=== PATIENT | female | born 1945 | race Hispanic/Latino ===

== ENCOUNTER 2016-06-27 16:14 | Inpatient (IN) | payer MEDICARE ==
[2016-06-27 16:31] LABS: Basophils % (Auto) 0.7 % (0.0-1.8); Eosinophils % (Auto) 0.2 % (0.0-4.3); Hematocrit 45.3 % (30.3-42.9); Hemoglobin 15.1 gm/dl (10.1-14.3); Mean Corpuscular HGB Conc 33 % (30-34); Mean Corpuscular Hemoglobin 28 pg (28-32); Mean Corpuscular Volume 83 fl (79-97); Platelet Count 325 K/mm3 (140-440); Red Blood Count 5.47 M/mm3 (3.65-5.03); Red Cell Distribution Width 13.7 % (13.2-15.2); White Blood Count 13.3 K/mm3 (4.5-11.0)
--- NOTE | 2016-06-27 16:41 | Cat Scan Report ---
FINAL REPORT PROCEDURE: CT HEAD/BRAIN WO CON TECHNIQUE: Computerized tomography of the head was performed without contrast material. HISTORY: neuro deficits \T\lt; 6hrs or sx present upon awakening COMPARISON: 05/30/2015 FINDINGS: There are extensive involutional changes and chronic microvascular changes, with diffuse white matter low attenuation. There are stable bilateral chronic basal ganglia lacunar infarcts. There is no CT evidence of intracranial mass, hemorrhage, acute territorial infarction, or hydrocephalus. The intracranial arteries are symmetric in density. There is also focal stable encephalomalacia in the left cerebellar hemisphere. Calvarium is intact. The visualized paranasal sinuses and mastoids are aerated. IMPRESSION: Extensive involutional changes and chronic microvascular ischemic changes. No CT evidence of acute intracranial abnormality
[2016-06-27 16:42] LABS: INR 1.06 (0.87-1.13); Partial Thromboplastin Time 30.9 Sec. (24.2-36.6)
[2016-06-27 16:50] LABS: Anion Gap 21 mmol/L; BUN/Creatinine Ratio 16.66; Blood Urea Nitrogen 15 mg/dL (7-17); Calcium 9.7 mg/dL (8.4-10.2); Carbon Dioxide 26 mmol/L (22-30); Chloride 98.9 mmol/L (98-107); Glucose 172 mg/dL (65-100); Potassium 3.7 mmol/L (3.6-5.0); Sodium 142 mmol/L (137-145)
--- NOTE | 2016-06-27 17:46 | Emergency Department Report ---
HPI - General Chief Complaint: Neuro Symptoms/Deficit Time Seen by Provider: 06/27/16 16:37 - HPI HPI: Chief complaint: Possible stroke HPI: Patient is a 71-year-old female with a history of multiple CVAs in the past. The most recent was a year ago that affected her left side. Patient states that her left arm is always contracted up against her chest. Patient states that she can walk with a walker. Patient however is a very poor historian. Patient was seen at [facility] emergency Department last night and came home this morning. EMS did not get the exact time that she came home. That was the last time the roommate saw her until he heard her hollering for help 30 minutes before EMS brought her to the emergency department here. According to EMS, they spoke with the patient's son on the phone and he told them that her contracted arm was new. I however was unable to reach him with the phone number I had as it was the wrong number. Patient does not know where she is better than that it is a hospital. Patient lives by herself in a house with her roommate who was unable to give EMS very much information. It is uncertain what the patient's baseline neurologic exam EMS. She is known to be noncompliant with her medications. Mode of arrival: [EMS] Source: [Patient] [old chart] discharge paperwork from [facility] which indicates patient is on Coumadin. Began: See above Duration: See above Context: See above Quality: Diffuse pain everywhere Severity: Unable to assess Improved with: Nothing Worsened with: Nothing Associated signs and symptoms: Unable to assess ED Past Medical Hx - Past Medical History Hx Hypertension: Yes Hx CVA: Yes (3 strokes, left side weakness, doesn't use a cane or walker) Hx Heart Attack/AMI: Yes Hx Congestive Heart Failure: Yes Hx Diabetes: Yes Hx COPD: Yes - Surgical History Hx Cholecystectomy: Yes Additional Surgical History: tubal ligation, shoulder, knee replacement - Social History Smoking Status: Former Smoker Substance Use Type: None - Medications Home Medications: Home Medications Medication Instructions Recorded Confirmed Last Taken Type Metformin HCl [metFORMIN ER] 500 mg PO TID 01/13/13 05/30/15 05/23/14 History Hydrochlorothiazide [HCTZ] 12.5 mg PO QDAY #30 capsule 06/02/15 Unknown Rx Lisinopril [Zestril TAB] 40 mg PO QDAY #30 tablet 06/02/15 Unknown Rx Enoxaparin [Lovenox] 40 mg SUB-Q DAILY 06/27/16 06/27/16 Unknown History Insulin Detemir [Levemir VIAL] 10 units SUB-Q QHS 06/27/16 06/27/16 Unknown History Simvastatin [Zocor TAB] 40 mg PO QHS 06/27/16 06/27/16 Unknown History Warfarin [Coumadin] 5 mg PO DAILY 06/27/16 06/27/16 Unknown History glipiZIDE [glipiZIDE ER] 5 mg PO BID 06/27/16 06/27/16 Unknown History ED Review of Systems ROS: Stated complaint: POSS STROKE Other details as noted in HPI Comment: Unobtainable due to pts medical conditions (patient has dementia) Physical Exam - Physical Exam Vital Signs: Vital Signs 06/27/16 06/27/16 16:27 16:30 Temperature 99.3 F Pulse Rate 84 Respiratory 14 Rate Blood Pressure 182/96 Blood Pressure 163/89 [Right] O2 Sat by Pulse 97 97 Oximetry Physical Exam: GENERAL: The patient is well-developed well-nourished . HEENT: Normocephalic. Atraumatic. Patient has a right gaze preference and does not look over to the left. Patient has moist mucous membranes. NECK: Supple. No meningitic signs are noted. There is no adenopathy noted. CHEST/LUNGS: Clear to auscultation. There is no respiratory distress noted. HEART/CARDIOVASCULAR: Regular. There is no tachycardia. There is no gallop rub or murmur. ABDOMEN: Abdomen is soft, nontender. Patient has normal bowel sounds. There is no abdominal distention. SKIN: There is no rash. There is no edema. There is no diaphoresis. NEURO: The patient is awake, alert, and oriented name and situation. The patient is cooperative. Patient's left upper extremity is contracted against her chest. Patient has strength to her right upper extremity and right lower extremity. Patient is unable to lift her left leg off the bed but can withdraw to tactile stimulation. Left up going toe. MUSCULOSKELETAL: There is no tenderness. There is no evidence of acute injury. ED Course Vital Signs 06/27/16 06/27/16 16:27 16:30 Temperature 99.3 F Pulse Rate 84 Respiratory 14 Rate Blood Pressure 182/96 Blood Pressure 163/89 [Right] O2 Sat by Pulse 97 97 Oximetry - Reevaluation(s) Reevaluation #1: 06/27/16 Spoke with [facility] neurologist Dr. Holley and we agreed that the patient is not a candidate for TPA because of the uncertain time of onset as well as the uncertain is of its patient has new deficits. Therefore a CTA of the head and neck will be performed. 06/27/16 19:03 Discussed CTA with radiologist who states that the patient has right A3 distal occlusion and it is uncertain if it is old or new. Films were sent to [facility] neuro interventionalists and they felt that this was not a lesion amenable to intervention at this time. Patient will be admitted to the hospitalist for further testing to rule out new CVA. ED Medical Decision Making - Lab Data Result diagrams: 06/27/16 16:14 06/27/16 16:14 Critical care attestation.: If time is entered above; I have spent that time in minutes in the direct care of this critically ill patient, excluding procedure time. ED Disposition Clinical Impression: Left-sided sensory deficit present Disposition: OP ADMITTED IP TO THIS HOSP Is pt being admited?: Yes Does the pt Need Aspirin: Yes Condition: Fair Referrals: PRIMARY CARE, [Primary Care Provider] - 3-5 Days Time of Disposition: 19:08 (admit to the hospitalist ) - Assessment Assessment Interval: Baseline - Level of Consciousness 1a. Level of Consciousness: alert - LOC Questions 1b. LOC Questions: answers correctly - LOC Command 1c. LOC Commands: performs tasks correctly - Best Gaze 2. Best Gaze: forced deviation - Visual 3. Visual: complete hemianopia - Facial Palsy 4. Facial Palsy: minor paralysis - Motor Arm 5b. Motor Arm Right: no drift 5a. Motor Arm Left: no movement - Motor Leg 6a. Motor Leg Left: no gravity effort 6b. Motor Leg Right: no drift - Limb Ataxia 7. Limb Ataxia: absent - Sensory 8. Sensory: severe/total sensory loss - Best Language 9. Best Language: no aphasia - Dysarthria 10. Dysarthria: mild/moderate dysarthria - Extinction and Inattention 11. Extinction/Inattention: visual/tactile inattention - Scoring Total Score: 16 Stroke Severity: Moderate to Severe Stroke
--- NOTE | 2016-06-27 18:45 | Cat Scan Report ---
FINAL REPORT EXAM: CT ANGIO HEAD HISTORY: cva TECHNIQUE: Serial axial images through the head during intravenous administration of 100 milliliters Omni 350 contrast with coronal and sagittal reconstruction PRIORS: Noncontrast head CT 06/27/2016 FINDINGS: There is no midline shift. Lateral ventricles are stable in size and configuration. Basilar cisterns are patent. No abnormal enhancing lesions are identified. Sequelae from prior lacunar-type infarcts are again noted in the basal ganglia. Areas of relative hypodensity are seen in the white matter of the cerebral hemispheres. The vertebrobasilar system is patent. Posterior cerebral arteries are patent bilaterally. Stenotic foci are seen in the P1 segments, bilaterally. The distal internal carotid arteries and middle cerebral arteries are patent bilaterally. The left anterior cerebral artery is patent. There appears to be occlusion of the right A3 segment. This can be seen series 3, image [id number], for example. Paranasal sinuses and mastoid air cells are well aerated. No acute osseous abnormality is identified. IMPRESSION: 1. There appears to be occlusion of the distal right anterior cerebral artery is described above. There are currently no studies available for direct comparison. 2. Stenotic foci are seen in the posterior cerebral arteries, bilaterally. 3. Sequelae from prior infarcts are again noted. 4. Areas of relative hypodensity are seen in the white matter of the cerebral hemispheres. This is a nonspecific finding. It may be related to chronic ischemic change from small vessel disease. 5. Report called to Dr. Martinez at time of interpretation.
[2016-06-27 18:51] LABS: Bacteria,Urine 2+ /HPF (Negative); Bilirubin,Urine NEG (Negative); Blood,Urine SM (Negative); Ketones,Urine TR mg/dL (Negative); Leukocyte Esterase,Urine NEG (Negative); Mucus,Urine FEW /HPF; Nitrite,Urine NEG (Negative); Urobilinogen,Urine < 2.0 mg/dL (<2.0)
--- NOTE | 2016-06-27 18:51 | Cat Scan Report ---
FINAL REPORT EXAM: CT ANGIO NECK HISTORY: cva TECHNIQUE: Serial axial images through the neck during intravenous administration of 100 milliliters Omni 350 contrast with coronal and sagittal reconstruction PRIORS: CT angiogram head 06/27/2016 FINDINGS: Areas of relative hypodensity are seen in the white matter of the cerebral hemispheres. Sequelae from prior infarcts are again noted in the basal ganglia. Paranasal sinuses and mastoid air cells are well aerated. Degenerative changes are seen in the cervical spine. There atelectasis in the dependent portion of lungs. There is a 5 millimeter subpleural nodule in the lateral aspect of the right upper lobe. Thyroid gland, submandibular glands and parotid glands appear within normal limits. Atherosclerotic changes are seen in the common carotid artery bifurcations, bilaterally. Ulcerated plaque is seen in the proximal right internal carotid artery. There is stenosis in the proximal right internal carotid artery. Internal luminal diameter is approximately 1.5 millimeters compared to 3.8 millimeters distal to this. There is less than 50 percent stenosis in the proximal left internal carotid artery. Vertebral arteries are patent bilaterally. IMPRESSION: 1. Please refer to dictation from CT angiogram of the head regarding CTA head findings. 2. There is approximately 60 percent stenosis of the proximal right internal carotid artery with suggestion of plaque ulceration. 3. Less than 50 percent stenosis of the proximal left internal carotid artery. 4. 5 millimeter subpleural nodule in right upper lobe. Etiology is uncertain. This could represent sequelae from prior granulomatous process, but other neoplastic process is not excluded. There are currently no studies available for direct comparison. The patient can be further assessed with dedicated CT scan of the chest to evaluate for additional nodules. UNF
[2016-06-27 18:58] LABS: Protein,Urine >500 mg/dL (Negative)
[2016-06-27] MEDS ORDERED: ASPIRIN PO ONE (19:09)
--- NOTE | 2016-06-27 20:06 | History and Physical Report ---
History of Present Illness Date of examination: 06/27/16 Chief complaint: Patient was found lying on the floor History of present illness: Patient is a 71-year-old obese female with history of multiple CVAs in the past , history of type 2 diabetes on insulin, hypertension and hyperlipidemia ( The most recent was a year ago that affected her left side). Patient states that she can walk with a walker. Patient however is a very poor historian. She is oriented to her name and age. She does not know why she is here. Patient was seen at [facility] emergency Department last night and came home this morning. Her roommate apparently heard her bobby for help 30 minutes before EMS brought her to the emergency department here. According to EMS, they spoke with the patient's son on the phone and he told them that her contracted arm was new. I however was unable to reach him with the phone number I had as it was the wrong number. Patient lives by herself in a house with her roommate who was apparently unable to give EMS very much information. It is uncertain what the patient's baseline neurologic exam is. She is known to be noncompliant with her medications. Presently she is unable to move her left lower extremity and she appears to be chronically contracted in her left upper extremity. Neck is also stiff in all directions. Reviewing the medication list from [facility] ED, she is on warfarin and it's unclear if she takes it in the reason for it. However her INR level is grossly subtherapeutic. She has a Kemp catheter. Patient when asked if she has pain denies any pain. She denies any chest pain or shortness of breath or headaches. Denies any abdominal pain nausea or vomitings. History is limited and unreliable Past History Past Medical History: diabetes, hypertension, hyperlipidemia, stroke (history of multiple strokes) Past Surgical History: Other (unknown, she has a surgical scar on her left knee) Social history: no significant social history (unknown) Family history: other (unable to obtain) Medications and Allergies Allergies Allergy/AdvReac Type Severity Reaction Status Date / Time No Known Allergies Allergy Verified 09/26/14 15:05 Home Medications Medication Instructions Recorded Confirmed Last Taken Type Metformin HCl [metFORMIN ER] 500 mg PO DAILY 01/13/13 06/27/16 05/23/14 History Hydrochlorothiazide [HCTZ] 12.5 mg PO QDAY #30 capsule 06/02/15 06/27/16 Unknown Rx Lisinopril [Zestril TAB] 40 mg PO QDAY #30 tablet 06/02/15 06/27/16 Unknown Rx Enoxaparin [Lovenox] 40 mg SUB-Q DAILY 06/27/16 06/27/16 Unknown History Insulin Detemir [Levemir VIAL] 10 units SUB-Q QHS 06/27/16 06/27/16 Unknown History Simvastatin [Zocor TAB] 40 mg PO QHS 06/27/16 06/27/16 Unknown History Warfarin [Coumadin] 5 mg PO DAILY 06/27/16 06/27/16 Unknown History glipiZIDE [glipiZIDE ER] 5 mg PO BID 06/27/16 06/27/16 Unknown History Review of Systems All systems: negative (as stated above in the history of present illness otherwise unobtainable) Exam - Constitutional Vitals: Temp Pulse Resp BP Pulse Ox 99.3 F 94 H 24 184/86 98 06/27/16 16:30 06/27/16 19:00 06/27/16 19:00 06/27/16 19:00 06/27/16 19:00 General appearance: Present: no acute distress - EENT Eyes: Present: PERRL, EOM intact ENT: hearing intact, clear oral mucosa - Neck Neck: Present: rigidity (stiff in all directions) - Respiratory Respiratory effort: normal Respiratory: bilateral: CTA, diminished, negative: rhonchi, wheezing - Cardiovascular Rhythm: regular Heart Sounds: Present: S1 & S2 - Extremities Extremities: No edema - Abdominal General gastrointestinal: Present: soft, non-tender. Absent: hepatomegaly, splenomegaly - Rectal Rectal Exam: deferred - Integumentary Integumentary: Present: clear - Musculoskeletal Musculoskeletal: left sided weakness (left upper extremity appears chronically contracted and the motor power in left lower extremity is 1 over 5. She is able to move her right upper and lower extremities) Results - Labs CBC & Chem 7: 06/27/16 16:14 06/27/16 16:14 Labs: Abnormal lab results 06/27/16 06/27/16 06/27/16 Range/Units 16:14 16:14 16:18 WBC 13.3 H (4.5-11.0) K/mm3 RBC 5.47 H (3.65-5.03) M/mm3 Hgb 15.1 H (10.1-14.3) gm/dl Hct 45.3 H (30.3-42.9) % Seg Neutrophils % 73.8 H (40.0-70.0) % Seg Neutrophils # 9.8 H (1.8-7.7) K/mm3 Glucose 172 H (65-100) mg/dL POC Glucose 164 H (70-105) Assessment and Plan - Patient Problems (1) CVA (cerebral vascular accident) Current Visit: No Status: Acute Qualifiers: CVA mechanism: other Precerebral and cerebral artery: P Laterality of affected vessel: L Qualified Code(s): I63.8 - Other cerebral infarction Plan to address problem: I reviewed head CT CTA and neck CTA Head CT shows no acute lesions and chronic microvascular ischemic changes Head CTA shows occlusion of distal right anterior cerebral artery and old infarcts Neck CTA shows 60% stenosis in right internal carotid artery and less than 50% in the left internal carotid artery Dr. Li in the emergency department contacted the neurologist at [facility] and they recommended conservative treatment and ruled out TPA administration. We will request neurology consult and physical therapy evaluation It's unclear if patient is taking warfarin. 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
[2016-06-27] MEDS ORDERED: COUMADIN PO ONE (20:21)
[2016-06-27] MEDS ORDERED: ZOFRAN IV PRN (20:22)
[2016-06-27] MEDS ORDERED: DULCOLAX PR PRN (20:22)
[2016-06-27] MEDS ORDERED: MORPHINE IV PRN (20:22)
[2016-06-27] MEDS ORDERED: D50W (25GM) IV PRN (20:22)
[2016-06-27] MEDS ORDERED: TYLENOL PO PRN (20:22)
[2016-06-27] MEDS ORDERED: MILK OF MAGNESIA PO PRN (20:22)
[2016-06-27] MEDS ORDERED: ASPIRIN ONE (21:20)
[2016-06-27] MEDS: ZOCOR PO SCH (23:11)
[2016-06-27] MEDS: COUMADIN PO SCH (23:11)
[2016-06-27] MEDS: HEPARIN SUB-Q SCH (23:15)
[2016-06-28] MEDS: D5/0.45NS 1,000 ML IV SCH (00:17)
[2016-06-28] MEDS: APRESOLINE IV PRN ×2 (05:29→08:03)
[2016-06-28] MEDS: HEPARIN SUB-Q SCH ×3 (05:30→21:57)
[2016-06-28] MEDS: ZESTRIL PO SCH (09:25)
--- NOTE | 2016-06-28 10:50 | Consultation ---
History of Present Illness Consult date: 06/28/16 History of present illness: 71 year old female presenting with left-sided weakness. Denies any cardiac symptoms. Past History Past Medical History: diabetes, hypertension, hyperlipidemia, stroke (history of multiple strokes) Past Surgical History: Other (unknown, she has a surgical scar on her left knee) Social history: no significant social history (unknown) Family history: other (unable to obtain) Medications and Allergies Allergies Allergy/AdvReac Type Severity Reaction Status Date / Time No Known Allergies Allergy Verified 09/26/14 15:05 Home Medications Medication Instructions Recorded Confirmed Last Taken Type Metformin HCl [metFORMIN ER] 500 mg PO DAILY 01/13/13 06/27/16 05/23/14 History Hydrochlorothiazide [HCTZ] 12.5 mg PO QDAY #30 capsule 06/02/15 06/27/16 Unknown Rx Lisinopril [Zestril TAB] 40 mg PO QDAY #30 tablet 06/02/15 06/27/16 Unknown Rx Enoxaparin [Lovenox] 40 mg SUB-Q DAILY 06/27/16 06/27/16 Unknown History Insulin Detemir [Levemir VIAL] 10 units SUB-Q QHS 06/27/16 06/27/16 Unknown History Simvastatin [Zocor TAB] 40 mg PO QHS 06/27/16 06/27/16 Unknown History Warfarin [Coumadin] 5 mg PO DAILY 06/27/16 06/27/16 Unknown History glipiZIDE [glipiZIDE ER] 5 mg PO BID 06/27/16 06/27/16 Unknown History Active Meds: Active Medications Acetaminophen (Tylenol) 650 mg PO Q4H PRN PRN Reason: Pain MILD(1-3)/Fever >100.5/COVARRUBIAS Bisacodyl (Dulcolax) 10 mg IA QDAY PRN PRN Reason: Constipation unrelieved by MOM Dextrose (D50w (25gm)) 50 ml IV PRN PRN PRN Reason: Hypoglycemia Heparin Sodium (Porcine) (Heparin) 5,000 unit SUB-Q Q8HR DANIEL Last Admin: 06/28/16 05:30 Dose: 5,000 unit Hydralazine HCl (Apresoline) 5 mg IV Q6H PRN PRN Reason: HTN Last Admin: 06/28/16 08:03 Dose: 5 mg Dextrose/Sodium Chloride (D5/0.45ns) 1,000 mls @ 75 mls/hr IV DIRECT [facility] Last Admin: 06/28/16 00:17 Dose: 75 mls/hr Insulin Aspart (Novolog) 0 units SUB-Q Q6HR [facility] PRN Reason: Protocol Last Admin: 06/28/16 00:00 Dose: Not Given Lisinopril (Zestril) 40 mg PO QDAY [facility] Last Admin: 06/28/16 09:25 Dose: Not Given Magnesium Hydroxide (Milk Of Magnesia) 30 ml PO Q4H PRN PRN Reason: Constipation Morphine Sulfate (Morphine) 1 mg IV Q4H PRN PRN Reason: Pain, Moderate (4-6) Ondansetron HCl (Zofran) 4 mg IV Q8H PRN PRN Reason: N/V unrelieved by Reglan Simvastatin (Zocor) 40 mg PO QHS [facility] Last Admin: 06/27/16 23:11 Dose: Not Given Warfarin Sodium (Coumadin Pharmacy To Dose) 1 each PO PKCONSULT [facility] PRN Reason: Protocol Warfarin Sodium (Coumadin) 7.5 mg PO DAILY@1700 [facility] PRN Reason: Protocol Last Admin: 06/27/16 23:11 Dose: Not Given Physical Examination Vital Signs Pulse Ox 97 06/27/16 16:27 General appearance: no acute distress, well-nourished Neck: Positive: neck supple, trachea midline Cardiac: Positive: Reg Rate and Rhythm, S1/S2, PMI, Laterally Displaced Lungs: Positive: clear to auscultation Neuro: Positive: Sensory Function Intact, Other (left hemiparesis) Extremities: Absent: edema Results 06/27/16 16:14 06/27/16 16:14 EKG interpretations - Telemetry EKG Rhythm: Sinus Rhythm Assessment and Plan 1. Acute CVA rule out cardiac embolic source 2. History of multiple CVAs 3. Essential hypertension 4. Type 2 diabetes mellitus 5. Hyperlipidemia Plan. Cardiac-overton stable up to an Echocardiogram to assess for possible cardiac embolic source. YAMIL to be considered even transthoracic Echo is suboptimal.
[2016-06-28] MEDS: NOVOLOG SUB-Q SCH ×3 (14:09→18:13)
[2016-06-28] MEDS: COUMADIN PO SCH (17:03)
--- NOTE | 2016-06-28 20:42 | Consultation ---
History of Present Illness - Reason for Consult Consult date: 06/28/16 stroke - History of Present Illness spoke to Dr. Fried about patient's condition there is evidence of multiple old stroke and severe intracranial and intracranial vascular disease... current CTA showws total occlusion if the right anterior cerebral artery this is obviously medically treatable non surgical still want to go over carotid u/s with radiliology tyson, since there is ulcerated plaque Thanks I will follow Past History Past Medical History: diabetes, hypertension, hyperlipidemia, stroke (history of multiple strokes) Past Surgical History: Other (unknown, she has a surgical scar on her left knee) Social history: no significant social history (unknown) Family history: other (unable to obtain) Medications and Allergies Allergies Allergy/AdvReac Type Severity Reaction Status Date / Time No Known Allergies Allergy Verified 09/26/14 15:05 Home Medications Medication Instructions Recorded Confirmed Last Taken Type Metformin HCl [metFORMIN ER] 500 mg PO DAILY 01/13/13 06/27/16 05/23/14 History Hydrochlorothiazide [HCTZ] 12.5 mg PO QDAY #30 capsule 06/02/15 06/27/16 Unknown Rx Lisinopril [Zestril TAB] 40 mg PO QDAY #30 tablet 06/02/15 06/27/16 Unknown Rx Enoxaparin [Lovenox] 40 mg SUB-Q DAILY 06/27/16 06/27/16 Unknown History Insulin Detemir [Levemir VIAL] 10 units SUB-Q QHS 06/27/16 06/27/16 Unknown History Simvastatin [Zocor TAB] 40 mg PO QHS 06/27/16 06/27/16 Unknown History Warfarin [Coumadin] 5 mg PO DAILY 06/27/16 06/27/16 Unknown History glipiZIDE [glipiZIDE ER] 5 mg PO BID 06/27/16 06/27/16 Unknown History Active Meds: Active Medications Acetaminophen (Tylenol) 650 mg PO Q4H PRN PRN Reason: Pain MILD(1-3)/Fever >100.5/COVARRUBIAS Bisacodyl (Dulcolax) 10 mg [place] QDAY PRN PRN Reason: Constipation unrelieved by MOM Dextrose (D50w (25gm)) 50 ml IV PRN PRN PRN Reason: Hypoglycemia Heparin Sodium (Porcine) (Heparin) 5,000 unit SUB-Q Q8HR DANIEL Last Admin: 06/28/16 14:09 Dose: 5,000 unit Hydralazine HCl (Apresoline) 5 mg IV Q6H PRN PRN Reason: HTN Last Admin: 06/28/16 08:03 Dose: 5 mg Dextrose/Sodium Chloride (D5/0.45ns) 1,000 mls @ 75 mls/hr IV DIRECT [facility] Last Admin: 06/28/16 00:17 Dose: 75 mls/hr Insulin Aspart (Novolog) 0 units SUB-Q Q6HR [facility] PRN Reason: Protocol Last Admin: 06/28/16 18:13 Dose: 2 units Lisinopril (Zestril) 40 mg PO QDAY [facility] Last Admin: 06/28/16 09:25 Dose: Not Given Magnesium Hydroxide (Milk Of Magnesia) 30 ml PO Q4H PRN PRN Reason: Constipation Morphine Sulfate (Morphine) 1 mg IV Q4H PRN PRN Reason: Pain, Moderate (4-6) Ondansetron HCl (Zofran) 4 mg IV Q8H PRN PRN Reason: N/V unrelieved by Reglan Simvastatin (Zocor) 40 mg PO QHS [facility] Last Admin: 06/27/16 23:11 Dose: Not Given Warfarin Sodium (Coumadin Pharmacy To Dose) 1 each PO PKCONSULT [facility] PRN Reason: Protocol Warfarin Sodium (Coumadin) 7.5 mg PO DAILY@1700 [facility] PRN Reason: Protocol Last Admin: 06/28/16 17:03 Dose: Not Given Exam - Constitutional Vitals: Temp Pulse Resp BP Pulse Ox 99.1 F 88 18 182/104 95 06/28/16 17:00 06/28/16 18:00 06/28/16 17:00 06/28/16 17:00 06/28/16 17:00 Results - Labs CBC & Chem 7: 06/27/16 16:14 06/27/16 16:14 Labs: Abnormal lab results 06/28/16 06/28/16 06/28/16 Range/Units 01:20 11:48 16:58 POC Glucose 196 H 179 H 157 H (70-105)
[2016-06-28] MEDS: ZOCOR PO SCH (21:57)
[2016-06-29] MEDS: D5/0.45NS 1,000 ML IV SCH ×2 (03:00→22:23)
[2016-06-29] MEDS: APRESOLINE IV PRN ×3 (05:34→22:17)
[2016-06-29] MEDS: HEPARIN SUB-Q SCH ×3 (05:34→22:17)
[2016-06-29] MEDS: NOVOLOG SUB-Q SCH ×3 (06:44→18:35)
[2016-06-29] MEDS: ZESTRIL PO SCH (09:34)
--- NOTE | 2016-06-29 10:20 | Progress Note ---
Assessment and Plan Acute CVA History of multiple CVAs Essential hypertension Type 2 diabetes mellitus Echocardiogram done 05/2015 reports a normal LV systolic function, ejection fraction 55-60%. Will repeat echo for rule out cardio embolic source. Subjective Date of service: 06/29/16 Interval history: Patient denies chest pain and shortness of breath. Objective Vital Signs Temp Pulse Pulse Pulse Resp BP Pulse Ox 06/29/16 08:28 97.5 F L 92 H 18 172/77 89 06/29/16 05:57 89 18 178/84 94 06/29/16 00:13 99.2 F 94 H 18 188/99 93 06/28/16 21:00 94 06/28/16 20:46 98.5 F 102 H 18 203/99 93 06/28/16 18:00 88 06/28/16 17:00 99.1 F 105 H 18 182/104 95 - Physical Examination General: No Apparent Distress HEENT: Positive: PERRL Neck: Positive: trachea midline Cardiac: Positive: Reg Rate and Rhythm Lungs: Positive: Decreased Breath Sounds Neuro: Positive: Sensory Function Intact, Other (left hemiparesis) Extremities: Absent: edema
--- NOTE | 2016-06-29 12:06 | Admit Criteria Form ---
Admission Criteria Documentation: STROKE: ISCHEMIC Clinical Indications for Admission to Inpatient Care (Place 'X' for any and all applicable criteria): Admission is indicated for ANY ONE of the following(1)(2)(3)(4): [X ]I. Acute stroke Extended stay beyond goal length of stay may be needed for(1)(2) [ ]a) Major deficit or clinical deterioration [ ]b) Hospital-acquired infection (eg, urinary tract infection, pneumonia) [ ]c) Embolic cause of stroke [ ]d) Venous thromboembolism(9) [ ]e) Seizures [ ]f) Bleeding (eg, cerebral) [ ]g) Increased intracranial pressure [ ]h) Comorbidities [ ]i) Surgical intervention The original [employer] content created by [employer] has been revised. The portions of the content which have been revised are identified through the use of italic text or in bold, and [facility] has neither reviewed nor approved the modified material. All other unmodified content is copyright [facility]. Please see references footnoted in the original [facility] edition 2016 Admission Criteria Met: Yes
--- NOTE | 2016-06-29 13:35 | Progress Note ---
Assessment and Plan Assessment and plan: Acute CVA - Left-sided hemiparalysis with trice-neglect - Neurology consult appreciated - Patient is nothing by mouth - Speech and swallow evaluation. - Physical therapy evaluation - Permissive hypertension - We'll start aspirin, Plavix, and statin after swallow evaluation - Cardiology consult appreciated, will do echo to rule out cardioembolic source of CVA DM type II - On a sliding scale insulin Uncontrolled hypertension - On when necessary hydralazine - Permissive hypertension HLD DVT prophylaxis - Heparin Disposition - Continue inpatient care History Interval history: Patient was seen and evaluated this morning, she is confused, left-sided hemiparalysis, with left trice-neglect, slurred speech. Hospitalist Physical - Physical exam Narrative exam: Not in cardiopulmonary distress. Vital signs as documented. Head exam is unremarkable. No scleral icterus . Neck is without jugular venous distension, thyromegaly, or carotid bruits. Lungs are clear to auscultation. Cardiac exam reveals regular rate and Rhythm. First and second heart sounds normal. No murmurs, rubs or gallops. Abdominal exam reveals normal bowel sounds, no masses, no organomegaly and no aortic enlargement. Extremities are nonedematous and both femoral and pedal pulses are normal. 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 left sided hemiparesis, fascial palsy , slurred speech, left hemineglect. - Constitutional Vitals: Temp Pulse Resp BP Pulse Ox 97.7 F 109 H 18 205/88 93 06/29/16 12:06 06/29/16 12:06 06/29/16 12:06 06/29/16 12:06 06/29/16 12:06 General appearance: Present: no acute distress, well-nourished Results - Labs CBC & Chem 7: 06/27/16 16:14 06/27/16 16:14 Labs: Laboratory Last Values WBC 13.3 K/mm3 (4.5-11.0) H 06/27/16 16:14 RBC 5.47 M/mm3 (3.65-5.03) H 06/27/16 16:14 Hgb 15.1 gm/dl (10.1-14.3) H 06/27/16 16:14 Hct 45.3 % (30.3-42.9) H 06/27/16 16:14 MCV 83 fl (79-97) 06/27/16 16:14 MCH 28 pg (28-32) 06/27/16 16:14 MCHC 33 % (30-34) 06/27/16 16:14 RDW 13.7 % (13.2-15.2) 06/27/16 16:14 Plt Count 325 K/mm3 (140-440) 06/27/16 16:14 Lymph % (Auto) 20.7 % (13.4-35.0) 06/27/16 16:14 [place] % (Auto) 4.6 % (0.0-7.3) 06/27/16 16:14 Eos % (Auto) 0.2 % (0.0-4.3) 06/27/16 16:14 Baso % (Auto) 0.7 % (0.0-1.8) 06/27/16 16:14 Lymph # 2.8 K/mm3 (1.2-5.4) 06/27/16 16:14 [place] # 0.6 K/mm3 (0.0-0.8) 06/27/16 16:14 Eos # 0.0 K/mm3 (0.0-0.4) 06/27/16 16:14 Baso # 0.1 K/mm3 (0.0-0.1) 06/27/16 16:14 Seg Neutrophils % 73.8 % (40.0-70.0) H 06/27/16 16:14 Seg Neutrophils # 9.8 K/mm3 (1.8-7.7) H 06/27/16 16:14 PT 13.7 Sec. (12.2-14.9) 06/27/16 16:14 INR 1.06 (0.87-1.13) 06/27/16 16:14 APTT 30.9 Sec. (24.2-36.6) 06/27/16 16:14 Thrombin Time 17.6 Sec. (15.1-19.6) 06/27/16 16:14 Sodium 142 mmol/L (137-145) 06/27/16 16:14 Potassium 3.7 mmol/L (3.6-5.0) 06/27/16 16:14 Chloride 98.9 mmol/L (98-107) 06/27/16 16:14 Carbon Dioxide 26 mmol/L (22-30) 06/27/16 16:14 Anion Gap 21 mmol/L 06/27/16 16:14 BUN 15 mg/dL (7-17) 06/27/16 16:14 Creatinine 0.9 mg/dL (0.7-1.2) 06/27/16 16:14 Estimated GFR > 60 ml/min 06/27/16 16:14 BUN/Creatinine Ratio 16.66 % 06/27/16 16:14 Glucose 172 mg/dL (65-100) H 06/27/16 16:14 POC Glucose 197 (70-105) H 06/29/16 06:30 Calcium 9.7 mg/dL (8.4-10.2) 06/27/16 16:14 Troponin T < 0.010 ng/mL (0.00-0.029) 06/27/16 16:14 Urine Color Yellow (Yellow) 06/27/16 17:45 Urine Turbidity Slightly-cloudy (Clear) 06/27/16 17:45 Urine pH 6.0 (5.0-7.0) 06/27/16 17:45 Ur Specific [place] 1.013 (1.003-1.030) 06/27/16 17:45 Urine Protein >500 mg/dL (Negative) 06/27/16 17:45 Urine Glucose (UA) 150 mg/dL (Negative) 06/27/16 17:45 Urine Ketones Tr mg/dL (Negative) 06/27/16 17:45 Urine Blood Sm (Negative) 06/27/16 17:45 Urine Nitrite Neg (Negative) 06/27/16 17:45 Urine Bilirubin Neg (Negative) 06/27/16 17:45 Urine Urobilinogen < 2.0 mg/dL (<2.0) 06/27/16 17:45 Ur Leukocyte Esterase Neg (Negative) 06/27/16 17:45 Urine WBC (Auto) 3.0 /HPF (0.0-6.0) 06/27/16 17:45 Urine RBC (Auto) 3.0 /HPF (0.0-6.0) 06/27/16 17:45 U Epithel Cells (Auto) 2.0 /HPF (0-13.0) 06/27/16 17:45 Urine Bacteria (Auto) 2+ /HPF (Negative) 06/27/16 17:45 Urine Mucus Few /HPF 06/27/16 17:45
[2016-06-29] MEDS: COUMADIN PO SCH (17:49)
[2016-06-29] MEDS: ZOCOR PO SCH (22:18)
[2016-06-30] MEDS: NOVOLOG SUB-Q SCH ×5 (00:50→18:39)
[2016-06-30 06:20] LABS: Basophils % (Auto) 0.7 % (0.0-1.8); Eosinophils % (Auto) 0.1 % (0.0-4.3); Hematocrit 41.7 % (30.3-42.9); Mean Corpuscular HGB Conc 34 % (30-34); Mean Corpuscular Hemoglobin 28 pg (28-32); Mean Corpuscular Volume 83 fl (79-97); Platelet Count 292 K/mm3 (140-440); Red Cell Distribution Width 13.9 % (13.2-15.2); White Blood Count 16.1 K/mm3 (4.5-11.0)
[2016-06-30] MEDS: HEPARIN SUB-Q SCH ×3 (06:24→21:45)
[2016-06-30] MEDS: APRESOLINE IV PRN ×4 (06:27→21:44)
[2016-06-30 06:30] LABS: BUN/Creatinine Ratio 30.9; Calcium 9.3 mg/dL (8.4-10.2); Chloride 103.4 mmol/L (98-107); Potassium 3.2 mmol/L (3.6-5.0)
[2016-06-30] MEDS: ZESTRIL PO SCH (10:01)
--- NOTE | 2016-06-30 10:45 | Progress Note ---
Assessment and Plan Acute CVA Leukocytosis History of multiple CVAs Essential hypertension Type 2 diabetes mellitus Echocardiogram done 05/2015 reports a normal LV systolic function, ejection fraction 55-60%. Will repeat echo for rule out cardio embolic source. Subjective Date of service: 06/30/16 Interval history: Patient resting in bed comfortably. Objective Vital Signs Temp Pulse Pulse Pulse Resp BP BP 06/30/16 10:05 185/85 06/30/16 10:01 185/85 06/30/16 08:00 98.0 F 94 H 20 185/85 06/30/16 04:00 98.3 F 100 H 18 171/83 06/30/16 00:00 98.2 F 97 H 18 142/70 06/29/16 20:58 99 H 06/29/16 20:00 98.1 F 105 H 18 176/84 06/29/16 17:55 98.0 F 107 H 18 168/82 06/29/16 12:06 97.7 F 109 H 18 205/88 06/29/16 12:00 102 H 06/29/16 11:14 205/88 Pulse Ox 06/30/16 10:05 06/30/16 10:01 06/30/16 08:00 91 06/30/16 04:00 98 06/30/16 00:00 98 06/29/16 20:58 06/29/16 20:00 98 06/29/16 17:55 91 06/29/16 12:06 93 06/29/16 12:00 06/29/16 11:14 - Physical Examination General: No Apparent Distress Cardiac: Positive: Reg Rate and Rhythm Neuro: Positive: Other (left hemiparesis) - Labs and Meds CBC 06/30/16 Range/Units 05:11 WBC 16.1 H (4.5-11.0) K/mm3 RBC 5.00 (3.65-5.03) M/mm3 Hgb 14.0 (10.1-14.3) gm/dl Hct 41.7 (30.3-42.9) % Plt Count 292 (140-440) K/mm3 Lymph # 2.3 (1.2-5.4) K/mm3 [place] # 1.6 H (0.0-0.8) K/mm3 Eos # 0.0 (0.0-0.4) K/mm3 Baso # 0.1 (0.0-0.1) K/mm3 Comprehensive Metabolic Panel 06/30/16 Range/Units 05:11 Sodium 141 (137-145) mmol/L Potassium 3.2 L (3.6-5.0) mmol/L Chloride 103.4 (98-107) mmol/L Carbon Dioxide 21 L (22-30) mmol/L BUN 34 H (7-17) mg/dL Creatinine 1.1 (0.7-1.2) mg/dL Glucose 191 H (65-100) mg/dL Calcium 9.3 (8.4-10.2) mg/dL
--- NOTE | 2016-06-30 11:14 | Discharge Summary ---
Providers - Providers Date of Admission: 06/27/16 20:22 Attending physician: HEATHER CULP Primary care physician: NEHA FARRELL MD Hospitalization Condition: Fair Disposition: STILL A PATIENT Exam - Constitutional Vitals: Temp Pulse Resp BP Pulse Ox 98.0 F 94 H 20 185/85 91 06/30/16 08:00 06/30/16 08:00 06/30/16 08:00 06/30/16 10:05 06/30/16 08:00 Plan Follow up with: PRIMARY MD JAMI [Primary Care Provider] - 3-5 Days Forms: Warfarin Discharge Instruction Prescriptions: hydrALAZINE [Apresoline TAB] 25 mg PO Q8HR #90 tablet Simvastatin [Zocor TAB] 40 mg PO QHS #30 tablet
[2016-06-30] MEDS: APRESOLINE PO SCH ×3 (13:36→21:46)
[2016-06-30] MEDS: ZOCOR PO SCH ×2 (21:45→21:46)
--- NOTE | 2016-07-01 00:34 | Progress Note ---
Assessment and Plan - Patient Problems (1) CVA (cerebral vascular accident) Current Visit: No Status: Acute Qualifiers: CVA mechanism: other Precerebral and cerebral artery: P Laterality of affected vessel: L Qualified Code(s): I63.8 - Other cerebral infarction Plan to address problem: Stroke Protocol: antiplatelet therapy, PT/OT, Speeech therapy, supportive care. (2) Hyperlipidemia Current Visit: Yes Status: Acute Qualifiers: Hyperlipidemia type: H Plan to address problem: statin therapy, low cholesterol diet, (3) Type 2 diabetes mellitus Current Visit: Yes Status: Acute Qualifiers: Diabetes mellitus complication status: D Diabetes mellitus complication detail: D Diabetic retinopathy severity: D Proliferative retinopathy type: P Diabetes mellitus macular edema: D Diabetes mellitus prison insulin use : D Laterality: L Chronic kidney disease stage: C Plan to address problem: ADA diet, insulin, accu check (4) Left-sided sensory deficit present Current Visit: Yes Status: Chronic Plan to address problem: secondary to CVA: antiplatet therapy, PT/OT, (5) Accelerated hypertension Current Visit: No Status: Acute Plan to address problem: secondary to CVA, continue current care. , hydralazine PO scheduled, and prn. monitor bp q shift, (6) DVT prophylaxis Current Visit: Yes Status: Acute History Interval history: Pt lying in bed, No reported nursing events. D/C planning today. Discussed care plan with nursing staff and Case management Hospitalist Physical - Constitutional Vitals: Temp Pulse Resp BP Pulse Ox 98.1 F 87 18 202/97 92 06/30/16 20:26 06/30/16 20:26 06/30/16 20:26 06/30/16 20:26 06/30/16 20:26 General appearance: Present: no acute distress, well-nourished - EENT Eyes: Present: PERRL, EOM intact ENT: hearing intact - Neck Neck: Present: supple - Respiratory Respiratory effort: normal Respiratory: bilateral: CTA - Cardiovascular Rhythm: regular Heart Sounds: Present: S1 & S2 - Extremities Extremities: no ischemia Peripheral Pulses: within normal limits - Abdominal General gastrointestinal: soft, non-tender, non-distended - Integumentary Integumentary: Present: clear, dry - Psychiatric Psychiatric: cooperative - Neurologic Neurologic: no CNII-XII intact, focal deficits, no moves all extremities, no gait normal Results - Labs CBC & Chem 7: 06/30/16 05:11 06/30/16 05:11 Labs: Laboratory Last Values WBC 16.1 K/mm3 (4.5-11.0) H 06/30/16 05:11 RBC 5.00 M/mm3 (3.65-5.03) 06/30/16 05:11 Hgb 14.0 gm/dl (10.1-14.3) 06/30/16 05:11 Hct 41.7 % (30.3-42.9) 06/30/16 05:11 MCV 83 fl (79-97) 06/30/16 05:11 MCH 28 pg (28-32) 06/30/16 05:11 MCHC 34 % (30-34) 06/30/16 05:11 RDW 13.9 % (13.2-15.2) 06/30/16 05:11 Plt Count 292 K/mm3 (140-440) 06/30/16 05:11 Lymph % (Auto) 14.4 % (13.4-35.0) 06/30/16 05:11 [place] % (Auto) 10.1 % (0.0-7.3) H 06/30/16 05:11 Eos % (Auto) 0.1 % (0.0-4.3) 06/30/16 05:11 Baso % (Auto) 0.7 % (0.0-1.8) 06/30/16 05:11 Lymph # 2.3 K/mm3 (1.2-5.4) 06/30/16 05:11 [place] # 1.6 K/mm3 (0.0-0.8) H 06/30/16 05:11 Eos # 0.0 K/mm3 (0.0-0.4) 06/30/16 05:11 Baso # 0.1 K/mm3 (0.0-0.1) 06/30/16 05:11 Seg Neutrophils % 74.7 % (40.0-70.0) H 06/30/16 05:11 Seg Neutrophils # 12.0 K/mm3 (1.8-7.7) H 06/30/16 05:11 PT 13.7 Sec. (12.2-14.9) 03/11/17 16:14 INR 1.06 (0.87-1.13) 06/27/16 16:14 APTT 30.9 Sec. (24.2-36.6) 06/27/16 16:14 Thrombin Time 17.6 Sec. (15.1-19.6) 06/27/16 16:14 Sodium 141 mmol/L (137-145) 06/30/16 05:11 Potassium 3.2 mmol/L (3.6-5.0) L 06/30/16 05:11 Chloride 103.4 mmol/L (98-107) 06/30/16 05:11 Carbon Dioxide 21 mmol/L (22-30) L 06/30/16 05:11 Anion Gap 20 mmol/L 06/30/16 05:11 BUN 34 mg/dL (7-17) H 06/30/16 05:11 Creatinine 1.1 mg/dL (0.7-1.2) 06/30/16 05:11 Estimated GFR 49 ml/min 06/30/16 05:11 BUN/Creatinine Ratio 30.90 % 06/30/16 05:11 Glucose 191 mg/dL (65-100) H 06/30/16 05:11 POC Glucose 163 (70-105) H 06/30/16 17:53 Calcium 9.3 mg/dL (8.4-10.2) 06/30/16 05:11 Troponin T < 0.010 ng/mL (0.00-0.029) 06/27/16 16:14 Urine Color Yellow (Yellow) 06/27/16 17:45 Urine Turbidity Slightly-cloudy (Clear) 06/27/16 17:45 Urine pH 6.0 (5.0-7.0) 06/27/16 17:45 Ur Specific [place] 1.013 (1.003-1.030) 06/27/16 17:45 Urine Protein >500 mg/dL (Negative) 06/27/16 17:45 Urine Glucose (UA) 150 mg/dL (Negative) 06/27/16 17:45 Urine Ketones Tr mg/dL (Negative) 06/27/16 17:45 Urine Blood Sm (Negative) 06/27/16 17:45 Urine Nitrite Neg (Negative) 06/27/16 17:45 Urine Bilirubin Neg (Negative) 06/27/16 17:45 Urine Urobilinogen < 2.0 mg/dL (<2.0) 06/27/16 17:45 Ur Leukocyte Esterase Neg (Negative) 06/27/16 17:45 Urine WBC (Auto) 3.0 /HPF (0.0-6.0) 06/27/16 17:45 Urine RBC (Auto) 3.0 /HPF (0.0-6.0) 06/27/16 17:45 U Epithel Cells (Auto) 2.0 /HPF (0-13.0) 06/27/16 17:45 Urine Bacteria (Auto) 2+ /HPF (Negative) 06/27/16 17:45 Urine Mucus Few /HPF 06/27/16 17:45
[2016-07-01] MEDS: NOVOLOG SUB-Q SCH (01:18)
[2016-07-01] MEDS: APRESOLINE IV PRN ×2 (04:44→10:34)
[2016-07-01] MEDS: HEPARIN SUB-Q SCH ×2 (05:16→14:58)
[2016-07-01] MEDS: APRESOLINE PO SCH ×2 (05:16→14:57)
--- NOTE | 2016-07-01 10:27 | Progress Note ---
Assessment and Plan Assessment and plan: Acute CVA - Left-sided hemiparalysis with trice-neglect - Neurology consult appreciated - Patient is nothing by mouth - Speech and swallow evaluation. - Physical therapy evaluation - Permissive hypertension - We'll start aspirin, Plavix, and statin after swallow evaluation - Cardiology consult appreciated, will do echo to rule out cardioembolic source of CVA DM type II - On a sliding scale insulin Uncontrolled hypertension - On when necessary hydralazine - Permissive hypertension HLD DVT prophylaxis - Heparin Disposition - Continue inpatient care History Interval history: Patient was seen and evaluated this morning, she is confused, left-sided hemiparalysis, with left trice-neglect, slurred speech. Hospitalist Physical - Physical exam Narrative exam: Not in cardiopulmonary distress. Vital signs as documented. Head exam is unremarkable. No scleral icterus . Neck is without jugular venous distension, thyromegaly, or carotid bruits. Lungs are clear to auscultation. Cardiac exam reveals regular rate and Rhythm. First and second heart sounds normal. No murmurs, rubs or gallops. Abdominal exam reveals normal bowel sounds, no masses, no organomegaly and no aortic enlargement. Extremities are nonedematous and both femoral and pedal pulses are normal. 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 left sided hemiparesis, fascial palsy , slurred speech, left hemineglect. - Constitutional Vitals: Temp Pulse Resp BP Pulse Ox 98.5 F 92 H 20 204/88 91 07/01/16 08:10 07/01/16 08:10 07/01/16 08:10 07/01/16 08:10 07/01/16 08:10 General appearance: Present: no acute distress, well-nourished Results - Labs CBC & Chem 7: 06/30/16 05:11 06/30/16 05:11 Labs: Laboratory Last Values WBC 16.1 K/mm3 (4.5-11.0) H 06/30/16 05:11 RBC 5.00 M/mm3 (3.65-5.03) 06/30/16 05:11 Hgb 14.0 gm/dl (10.1-14.3) 06/30/16 05:11 Hct 41.7 % (30.3-42.9) 06/30/16 05:11 MCV 83 fl (79-97) 06/30/16 05:11 MCH 28 pg (28-32) 06/30/16 05:11 MCHC 34 % (30-34) 06/30/16 05:11 RDW 13.9 % (13.2-15.2) 06/30/16 05:11 Plt Count 292 K/mm3 (140-440) 06/30/16 05:11 Lymph % (Auto) 14.4 % (13.4-35.0) 06/30/16 05:11 [place] % (Auto) 10.1 % (0.0-7.3) H 06/30/16 05:11 Eos % (Auto) 0.1 % (0.0-4.3) 06/30/16 05:11 Baso % (Auto) 0.7 % (0.0-1.8) 06/30/16 05:11 Lymph # 2.3 K/mm3 (1.2-5.4) 06/30/16 05:11 [place] # 1.6 K/mm3 (0.0-0.8) H 06/30/16 05:11 Eos # 0.0 K/mm3 (0.0-0.4) 06/30/16 05:11 Baso # 0.1 K/mm3 (0.0-0.1) 06/30/16 05:11 Seg Neutrophils % 74.7 % (40.0-70.0) H 06/30/16 05:11 Seg Neutrophils # 12.0 K/mm3 (1.8-7.7) H 06/30/16 05:11 PT 13.7 Sec. (12.2-14.9) 06/27/16 16:14 INR 1.06 (0.87-1.13) 06/27/16 16:14 APTT 30.9 Sec. (24.2-36.6) 06/27/16 16:14 Thrombin Time 17.6 Sec. (15.1-19.6) 06/27/16 16:14 Sodium 141 mmol/L (137-145) 06/30/16 05:11 Potassium 3.2 mmol/L (3.6-5.0) L 06/30/16 05:11 Chloride 103.4 mmol/L (98-107) 06/30/16 05:11 Carbon Dioxide 21 mmol/L (22-30) L 06/30/16 05:11 Anion Gap 20 mmol/L 06/30/16 05:11 BUN 34 mg/dL (7-17) H 06/30/16 05:11 Creatinine 1.1 mg/dL (0.7-1.2) 06/30/16 05:11 Estimated GFR 49 ml/min 06/30/16 05:11 BUN/Creatinine Ratio 30.90 % 06/30/16 05:11 Glucose 191 mg/dL (65-100) H 06/30/16 05:11 POC Glucose 191 (70-105) H 07/01/16 06:51 Calcium 9.3 mg/dL (8.4-10.2) 06/30/16 05:11 Troponin T < 0.010 ng/mL (0.00-0.029) 06/27/16 16:14 Urine Color Yellow (Yellow) 06/27/16 17:45 Urine Turbidity Slightly-cloudy (Clear) 06/27/16 17:45 Urine pH 6.0 (5.0-7.0) 06/27/16 17:45 Ur Specific [place] 1.013 (1.003-1.030) 06/27/16 17:45 Urine Protein >500 mg/dL (Negative) 06/27/16 17:45 Urine Glucose (UA) 150 mg/dL (Negative) 06/27/16 17:45 Urine Ketones Tr mg/dL (Negative) 06/27/16 17:45 Urine Blood Sm (Negative) 06/27/16 17:45 Urine Nitrite Neg (Negative) 06/27/16 17:45 Urine Bilirubin Neg (Negative) 06/27/16 17:45 Urine Urobilinogen < 2.0 mg/dL (<2.0) 06/27/16 17:45 Ur Leukocyte Esterase Neg (Negative) 06/27/16 17:45 Urine WBC (Auto) 3.0 /HPF (0.0-6.0) 06/27/16 17:45 Urine RBC (Auto) 3.0 /HPF (0.0-6.0) 06/27/16 17:45 U Epithel Cells (Auto) 2.0 /HPF (0-13.0) 06/27/16 17:45 Urine Bacteria (Auto) 2+ /HPF (Negative) 06/27/16 17:45 Urine Mucus Few /HPF 06/27/16 17:45
[2016-07-01] MEDS: ZESTRIL PO SCH (10:35)
--- NOTE | 2016-07-01 11:14 | Progress Note ---
Assessment and Plan Acute thrombotic CVA Leukocytosis History of multiple CVAs Essential hypertension Type 2 diabetes mellitus Echocardiogram done this admission reports a normal LV systolic function, ejection fraction 55-60%. Recommendations: Antiplatelet therapy per neurology recommendations No further cardiac work-up is needed Subjective Date of service: 07/01/16 Principal diagnosis: Acute CVA Interval history: No interval changes cardiac overton Objective Vital Signs Temp Pulse Pulse Resp BP BP Pulse Ox 07/01/16 10:35 204/88 07/01/16 10:34 204/88 07/01/16 08:10 98.5 F 92 H 20 204/88 91 07/01/16 05:50 98.6 F 92 H 20 147/72 93 07/01/16 05:01 150/90 07/01/16 01:07 98.1 F 86 20 194/83 91 06/30/16 22:45 170/86 06/30/16 20:26 98.1 F 87 18 202/97 92 06/30/16 17:55 99.2 F 94 H 20 208/95 92 06/30/16 12:00 85 06/30/16 11:50 97.7 F 90 20 147/74 92 - Physical Examination General: No Apparent Distress HEENT: Positive: PERRL Neck: Positive: trachea midline Cardiac: Positive: Reg Rate and Rhythm Lungs: Positive: Decreased Breath Sounds Neuro: Positive: Other (left hemiparesis) Abdomen: Positive: Soft Extremities: Absent: edema
--- NOTE | 2016-07-01 15:21 | Discharge Summary ---
Providers - Providers Date of Admission: 06/27/16 20:22 Attending physician: HEATHER CULP Primary care physician: CUSTOMER SERVICES MANAGER Hospitalization Condition: Fair Hospital course: 71 YO Female admitted for CVA and Accelerated HTN, DM. Pt treated IAW stroke protocol. Cardiology and Neurology teams were consulted. Pt was outside the therapeutic window for TPA. Echo conducted but EF was found to be normal at 60% . Pt treated with anti platelet therapy and stroke protocol. Pt underwent CT Head and MRI which were indicative of stroke. Pt convalesced well during hospital course with mild improvement in symptoms. PT/OT and Speech therapy consulted. Pt medically optimized. Case management consulted for D/C planning. Pt seen and evaluated prior to discharge but no significant new physical exam findings since admission. Pt discharged to SNF under care of medical technologist blood bank. 35 minutes dedicated to patient discharge and education. 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 insulin 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 : D Laterality: L Chronic kidney disease stage: C (4) Left-sided sensory deficit present Status: Chronic (5) Accelerated hypertension Status: Acute (6) DVT prophylaxis Status: Acute Core Measure Documentation - Palliative Care Palliative Care/ Comfort Measures: Not Applicable - Core Measures Any of the following diagnoses?: stroke - Stroke Discharge Requirements Statin for LDL = or >70 mg/dl on DC: Yes Anticoag for atrial fib/atrial flutter: Not Applicable Antithrombotic for ischemic stroke: Yes Exam - Constitutional Vitals: Temp Pulse Resp BP Pulse Ox 98.5 F 90 20 204/88 91 07/01/16 08:10 07/01/16 14:00 07/01/16 08:10 07/01/16 10:35 07/01/16 08:10 General appearance: Present: no acute distress, well-nourished - EENT Eyes: Present: PERRL ENT: hearing intact, clear oral mucosa - Neck Neck: Present: supple, normal ROM - Respiratory Respiratory effort: normal Respiratory: bilateral: CTA - Cardiovascular Heart Sounds: Present: S1 & S2. Absent: rub, click - Extremities Extremities: pulses symmetrical, No edema Peripheral Pulses: within normal limits - Abdominal General gastrointestinal: Present: soft, non-tender, non-distended, normal bowel sounds Female genitourinary: Present: normal - Integumentary Integumentary: Present: clear, warm, dry - Musculoskeletal Musculoskeletal: generalized weakness - Psychiatric Psychiatric: appropriate mood/affect, intact judgment & insight - Neurologic Neurologic: no gait normal Plan Activity: advance as tolerated Follow up with: [facility] [Provider Group] - 7 Days PRIMARY CARE, [Primary Care Provider] - 3-5 Days Forms: Warfarin Discharge Instruction Prescriptions: Aspirin [Aspirin TAB] 325 mg PO QDAY #30 tablet Clopidogrel [Plavix] 75 mg PO QDAY #30 tablet hydrALAZINE [Apresoline TAB] 25 mg PO Q8HR #90 tablet Simvastatin [Zocor TAB] 40 mg PO QHS #30 tablet
[2016-07-01] MEDS ORDERED: FLUSH HEPARIN IV ONE (17:22)
[2016-07-01 18:56] VITALS: BP 169/7
== END 2016-07-01 18:57 | DRG 65 ==
LOC: ED 16:14 → 4A 20:22
PROVIDERS: ADMIT Internal Medicine Cardiovascular Disease; ATTEND Internal Medicine
DX: I63.8 Other cerebral infarction (principal); G81.94 Hemiplegia, unspecified affecting left nondominant side; I10 Essential (primary) hypertension; E78.5 Hyperlipidemia, unspecified; E11.8 Type 2 diabetes mellitus with unspecified complications; J44.9 Chronic obstructive pulmonary disease, unspecified; Z96.659 Presence of unspecified artificial knee joint; D72.829 Elevated white blood cell count, unspecified; Z98.51 Tubal ligation status; Z87.891 Personal history of nicotine dependence; Z79.4 Long term (current) use of insulin
CPT/HCPCS: 36415; 51702; 70450; 70496; 70498; 80048; 81001; 82962; 84484; 85025; 85610; 85670; 85730; 93306; J0360; J1642; J1644; J1815; J2270; J2405; Q9967

== ENCOUNTER 2016-07-24 18:40 | Inpatient (IN) | payer MEDICARE ==
[2016-07-24 21:19] LABS: Basophils % (Auto) 0.4 % (0.0-1.8); Hematocrit 28.7 % (30.3-42.9); Hemoglobin 9.5 gm/dl (10.1-14.3); Mean Corpuscular HGB Conc 33 % (30-34); Mean Corpuscular Hemoglobin 28 pg (28-32); Mean Corpuscular Volume 85 fl (79-97); Platelet Count 332 K/mm3 (140-440); Red Blood Count 3.35 M/mm3 (3.65-5.03); Red Cell Distribution Width 14.2 % (13.2-15.2)
[2016-07-24 21:32] LABS: Albumin 2.9 g/dL (3.9-5); Albumin/Globulin Ratio 0.8 %; BUN/Creatinine Ratio 33.33; Bilirubin,Total 0.4 mg/dL (0.1-1.2); Calcium 8.9 mg/dL (8.4-10.2); Chloride 98.7 mmol/L (98-107); Magnesium 2.2 mg/dL (1.7-2.3); Potassium 3.8 mmol/L (3.6-5.0); Total Protein 6.6 g/dL (6.3-8.2)
[2016-07-24] MEDS ORDERED: NACL 0.9% 1000 ML 1,000 ML IV ONE (22:55)
--- NOTE | 2016-07-24 22:59 | Cat Scan Report ---
FINAL REPORT PROCEDURE: CT HEAD/BRAIN WO CON TECHNIQUE: Computerized tomography of the head was performed without contrast material. HISTORY: ams COMPARISON: 05/30/2015 and 06/27/2016 FINDINGS: Skull and scalp: Normal. Paranasal sinuses: Trace fluid right mastoid. Ventricles and subarachnoid spaces: Normal. Cerebrum: No evidence of acute hemorrhage. There is an area of medium attenuation involving the left anterior medial left frontal lobe measuring 2.5 x 4.5 centimeters suggesting late subacute ischemic change in the left BERNADINE, anterior cerebral artery, axial 23. Hazy area of low to medium attenuation in the right centrum semiovale and deep white matter of the right temporal and parietal lobes appearing new and/or increased from prior study suspicious for early subacute ischemic change in the distribution of the right MCA axial 38 to 41. Areas of sulcal effacement and hazy boudreaux white margins such as image 39. Cerebellum and brainstem: No evidence of hemorrhage, acute infarction or mass. Vasculature: Intracranial atherosclerosis. No hyperdense MCA or BERNADINE is seen at this time. Comments: Moderate diffuse atrophy with moderate to severe low attenuated microischemic change. Encephalomalacia changes seen in the distribution of the right anterior cerebral artery BERNADINE distribution. Moderate to severe chronic microischemic change suspected in the centrum semiovale. Prominent lacunar infarcts in the basal ganglia thalami bilaterally predominately of low-attenuation indicating chronicity. There is a medium attenuated lacunar infarct right temporal insula measuring 5 x 3 millimeters appearing similar but somewhat more conspicuous than prior study. Given the degree of chronic change and parenchymal attenuation distortion underlying hyper acute or masked micro lacunar infarcts are not entirely excludable. Minimal parafalcine calcifications. Miniscule fat droplets anterior parafalcine regions and deep white matter right temporal lobe IMPRESSION: Findings suspicious for late subacute ischemia involving the left anterior medial frontal lobe in the distribution of the left anterior cerebral artery, BERNADINE Findings suspicious for early subacute ischemic change right temporal parietal brain in the distribution of the right middle cerebral artery, MCA No acute intracranial bleed. Extensive chronic ischemic change including large area of chronic encephalomalacia in the right BERNADINE Extensive chronic lacunar infarcts with scattered underlying superimposed hyperacute or inconspicuous lacunar infarcts not entirely excludable by CT scan. No hyperdense vessel sign seen Details above Suggest followup MRI and MRA to further corroborate.
--- NOTE | 2016-07-24 23:11 | Emergency Department Report ---
ED Altered Mental Status HPI - General Chief Complaint: Altered Mental Status Stated Complaint: AMS Time Seen by Provider: 07/24/16 20:16 Source: EMS Mode of arrival: Stretcher Limitations: Altered Mental Status - History of Present Illness Initial Comments: 71-year-old female with a past medical history of multiple strokes residual left -sided weakness, COPD, CHF, diabetes, CAD/[place], and hypertension presents to the hospital for altered mental status by nephew as per triage. Patient also comments with paperwork from [facility] with recent discharge on July 22. Patient is only oriented to self and is unable to provide any useful history of present illness with unknown baseline. Per recent discharge summary patient was evaluated for: 1. lower GI bleed due to rectal stercoral ulcer and status post EGD and colonoscopy. Findings include a gastritis and small hiatal hernia. Plan was to continue Protonix. They discontinued aspirin for recurrent bleed. Patient was noted to have continued episodes of bleeding throughout the afternoon and the plan was to continue to trend H&H at the group home. Hg on 07/22 was 9.5 2. acute CVA. Patient received neurology evaluation. MRI showed focal stenosis of the P1 and P2 segments bilateral. CTA neck shows 70% stenosis of the origin of the right ICA. 50% stenosis of the left ICA. Vascular surgery has been recommended to continue medical management with carotid endarterectomy as outpatient. 3. Hallucinations/combativeness: Psych was consultative for dressing medications are Risperdal. Patient also had a leukocytosis and after ID consult no antiemetics were recommended. - Related Data Home Medications Medication Instructions Recorded Confirmed Last Taken Metformin HCl [metFORMIN ER] 500 mg PO DAILY 01/13/13 07/24/16 05/23/14 Insulin Detemir [Levemir VIAL] 10 units SUB-Q QHS 06/27/16 07/24/16 Unknown Previous Rx's Medication Instructions Recorded Last Taken Type Hydrochlorothiazide [HCTZ] 12.5 mg PO QDAY #30 capsule 06/02/15 Unknown Rx Lisinopril [Zestril TAB] 40 mg PO QDAY #30 tablet 06/02/15 Unknown Rx Aspirin [Aspirin TAB] 325 mg PO QDAY #30 tablet 06/30/16 Unknown Rx Clopidogrel [Plavix] 75 mg PO QDAY #30 tablet 06/30/16 Unknown Rx Simvastatin [Zocor TAB] 40 mg PO QHS #30 tablet 06/30/16 Unknown Rx glipiZIDE [glipiZIDE ER] 5 mg PO BID #60 06/30/16 Unknown Rx hydrALAZINE [Apresoline TAB] 25 mg PO Q8HR #90 tablet 06/30/16 Unknown Rx Allergies Allergy/AdvReac Type Severity Reaction Status Date / Time No Known Allergies Allergy Verified 09/26/14 15:05 ED Review of Systems ROS: Stated complaint: AMS Other details as noted in HPI Comment: Unobtainable due to pts medical conditions (Limited due to patient's underlying mental status. However, no physical complaints reported) ED Past Medical Hx - Past Medical History Hx Hypertension: Yes Hx CVA: Yes (3 strokes, left side weakness, doesn't use a cane or walker) Hx Heart Attack/AMI: Yes Hx Congestive Heart Failure: Yes Hx Diabetes: Yes Hx Asthma: No Hx COPD: Yes Hx HIV: No - Surgical History Hx Cholecystectomy: Yes Additional Surgical History: tubal ligation, shoulder, knee replacement - Social History Smoking Status: Never Smoker Substance Use Type: None - Medications Home Medications: Home Medications Medication Instructions Recorded Confirmed Last Taken Type Metformin HCl [metFORMIN ER] 500 mg PO DAILY 01/13/13 07/24/16 05/23/14 History Hydrochlorothiazide [HCTZ] 12.5 mg PO QDAY #30 capsule 06/02/15 07/24/16 Unknown Rx Lisinopril [Zestril TAB] 40 mg PO QDAY #30 tablet 06/02/15 07/24/16 Unknown Rx Insulin Detemir [Levemir VIAL] 10 units SUB-Q QHS 06/27/16 07/24/16 Unknown History Aspirin [Aspirin TAB] 325 mg PO QDAY #30 tablet 06/30/16 07/24/16 Unknown Rx Clopidogrel [Plavix] 75 mg PO QDAY #30 tablet 06/30/16 07/24/16 Unknown Rx Simvastatin [Zocor TAB] 40 mg PO QHS #30 tablet 06/30/16 07/24/16 Unknown Rx glipiZIDE [glipiZIDE ER] 5 mg PO BID #60 06/30/16 07/24/16 Unknown Rx hydrALAZINE [Apresoline TAB] 25 mg PO Q8HR #90 tablet 06/30/16 07/24/16 Unknown Rx ED Physical Exam - General Limitations: Altered Mental Status - Other Other exam information: General: No limitations, patient is alert in no acute distress Head exam: Atraumatic, normocephalic Eyes exam: Normal appearance ENT: Moist mucous membrane, normal oropharynx Neck exam: Normal inspection, full range of motion, no meningismus nontender Respiratory exam: Clear to auscultation bilateral, no wheezes, rales, crackles Cardiovascular: Normal rate and rhythm, normal heart sounds Abdomen: Soft, nondistended, and nontender, with normal bowel sounds, no rebound, or guarding Extremity: Full range of motion normal inspection no deformity Back: Normal Inspection, full range of motion, no tenderness Neurologic: Alert, oriented to self, left-sided hemiparesis which is chronic, 5/ 5 right upper and lower extremity strength Psychiatric: normal affect, normal mood Skin: Warm, dry, intact ED Course Vital Signs 07/24/16 07/25/16 19:58 01:55 Temperature 98 F Pulse Rate 74 80 Respiratory 16 16 Rate Blood Pressure 151/72 Blood Pressure 175/68 [Left] O2 Sat by Pulse 96 Oximetry - Reevaluation(s) Reevaluation #1: 07/25/16 Pt remained stable, Abx will be initiated by admitting MD - Lab Data Result diagrams: 07/24/16 20:45 07/24/16 20:45 Lab Results 07/24/16 07/24/16 07/24/16 Range/Units 20:45 20:45 20:45 WBC 15.0 H (4.5-11.0) K/mm3 RBC 3.35 L (3.65-5.03) M/mm3 Hgb 9.5 L (10.1-14.3) gm/dl Hct 28.7 L (30.3-42.9) % MCV 85 (79-97) fl MCH 28 (28-32) pg MCHC 33 (30-34) % RDW 14.2 (13.2-15.2) % Plt Count 332 (140-440) K/mm3 Lymph % (Auto) 20.0 (13.4-35.0) % Tate % (Auto) 7.1 (0.0-7.3) % Eos % (Auto) 1.0 (0.0-4.3) % Baso % (Auto) 0.4 (0.0-1.8) % Lymph # 3.0 (1.2-5.4) K/mm3 Tate # 1.1 H (0.0-0.8) K/mm3 Eos # 0.2 (0.0-0.4) K/mm3 Baso # 0.1 (0.0-0.1) K/mm3 Seg Neutrophils % 71.5 H (40.0-70.0) % Seg Neutrophils # 10.7 H (1.8-7.7) K/mm3 Sodium 141 (137-145) mmol/L Potassium 3.8 (3.6-5.0) mmol/L Chloride 98.7 (98-107) mmol/L Carbon Dioxide 29 (22-30) mmol/L Anion Gap 17 mmol/L BUN 50 H (7-17) mg/dL Creatinine 1.5 H (0.7-1.2) mg/dL Estimated GFR 34 ml/min BUN/Creatinine Ratio 33.33 % Glucose 173 H (65-100) mg/dL Lactic Acid 1.3 (0.7-2.0) mmol/L Calcium 8.9 (8.4-10.2) mg/dL Magnesium 2.2 (1.7-2.3) mg/dL Total Bilirubin 0.4 (0.1-1.2) mg/dL AST 26 (5-40) units/L ALT 13 (7-56) units/L Alkaline Phosphatase 99 (35-129) units/L Total Protein 6.6 (6.3-8.2) g/dL Albumin 2.9 L (3.9-5) g/dL Albumin/Globulin Ratio 0.8 % TSH (0.270-4.200) mlU/mL Free T4 (0.76-1.46) ng/dL Urine Color (Yellow) Urine Turbidity (Clear) Urine pH (5.0-7.0) Ur Specific [place] (1.003-1.030) Urine Protein (Negative) mg/dL Urine Glucose (UA) (Negative) mg/dL Urine Ketones (Negative) mg/dL Urine Blood (Negative) Urine Nitrite (Negative) Urine Bilirubin (Negative) Urine Urobilinogen (<2.0) mg/dL Ur Leukocyte Esterase (Negative) Urine WBC (Auto) (0.0-6.0) /HPF Urine RBC (Auto) (0.0-6.0) /HPF U Epithel Cells (Auto) (0-13.0) /HPF Urine Bacteria (Auto) (Negative) /HPF Urine WBC Clumps /HPF Urine Mucus /HPF Salicylates (2.8-20.0) mg/dL Urine Opiates Screen Urine Methadone Screen Acetaminophen (10.0-30.0) ug/mL Ur Barbiturates Screen Ur Phencyclidine Scrn Ur Amphetamines Screen U Benzodiazepines Scrn Urine Cocaine Screen U Marijuana (THC) Screen Drugs of Abuse Note Plasma/Serum Alcohol (0-0.07) gm% 07/24/16 07/24/16 07/24/16 Range/Units 20:45 20:45 20:45 WBC (4.5-11.0) K/mm3 RBC (3.65-5.03) M/mm3 Hgb (10.1-14.3) gm/dl Hct (30.3-42.9) % MCV (79-97) fl MCH (28-32) pg MCHC (30-34) % RDW (13.2-15.2) % Plt Count (140-440) K/mm3 Lymph % (Auto) (13.4-35.0) % Tate % (Auto) (0.0-7.3) % Eos % (Auto) (0.0-4.3) % Baso % (Auto) (0.0-1.8) % Lymph # (1.2-5.4) K/mm3 Tate # (0.0-0.8) K/mm3 Eos # (0.0-0.4) K/mm3 Baso # (0.0-0.1) K/mm3 Seg Neutrophils % (40.0-70.0) % Seg Neutrophils # (1.8-7.7) K/mm3 Sodium (137-145) mmol/L Potassium (3.6-5.0) mmol/L Chloride (98-107) mmol/L Carbon Dioxide (22-30) mmol/L Anion Gap mmol/L BUN (7-17) mg/dL Creatinine (0.7-1.2) mg/dL Estimated GFR ml/min BUN/Creatinine Ratio % Glucose (65-100) mg/dL Lactic Acid (0.7-2.0) mmol/L Calcium (8.4-10.2) mg/dL Magnesium (1.7-2.3) mg/dL Total Bilirubin (0.1-1.2) mg/dL AST (5-40) units/L ALT (7-56) units/L Alkaline Phosphatase (35-129) units/L Total Protein (6.3-8.2) g/dL Albumin (3.9-5) g/dL Albumin/Globulin Ratio % TSH (0.270-4.200) mlU/mL Free T4 (0.76-1.46) ng/dL Urine Color (Yellow) Urine Turbidity (Clear) Urine pH (5.0-7.0) Ur Specific [place] (1.003-1.030) Urine Protein (Negative) mg/dL Urine Glucose (UA) (Negative) mg/dL Urine Ketones (Negative) mg/dL Urine Blood (Negative) Urine Nitrite (Negative) Urine Bilirubin (Negative) Urine Urobilinogen (<2.0) mg/dL Ur Leukocyte Esterase (Negative) Urine WBC (Auto) (0.0-6.0) /HPF Urine RBC (Auto) (0.0-6.0) /HPF U Epithel Cells (Auto) (0-13.0) /HPF Urine Bacteria (Auto) (Negative) /HPF Urine WBC Clumps /HPF Urine Mucus /HPF Salicylates < 0.3 L (2.8-20.0) mg/dL Urine Opiates Screen Urine Methadone Screen Acetaminophen < 15.0 (10.0-30.0) ug/mL Ur Barbiturates Screen Ur Phencyclidine Scrn Ur Amphetamines Screen U Benzodiazepines Scrn Urine Cocaine Screen U Marijuana (THC) Screen Drugs of Abuse Note Plasma/Serum Alcohol < 0.01 (0-0.07) gm% 07/24/16 07/24/16 07/24/16 Range/Units 20:45 23:17 Unknown WBC (4.5-11.0) K/mm3 RBC (3.65-5.03) M/mm3 Hgb (10.1-14.3) gm/dl Hct (30.3-42.9) % MCV (79-97) fl MCH (28-32) pg MCHC (30-34) % RDW (13.2-15.2) % Plt Count (140-440) K/mm3 Lymph % (Auto) (13.4-35.0) % Tate % (Auto) (0.0-7.3) % Eos % (Auto) (0.0-4.3) % Baso % (Auto) (0.0-1.8) % Lymph # (1.2-5.4) K/mm3 Tate # (0.0-0.8) K/mm3 Eos # (0.0-0.4) K/mm3 Baso # (0.0-0.1) K/mm3 Seg Neutrophils % (40.0-70.0) % Seg Neutrophils # (1.8-7.7) K/mm3 Sodium (137-145) mmol/L Potassium (3.6-5.0) mmol/L Chloride (98-107) mmol/L Carbon Dioxide (22-30) mmol/L Anion Gap mmol/L BUN (7-17) mg/dL Creatinine (0.7-1.2) mg/dL Estimated GFR ml/min BUN/Creatinine Ratio % Glucose (65-100) mg/dL Lactic Acid 1.2 (0.7-2.0) mmol/L Calcium (8.4-10.2) mg/dL Magnesium (1.7-2.3) mg/dL Total Bilirubin (0.1-1.2) mg/dL AST (5-40) units/L ALT (7-56) units/L Alkaline Phosphatase (35-129) units/L Total Protein (6.3-8.2) g/dL Albumin (3.9-5) g/dL Albumin/Globulin Ratio % TSH 3.240 (0.270-4.200) mlU/mL Free T4 1.23 (0.76-1.46) ng/dL Urine Color Vero (Yellow) Urine Turbidity Turbid (Clear) Urine pH 5.0 (5.0-7.0) Ur Specific [place] 1.018 (1.003-1.030) Urine Protein 100 mg/dl (Negative) mg/dL Urine Glucose (UA) Neg (Negative) mg/dL Urine Ketones Tr (Negative) mg/dL Urine Blood Mod (Negative) Urine Nitrite Pos (Negative) Urine Bilirubin Neg (Negative) Urine Urobilinogen < 2.0 (<2.0) mg/dL Ur Leukocyte Esterase Lg (Negative) Urine WBC (Auto) > 182.0 H (0.0-6.0) /HPF Urine RBC (Auto) 18.0 (0.0-6.0) /HPF U Epithel Cells (Auto) 3.0 (0-13.0) /HPF Urine Bacteria (Auto) 4+ (Negative) /HPF Urine WBC Clumps 3+ /HPF Urine Mucus 2+ /HPF Salicylates (2.8-20.0) mg/dL Urine Opiates Screen Urine Methadone Screen Acetaminophen (10.0-30.0) ug/mL Ur Barbiturates Screen Ur Phencyclidine Scrn Ur Amphetamines Screen U Benzodiazepines Scrn Urine Cocaine Screen U Marijuana (THC) Screen Drugs of Abuse Note Plasma/Serum Alcohol (0-0.07) gm% 07/24/16 Range/Units Unknown WBC (4.5-11.0) K/mm3 RBC (3.65-5.03) M/mm3 Hgb (10.1-14.3) gm/dl Hct (30.3-42.9) % MCV (79-97) fl MCH (28-32) pg MCHC (30-34) % RDW (13.2-15.2) % Plt Count (140-440) K/mm3 Lymph % (Auto) (13.4-35.0) % Tate % (Auto) (0.0-7.3) % Eos % (Auto) (0.0-4.3) % Baso % (Auto) (0.0-1.8) % Lymph # (1.2-5.4) K/mm3 Tate # (0.0-0.8) K/mm3 Eos # (0.0-0.4) K/mm3 Baso # (0.0-0.1) K/mm3 Seg Neutrophils % (40.0-70.0) % Seg Neutrophils # (1.8-7.7) K/mm3 Sodium (137-145) mmol/L Potassium (3.6-5.0) mmol/L Chloride (98-107) mmol/L Carbon Dioxide (22-30) mmol/L Anion Gap mmol/L BUN (7-17) mg/dL Creatinine (0.7-1.2) mg/dL Estimated GFR ml/min BUN/Creatinine Ratio % Glucose (65-100) mg/dL Lactic Acid (0.7-2.0) mmol/L Calcium (8.4-10.2) mg/dL Magnesium (1.7-2.3) mg/dL Total Bilirubin (0.1-1.2) mg/dL AST (5-40) units/L ALT (7-56) units/L Alkaline Phosphatase (35-129) units/L Total Protein (6.3-8.2) g/dL Albumin (3.9-5) g/dL Albumin/Globulin Ratio % TSH (0.270-4.200) mlU/mL Free T4 (0.76-1.46) ng/dL Urine Color (Yellow) Urine Turbidity (Clear) Urine pH (5.0-7.0) Ur Specific [place] (1.003-1.030) Urine Protein (Negative) mg/dL Urine Glucose (UA) (Negative) mg/dL Urine Ketones (Negative) mg/dL Urine Blood (Negative) Urine Nitrite (Negative) Urine Bilirubin (Negative) Urine Urobilinogen (<2.0) mg/dL Ur Leukocyte Esterase (Negative) Urine WBC (Auto) (0.0-6.0) /HPF Urine RBC (Auto) (0.0-6.0) /HPF U Epithel Cells (Auto) (0-13.0) /HPF Urine Bacteria (Auto) (Negative) /HPF Urine WBC Clumps /HPF Urine Mucus /HPF Salicylates (2.8-20.0) mg/dL Urine Opiates Screen Presumptive negative Urine Methadone Screen Presumptive negative Acetaminophen (10.0-30.0) ug/mL Ur Barbiturates Screen Presumptive negative Ur Phencyclidine Scrn Presumptive negative Ur Amphetamines Screen Presumptive negative U Benzodiazepines Scrn Presumptive negative Urine Cocaine Screen Presumptive negative U Marijuana (THC) Screen Presumptive negative Drugs of Abuse Note Disclamer Plasma/Serum Alcohol (0-0.07) gm% - Radiology Data Radiology results: report reviewed (ct head: see report for multiple subacute cva findings and chronic cva findings) - Medical Decision Making ED work up initiated without noting the patient had additional paperwork on the chart regarding her recent hospitalization and discharge. CT confirms subacute stroke findings which were recently worked up. In the ED here patient had a diaper full of bloody stool which apparently is ongoing problem based on recent hospitalization and workup. Patient is combative and not oriented 3. Baseline unknown the patient does have an acute UTI which could cause encephalopathy. H&H appears to be stable. Case has been discussed with GI physician Dr. Sanchez. Patient to be admitted here for further treatment and stabilization. - Differential Diagnosis cva, UTI, encephalopathy, dehydration, GI bleed Critical Care Time: No Critical care attestation.: If time is entered above; I have spent that time in minutes in the direct care of this critically ill patient, excluding procedure time. ED Disposition Clinical Impression: Altered mental status, Stroke, Hemiparesis affecting left side as late effect of cerebrovascular accident, Lower GI bleed, Renal insufficiency, UTI (urinary tract infection), Hypertension, Stercoral ulcer of rectum Diabetes Qualifiers: Diabetes mellitus type: type 2 Diabetes mellitus complication status: with circulatory complication Diabetes mellitus complication detail: with other circulatory complications Qualified Code(s): E11.59 - Type 2 diabetes mellitus with other circulatory complications Disposition: OP ADMITTED IP TO THIS HOSP Is pt being admited?: Yes Condition: Stable Time of Disposition: 23:11 (Dr Manzano/hosp)
[2016-07-24 23:53] LABS: Urine Drugs of Abuse Note Disclamer
[2016-07-25 00:27] LABS: Bacteria,Urine 4+ /HPF (Negative); Bilirubin,Urine NEG (Negative); Blood,Urine MOD (Negative); Ketones,Urine TR mg/dL (Negative); Leukocyte Esterase,Urine LG (Negative); Mucus,Urine 2+ /HPF; Nitrite,Urine POS (Negative); Urobilinogen,Urine < 2.0 mg/dL (<2.0)
[2016-07-25 00:38] LABS: WBC,Urine > 182.0 /HPF (0.0-6.0)
[2016-07-25] MEDS ORDERED: ATIVAN IV PRN (01:16)
[2016-07-25] MEDS ORDERED: TYLENOL PO PRN (01:19)
[2016-07-25] MEDS ORDERED: ZOFRAN IV PRN (01:19)
[2016-07-25] MEDS ORDERED: D50W (25GM) IV PRN (01:20)
--- NOTE | 2016-07-25 01:30 | History and Physical Report ---
History of Present Illness Date of examination: 07/24/16 Chief complaint: Confusion, history from chart no family present History of present illness: Patient is 71-year-old woman with history of type 2 diabetes mellitus and hypertension who was just discharge from [facility] 07/23/16 (d/c paperwork is present) for {LGIB bleed due to rectal stercoral ulcer status post EGD and colonoscopy. Gastritis and small hiatal hernia found. Aspirin stop due to recurrent bleed. Her last reported hemoglobin was 9.5 and he is not 0.5. Patient gives no history. She sleeping in a staff she is combative. Most likely reason no blood culture urine culture was dark and she is combative. She also had acute CVA per paperwork. She was evaluated by neurology. MRI showed focal stenosis and P1 and P2 segments bilaterally. 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 50% stenosis of the left ICA. Fascial surgery saw the patient and recommended carotid endarterectomy as outpatient. Anemia status post packed red blood cell. Hallucinations/combativeness site was consulted for adjusting medication was with all. Persistent leukocytosis ID evaluated patient indicated no antibiotics.}Dr. Blanca Hernandez at [facility] in [facility]. CT of the head showed subacute changes. Patient is being admitted to the hospital for abnormal CT. I with evaluated patient and witnessed the copius amounts of melena in the diaper and alerted ED physician who called GI. Past History Past Medical History: other (as hpi) Past Surgical History: Other (unknown) Social history: full code. denies: smoking Family history: no significant family history Medications and Allergies Allergies Allergy/AdvReac Type Severity Reaction Status Date / Time No Known Allergies Allergy Verified 09/26/14 15:05 Home Medications Medication Instructions Recorded Confirmed Last Taken Type Metformin HCl [metFORMIN ER] 500 mg PO DAILY 01/13/13 07/24/16 05/23/14 History Hydrochlorothiazide [HCTZ] 12.5 mg PO QDAY #30 capsule 06/02/15 07/24/16 Unknown Rx Lisinopril [Zestril TAB] 40 mg PO QDAY #30 tablet 06/02/15 07/24/16 Unknown Rx Insulin Detemir [Levemir VIAL] 10 units SUB-Q QHS 03/11/17 04/07/17 Unknown History Aspirin [Aspirin TAB] 325 mg PO QDAY #30 tablet 06/30/16 07/24/16 Unknown Rx Clopidogrel [Plavix] 75 mg PO QDAY #30 tablet 06/30/16 07/24/16 Unknown Rx Simvastatin [Zocor TAB] 40 mg PO QHS #30 tablet 06/30/16 07/24/16 Unknown Rx glipiZIDE [glipiZIDE ER] 5 mg PO BID #60 06/30/16 07/24/16 Unknown Rx hydrALAZINE [Apresoline TAB] 25 mg PO Q8HR #90 tablet 06/30/16 07/24/16 Unknown Rx Active Meds: Active Medications Acetaminophen (Tylenol) 650 mg PO Q6H PRN PRN Reason: Non Cardiac Pain or Temp>100.5 Dextrose (D50w (25gm)) 50 ml IV PRN PRN PRN Reason: Hypoglycemia Hydralazine HCl (Apresoline) 25 mg PO Q8HR DANIEL Hydralazine HCl (Apresoline) 10 mg IV Q4HR PRN PRN Reason: Blood Pressure Ceftriaxone Sodium (Rocephin/Ns 1 Gm/50 Ml) 1 gm in 50 mls @ 100 mls/hr IV Q24HR DANIEL PRN Reason: Protocol Insulin Aspart (Novolog) 0 units SUB-Q ACHS DANIEL PRN Reason: Protocol Lorazepam (Ativan) 1 mg IV Q4H PRN PRN Reason: Agitation Ondansetron HCl (Zofran) 4 mg IV Q4H PRN PRN Reason: Nausea And Vomiting Pantoprazole Sodium (Protonix) 40 mg IV BID DANIEL Simvastatin (Zocor) 40 mg PO QHS [facility] Review of Systems ROS unobtainable: due to mental status Exam - Physical Exam Narrative exam: GEN: Obese unkempt NAD, AWAKE, ALERT, ORIENTATED 0 HEENT: NCAT, PERRL, EOMI, OP CLEAR NECK: SUPPLE, NO THYROMEGALY, NO JVD, NO LAD CVS: RRR, NORMAL S1S2 LUNGS/CHEST: CTA B, NORMAL CHEST EXPANSION B, GOOD AIR ENTRY B ABD: SOFT NTND, GBS, NO REBOUND OR GUARDING, copious melena and diaper EXT/SKIN: PERITONEAL red RASH MSK: FROM X 4 EXTREMITIES NEURO: CN 2-12 GROSSLY INTACT, doesn't follow commands PSY: Combative, agitated - Constitutional Vitals: Temp Pulse Resp BP Pulse Ox 98 F 74 16 151/72 96 07/24/16 19:58 07/24/16 19:58 07/24/16 19:58 07/24/16 19:58 07/24/16 19:58 Results - Labs CBC & Chem 7: 07/24/16 20:45 07/24/16 20:45 Labs: Abnormal lab results 07/24/16 07/24/16 07/24/16 Range/Units 20:45 20:45 20:45 WBC 15.0 H (4.5-11.0) K/mm3 RBC 3.35 L (3.65-5.03) M/mm3 Hgb 9.5 L (10.1-14.3) gm/dl Hct 28.7 L (30.3-42.9) % Divide # 1.1 H (0.0-0.8) K/mm3 Seg Neutrophils % 71.5 H (40.0-70.0) % Seg Neutrophils # 10.7 H (1.8-7.7) K/mm3 BUN 50 H (7-17) mg/dL Creatinine 1.5 H (0.7-1.2) mg/dL Glucose 173 H (65-100) mg/dL Albumin 2.9 L (3.9-5) g/dL Urine WBC (Auto) (0.0-6.0) /HPF Salicylates < 0.3 L (2.8-20.0) mg/dL 07/24/16 Range/Units Unknown WBC (4.5-11.0) K/mm3 RBC (3.65-5.03) M/mm3 Hgb (10.1-14.3) gm/dl Hct (30.3-42.9) % Divide # (0.0-0.8) K/mm3 Seg Neutrophils % (40.0-70.0) % Seg Neutrophils # (1.8-7.7) K/mm3 BUN (7-17) mg/dL Creatinine (0.7-1.2) mg/dL Glucose (65-100) mg/dL Albumin (3.9-5) g/dL Urine WBC (Auto) > 182.0 H (0.0-6.0) /HPF Salicylates (2.8-20.0) mg/dL - Imaging and Cardiology CT Scan - head: report reviewed Assessment and Plan Patient is 71-year-old woman with history of type 2 diabetes mellitus and hypertension who was just discharge from [facility] 07/23/16 (d/c paperwork is present) for {LGIB bleed due to rectal stercoral ulcer status post EGD and colonoscopy. Gastritis and small hiatal hernia found. Aspirin stop due to recurrent bleed. Her last reported hemoglobin was 9.5 and he is not 0.5. Patient gives no history. She sleeping in a staff she is combative. Most likely reason no blood culture urine culture was dark and she is combative. She also had acute CVA per paperwork. She was evaluated by neurology. MRI showed focal stenosis and P1 and P2 segments bilaterally. 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 50% stenosis of the left ICA. Fascial surgery saw the patient and recommended carotid endarterectomy as outpatient. Anemia status post packed red blood cell. Hallucinations/combativeness site was consulted for adjusting medication was with all. Persistent leukocytosis ID evaluated patient indicated no antibiotics.}Dr. Blanca Hernandez at [facility] in [facility]. CT of the head showed subacute changes. Patient is being admitted to the hospital for abnormal CT. I with evaluated patient and witnessed the copius amounts of melena in the diaper and alerted ED physician who called GI. -Acute encephalopathy: iv ativan prn -Acute GIB hemorrhage: ppi iv bid and consulted GI -SubAcute on Chronic CVA: no neurologist this weekend, no aspirin or plavix due to gib, consider vascular consult -UTI: empiric treat with iv rocephin, difficult collecting cultures due to combativeness -DVT ppx: scd only due to gib
[2016-07-25] MEDS: APRESOLINE PO SCH ×3 (06:27→22:05)
[2016-07-25 07:24] LABS: Hematocrit 26.7 % (30.3-42.9); Hemoglobin 8.7 gm/dl (10.1-14.3)
[2016-07-25] MEDS: NOVOLOG SUB-Q SCH ×3 (08:00→17:40)
--- NOTE | 2016-07-25 09:19 | Gastroenterology Consultation ---
History of Present Illness - Reason for Consult Consult date: 07/25/16 Rectal bleeding Requesting physician: KIM OROZCO - History of Present Illness The patient is a 71 year old female admitted with LGI bleeding. She was recently hospitalized at [facility] last month and had work up for bleeding including EGD and colonoscopy. EGD revealed gastritis and colonoscopy revealed a stercoral ulcer in the distal rectum, felt to be the cause of the bleeding. She passed several bloody stools in the assisted and was admitted for observation. Patient has been on Plavix. The patient denies and abdominal pain or melena. Past History Past Medical History: diabetes, hypertension, other (CVA) Past Surgical History: Other (unknown) Social history: full code. denies: smoking Family history: no significant family history Medications and Allergies Allergies Allergy/AdvReac Type Severity Reaction Status Date / Time No Known Allergies Allergy Verified 09/26/14 15:05 Home Medications Medication Instructions Recorded Confirmed Last Taken Type Metformin HCl [metFORMIN ER] 500 mg PO DAILY 01/13/13 07/24/16 05/23/14 History Hydrochlorothiazide [HCTZ] 12.5 mg PO QDAY #30 capsule 06/02/15 07/24/16 Unknown Rx Lisinopril [Zestril TAB] 40 mg PO QDAY #30 tablet 06/02/15 07/24/16 Unknown Rx Insulin Detemir [Levemir VIAL] 10 units SUB-Q QHS 06/27/16 07/24/16 Unknown History Aspirin [Aspirin TAB] 325 mg PO QDAY #30 tablet 06/30/16 07/24/16 Unknown Rx Clopidogrel [Plavix] 75 mg PO QDAY #30 tablet 06/30/16 07/24/16 Unknown Rx Simvastatin [Zocor TAB] 40 mg PO QHS #30 tablet 06/30/16 07/24/16 Unknown Rx glipiZIDE [glipiZIDE ER] 5 mg PO BID #60 06/30/16 07/24/16 Unknown Rx hydrALAZINE [Apresoline TAB] 25 mg PO Q8HR #90 tablet 06/30/16 07/24/16 Unknown Rx Active Meds: Active Medications Acetaminophen (Tylenol) 650 mg PO Q6H PRN PRN Reason: Non Cardiac Pain or Temp>100.5 Dextrose (D50w (25gm)) 50 ml IV PRN PRN PRN Reason: Hypoglycemia Hydralazine HCl (Apresoline) 25 mg PO Q8HR [facility] Last Admin: 07/25/16 06:27 Dose: 25 mg Hydralazine HCl (Apresoline) 10 mg IV Q4H PRN PRN Reason: Blood Pressure Ceftriaxone Sodium (Rocephin/Ns 1 Gm/50 Ml) 1 gm in 50 mls @ 100 mls/hr IV Q24HR DANIEL PRN Reason: Protocol Insulin Aspart (Novolog) 0 units SUB-Q ACHS DANIEL PRN Reason: Protocol Lorazepam (Ativan) 1 mg IV Q4H PRN PRN Reason: Agitation Ondansetron HCl (Zofran) 4 mg IV Q4H PRN PRN Reason: Nausea And Vomiting Pantoprazole Sodium (Protonix) 40 mg IV BID [facility] Simvastatin (Zocor) 40 mg PO QHS [facility] Review of Systems - Review of Systems Constitutional: no weight loss, no weight gain, no fever, no chills Eyes: no change in vision Ears, Nose, Throat: no decreased hearing, no difficulty swallowing, no epistaxis , no painful swallowing Breasts: deferred Cardiovascular: no chest pain, no shortness of breath, no syncope Respiratory: no cough, no shortness of breath, no wheezing, no home oxygen Gastrointestinal: BRBPR, no abdominal pain, no nausea, no vomiting, no constipation, no change in bowel habits, no hematemesis, no coffee ground emesis , no melena Rectal: incontinence, no pain Female Genitourinary: deferred Musculoskeletal: gait dysfunction, joint pain Integumentary: no rash, no pruritis, no jaundice Neurological: paralysis, weakness, memory loss, no head injury Psychiatric: anxiety Endocrine: no cold intolerance, no heat intolerance Hematologic/Lymphatic: no easy bruising, no easy bleeding Allergic/Immunologic: no wheezing Exam - Constitutional Vital Signs: Temp Pulse Resp BP Pulse Ox 97.9 F 74 18 130/65 96 07/25/16 06:26 07/25/16 06:27 07/25/16 06:26 07/25/16 06:27 07/25/16 02:50 General appearance: no acute distress, well-nourished - EENT Eyes: PERRL ENT: hearing intact, clear oral mucosa, dentition normal - Neck Neck: supple, normal ROM, no masses or JVD - Respiratory Respiratory effort: normal Respiratory: bilateral: CTA - Breasts Breasts: deferred - Cardiovascular Rhythm: regular Extremities: pulses intact, No edema, normal color, Full ROM - Gastrointestinal General gastrointestinal: Present: soft, non-tender, non-distended, normal bowel sounds. Absent: hepatomegaly, splenomegaly Rectal Exam: deferred - Genitourinary Female Genitourinary: deferred - Integumentary Integumentary: Present: clear, warm, dry - Neurologic Neurological: alert and oriented x3 - Psychiatric Psychiatric: other (anxious) - Labs CBC & Chem 7: 07/25/16 06:41 07/24/16 20:45 Lab Results: Laboratory Results - last 24 hr 07/25/16 06:41 Hgb 8.7 L Hct 26.7 L Laboratory Results - last 24 hr 07/24/16 07/24/16 07/24/16 20:45 20:45 20:45 WBC 15.0 H RBC 3.35 L Hgb 9.5 L Hct 28.7 L MCV 85 MCH 28 MCHC 33 RDW 14.2 Plt Count 332 Lymph % (Auto) 20.0 [place] % (Auto) 7.1 Eos % (Auto) 1.0 Baso % (Auto) 0.4 Lymph # 3.0 [place] # 1.1 H Eos # 0.2 Baso # 0.1 Seg Neutrophils % 71.5 H Seg Neutrophils # 10.7 H Sodium 141 Potassium 3.8 Chloride 98.7 Carbon Dioxide 29 Anion Gap 17 BUN 50 H Creatinine 1.5 H Estimated GFR 34 BUN/Creatinine Ratio 33.33 Glucose 173 H Lactic Acid 1.3 Calcium 8.9 Magnesium 2.2 Total Bilirubin 0.4 AST 26 ALT 13 Alkaline Phosphatase 99 Total Protein 6.6 Albumin 2.9 L Albumin/Globulin Ratio 0.8 TSH Free T4 Urine Color Urine Turbidity Urine pH Ur Specific [place] Urine Protein Urine Glucose (UA) Urine Ketones Urine Blood Urine Nitrite Urine Bilirubin Urine Urobilinogen Ur Leukocyte Esterase Urine WBC (Auto) Urine RBC (Auto) U Epithel Cells (Auto) Urine Bacteria (Auto) Urine WBC Clumps Urine Mucus Salicylates Urine Opiates Screen Urine Methadone Screen Acetaminophen Ur Barbiturates Screen Ur Phencyclidine Scrn Ur Amphetamines Screen U Benzodiazepines Scrn Urine Cocaine Screen U Marijuana (THC) Screen Drugs of Abuse Note Plasma/Serum Alcohol 07/24/16 07/24/16 07/24/16 20:45 20:45 20:45 WBC RBC Hgb Hct MCV MCH MCHC RDW Plt Count Lymph % (Auto) [place] % (Auto) Eos % (Auto) Baso % (Auto) Lymph # [place] # Eos # Baso # Seg Neutrophils % Seg Neutrophils # Sodium Potassium Chloride Carbon Dioxide Anion Gap BUN Creatinine Estimated GFR BUN/Creatinine Ratio Glucose Lactic Acid Calcium Magnesium Total Bilirubin AST ALT Alkaline Phosphatase Total Protein Albumin Albumin/Globulin Ratio TSH Free T4 Urine Color Urine Turbidity Urine pH Ur Specific [place] Urine Protein Urine Glucose (UA) Urine Ketones Urine Blood Urine Nitrite Urine Bilirubin Urine Urobilinogen Ur Leukocyte Esterase Urine WBC (Auto) Urine RBC (Auto) U Epithel Cells (Auto) Urine Bacteria (Auto) Urine WBC Clumps Urine Mucus Salicylates < 0.3 L Urine Opiates Screen Urine Methadone Screen Acetaminophen < 15.0 Ur Barbiturates Screen Ur Phencyclidine Scrn Ur Amphetamines Screen U Benzodiazepines Scrn Urine Cocaine Screen U Marijuana (THC) Screen Drugs of Abuse Note Plasma/Serum Alcohol < 0.01 07/24/16 07/24/16 07/24/16 20:45 23:17 Unknown WBC RBC Hgb Hct MCV MCH MCHC RDW Plt Count Lymph % (Auto) [place] % (Auto) Eos % (Auto) Baso % (Auto) Lymph # [place] # Eos # Baso # Seg Neutrophils % Seg Neutrophils # Sodium Potassium Chloride Carbon Dioxide Anion Gap BUN Creatinine Estimated GFR BUN/Creatinine Ratio Glucose Lactic Acid 1.2 Calcium Magnesium Total Bilirubin AST ALT Alkaline Phosphatase Total Protein Albumin Albumin/Globulin Ratio TSH 3.240 Free T4 1.23 Urine Color Vero Urine Turbidity Turbid Urine pH 5.0 Ur Specific [place] 1.018 Urine Protein 100 mg/dl Urine Glucose (UA) Neg Urine Ketones Tr Urine Blood Mod Urine Nitrite Pos Urine Bilirubin Neg Urine Urobilinogen < 2.0 Ur Leukocyte Esterase Lg Urine WBC (Auto) > 182.0 H Urine RBC (Auto) 18.0 U Epithel Cells (Auto) 3.0 Urine Bacteria (Auto) 4+ Urine WBC Clumps 3+ Urine Mucus 2+ Salicylates Urine Opiates Screen Urine Methadone Screen Acetaminophen Ur Barbiturates Screen Ur Phencyclidine Scrn Ur Amphetamines Screen U Benzodiazepines Scrn Urine Cocaine Screen U Marijuana (THC) Screen Drugs of Abuse Note Plasma/Serum Alcohol 07/24/16 07/25/16 Unknown 06:41 WBC RBC Hgb 8.7 L Hct 26.7 L MCV MCH MCHC RDW Plt Count Lymph % (Auto) [place] % (Auto) Eos % (Auto) Baso % (Auto) Lymph # [place] # Eos # Baso # Seg Neutrophils % Seg Neutrophils # Sodium Potassium Chloride Carbon Dioxide Anion Gap BUN Creatinine Estimated GFR BUN/Creatinine Ratio Glucose Lactic Acid Calcium Magnesium Total Bilirubin AST ALT Alkaline Phosphatase Total Protein Albumin Albumin/Globulin Ratio TSH Free T4 Urine Color Urine Turbidity Urine pH Ur Specific [place] Urine Protein Urine Glucose (UA) Urine Ketones Urine Blood Urine Nitrite Urine Bilirubin Urine Urobilinogen Ur Leukocyte Esterase Urine WBC (Auto) Urine RBC (Auto) U Epithel Cells (Auto) Urine Bacteria (Auto) Urine WBC Clumps Urine Mucus Salicylates Urine Opiates Screen Presumptive negative Urine Methadone Screen Presumptive negative Acetaminophen Ur Barbiturates Screen Presumptive negative Ur Phencyclidine Scrn Presumptive negative Ur Amphetamines Screen Presumptive negative U Benzodiazepines Scrn Presumptive negative Urine Cocaine Screen Presumptive negative U Marijuana (THC) Screen Presumptive negative Drugs of Abuse Note Disclamer Plasma/Serum Alcohol Assessment and Plan - Patient Problems (1) Altered mental status Current Visit: Yes Status: Acute Qualifiers: Altered mental status type: A Coma depth: C Coma timing: C (2) Lower GI bleed Current Visit: Yes Status: Acute Plan to address problem: Recurrent bleeding is likely secondary to her stercoral ulcer in the rectum based on work up in the past few weeks. Patient has been on Plavix which will need to be held at least a few weeks. Will plan supportive care and not repeating her GI studies as long as bleeding subsides as anticipated. Will follow closely. OK to feed patient at this point. H&H will likely drift down given apparent dehydration. Thank you kindly for this consultation. (3) Renal insufficiency Current Visit: Yes Status: Acute (4) Stercoral ulcer of rectum Current Visit: Yes Status: Acute (5) CVA (cerebral vascular accident) Current Visit: No Status: Acute Qualifiers: CVA mechanism: other Precerebral and cerebral artery: P Laterality of affected vessel: L Qualified Code(s): I63.8 - Other cerebral infarction (6) Type 2 diabetes mellitus Current Visit: No Status: Acute Qualifiers: Diabetes mellitus complication status: D Diabetes mellitus complication detail: D Diabetic retinopathy severity: D Proliferative retinopathy type: P Diabetes mellitus macular edema: D 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
[2016-07-25] MEDS: ROCEPHIN/NS 1 GM/50 ML 1 GM/50 ML BAG IV SCH (12:46)
[2016-07-25] MEDS: PROTONIX IV SCH ×2 (12:47→22:05)
--- NOTE | 2016-07-25 13:08 | Progress Note ---
Assessment and Plan Assessment and plan: Metabolic encephalopathy Dementia Lower GI bleeding Anemia History of CVA Acute cystitis without hematuria - GI consulted and recommended no workup at this time, patient was recently worked up for lower GI bleeding at [facility] - Bleeding stopped - Anemia is not to the point of needing transfusion - Supportive care for encephalopathy - We will stop the Plavix - Patient is on Rocephin for UTI DVT prophylaxis - SCD because of GI bleed Disposition - Continue inpatient care - patient may need longterm placement History Interval history: Patient was seen and evaluated this morning, patient told me she has memory problems and doesn't remember what happened. Hospitalist Physical - Physical exam Narrative exam: Not in cardiopulmonary distress. The patient appeared well nourished and normally developed. Vital signs as documented. Head exam is unremarkable. Pale conjunctivae, anicteric sclera. Neck is without jugular venous distension, thyromegaly, or carotid bruits. Lungs are clear to auscultation. Cardiac exam reveals regular rate and Rhythm. First and second heart sounds normal. No murmurs, rubs or gallops. Abdominal exam reveals normal bowel sounds, no masses, no organomegaly and no aortic enlargement. Extremities are nonedematous and both femoral and pedal pulses are normal. BODY MAN: Alert and oriented 1. Generalized weakness more pronounced on the left side. - Constitutional Vitals: Temp Pulse Resp BP Pulse Ox 98.6 F 81 18 144/83 97 07/25/16 08:00 07/25/16 08:00 07/25/16 08:00 07/25/16 08:00 07/25/16 08:00 Results - Labs CBC & Chem 7: 07/25/16 06:41 07/24/16 20:45 Labs: Laboratory Last Values WBC 15.0 K/mm3 (4.5-11.0) H 07/24/16 20:45 RBC 3.35 M/mm3 (3.65-5.03) L 07/24/16 20:45 Hgb 8.7 gm/dl (10.1-14.3) L 07/25/16 06:41 Hct 26.7 % (30.3-42.9) L 07/25/16 06:41 MCV 85 fl (79-97) 07/24/16 20:45 MCH 28 pg (28-32) 07/24/16 20:45 MCHC 33 % (30-34) 07/24/16 20:45 RDW 14.2 % (13.2-15.2) 07/24/16 20:45 Plt Count 332 K/mm3 (140-440) 07/24/16 20:45 Lymph % (Auto) 20.0 % (13.4-35.0) 07/24/16 20:45 [place] % (Auto) 7.1 % (0.0-7.3) 07/24/16 20:45 Eos % (Auto) 1.0 % (0.0-4.3) 07/24/16 20:45 Baso % (Auto) 0.4 % (0.0-1.8) 07/24/16 20:45 Lymph # 3.0 K/mm3 (1.2-5.4) 07/24/16 20:45 [place] # 1.1 K/mm3 (0.0-0.8) H 07/24/16 20:45 Eos # 0.2 K/mm3 (0.0-0.4) 07/24/16 20:45 Baso # 0.1 K/mm3 (0.0-0.1) 07/24/16 20:45 Seg Neutrophils % 71.5 % (40.0-70.0) H 07/24/16 20:45 Seg Neutrophils # 10.7 K/mm3 (1.8-7.7) H 07/24/16 20:45 Sodium 141 mmol/L (137-145) 07/24/16 20:45 Potassium 3.8 mmol/L (3.6-5.0) 07/24/16 20:45 Chloride 98.7 mmol/L (98-107) 07/24/16 20:45 Carbon Dioxide 29 mmol/L (22-30) 07/24/16 20:45 Anion Gap 17 mmol/L 07/24/16 20:45 BUN 50 mg/dL (7-17) H 07/24/16 20:45 Creatinine 1.5 mg/dL (0.7-1.2) H 07/24/16 20:45 Estimated GFR 34 ml/min 07/24/16 20:45 BUN/Creatinine Ratio 33.33 % 07/24/16 20:45 Glucose 173 mg/dL (65-100) H 07/24/16 20:45 POC Glucose 175 (70-105) H 07/25/16 06:23 Lactic Acid 1.2 mmol/L (0.7-2.0) 07/24/16 23:17 Calcium 8.9 mg/dL (8.4-10.2) 07/24/16 20:45 Magnesium 2.2 mg/dL (1.7-2.3) 07/24/16 20:45 Total Bilirubin 0.4 mg/dL (0.1-1.2) 07/24/16 20:45 AST 26 units/L (5-40) 07/24/16 20:45 ALT 13 units/L (7-56) 07/24/16 20:45 Alkaline Phosphatase 99 units/L (35-129) 07/24/16 20:45 Total Protein 6.6 g/dL (6.3-8.2) 07/24/16 20:45 Albumin 2.9 g/dL (3.9-5) L 07/24/16 20:45 Albumin/Globulin Ratio 0.8 % 07/24/16 20:45 TSH 3.240 mlU/mL (0.270-4.200) 07/24/16 20:45 Free T4 1.23 ng/dL (0.76-1.46) 07/24/16 20:45 Urine Color Vero (Yellow) 07/24/16 Unknown Urine Turbidity Turbid (Clear) 07/24/16 Unknown Urine pH 5.0 (5.0-7.0) 07/24/16 Unknown Ur Specific [place] 1.018 (1.003-1.030) 07/24/16 Unknown Urine Protein 100 mg/dl mg/dL (Negative) 07/24/16 Unknown Urine Glucose (UA) Neg mg/dL (Negative) 07/24/16 Unknown Urine Ketones Tr mg/dL (Negative) 07/24/16 Unknown Urine Blood Mod (Negative) 07/24/16 Unknown Urine Nitrite Pos (Negative) 07/24/16 Unknown Urine Bilirubin Neg (Negative) 07/24/16 Unknown Urine Urobilinogen < 2.0 mg/dL (<2.0) 07/24/16 Unknown Ur Leukocyte Esterase Lg (Negative) 07/24/16 Unknown Urine WBC (Auto) > 182.0 /HPF (0.0-6.0) H 07/24/16 Unknown Urine RBC (Auto) 18.0 /HPF (0.0-6.0) 07/24/16 Unknown U Epithel Cells (Auto) 3.0 /HPF (0-13.0) 07/24/16 Unknown Urine Bacteria (Auto) 4+ /HPF (Negative) 07/24/16 Unknown Urine WBC Clumps 3+ /HPF 07/24/16 Unknown Urine Mucus 2+ /HPF 07/24/16 Unknown Salicylates < 0.3 mg/dL (2.8-20.0) L 07/24/16 20:45 Urine Opiates Screen Presumptive negative 07/24/16 Unknown Urine Methadone Screen Presumptive negative 07/24/16 Unknown Acetaminophen < 15.0 ug/mL (10.0-30.0) 07/24/16 20:45 Ur Barbiturates Screen Presumptive negative 07/24/16 Unknown Ur Phencyclidine Scrn Presumptive negative 07/24/16 Unknown Ur Amphetamines Screen Presumptive negative 07/24/16 Unknown U Benzodiazepines Scrn Presumptive negative 07/24/16 Unknown Urine Cocaine Screen Presumptive negative 07/24/16 Unknown U Marijuana (THC) Screen Presumptive negative 07/24/16 Unknown Drugs of Abuse Note Disclamer 07/24/16 Unknown Plasma/Serum Alcohol < 0.01 gm% (0-0.07) 07/24/16 20:45
[2016-07-25 13:19] LABS: Basophils % (Auto) 0.3 % (0.0-1.8); Eosinophils % (Auto) 0.9 % (0.0-4.3); Hematocrit 28.4 % (30.3-42.9); Hemoglobin 9.3 gm/dl (10.1-14.3); Mean Corpuscular HGB Conc 33 % (30-34); Mean Corpuscular Hemoglobin 28 pg (28-32); Mean Corpuscular Volume 85 fl (79-97); Platelet Count 304 K/mm3 (140-440); Red Blood Count 3.36 M/mm3 (3.65-5.03); Red Cell Distribution Width 14.2 % (13.2-15.2); White Blood Count 12.7 K/mm3 (4.5-11.0)
[2016-07-25 14:03] LABS: BUN/Creatinine Ratio 41.81; Calcium 8.7 mg/dL (8.4-10.2); Chloride 104.3 mmol/L (98-107); Potassium 3.8 mmol/L (3.6-5.0)
--- NOTE | 2016-07-25 15:34 | Magnetic Resonance Report ---
FINAL REPORT EXAM: MR BRAIN WO CON HISTORY: cva TECHNIQUE: Multi sequence, Multiplanar MR imaging is through the brain without gadolinium intravenous contrast. PRIORS: Head CT 07/24/2016 FINDINGS: Restricted diffusion extending throughout the distribution of the right anterior cerebral artery and to a lesser degree in the left frontal region of the left anterior cerebral artery. Associated confluent vasogenic edema. No intracranial hemorrhage. The ventricles and cisterns and sulci are proportionally enlarged consistent with parenchymal volume loss. No midline shift or herniation. Additional scattered subcortical and deep white matter T2/FLAIR hyperintense foci consistent with underlying microvascular angiopathy. Normal spherical shape of the globes. No significant abnormality involving the mastoid air cells or paranasal sinuses. Incidental note of a Tornwaldt cyst. IMPRESSION: Known ischemic infarct is seen throughout the distribution of the right anterior cerebral artery and within the left frontal region of the left anterior cerebral artery. There is associated edema without midline shift or herniation. CT follow-up is recommended. Notification documentation of known infarct has been initiated through [facility] manager client support.
--- NOTE | 2016-07-25 18:35 | Cat Scan Report ---
FINAL REPORT EXAM: CT HEAD/BRAIN WO CON HISTORY: ischemic stroke , brain edema, with out herniation TECHNIQUE: CT head without contrast PRIORS: Comparison is dated July 24, 2016 and June 27, 2016 correlation also made to MRI July 25, 2016 FINDINGS: Again identified is remote left cerebellar infarct unchanged from prior exams. Patchy hypodensities are present throughout the supratentorial white matter consistent with chronic small vessel ischemic changes. Hypodensity within the right parafalcine BERNADINE distribution is again noted unchanged from the most recent prior exam. Additionally noted is hypodensity within the left frontal BERNADINE distribution also unchanged from the most recent prior exam these are consistent with patient's known left and right BERNADINE distribution infarcts. No hemorrhagic components are observed. Bilateral basal ganglia remote lacunar infarcts are again noted unchanged IMPRESSION: . Left MRI BERNADINE acute to subacute distribution infarcts no change from prior study. No hemorrhagic components observed Extensive chronic small vessel white matter ischemic changes and remote lacunar basal ganglia infarcts
[2016-07-25] MEDS: ZOCOR PO SCH (22:05)
--- NOTE | 2016-07-25 23:47 | Admit Criteria Form ---
Admission Criteria Documentation: NEUROLOGY GRG Clinical Indications for Admission to Inpatient Care (Place ' X' for any and all applicable criteria): Hospital admission is needed for appropriate care of the patient because of 1 or more of the following: [ ]I. Encephalitis [ ]II. Severe DEBEADER infections indicated by 1 or more of the following(1)(2)(3) : [ ]a) Intracranial abscess [ ]b) Spinal abscess or myelitis [ ]c) Tuberculous or other nonbacterial, nonviral DEBEADER infection(8) [ ]III. Vasculitis and 1 or more of the following(14)(15): []a) Altered mental status that is severe or persistent or other acute neurologic change []b) Psychosis []c) Seizure [ ]IV. Status epilepticus or repetitive seizures not controlled with emergent treatment [A] (7)(8) [X ]V. Altered mental status that is severe or persistent [ ]. Transient alteration in consciousness with high-risk etiology; examples include (12)(13): [ ]a) Cardiovascular source [ ]b) Cataplexy [ ]VII. Cerebral aneurysm requiring ANY ONE of the following(14): [ ]a) IV antihypertensives or vasoactive agents [ ]b) Sedation and analgesia for suspected leak [ ]c) Need for external ventricular drainage and cerebral perfusion pressure monitoring [ ]d) Emergent evaluation to determine need for surgical clipping or endovascular coiling by interventional radiology. If surgery is required ( Also use Craniotomy, Supratentorial, for Surgery of Bleeding Intracranial Aneurysm (for bleeding aneurysm) or Craniotomy, Supratentorial (for nonbleeding aneurysm) as appropriate. [ X]VIII. New-onset severe neurologic symptom requiring inpatient care indicated by ANY ONE of the following: [ ]a) Aphasia(15) [ ]b) Weakness (grade 3 or less) [ ]c) Paralysis (eg, hemiplegia) [ ]d) Spasticity(16) [ ]e) Dystonia [ ]e) Ataxia(17) [ ]f) Amnesia(18) [ ]g) Involuntary movements(19) [ ]h) Vertigo [ ] Visual loss [ X]i) Other severe neurologic finding (eg, papilledema, mass effect on imaging, myoclonus not treatable at alternative level of care (eg, observation care) [ ]IX. Guillain-[place] syndrome(20) [ ]X. Myasthenia gravis crisis or inpatient monitoring need as indicated by 1 or more of the following(21): [ ]a) Intensive treatment (eg, course of plasmapheresis) with inadequate outpatient situation to monitor patients status [ ]b) Inadequate airway protection [ ]c) Respiratory insufficiency requiring intubation or inpatient. monitoring [ ]d) Progressive dysphagia with failure to thrive [ ]XI. Multiple sclerosis or other acute demyelinating disease requiring inpatient care as indicated by 1 or more of the following (22)(23): [ ]a) Acute severe deterioration requiring inpatient treatment (eg, IV steroids, plasmapheresis, close observation) [ ]b) Acute complication requiring inpatient care (eg, sepsis, severe decubitus, aspiration) [ ]XII.Parkinson disease requiring inpatient care (Also use Optimal Recovery Care Criteria or General Recovery Criteria as appropriate) indicated by 1 or more of the following(25): [ ]a) Infection (eg, aspiration pneumonia) not treatable at alternative level of care [ ]b Dehydration that is severe or persistent [ ]c) Life-threatening agitation or psychotic behavior not treatable on emergency, observation care, or alternative level (eg, residential) basis [ ]d) Severe medication withdrawal effects (eg, freezing, neuroleptic malignant syndrome) not responsive to emergency and observation care treatment ( as appropriate) [ ]e) Other severe manifestation not treatable at alternative level of care [ ]XII. Amyotrophic lateral sclerosis with inpatient care needs as indicated by ANY ONE of the following(26): [ ]a) Acute complications (eg, aspiration pneumonia, sepsis ) requiring inpatient care ( see other optimal Recovery Guideline as appropriate) [ ]b) Dehydration that is severe persistent AND artificial support desired [ ]c) Inadequate airway protection AND artificial support desired [ ]d) Severe ventilatory insufficiency AND artificial support desired [ ]XIII. Myasthenia gravis crisis or inpatient monitoring need as indicated by 1 or more of the following(21): [] a) Inadequate airway protection []b) Respiratory insufficiency requiring intubation or inpatient monitoring []c) Progressive dysphagia with failure to thrive []d) Intensive treatment (e.g., course of plasmapheresis) with inadequate outpatient situation to monitor patients status [ ]XIV. Multiple sclerosis or other acute demyelinating disease requiring inpatient care indicated by 1 or more of the following[C](36)(43)(44)(45)(46): []a) Acute severe deterioration requiring inpatient treatment (eg, IV steroids, plasmapheresis, close observation) []b) Acute complication requiring inpatient care (eg, sepsis, severe decubitus, aspiration) [ ]XV. Intracranial hypertension (e.g., pseudotumor cerebri) requiring inpatient care (e.g., acute visual loss, inadequate oral intake) (47)(48)(49) [ ]XVI. Parkinson disease requiring inpatient care (Also use Optimal Recovery Care Criteria or General Recovery Criteria as appropriate) indicated by 1 or more of the following(25): [] a) Infection (e.g., aspiration pneumonia) not treatable at alternative level of care []b) Volume depletion not responsive to emergency and observation care treatment (as appropriate) []c) Life-threatening agitation or psychotic behavior not treatable on emergency, observation care, or alternative level (e.g., residential) basis []d) Severe medication withdrawal effects (e.g., freezing, neuroleptic malignant syndrome) not responsive to emergency and observation care treatment (as appropriate) []e) Other severe manifestation not treatable at alternative level of care [ ]XVII. Amyotrophic lateral sclerosis with inpatient care needs as indicated by1 or more of the following(42): []a) Acute complications (eg, aspiration pneumonia, sepsis) requiring inpatient care (see other Optimal Recovery Guideline or General Recovery Guideline as appropriate) []b) Dehydration that is severe or persistent AND artificial support desired []c) Inadequate airway protection AND artificial support desired []d) Severe ventilatory insufficiency AND artificial support desired [ ]XVIII. Severe myopathy, neuropathy, or other neuromuscular disease indicated by 1 or more of the following(42)(52)(53)(54): []a ) New-onset severe diffuse weakness (eg, strength 3/5 or less) []b) Severe dysphagia []c) Dyspnea at rest or with minimal exertion (new) []d) Inadequate airway protection []e) Inadequate ventilation indicated by 1 or more of the following : i) Partial pressure of carbon dioxide greater than 44 mm Hg ( 5.9 kPa) (new) ii) Reduced peak expiratory flow rate (new) iii) Vital capacity less than 50% of predicted (less than 15 mL/kg) iv) Peak inspiratory force less negative than -30 cm H2O (- 2942 Srikanth) [ ]XVII.Complications of congenital or degenerative disease (eg, infection, seizures, dehydration, injury) not responsive to emergency and observation care treatment (as appropriate ) [C](16)(29)(30) [ ]XVIII.Suspected or confirmed nerve or muscle toxic injury, including ANY ONE of the following: [ ]a) Rhabdomyolysis(31) i) Acute renal failure ii) Dehydration that is severe or persistent iii) Altered mental status that is severe or persistent iv) Electrolyte abnormality that remains after emergency or observation level care ( as appropriate) [ ]b) Botulism(32) [ ]c) Other severe toxin-induced sign or symptom [ ]XIX. Neurologic trauma requiring inpatient treatment (medical) indicated by ANY ONE of the following(33)(34): [ ]a) Vital signs or neurologic signs more frequently than every 4 hours [ ]b) Hyperosmolar therapy [ ]c) Respiratory monitoring [ ]d) Intracranial pressure monitoring and treatment [ ]e) Stabilization and immobilization device placement (eg, braces, body jacket) [ ]f) Intubation & mechanical ventilation for airway protection or therapeutic hyperventilation [ ]g) Other treatment or monitoring needed that requires inpatient level of care [ ]XX.Complications of neurologic devices (eg, ventricular shunt, neurostimulator) requiring 1 or more of the following(35)(36): [ ]a) IV antibiotics with monitoring while awaiting culture results [ ]b) Monitoring for hydrocephalus [ ]XXI. Neurology condition symptom, or finding for which emergency and observation care have failed or are not considered appropriate. See General Criteria: Observation Care ISC, General Admission Criteria GRG, or Pediatric General Admission Criteria GRG guideline as appropriate. The original [facility] [employer] content created by [facility] [employer] has been revised. The portions of the content which have been revised are identified through the use of italic text or in bold, and [facility] has neither reviewed nor approved the modified material. All other unmodified content is copyright [facility] Please see references footnoted in the original [facility] edition [facility] Admission Criteria Met: Yes
[2016-07-26] MEDS: NOVOLOG SUB-Q SCH ×5 (00:14→22:50)
[2016-07-26 05:12] LABS: Hematocrit 26.9 % (30.3-42.9); Hemoglobin 8.9 gm/dl (10.1-14.3); Mean Corpuscular HGB Conc 33 % (30-34); Mean Corpuscular Hemoglobin 29 pg (28-32); Mean Corpuscular Volume 86 fl (79-97); Platelet Count 288 K/mm3 (140-440); Red Blood Count 3.12 M/mm3 (3.65-5.03); Red Cell Distribution Width 14.6 % (13.2-15.2); White Blood Count 9.9 K/mm3 (4.5-11.0)
[2016-07-26] MEDS: APRESOLINE PO SCH ×3 (05:28→21:07)
[2016-07-26 05:34] LABS: BUN/Creatinine Ratio 40.9; Calcium 8.8 mg/dL (8.4-10.2)
[2016-07-26 07:01] LABS: Chloride 106.2 mmol/L (98-107)
[2016-07-26] MEDS: ROCEPHIN/NS 1 GM/50 ML 1 GM/50 ML BAG IV SCH (10:30)
[2016-07-26] MEDS: PROTONIX PO SCH (11:03)
--- NOTE | 2016-07-26 11:40 | Progress Note ---
Assessment and Plan Assessment and plan: Metabolic encephalopathy Dementia Lower GI bleeding Anemia Acute CVA Acute cystitis without hematuria - GI consulted and recommended no workup at this time, patient was recently worked up for lower GI bleeding at [facility] - Bleeding stopped - Anemia is not to the point of needing transfusion - Acute CVA with surrounding edema but with out midline shift or herniation, repeat CT head was done to evaluate for edema and shoed no change. - Dr Weinberg (neurology) consulted - d/daniela plavix because of GI bleeding - Patient is on Rocephin for UTI DVT prophylaxis - SCD because of GI bleed Disposition - Continue inpatient care - patient need senior living placement History Interval history: Patient was seen and evaluated this morning, patient was sleepy likely from lorazepam. Hospitalist Physical - Physical exam Narrative exam: Not in cardiopulmonary distress. The patient appeared well nourished and normally developed. Vital signs as documented. Head exam is unremarkable. Pale conjunctivae, anicteric sclera. Neck is without jugular venous distension, thyromegaly, or carotid bruits. Lungs are clear to auscultation. Cardiac exam reveals regular rate and Rhythm. First and second heart sounds normal. No murmurs, rubs or gallops. Abdominal exam reveals normal bowel sounds, no masses, no organomegaly and no aortic enlargement. Extremities are nonedematous and both femoral and pedal pulses are normal. 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 Generalized weakness more pronounced on the left side. - Constitutional Vitals: Temp Pulse Resp BP Pulse Ox 98.6 F 90 18 178/90 93 07/26/16 07:30 07/26/16 07:30 07/26/16 07:30 07/26/16 07:30 07/26/16 07:30 Results - Labs CBC & Chem 7: 07/26/16 04:49 07/26/16 04:49 Labs: Laboratory Last Values WBC 9.9 K/mm3 (4.5-11.0) 07/26/16 04:49 RBC 3.12 M/mm3 (3.65-5.03) L 07/26/16 04:49 Hgb 8.9 gm/dl (10.1-14.3) L 07/26/16 04:49 Hct 26.9 % (30.3-42.9) L 07/26/16 04:49 MCV 86 fl (79-97) 07/26/16 04:49 MCH 29 pg (28-32) 07/26/16 04:49 MCHC 33 % (30-34) 07/26/16 04:49 RDW 14.6 % (13.2-15.2) 07/26/16 04:49 Plt Count 288 K/mm3 (140-440) 07/26/16 04:49 Lymph % (Auto) 20.9 % (13.4-35.0) 07/25/16 12:49 [place] % (Auto) 5.9 % (0.0-7.3) 07/25/16 12:49 Eos % (Auto) 0.9 % (0.0-4.3) 07/25/16 12:49 Baso % (Auto) 0.3 % (0.0-1.8) 07/25/16 12:49 Lymph # 2.7 K/mm3 (1.2-5.4) 07/25/16 12:49 [place] # 0.8 K/mm3 (0.0-0.8) 07/25/16 12:49 Eos # 0.1 K/mm3 (0.0-0.4) 07/25/16 12:49 Baso # 0.0 K/mm3 (0.0-0.1) 07/25/16 12:49 Seg Neutrophils % 72.0 % (40.0-70.0) H 07/25/16 12:49 Seg Neutrophils # 9.1 K/mm3 (1.8-7.7) H 07/25/16 12:49 Sodium 146 mmol/L (137-145) H 07/26/16 04:49 Potassium 4.0 mmol/L (3.6-5.0) 07/26/16 04:49 Chloride 106.2 mmol/L (98-107) 07/26/16 04:49 Carbon Dioxide 27 mmol/L (22-30) 07/26/16 04:49 Anion Gap 17 mmol/L 07/26/16 04:49 BUN 45 mg/dL (7-17) H 07/26/16 04:49 Creatinine 1.1 mg/dL (0.7-1.2) 07/26/16 04:49 Estimated GFR 49 ml/min 07/26/16 04:49 BUN/Creatinine Ratio 40.90 % 07/26/16 04:49 Glucose 129 mg/dL (65-100) H 07/26/16 04:49 POC Glucose 122 (70-105) H 07/25/16 21:15 Lactic Acid 1.2 mmol/L (0.7-2.0) 07/24/16 23:17 Calcium 8.8 mg/dL (8.4-10.2) 07/26/16 04:49 Magnesium 2.2 mg/dL (1.7-2.3) 07/24/16 20:45 Total Bilirubin 0.4 mg/dL (0.1-1.2) 07/24/16 20:45 AST 26 units/L (5-40) 07/24/16 20:45 ALT 13 units/L (7-56) 07/24/16 20:45 Alkaline Phosphatase 99 units/L (35-129) 07/24/16 20:45 Total Protein 6.6 g/dL (6.3-8.2) 07/24/16 20:45 Albumin 2.9 g/dL (3.9-5) L 07/24/16 20:45 Albumin/Globulin Ratio 0.8 % 07/24/16 20:45 TSH 3.240 mlU/mL (0.270-4.200) 07/24/16 20:45 Free T4 1.23 ng/dL (0.76-1.46) 07/24/16 20:45 Urine Color Vero (Yellow) 07/24/16 Unknown Urine Turbidity Turbid (Clear) 07/24/16 Unknown Urine pH 5.0 (5.0-7.0) 07/24/16 Unknown Ur Specific [place] 1.018 (1.003-1.030) 07/24/16 Unknown Urine Protein 100 mg/dl mg/dL (Negative) 07/24/16 Unknown Urine Glucose (UA) Neg mg/dL (Negative) 07/24/16 Unknown Urine Ketones Tr mg/dL (Negative) 07/24/16 Unknown Urine Blood Mod (Negative) 07/24/16 Unknown Urine Nitrite Pos (Negative) 07/24/16 Unknown Urine Bilirubin Neg (Negative) 07/24/16 Unknown Urine Urobilinogen < 2.0 mg/dL (<2.0) 07/24/16 Unknown Ur Leukocyte Esterase Lg (Negative) 07/24/16 Unknown Urine WBC (Auto) > 182.0 /HPF (0.0-6.0) H 07/24/16 Unknown Urine RBC (Auto) 18.0 /HPF (0.0-6.0) 07/24/16 Unknown U Epithel Cells (Auto) 3.0 /HPF (0-13.0) 07/24/16 Unknown Urine Bacteria (Auto) 4+ /HPF (Negative) 07/24/16 Unknown Urine WBC Clumps 3+ /HPF 07/24/16 Unknown Urine Mucus 2+ /HPF 07/24/16 Unknown Salicylates < 0.3 mg/dL (2.8-20.0) L 07/24/16 20:45 Urine Opiates Screen Presumptive negative 07/24/16 Unknown Urine Methadone Screen Presumptive negative 07/24/16 Unknown Acetaminophen < 15.0 ug/mL (10.0-30.0) 07/24/16 20:45 Ur Barbiturates Screen Presumptive negative 07/24/16 Unknown Ur Phencyclidine Scrn Presumptive negative 07/24/16 Unknown Ur Amphetamines Screen Presumptive negative 07/24/16 Unknown U Benzodiazepines Scrn Presumptive negative 07/24/16 Unknown Urine Cocaine Screen Presumptive negative 07/24/16 Unknown U Marijuana (THC) Screen Presumptive negative 07/24/16 Unknown Drugs of Abuse Note Disclamer 07/24/16 Unknown Plasma/Serum Alcohol < 0.01 gm% (0-0.07) 07/24/16 20:45 - Imaging and Cardiology CT Scan - head: report reviewed (repeat CT showed no change from the previous CT scan)
[2016-07-26] MEDS: NACL 0.9% 1000 ML 1,000 ML IV SCH (13:00)
--- NOTE | 2016-07-26 15:46 | Gastroenterology Progress Note ---
Assessment and Plan - Patient Problems (1) Altered mental status Current Visit: Yes Status: Acute Qualifiers: Altered mental status type: A Coma depth: C Coma timing: C (2) Lower GI bleed Current Visit: Yes Status: Acute Plan to address problem: No recurrence. Recent colonoscopy revealed a stercoral ulcer. Appears stabilizing GI stand point. No plans to repeat colonoscopy. May D/C at your discretion. (3) Renal insufficiency Current Visit: Yes Status: Acute (4) Stercoral ulcer of rectum Current Visit: Yes Status: Acute (5) CVA (cerebral vascular accident) Current Visit: No Status: Acute Qualifiers: CVA mechanism: other Precerebral and cerebral artery: P Laterality of affected vessel: L Qualified Code(s): I63.8 - Other cerebral infarction (6) Type 2 diabetes mellitus Current Visit: No Status: Acute Qualifiers: Diabetes mellitus complication status: D Diabetes mellitus complication detail: D Diabetic retinopathy severity: D Proliferative retinopathy type: P Diabetes mellitus macular edema: D Diabetes mellitus nursing home insulin use : D Laterality: L Chronic kidney disease stage: C Subjective Date of service: 07/26/16 Principal diagnosis: hematochezia Interval history: The patient denies and rectal bleeding. Objective - Constitutional Vitals: Temp Pulse Resp BP Pulse Ox 97.9 F 88 18 187/111 96 07/26/16 10:30 07/26/16 10:30 07/26/16 10:30 07/26/16 10:30 07/26/16 10:30 General appearance: no acute distress - EENT ENT: hearing intact, clear oral mucosa - Respiratory Respiratory effort: normal Respiratory: bilateral: CTA - Cardiovascular Rhythm: regular - Gastrointestinal General gastrointestinal: Present: soft, non-tender, non-distended, normal bowel sounds - Neurologic Neurological: alert and oriented x3 - Labs CBC & Chem 7: 07/26/16 04:49 07/26/16 04:49 Labs: Laboratory Results - last 24 hr 07/25/16 07/25/16 07/25/16 12:08 16:34 21:15 WBC RBC Hgb Hct MCV MCH MCHC RDW Plt Count Sodium Potassium Chloride Carbon Dioxide Anion Gap BUN Creatinine Estimated GFR BUN/Creatinine Ratio Glucose POC Glucose 161 H 117 H 122 H Calcium 07/26/16 07/26/16 04:49 04:49 WBC 9.9 RBC 3.12 L Hgb 8.9 L Hct 26.9 L MCV 86 MCH 29 MCHC 33 RDW 14.6 Plt Count 288 Sodium 146 H Potassium 4.0 Chloride 106.2 Carbon Dioxide 27 Anion Gap 17 BUN 45 H Creatinine 1.1 Estimated GFR 49 BUN/Creatinine Ratio 40.90 Glucose 129 H POC Glucose Calcium 8.8
--- NOTE | 2016-07-26 16:09 | Consultation ---
History of Present Illness - Reason for Consult Consult date: 07/26/16 stroke - History of Present Illness patient seen and assessed she has focal weakness and slurred speech/ can swallow well at this point I will go over imaging studies and make rec's spoke with GI Dr. Sanchez to coordinate care of the patient Thanks for consult Past History Past Medical History: diabetes, hypertension, other (CVA) Past Surgical History: Other (unknown) Social history: full code. denies: smoking Family history: no significant family history Medications and Allergies Allergies Allergy/AdvReac Type Severity Reaction Status Date / Time No Known Allergies Allergy Verified 09/26/14 15:05 Home Medications Medication Instructions Recorded Confirmed Last Taken Type Metformin HCl [metFORMIN ER] 500 mg PO DAILY 01/13/13 07/24/16 05/23/14 History Hydrochlorothiazide [HCTZ] 12.5 mg PO QDAY #30 capsule 06/02/15 07/24/16 Unknown Rx Lisinopril [Zestril TAB] 40 mg PO QDAY #30 tablet 06/02/15 07/24/16 Unknown Rx Insulin Detemir [Levemir VIAL] 10 units SUB-Q QHS 06/27/16 07/24/16 Unknown History Aspirin [Aspirin TAB] 325 mg PO QDAY #30 tablet 06/30/16 07/24/16 Unknown Rx Clopidogrel [Plavix] 75 mg PO QDAY #30 tablet 06/30/16 07/24/16 Unknown Rx Simvastatin [Zocor TAB] 40 mg PO QHS #30 tablet 06/30/16 07/24/16 Unknown Rx glipiZIDE [glipiZIDE ER] 5 mg PO BID #60 06/30/16 07/24/16 Unknown Rx hydrALAZINE [Apresoline TAB] 25 mg PO Q8HR #90 tablet 06/30/16 07/24/16 Unknown Rx Active Meds: Active Medications Acetaminophen (Tylenol) 650 mg PO Q6H PRN PRN Reason: Non Cardiac Pain or Temp>100.5 Dextrose (D50w (25gm)) 50 ml IV PRN PRN PRN Reason: Hypoglycemia Hydralazine HCl (Apresoline) 25 mg PO Q8HR DANIEL Last Admin: 07/26/16 05:28 Dose: 25 mg Hydralazine HCl (Apresoline) 10 mg IV Q4H PRN PRN Reason: Blood Pressure Ceftriaxone Sodium (Rocephin/Ns 1 Gm/50 Ml) 1 gm in 50 mls @ 100 mls/hr IV Q24HR DANIEL PRN Reason: Protocol Last Admin: 07/26/16 10:30 Dose: 100 mls/hr Sodium Chloride (Nacl 0.9% 1000 Ml) 1,000 mls @ 75 mls/hr IV DIRECT DANIEL Insulin Aspart (Novolog) 0 units SUB-Q ACHS DANIEL PRN Reason: Protocol Last Admin: 07/26/16 08:20 Dose: Not Given Ondansetron HCl (Zofran) 4 mg IV Q4H PRN PRN Reason: Nausea And Vomiting Pantoprazole Sodium (Protonix) 40 mg PO DAILY [facility] Last Admin: 07/26/16 11:03 Dose: 40 mg Simvastatin (Zocor) 40 mg PO QHS [facility] Last Admin: 07/25/16 22:05 Dose: 40 mg Exam - Constitutional Vitals: Temp Pulse Resp BP Pulse Ox 97.9 F 88 18 187/111 96 07/26/16 10:30 07/26/16 10:30 07/26/16 10:30 07/26/16 10:30 07/26/16 10:30 Results - Labs CBC & Chem 7: 07/26/16 04:49 07/26/16 04:49 Labs: Abnormal lab results 07/25/16 07/25/16 07/25/16 Range/Units 12:08 16:34 21:15 RBC (3.65-5.03) M/mm3 Hgb (10.1-14.3) gm/dl Hct (30.3-42.9) % Sodium (137-145) mmol/L BUN (7-17) mg/dL Glucose (65-100) mg/dL POC Glucose 161 H 117 H 122 H (70-105) 07/26/16 07/26/16 Range/Units 04:49 04:49 RBC 3.12 L (3.65-5.03) M/mm3 Hgb 8.9 L (10.1-14.3) gm/dl Hct 26.9 L (30.3-42.9) % Sodium 146 H (137-145) mmol/L BUN 45 H (7-17) mg/dL Glucose 129 H (65-100) mg/dL POC Glucose (70-105)
[2016-07-26] MEDS: PROTONIX IV SCH (16:54)
[2016-07-26] MEDS: ATIVAN IV PRN (20:57)
[2016-07-26] MEDS: ZOCOR PO SCH (21:05)
[2016-07-27] MEDS: APRESOLINE IV PRN ×2 (00:32→13:33)
[2016-07-27 05:41] LABS: Basophils % (Auto) 0.3 % (0.0-1.8); Eosinophils % (Auto) 1.2 % (0.0-4.3); Hematocrit 29.6 % (30.3-42.9); Hemoglobin 9.6 gm/dl (10.1-14.3); Mean Corpuscular HGB Conc 32 % (30-34); Mean Corpuscular Hemoglobin 28 pg (28-32); Mean Corpuscular Volume 85 fl (79-97); Platelet Count 322 K/mm3 (140-440); Red Blood Count 3.47 M/mm3 (3.65-5.03); Red Cell Distribution Width 14.3 % (13.2-15.2); White Blood Count 11.5 K/mm3 (4.5-11.0)
[2016-07-27] MEDS: APRESOLINE PO SCH ×3 (05:52→22:45)
[2016-07-27 06:14] LABS: Anion Gap 21 mmol/L; BUN/Creatinine Ratio 42.85; Blood Urea Nitrogen 30 mg/dL (7-17); Calcium 8.9 mg/dL (8.4-10.2); Carbon Dioxide 21 mmol/L (22-30); Chloride 105.9 mmol/L (98-107); Glucose 130 mg/dL (65-100); Potassium 3.3 mmol/L (3.6-5.0); Sodium 145 mmol/L (137-145)
[2016-07-27] MEDS: NOVOLOG SUB-Q SCH ×4 (07:24→22:45)
[2016-07-27] MEDS: PROTONIX PO SCH (09:16)
--- NOTE | 2016-07-27 10:44 | Progress Note ---
Assessment and Plan Assessment and plan: Encephalopathy Dementia Lower GI bleeding Anemia Acute CVA Acute cystitis without hematuria - GI consulted and recommended no workup at this time, patient was recently worked up for lower [facility] bleeding at [facility] - Bleeding stopped - Anemia is not to the point of needing transfusion - Acute CVA with surrounding edema but with out midline shift or herniation, repeat CT head was done to evaluate for edema and showed no change. - Dr Weinberg (neurology) consult appreciated - d/daniela plavix because of GI bleeding - Patient is on Rocephin for UTI DVT prophylaxis - SCD because of GI bleed Disposition - Continue inpatient care - patient need retirement placement - I have discussed with her son and wanted to be placed retirement. History Interval history: Patient was seen and evaluated this morning, patient is abusive. She cursed when i tried to talk to her. I have contacted her son Wayne Farooq @ and discussed the management plan and he wanted her to be placed at retirement. Hospitalist Physical - Physical exam Narrative exam: Not in cardiopulmonary distress. The patient appeared well nourished and normally developed. Vital signs as documented. Head exam is unremarkable. Pale conjunctivae, anicteric sclera. Neck is without jugular venous distension, thyromegaly, or carotid bruits. Lungs are clear to auscultation. Cardiac exam reveals regular rate and Rhythm. First and second heart sounds normal. No murmurs, rubs or gallops. Abdominal exam reveals normal bowel sounds, no masses, no organomegaly and no aortic enlargement. CHANGE ATTENDANT: patient is confused and abusive. Generalized weakness more pronounced on the left side. - Constitutional Vitals: Temp Pulse Resp BP Pulse Ox 98.3 F 96 H 18 163/82 98 07/27/16 08:20 07/27/16 08:20 07/27/16 08:20 07/27/16 08:20 07/27/16 08:20 Results - Labs CBC & Chem 7: 07/27/16 04:39 07/27/16 04:39 Labs: Laboratory Last Values WBC 11.5 K/mm3 (4.5-11.0) H 07/27/16 04:39 RBC 3.47 M/mm3 (3.65-5.03) L 07/27/16 04:39 Hgb 9.6 gm/dl (10.1-14.3) L 07/27/16 04:39 Hct 29.6 % (30.3-42.9) L 07/27/16 04:39 MCV 85 fl (79-97) 07/27/16 04:39 MCH 28 pg (28-32) 07/27/16 04:39 MCHC 32 % (30-34) 07/27/16 04:39 RDW 14.3 % (13.2-15.2) 07/27/16 04:39 Plt Count 322 K/mm3 (140-440) 07/27/16 04:39 Lymph % (Auto) 27.7 % (13.4-35.0) 07/27/16 04:39 [place] % (Auto) 6.8 % (0.0-7.3) 07/27/16 04:39 Eos % (Auto) 1.2 % (0.0-4.3) 07/27/16 04:39 Baso % (Auto) 0.3 % (0.0-1.8) 07/27/16 04:39 Lymph # 3.2 K/mm3 (1.2-5.4) 07/27/16 04:39 [place] # 0.8 K/mm3 (0.0-0.8) 07/27/16 04:39 Eos # 0.1 K/mm3 (0.0-0.4) 07/27/16 04:39 Baso # 0.0 K/mm3 (0.0-0.1) 07/27/16 04:39 Seg Neutrophils % 64.0 % (40.0-70.0) 07/27/16 04:39 Seg Neutrophils # 7.3 K/mm3 (1.8-7.7) 07/27/16 04:39 Sodium 145 mmol/L (137-145) 07/27/16 04:39 Potassium 3.3 mmol/L (3.6-5.0) L 07/27/16 04:39 Chloride 105.9 mmol/L (98-107) 07/27/16 04:39 Carbon Dioxide 21 mmol/L (22-30) L 07/27/16 04:39 Anion Gap 21 mmol/L 07/27/16 04:39 BUN 30 mg/dL (7-17) H 07/27/16 04:39 Creatinine 0.7 mg/dL (0.7-1.2) 07/27/16 04:39 Estimated GFR > 60 ml/min 07/27/16 04:39 BUN/Creatinine Ratio 42.85 % 07/27/16 04:39 Glucose 130 mg/dL (65-100) H 07/27/16 04:39 POC Glucose 128 (70-105) H 07/27/16 06:28 Lactic Acid 1.2 mmol/L (0.7-2.0) 07/24/16 23:17 Calcium 8.9 mg/dL (8.4-10.2) 07/27/16 04:39 Magnesium 2.2 mg/dL (1.7-2.3) 07/24/16 20:45 Total Bilirubin 0.4 mg/dL (0.1-1.2) 07/24/16 20:45 AST 26 units/L (5-40) 07/24/16 20:45 ALT 13 units/L (7-56) 07/24/16 20:45 Alkaline Phosphatase 99 units/L (35-129) 07/24/16 20:45 Total Protein 6.6 g/dL (6.3-8.2) 07/24/16 20:45 Albumin 2.9 g/dL (3.9-5) L 07/24/16 20:45 Albumin/Globulin Ratio 0.8 % 07/24/16 20:45 TSH 3.240 mlU/mL (0.270-4.200) 07/24/16 20:45 Free T4 1.23 ng/dL (0.76-1.46) 07/24/16 20:45 Urine Color Vero (Yellow) 07/24/16 Unknown Urine Turbidity Turbid (Clear) 07/24/16 Unknown Urine pH 5.0 (5.0-7.0) 07/24/16 Unknown Ur Specific [place] 1.018 (1.003-1.030) 07/24/16 Unknown Urine Protein 100 mg/dl mg/dL (Negative) 07/24/16 Unknown Urine Glucose (UA) Neg mg/dL (Negative) 07/24/16 Unknown Urine Ketones Tr mg/dL (Negative) 07/24/16 Unknown Urine Blood Mod (Negative) 07/24/16 Unknown Urine Nitrite Pos (Negative) 07/24/16 Unknown Urine Bilirubin Neg (Negative) 07/24/16 Unknown Urine Urobilinogen < 2.0 mg/dL (<2.0) 07/24/16 Unknown Ur Leukocyte Esterase Lg (Negative) 07/24/16 Unknown Urine WBC (Auto) > 182.0 /HPF (0.0-6.0) H 07/24/16 Unknown Urine RBC (Auto) 18.0 /HPF (0.0-6.0) 07/24/16 Unknown U Epithel Cells (Auto) 3.0 /HPF (0-13.0) 07/24/16 Unknown Urine Bacteria (Auto) 4+ /HPF (Negative) 07/24/16 Unknown Urine WBC Clumps 3+ /HPF 07/24/16 Unknown Urine Mucus 2+ /HPF 07/24/16 Unknown Salicylates < 0.3 mg/dL (2.8-20.0) L 07/24/16 20:45 Urine Opiates Screen Presumptive negative 07/24/16 Unknown Urine Methadone Screen Presumptive negative 07/24/16 Unknown Acetaminophen < 15.0 ug/mL (10.0-30.0) 07/24/16 20:45 Ur Barbiturates Screen Presumptive negative 07/24/16 Unknown Ur Phencyclidine Scrn Presumptive negative 07/24/16 Unknown Ur Amphetamines Screen Presumptive negative 07/24/16 Unknown U Benzodiazepines Scrn Presumptive negative 07/24/16 Unknown Urine Cocaine Screen Presumptive negative 07/24/16 Unknown U Marijuana (THC) Screen Presumptive negative 07/24/16 Unknown Drugs of Abuse Note Disclamer 07/24/16 Unknown Plasma/Serum Alcohol < 0.01 gm% (0-0.07) 07/24/16 20:45 - Imaging and Cardiology MRI - head: image reviewed (Stroke )
--- NOTE | 2016-07-27 10:48 | Gastroenterology Progress Note ---
Assessment and Plan - Patient Problems (1) Altered mental status Current Visit: Yes Status: Acute (2) Lower GI bleed Current Visit: Yes Status: Acute Plan to address problem: No bleeding observed. Recently worked up and found to have a stercoral ulcer in the rectum. I will s/o at this point and f/u at your request. Thank you for asking me to be involved in her care. (3) Renal insufficiency Current Visit: Yes Status: Acute (4) Stercoral ulcer of rectum Current Visit: Yes Status: Acute (5) CVA (cerebral vascular accident) Current Visit: No Status: Acute Qualifiers: Qualified Code(s): I63.8 - Other cerebral infarction (6) Type 2 diabetes mellitus Current Visit: No Status: Acute Subjective Date of service: 07/27/16 Principal diagnosis: hematochezia Interval history: No bleeding according to the nurse Objective - Constitutional Vitals: Temp Pulse Resp BP Pulse Ox 98.3 F 96 H 18 163/82 98 07/27/16 08:20 07/27/16 08:20 07/27/16 08:20 07/27/16 08:20 07/27/16 08:20 General appearance: no acute distress - EENT ENT: hearing intact, clear oral mucosa, dentition normal - Respiratory Respiratory effort: normal Respiratory: bilateral: CTA - Cardiovascular Rhythm: regular - Gastrointestinal General gastrointestinal: Present: soft, non-tender, non-distended, normal bowel sounds - Neurologic Neurological: other (alert, confused ( baseline)) - Labs CBC & Chem 7: 07/27/16 04:39 07/27/16 04:39 Labs: Laboratory Results - last 24 hr 07/26/16 07/26/16 07/27/16 15:49 21:24 04:39 WBC 11.5 H RBC 3.47 L Hgb 9.6 L Hct 29.6 L MCV 85 MCH 28 MCHC 32 RDW 14.3 Plt Count 322 Lymph % (Auto) 27.7 [place] % (Auto) 6.8 Eos % (Auto) 1.2 Baso % (Auto) 0.3 Lymph # 3.2 [place] # 0.8 Eos # 0.1 Baso # 0.0 Seg Neutrophils % 64.0 Seg Neutrophils # 7.3 Sodium Potassium Chloride Carbon Dioxide Anion Gap BUN Creatinine Estimated GFR BUN/Creatinine Ratio Glucose POC Glucose 124 H 125 H Calcium 07/27/16 07/27/16 04:39 06:28 WBC RBC Hgb Hct MCV MCH MCHC RDW Plt Count Lymph % (Auto) [place] % (Auto) Eos % (Auto) Baso % (Auto) Lymph # [place] # Eos # Baso # Seg Neutrophils % Seg Neutrophils # Sodium 145 Potassium 3.3 L Chloride 105.9 Carbon Dioxide 21 L Anion Gap 21 BUN 30 H Creatinine 0.7 Estimated GFR > 60 BUN/Creatinine Ratio 42.85 Glucose 130 H POC Glucose 128 H Calcium 8.9
[2016-07-27] MEDS: ROCEPHIN/NS 1 GM/50 ML 1 GM/50 ML BAG IV SCH (13:27)
[2016-07-27] MEDS: NACL 0.9% 1000 ML 1,000 ML IV SCH (18:17)
[2016-07-27] MEDS: ATIVAN IV PRN (22:44)
[2016-07-27] MEDS: ZOCOR PO SCH (22:45)
[2016-07-28 06:12] LABS: Hematocrit 25.8 % (30.3-42.9); Hemoglobin 8.5 gm/dl (10.1-14.3)
[2016-07-28 06:22] LABS: Anion Gap 14 mmol/L; BUN/Creatinine Ratio 37.14; Blood Urea Nitrogen 26 mg/dL (7-17); Calcium 8.3 mg/dL (8.4-10.2); Carbon Dioxide 26 mmol/L (22-30); Chloride 108.6 mmol/L (98-107); Glucose 125 mg/dL (65-100); Potassium 3.6 mmol/L (3.6-5.0); Sodium 145 mmol/L (137-145)
[2016-07-28 06:27] LABS: INR 1.11 (0.87-1.13)
[2016-07-28] MEDS: APRESOLINE PO SCH ×3 (06:42→22:48)
[2016-07-28] MEDS: NACL 0.9% 1000 ML 1,000 ML IV SCH ×2 (06:42→19:39)
[2016-07-28] MEDS: NOVOLOG SUB-Q SCH ×4 (08:10→22:39)
[2016-07-28] MEDS: ROCEPHIN/NS 1 GM/50 ML 1 GM/50 ML BAG IV SCH (09:38)
[2016-07-28] MEDS: PROTONIX PO SCH (09:40)
[2016-07-28] MEDS: ATIVAN IV PRN ×2 (12:07→19:52)
--- NOTE | 2016-07-28 18:31 | Progress Note ---
Assessment and Plan Assessment and plan: 71-year-old woman with a past medical history of multiple strokes, with chronic left-sided weakness. She had been recently seen at [facility] for a lower GI bleed but she was found to have stercoral rectal ulcer . She presents with confusion, combative behavior, and with bloody stools. In the ER she was found with a large amount of bloody stool in her diaper. 1. CVA On admission she had a CAT scan and MRI which showed subacute left-sided CVA. Medications are to be optimized; neurology input appreciated 2. GI bleed due to rectal ulcer had recent workup which revealed rectal ulcer, bleeding resolved without any specific intervention, GI input appreciated, no need for further invasive studies given resolution of symptoms and 3/7 endoscopies. 3. Dementia with disorganized behavior Patient is on Ativan as needed for agitation, will consider putting her on psychiatric medications and will consider psychiatric consult if her behavior does not improve 4. Acute blood loss anemia hg now stable, GI bleed has now resolved 5. Acute cystitis/Sepsis continue abx Dispo; to SNF . History Interval history: Of note she has been verbally abusive to staff, noted events overnight no fevers documented no other symptoms reported by the patient Hospitalist Physical - Physical exam Narrative exam: General: Patient appears well in no distress HEENT: MMM, EOMI cardiac: S1-S2 heard lungs: clear to auscultation, abdomen: soft, nontender, nondistended bowel sounds positive extremities: no edema clubbing or cyanosis Skin: no rash or lesion Neuro: Left-sided hemiparesis Psych: Disorganized behavior, demented, aggressive, yelling profanities at staff - Constitutional Vitals: Temp Pulse Resp BP Pulse Ox 98.4 F 83 18 195/87 98 07/28/16 16:00 07/28/16 16:00 07/28/16 16:00 07/28/16 16:00 07/28/16 16:00 Results - Labs CBC & Chem 7: 07/31/16 08:35 07/31/16 08:35 Labs: Laboratory Last Values WBC 11.5 K/mm3 (4.5-11.0) H 07/27/16 04:39 RBC 3.47 M/mm3 (3.65-5.03) L 07/27/16 04:39 Hgb 8.5 gm/dl (10.1-14.3) L 07/28/16 05:30 Hct 25.8 % (30.3-42.9) L 07/28/16 05:30 MCV 85 fl (79-97) 07/27/16 04:39 MCH 28 pg (28-32) 07/27/16 04:39 MCHC 32 % (30-34) 07/27/16 04:39 RDW 14.3 % (13.2-15.2) 07/27/16 04:39 Plt Count 322 K/mm3 (140-440) 07/27/16 04:39 Lymph % (Auto) 27.7 % (13.4-35.0) 07/27/16 04:39 [place] % (Auto) 6.8 % (0.0-7.3) 07/27/16 04:39 Eos % (Auto) 1.2 % (0.0-4.3) 07/27/16 04:39 Baso % (Auto) 0.3 % (0.0-1.8) 07/27/16 04:39 Lymph # 3.2 K/mm3 (1.2-5.4) 07/27/16 04:39 [place] # 0.8 K/mm3 (0.0-0.8) 07/27/16 04:39 Eos # 0.1 K/mm3 (0.0-0.4) 07/27/16 04:39 Baso # 0.0 K/mm3 (0.0-0.1) 07/27/16 04:39 Seg Neutrophils % 64.0 % (40.0-70.0) 07/27/16 04:39 Seg Neutrophils # 7.3 K/mm3 (1.8-7.7) 07/27/16 04:39 PT 14.2 Sec. (12.2-14.9) 07/28/16 05:30 INR 1.11 (0.87-1.13) 07/28/16 05:30 Sodium 145 mmol/L (137-145) 07/28/16 05:30 Potassium 3.6 mmol/L (3.6-5.0) 07/28/16 05:30 Chloride 108.6 mmol/L (98-107) H 07/28/16 05:30 Carbon Dioxide 26 mmol/L (22-30) 07/28/16 05:30 Anion Gap 14 mmol/L 07/28/16 05:30 BUN 26 mg/dL (7-17) H 07/28/16 05:30 Creatinine 0.7 mg/dL (0.7-1.2) 07/28/16 05:30 Estimated GFR > 60 ml/min 07/28/16 05:30 BUN/Creatinine Ratio 37.14 % 07/28/16 05:30 Glucose 125 mg/dL (65-100) H 07/28/16 05:30 POC Glucose 230 (70-105) H 07/27/16 21:40 Lactic Acid 1.2 mmol/L (0.7-2.0) 07/24/16 23:17 Calcium 8.3 mg/dL (8.4-10.2) L 07/28/16 05:30 Magnesium 2.2 mg/dL (1.7-2.3) 07/24/16 20:45 Total Bilirubin 0.4 mg/dL (0.1-1.2) 07/24/16 20:45 AST 26 units/L (5-40) 07/24/16 20:45 ALT 13 units/L (7-56) 07/24/16 20:45 Alkaline Phosphatase 99 units/L (35-129) 07/24/16 20:45 Total Protein 6.6 g/dL (6.3-8.2) 07/24/16 20:45 Albumin 2.9 g/dL (3.9-5) L 07/24/16 20:45 Albumin/Globulin Ratio 0.8 % 07/24/16 20:45 TSH 3.240 mlU/mL (0.270-4.200) 07/24/16 20:45 Free T4 1.23 ng/dL (0.76-1.46) 07/24/16 20:45 Urine Color Vero (Yellow) 07/24/16 Unknown Urine Turbidity Turbid (Clear) 07/24/16 Unknown Urine pH 5.0 (5.0-7.0) 07/24/16 Unknown Ur Specific [place] 1.018 (1.003-1.030) 07/24/16 Unknown Urine Protein 100 mg/dl mg/dL (Negative) 07/24/16 Unknown Urine Glucose (UA) Neg mg/dL (Negative) 07/24/16 Unknown Urine Ketones Tr mg/dL (Negative) 07/24/16 Unknown Urine Blood Mod (Negative) 07/24/16 Unknown Urine Nitrite Pos (Negative) 07/24/16 Unknown Urine Bilirubin Neg (Negative) 07/24/16 Unknown Urine Urobilinogen < 2.0 mg/dL (<2.0) 07/24/16 Unknown Ur Leukocyte Esterase Lg (Negative) 07/24/16 Unknown Urine WBC (Auto) > 182.0 /HPF (0.0-6.0) H 07/24/16 Unknown Urine RBC (Auto) 18.0 /HPF (0.0-6.0) 07/24/16 Unknown U Epithel Cells (Auto) 3.0 /HPF (0-13.0) 07/24/16 Unknown Urine Bacteria (Auto) 4+ /HPF (Negative) 07/24/16 Unknown Urine WBC Clumps 3+ /HPF 07/24/16 Unknown Urine Mucus 2+ /HPF 07/24/16 Unknown Salicylates < 0.3 mg/dL (2.8-20.0) L 07/24/16 20:45 Urine Opiates Screen Presumptive negative 07/24/16 Unknown Urine Methadone Screen Presumptive negative 07/24/16 Unknown Acetaminophen < 15.0 ug/mL (10.0-30.0) 07/24/16 20:45 Ur Barbiturates Screen Presumptive negative 07/24/16 Unknown Ur Phencyclidine Scrn Presumptive negative 07/24/16 Unknown Ur Amphetamines Screen Presumptive negative 07/24/16 Unknown U Benzodiazepines Scrn Presumptive negative 07/24/16 Unknown Urine Cocaine Screen Presumptive negative 07/24/16 Unknown U Marijuana (THC) Screen Presumptive negative 07/24/16 Unknown Drugs of Abuse Note Disclamer 07/24/16 Unknown Plasma/Serum Alcohol < 0.01 gm% (0-0.07) 07/24/16 20:45
[2016-07-28] MEDS: ZOCOR PO SCH (22:48)
[2016-07-28] MEDS: APRESOLINE IV PRN (23:03)
[2016-07-29] MEDS: APRESOLINE PO SCH ×3 (05:45→21:03)
--- NOTE | 2016-07-29 08:04 | Vascular Lab Report ---
CAROTID DUPLEX STUDY: RIGHT PSVEDV CCA PROX: 6613 CCA DIST: 5414 ICA PROX:87727 ICA MID:[id number] ICA DIST: 7220 ECA: 170 VERT: 38 11 LEFT PSVEDV CCA PROX: 8316 CCA DIST: 6516 ICA PROX: 6221 ICA MID: 9027 ICA DIST: 6517 ECA: 111 VERT: 41 14 REASON FOR EXAM: CVA. COMMENTS ON THE RIGHT: Doppler frequency analysis is consistent with 50 to 79 percent diameter reduction of the internal carotid artery. Mixed calcified plaque is noted in the carotid bulb extending into the internal carotid artery The common carotid artery is patent. The external carotid artery is patent. The vertebral artery has antegrade flow. COMMENTS ON THE LEFT: Doppler frequency analysis is consistent with 16 to 49 percent diameter reduction of the internal carotid artery. Minimal amount of plaque is seen. The common carotid artery is patent. The external carotid artery is patent. The vertebral artery has antegrade flow. IMPRESSION: 50 to 79 percent diameter reduction of the right internal carotid artery 16 to 49 percent diameter reduction of the left internal carotid artery. Clinical correlation is recommended. Followup study could be considered if clinically warranted with CTA or MRA
[2016-07-29] MEDS: ROCEPHIN/NS 1 GM/50 ML 1 GM/50 ML BAG IV SCH (09:16)
[2016-07-29] MEDS: NOVOLOG SUB-Q SCH ×4 (09:17→21:08)
[2016-07-29] MEDS: PROTONIX PO SCH (09:17)
--- NOTE | 2016-07-29 10:48 | Discharge Summary ---
Providers - Providers Date of Admission: 07/25/16 01:10 Attending physician: JUAN RODRIGUEZ MD 07/25/16 01:15 Consult to Physician [CONS] Routine Consulting Provider: FRANKIE GRANDA Reason For Exam: GIB Place consult to:: Juan Beavers MD..Dr. Granda Notified:: Answering Service Phone number called:: [phone] Was contact made?: Yes If yes, spoke with:: Dr. Granda Time called:: 00:40 Comment:: Dr. Gallagher (er dr) spoke to Dr. Granda 07/25/16 17:13 Consult to Physician [CONS] Routine Consulting Provider: JUAN SARMIENTO Reason For Exam: acute CVA, right carotid artery 50-79% stenosis Place consult to:: Vascular surgery/ dr. [place] Notified:: answering service Phone number called:: Was contact made?: Yes If yes, spoke with:: soto Time called:: 17:35 07/26/16 08:21 Consult to Physician [CONS] Routine Consulting Provider: ESTEFANY WESTFALL Reason For Exam: CVA Place consult to:: Neurology Notified:: DR. WESTFALL ANSWERING SERVICES Phone number called:: [phone] Was contact made?: Yes If yes, spoke with:: MERA Time called:: 08:40 Comment:: MIRIAN NOTIFIED 07/26/16 18:36 Speech Therapy Evaluation and Treat [CONS] Routine Reason For Exam: New dx of stroke. 07/27/16 09:22 Physical Therapy Evaluation and Treat [CONS] Routine Comment: Reason For Exam: CVA Primary care physician: SERVER SERVICE ASSISTANT Hospitalization Condition: Stable Hospital course: 71F admitted for UTI and GI bleed Rectal bleed had recent workup which revealed rectal ulcer, no active bleeding at this time, GI input appreciated, no further workup Encephalopathy Dementia Lower GI bleeding Anemia Acute CVA Acute cystitis without hematuria - GI consulted and recommended no workup at this time, patient was recently worked up for lower GI bleeding at another [facility] - Bleeding stopped - Anemia is not to the point of needing transfusion - Acute CVA with surrounding edema but with out midline shift or herniation, repeat CT head was done to evaluate for edema and showed no change. - Dr Weinberg (neurology) consult appreciated - d/daniela plavix because of GI bleeding - Patient is on Rocephin for UTI DVT prophylaxis - SCD because of GI bleed Disposition - Continue inpatient care - patient need group home placement - I have discussed with her son and wanted to be placed group home. Disposition: DC/TX SNF [facility] CERT Time spent for discharge: 35 minutes Core Measure Documentation - Palliative Care Palliative Care/ Comfort Measures: Not Applicable - Core Measures Any of the following diagnoses?: none Exam - Constitutional Vitals: Temp Pulse Resp BP Pulse Ox 98.2 F 92 H 20 195/91 100 07/28/16 23:00 07/29/16 05:45 07/29/16 01:20 07/29/16 05:45 07/29/16 01:20 General appearance: Present: no acute distress, well-nourished - EENT Eyes: Present: PERRL ENT: hearing intact, clear oral mucosa - Neck Neck: Present: supple, normal ROM - Respiratory Respiratory effort: normal Respiratory: bilateral: CTA - Cardiovascular Heart Sounds: Present: S1 & S2. Absent: rub, click - Extremities Extremities: pulses symmetrical, No edema Peripheral Pulses: within normal limits - Abdominal General gastrointestinal: Present: soft, non-tender, non-distended, normal bowel sounds Female genitourinary: Present: normal - Integumentary Integumentary: Present: clear, warm, dry - Musculoskeletal Musculoskeletal: gait normal, strength equal bilaterally - Psychiatric Psychiatric: appropriate mood/affect, intact judgment & insight - Neurologic Neurologic: CNII-XII intact, moves all extremities Plan Follow up with: PRIMARY CAREMD [Primary Care Provider] - 7 Days LEANNE GUERRERO MD [Staff Physician] - 7 Days Prescriptions: Aspirin EC [Aspirin Enteric Coated TAB] 81 mg PO QDAY #30 tablet.
[2016-07-29] MEDS: ATIVAN IV PRN ×2 (12:25→21:02)
[2016-07-29] MEDS ORDERED: ATIVAN PO PRN (12:48)
[2016-07-29] MEDS: APRESOLINE IV PRN (16:21)
[2016-07-29] MEDS: NACL 0.9% 1000 ML 1,000 ML IV SCH (17:35)
[2016-07-29] MEDS: ZOCOR PO SCH (21:03)
[2016-07-30] MEDS: ATIVAN IV PRN (03:01)
[2016-07-30] MEDS: APRESOLINE IV PRN (05:20)
[2016-07-30] MEDS: APRESOLINE PO SCH ×3 (06:04→22:40)
[2016-07-30] MEDS: NOVOLOG SUB-Q SCH ×4 (09:02→22:40)
[2016-07-30] MEDS: ROCEPHIN/NS 1 GM/50 ML 1 GM/50 ML BAG IV SCH (11:48)
[2016-07-30] MEDS: RisperDAL PO SCH ×2 (11:49→22:40)
[2016-07-30] MEDS: PROTONIX PO SCH (11:49)
[2016-07-30] MEDS: NACL 0.9% 1000 ML 1,000 ML IV SCH (11:49)
--- NOTE | 2016-07-30 17:14 | Vascular Lab Report ---
Left Lower Extremity Venous Duplex Study: Reason for Exam: Pain and swelling of the left lower extremity. Comments on the Right: A limited duplex study was done of the proximal veins of the right lower extremity. All veins visualized are freely compressible without evidence of internal echogenicity. Flow is spontaneous and phasic throughout. No evidence of acute or chronic thrombus is seen in any of the vessels visualized. Comments on the Left: Acute deep venous thrombosis noted in the popliteal, femoral, deep femoral, common femoral veins. Superficial thromboses noted in the proximal greater saphenous vein. The remaining veins visualized are freely compressible without evidence of internal echogenicity. Spontaneous and phasic flow is absent proximally. Impression: Acute deep and superficial venous thrombosis in the left lower extremity
--- NOTE | 2016-07-30 21:44 | Progress Note ---
Assessment and Plan Assessment and plan: 71-year-old woman with a past medical history of multiple strokes, with chronic left-sided weakness. She had been recently seen at [facility] for a lower GI bleed but she was found to have stercoral rectal ulcer after which she was taken off aspirin . She presents with confusion, combative behavior, and with bloody stools. In the ER she was found with a large amount of bloody stool in her diaper. 1. CVA On admission she had a CAT scan and MRI which showed subacute left-sided CVA. Medications have been optimized; neurology input appreciated 2. GI bleed due to rectal ulcer had recent workup which revealed rectal ulcer, bleeding resolved without any specific intervention, GI input appreciated, no need for further invasive studies given resolution of symptoms and 3/7 endoscopies. 3. Dementia with disorganized behavior Patient is on Ativan as needed for agitation, Psychiatry input appreciated, continue 4. Acute blood loss anemia hg now stable, GI bleed has now resolved 5. Acute cystitis/Sepsis continue abx 6. Acute left lower extremity DVT Patient has been started on anticoagulants Dispo; to SNF . History Interval history: Her nurse alerted me today that she has a swollen left lower extremity today, she continues to be verbally aggressive and physically aggressive Hospitalist Physical - Physical exam Narrative exam: General: Patient appears well in no distress HEENT: MMM, EOMI cardiac: S1-S2 heard lungs: clear to auscultation, abdomen: soft, nontender, nondistended bowel sounds positive extremities: Left lower extremity is swollen and tender Skin: no rash or lesion Neuro: Left-sided hemiparesis Psych: Disorganized behavior, demented, aggressive, yelling profanities at staff - Constitutional Vitals: Temp Pulse Resp BP Pulse Ox 98.6 F 115 H 18 126/58 96 07/30/16 20:45 07/30/16 20:45 07/30/16 20:45 07/30/16 20:45 07/30/16 20:45 General appearance: Present: no acute distress, well-nourished Results - Labs CBC & Chem 7: 07/31/16 08:35 07/31/16 08:35 Labs: Laboratory Last Values WBC 11.5 K/mm3 (4.5-11.0) H 07/27/16 04:39 RBC 3.47 M/mm3 (3.65-5.03) L 07/27/16 04:39 Hgb 8.5 gm/dl (10.1-14.3) L 07/28/16 05:30 Hct 25.8 % (30.3-42.9) L 07/28/16 05:30 MCV 85 fl (79-97) 07/27/16 04:39 MCH 28 pg (28-32) 07/27/16 04:39 MCHC 32 % (30-34) 07/27/16 04:39 RDW 14.3 % (13.2-15.2) 07/27/16 04:39 Plt Count 322 K/mm3 (140-440) 07/27/16 04:39 Lymph % (Auto) 27.7 % (13.4-35.0) 07/27/16 04:39 [place] % (Auto) 6.8 % (0.0-7.3) 07/27/16 04:39 Eos % (Auto) 1.2 % (0.0-4.3) 07/27/16 04:39 Baso % (Auto) 0.3 % (0.0-1.8) 07/27/16 04:39 Lymph # 3.2 K/mm3 (1.2-5.4) 07/27/16 04:39 [place] # 0.8 K/mm3 (0.0-0.8) 07/27/16 04:39 Eos # 0.1 K/mm3 (0.0-0.4) 07/27/16 04:39 Baso # 0.0 K/mm3 (0.0-0.1) 07/27/16 04:39 Seg Neutrophils % 64.0 % (40.0-70.0) 07/27/16 04:39 Seg Neutrophils # 7.3 K/mm3 (1.8-7.7) 07/27/16 04:39 PT 14.2 Sec. (12.2-14.9) 07/28/16 05:30 INR 1.11 (0.87-1.13) 07/28/16 05:30 Sodium 145 mmol/L (137-145) 07/28/16 05:30 Potassium 3.6 mmol/L (3.6-5.0) 07/28/16 05:30 Chloride 108.6 mmol/L (98-107) H 07/28/16 05:30 Carbon Dioxide 26 mmol/L (22-30) 07/28/16 05:30 Anion Gap 14 mmol/L 07/28/16 05:30 BUN 26 mg/dL (7-17) H 07/28/16 05:30 Creatinine 0.7 mg/dL (0.7-1.2) 07/28/16 05:30 Estimated GFR > 60 ml/min 07/28/16 05:30 BUN/Creatinine Ratio 37.14 % 07/28/16 05:30 Glucose 125 mg/dL (65-100) H 07/28/16 05:30 POC Glucose 202 (70-105) H 07/30/16 17:57 Lactic Acid 1.2 mmol/L (0.7-2.0) 07/24/16 23:17 Calcium 8.3 mg/dL (8.4-10.2) L 07/28/16 05:30 Magnesium 2.2 mg/dL (1.7-2.3) 07/24/16 20:45 Total Bilirubin 0.4 mg/dL (0.1-1.2) 07/24/16 20:45 AST 26 units/L (5-40) 07/24/16 20:45 ALT 13 units/L (7-56) 07/24/16 20:45 Alkaline Phosphatase 99 units/L (35-129) 07/24/16 20:45 Total Protein 6.6 g/dL (6.3-8.2) 07/24/16 20:45 Albumin 2.9 g/dL (3.9-5) L 07/24/16 20:45 Albumin/Globulin Ratio 0.8 % 07/24/16 20:45 TSH 3.240 mlU/mL (0.270-4.200) 07/24/16 20:45 Free T4 1.23 ng/dL (0.76-1.46) 07/24/16 20:45 Urine Color Vero (Yellow) 07/24/16 Unknown Urine Turbidity Turbid (Clear) 07/24/16 Unknown Urine pH 5.0 (5.0-7.0) 07/24/16 Unknown Ur Specific [place] 1.018 (1.003-1.030) 07/24/16 Unknown Urine Protein 100 mg/dl mg/dL (Negative) 07/24/16 Unknown Urine Glucose (UA) Neg mg/dL (Negative) 07/24/16 Unknown Urine Ketones Tr mg/dL (Negative) 07/24/16 Unknown Urine Blood Mod (Negative) 07/24/16 Unknown Urine Nitrite Pos (Negative) 07/24/16 Unknown Urine Bilirubin Neg (Negative) 07/24/16 Unknown Urine Urobilinogen < 2.0 mg/dL (<2.0) 07/24/16 Unknown Ur Leukocyte Esterase Lg (Negative) 07/24/16 Unknown Urine WBC (Auto) > 182.0 /HPF (0.0-6.0) H 07/24/16 Unknown Urine RBC (Auto) 18.0 /HPF (0.0-6.0) 07/24/16 Unknown U Epithel Cells (Auto) 3.0 /HPF (0-13.0) 07/24/16 Unknown Urine Bacteria (Auto) 4+ /HPF (Negative) 07/24/16 Unknown Urine WBC Clumps 3+ /HPF 07/24/16 Unknown Urine Mucus 2+ /HPF 07/24/16 Unknown Salicylates < 0.3 mg/dL (2.8-20.0) L 07/24/16 20:45 Urine Opiates Screen Presumptive negative 07/24/16 Unknown Urine Methadone Screen Presumptive negative 07/24/16 Unknown Acetaminophen < 15.0 ug/mL (10.0-30.0) 07/24/16 20:45 Ur Barbiturates Screen Presumptive negative 07/24/16 Unknown Ur Phencyclidine Scrn Presumptive negative 07/24/16 Unknown Ur Amphetamines Screen Presumptive negative 07/24/16 Unknown U Benzodiazepines Scrn Presumptive negative 07/24/16 Unknown Urine Cocaine Screen Presumptive negative 07/24/16 Unknown U Marijuana (THC) Screen Presumptive negative 07/24/16 Unknown Drugs of Abuse Note Disclamer 07/24/16 Unknown Plasma/Serum Alcohol < 0.01 gm% (0-0.07) 07/24/16 20:45 - Imaging and Cardiology Venous US: image reviewed ( extensive left lower extremity DVT)
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
[2016-07-30] MEDS: ELIQUIS PO SCH (22:40)
[2016-07-30] MEDS: ZOCOR PO SCH (22:40)
[2016-07-31] MEDS: NACL 0.9% 1000 ML 1,000 ML IV SCH (01:52)
[2016-07-31] MEDS: APRESOLINE PO SCH ×3 (05:56→21:34)
[2016-07-31 09:22] LABS: Hematocrit 28.5 % (30.3-42.9); Hemoglobin 9.1 gm/dl (10.1-14.3); Mean Corpuscular HGB Conc 32 % (30-34); Mean Corpuscular Hemoglobin 28 pg (28-32); Mean Corpuscular Volume 86 fl (79-97); Platelet Count 237 K/mm3 (140-440); Red Cell Distribution Width 15.7 % (13.2-15.2); White Blood Count 17.9 K/mm3 (4.5-11.0)
[2016-07-31 09:23] LABS: BUN/Creatinine Ratio 21.11; Blood Urea Nitrogen 19 mg/dL (7-17); Calcium 8.9 mg/dL (8.4-10.2); Carbon Dioxide 19 mmol/L (22-30); Chloride 112.8 mmol/L (98-107); Glucose 167 mg/dL (65-100); Potassium 3.9 mmol/L (3.6-5.0); Sodium 147 mmol/L (137-145)
[2016-07-31 09:29] LABS: Anion Gap 19 mmol/L
[2016-07-31] MEDS: NOVOLOG SUB-Q SCH ×3 (10:46→18:17)
[2016-07-31] MEDS: PROTONIX PO SCH (10:47)
[2016-07-31] MEDS: ELIQUIS PO SCH ×2 (10:47→21:35)
[2016-07-31] MEDS: RisperDAL PO SCH (10:47)
--- NOTE | 2016-07-31 15:42 | Progress Note ---
Assessment and Plan Assessment and plan: 71-year-old woman with a past medical history of multiple strokes, with chronic left-sided weakness. She had been recently seen at [facility] for a lower GI bleed but she was found to have stercoral rectal ulcer after which she was taken off aspirin . She presents with confusion, combative behavior, and with bloody stools. In the ER she was found with a large amount of bloody stool in her diaper. 1. CVA On admission she had a CAT scan and MRI which showed subacute left-sided CVA. Medications have been optimized; neurology input appreciated restart aspirin 2. GI bleed due to rectal ulcer had recent workup which revealed rectal ulcer, bleeding resolved without any specific intervention, GI input appreciated, no need for further invasive studies given resolution of symptoms and recent endoscopies. 3. Dementia with disorganized behavior Patient is on Ativan as needed for agitation, Psychiatry input appreciated, continue risperidone 4. Acute blood loss anemia hg now stable, GI bleed has now resolved 5. Acute cystitis/Sepsis Has completed a course of IV antibiotics 6. Acute left lower extremity DVT Patient has been started on anticoagulants Dispo; to SNF . History Interval history: He continues to be confused and verbally aggressive, she is less aggressive today however. She has not been physically aggressive or violent today. Hospitalist Physical - Physical exam Narrative exam: General: Patient appears well in no distress HEENT: MMM, EOMI cardiac: S1-S2 heard lungs: clear to auscultation, abdomen: soft, nontender, nondistended bowel sounds positive extremities: Left lower extremity is swollen and tender Skin: no rash or lesion Neuro: Left-sided hemiparesis Psych: Disorganized behavior, demented, aggressive, yelling profanities at staff - Constitutional Vitals: Temp Pulse Resp BP Pulse Ox 98.4 F 130 H 16 154/80 97 07/31/16 12:00 07/31/16 12:00 07/31/16 08:00 07/31/16 12:00 07/31/16 12:00 General appearance: Present: no acute distress, well-nourished Results - Labs CBC & Chem 7: 07/31/16 08:35 07/31/16 08:35 Labs: Laboratory Last Values WBC 17.9 K/mm3 (4.5-11.0) H 07/31/16 08:35 RBC 3.30 M/mm3 (3.65-5.03) L 07/31/16 08:35 Hgb 9.1 gm/dl (10.1-14.3) L 07/31/16 08:35 Hct 28.5 % (30.3-42.9) L 07/31/16 08:35 MCV 86 fl (79-97) 07/31/16 08:35 MCH 28 pg (28-32) 07/31/16 08:35 MCHC 32 % (30-34) 07/31/16 08:35 RDW 15.7 % (13.2-15.2) H 07/31/16 08:35 Plt Count 237 K/mm3 (140-440) 07/31/16 08:35 Lymph % (Auto) 27.7 % (13.4-35.0) 07/27/16 04:39 [place] % (Auto) 6.8 % (0.0-7.3) 07/27/16 04:39 Eos % (Auto) 1.2 % (0.0-4.3) 07/27/16 04:39 Baso % (Auto) 0.3 % (0.0-1.8) 07/27/16 04:39 Lymph # 3.2 K/mm3 (1.2-5.4) 07/27/16 04:39 [place] # 0.8 K/mm3 (0.0-0.8) 07/27/16 04:39 Eos # 0.1 K/mm3 (0.0-0.4) 07/27/16 04:39 Baso # 0.0 K/mm3 (0.0-0.1) 07/27/16 04:39 Seg Neutrophils % 64.0 % (40.0-70.0) 07/27/16 04:39 Seg Neutrophils # 7.3 K/mm3 (1.8-7.7) 07/27/16 04:39 PT 14.2 Sec. (12.2-14.9) 07/28/16 05:30 INR 1.11 (0.87-1.13) 07/28/16 05:30 Sodium 147 mmol/L (137-145) H 07/31/16 08:35 Potassium 3.9 mmol/L (3.6-5.0) 07/31/16 08:35 Chloride 112.8 mmol/L (98-107) H 07/31/16 08:35 Carbon Dioxide 19 mmol/L (22-30) L D 07/31/16 08:35 Anion Gap 19 mmol/L 07/31/16 08:35 BUN 19 mg/dL (7-17) H 07/31/16 08:35 Creatinine 0.9 mg/dL (0.7-1.2) 07/31/16 08:35 Estimated GFR > 60 ml/min 07/31/16 08:35 BUN/Creatinine Ratio 21.11 % 07/31/16 08:35 Glucose 167 mg/dL (65-100) H 07/31/16 08:35 POC Glucose 214 (70-105) H 07/31/16 12:04 Lactic Acid 1.2 mmol/L (0.7-2.0) 07/24/16 23:17 Calcium 8.9 mg/dL (8.4-10.2) 07/31/16 08:35 Magnesium 2.2 mg/dL (1.7-2.3) 07/24/16 20:45 Total Bilirubin 0.4 mg/dL (0.1-1.2) 07/24/16 20:45 AST 26 units/L (5-40) 07/24/16 20:45 ALT 13 units/L (7-56) 07/24/16 20:45 Alkaline Phosphatase 99 units/L (35-129) 07/24/16 20:45 Total Protein 6.6 g/dL (6.3-8.2) 07/24/16 20:45 Albumin 2.9 g/dL (3.9-5) L 07/24/16 20:45 Albumin/Globulin Ratio 0.8 % 07/24/16 20:45 TSH 3.240 mlU/mL (0.270-4.200) 07/24/16 20:45 Free T4 1.23 ng/dL (0.76-1.46) 07/24/16 20:45 Urine Color Vero (Yellow) 07/24/16 Unknown Urine Turbidity Turbid (Clear) 07/24/16 Unknown Urine pH 5.0 (5.0-7.0) 07/24/16 Unknown Ur Specific [place] 1.018 (1.003-1.030) 07/24/16 Unknown Urine Protein 100 mg/dl mg/dL (Negative) 07/24/16 Unknown Urine Glucose (UA) Neg mg/dL (Negative) 07/24/16 Unknown Urine Ketones Tr mg/dL (Negative) 07/24/16 Unknown Urine Blood Mod (Negative) 07/24/16 Unknown Urine Nitrite Pos (Negative) 07/24/16 Unknown Urine Bilirubin Neg (Negative) 07/24/16 Unknown Urine Urobilinogen < 2.0 mg/dL (<2.0) 07/24/16 Unknown Ur Leukocyte Esterase Lg (Negative) 07/24/16 Unknown Urine WBC (Auto) > 182.0 /HPF (0.0-6.0) H 07/24/16 Unknown Urine RBC (Auto) 18.0 /HPF (0.0-6.0) 07/24/16 Unknown U Epithel Cells (Auto) 3.0 /HPF (0-13.0) 07/24/16 Unknown Urine Bacteria (Auto) 4+ /HPF (Negative) 07/24/16 Unknown Urine WBC Clumps 3+ /HPF 07/24/16 Unknown Urine Mucus 2+ /HPF 07/24/16 Unknown Salicylates < 0.3 mg/dL (2.8-20.0) L 07/24/16 20:45 Urine Opiates Screen Presumptive negative 07/24/16 Unknown Urine Methadone Screen Presumptive negative 07/24/16 Unknown Acetaminophen < 15.0 ug/mL (10.0-30.0) 07/24/16 20:45 Ur Barbiturates Screen Presumptive negative 07/24/16 Unknown Ur Phencyclidine Scrn Presumptive negative 07/24/16 Unknown Ur Amphetamines Screen Presumptive negative 07/24/16 Unknown U Benzodiazepines Scrn Presumptive negative 07/24/16 Unknown Urine Cocaine Screen Presumptive negative 07/24/16 Unknown U Marijuana (THC) Screen Presumptive negative 07/24/16 Unknown Drugs of Abuse Note Disclamer 07/24/16 Unknown Plasma/Serum Alcohol < 0.01 gm% (0-0.07) 07/24/16 20:45
[2016-07-31] MEDS: D5W 1,000 ML IV SCH (15:43)
--- NOTE | 2016-07-31 16:32 | Consultation ---
History of Present Illness - Reason for Consult Consult date: 07/31/16 Reason for consult: psychiatric evaluation - Chief Complaint Chief complaint: "agitation" per staff - History of Present Psychiatric Illness Ms. Farooq is a 71-year-old white female admitted to medical facility for CVA , GI bleed and is being treated for sepsis, anemia, and DVT. She has also been diagnosed with dementia with behavioral disturbance. The plan is for her to go to a long term facility although there is concern about her medications for agitation. She is currently on Ativan, either by mouth or IV for agitation as well as risperidone 0.25 mg twice a day scheduled. Psychiatry of this consultation for medication management for dementia with behavioral disturbance as well as evaluation. Collateral from nursing staff was obtained. She has been agitated and yelling intermittently. Sleep is erratic. Medications and Allergies Allergies Allergy/AdvReac Type Severity Reaction Status Date / Time No Known Allergies Allergy Verified 09/26/14 15:05 Home Medications Medication Instructions Recorded Confirmed Last Taken Type Simvastatin [Zocor TAB] 40 mg PO QHS #30 tablet 06/30/16 07/24/16 Unknown Rx hydrALAZINE [Apresoline TAB] 25 mg PO Q8HR #90 tablet 06/30/16 07/24/16 Unknown Rx Aspirin EC [Aspirin Enteric Coated 81 mg PO QDAY #30 tablet. 07/29/16 Unknown Rx TAB] LORazepam [Ativan] 0.5 mg PO Q6H PRN #12 tablet 07/29/16 Unknown Rx Pantoprazole [Protonix TAB] 40 mg PO DAILY tablet 07/29/16 Unknown Rx Active Meds: Active Medications Acetaminophen (Tylenol) 650 mg PO Q6H PRN PRN Reason: Non Cardiac Pain or Temp>100.5 Apixaban (Eliquis) 10 mg PO Q12HR DANIEL PRN Reason: Protocol Last Admin: 07/31/16 10:47 Dose: 10 mg Aspirin (Baby Aspirin) 81 mg PO QDAY DANIEL Dextrose (D50w (25gm)) 50 ml IV PRN PRN PRN Reason: Hypoglycemia Haloperidol (Haldol) 2 mg PO Q12HR DANIEL Hydralazine HCl (Apresoline) 25 mg PO Q8HR DANIEL Last Admin: 07/31/16 15:43 Dose: 25 mg Hydralazine HCl (Apresoline) 10 mg IV Q4H PRN PRN Reason: Blood Pressure Last Admin: 07/30/16 05:20 Dose: 10 mg Dextrose (D5w) 1,000 mls @ 100 mls/hr IV DIRECT DANIEL Stop: 08/01/16 12:59 Last Admin: 07/31/16 15:43 Dose: 100 mls/hr Insulin Aspart (Novolog) 0 units SUB-Q ACHS DANIEL PRN Reason: Protocol Last Admin: 07/31/16 12:20 Dose: 2 units Ondansetron HCl (Zofran) 4 mg IV Q4H PRN PRN Reason: Nausea And Vomiting Pantoprazole Sodium (Protonix) 40 mg PO DAILY [facility] Last Admin: 07/31/16 10:47 Dose: 40 mg Simvastatin (Zocor) 40 mg PO QHS [facility] Last Admin: 07/30/16 22:40 Dose: 40 mg Past psychiatric history - Past Medical History Past Medical History: other (see HPI) Past Surgical History: Other (see hospitalist's note) - past Psychiatric treatment and history psychiatric treatment history: Previous diagnoses of dementia, Alzheimer's type, with behavioral disturbance Unable to obtain additional history as the patient was sedated at the time of exam - Social History Social history: other (unknown substance use) Mental Status Exam - Vital signs Last Vital Signs Temp 98.4 F 07/31/16 12:00 Pulse 130 H 07/31/16 12:00 Resp 16 07/31/16 08:00 BP 154/80 07/31/16 12:00 Pulse Ox 97 07/31/16 12:00 - Exam Narrative exam: Unable to obtain orientation, thought content, thought process, perceptual disturbances. It is noted that the patient is intermittently agitated when she is not medicated for it. Sleep is erratic. Motor activity: lethargic Level of consciousness: sedated Memory: Recent Impaired, Remote Impaired Interaction: other (did not respond to external stimuli) Results Result Diagrams: 07/31/16 08:35 07/31/16 08:35 Abnormal lab results 07/30/16 07/30/16 07/31/16 Range/Units 17:57 21:51 05:55 WBC (4.5-11.0) K/mm3 RBC (3.65-5.03) M/mm3 Hgb (10.1-14.3) gm/dl Hct (30.3-42.9) % RDW (13.2-15.2) % Sodium (137-145) mmol/L Chloride (98-107) mmol/L Carbon Dioxide (22-30) mmol/L BUN (7-17) mg/dL Glucose (65-100) mg/dL POC Glucose 202 H 160 H 156 H (70-105) 07/31/16 07/31/16 07/31/16 Range/Units 08:35 08:35 12:04 WBC 17.9 H (4.5-11.0) K/mm3 RBC 3.30 L (3.65-5.03) M/mm3 Hgb 9.1 L (10.1-14.3) gm/dl Hct 28.5 L (30.3-42.9) % RDW 15.7 H (13.2-15.2) % Sodium 147 H (137-145) mmol/L Chloride 112.8 H (98-107) mmol/L Carbon Dioxide 19 L D (22-30) mmol/L BUN 19 H (7-17) mg/dL Glucose 167 H (65-100) mg/dL POC Glucose 214 H (70-105) All other labs normal. Assessment and Plan Assessment and plan: Impression: This 71-year-old female has significant acute medical conditions as well as underlying dementia. Delirium with dementia is highly likely. Medications, such as Ativan, may be very sedating Plan: - Recommendation: Address agitation with Haldol 2 mg po every 12 hours scheduled. - Frequently reorient patient and involve her in their care (simple explanations of procedures, tests, medications). - Lights on and shades open during daytime hours. - Write date and goals of care in a visible place. - Try to avoid unnecessary interruptions to sleep during nighttime hours. - Obtain glasses, hearing aids from home if patient uses these at baseline. - Avoid medications that may exacerbate delirium (especially narcotics, benzodiazepines, barbiturates, ambien, lunesta, and medications with excessive anticholinergic properties) Ativan discontinued. Risperdal discontinued - Psychiatric problem (1) Dementia with behavioral disturbance Current Visit: Yes Status: Acute Qualifiers: Dementia type: D Alzheimer's disease onset: A
[2016-07-31] MEDS: ZOCOR PO SCH (21:35)
[2016-07-31] MEDS: HALDOL PO SCH (22:00)
[2016-08-01] MEDS: NOVOLOG SUB-Q SCH ×5 (00:54→23:50)
[2016-08-01] MEDS: APRESOLINE PO SCH ×3 (05:54→22:57)
[2016-08-01] MEDS: D5W 1,000 ML IV SCH (08:29)
[2016-08-01] MEDS: BABY ASPIRIN PO SCH (09:02)
[2016-08-01] MEDS: HALDOL PO SCH ×2 (09:02→22:56)
[2016-08-01] MEDS: ELIQUIS PO SCH ×2 (09:03→22:55)
[2016-08-01] MEDS: PROTONIX PO SCH (09:03)
--- NOTE | 2016-08-01 12:58 | Progress Note ---
Subjective - Reason for Consult Consult date: 08/01/16 Reason for consult: Psychiatry Follow-up - Chief Complaint Chief complaint: "Agitation" Ms. Farooq is a 71-year-old white female admitted to medical facility for CVA , GI bleed and is being treated for sepsis, anemia, and DVT. She has also been diagnosed with dementia with behavioral disturbance. Today patient was observed yelling while nursing students was repositioning her. I asked the patient her name, and she turned away. Per the director of midwifery/staff midwife, patient has been yelling and screaming intermittently. When she turned away from from I noticed that she was staring at the barth, possibly responding to internal stimuli. No gestures of SI /HI's and AVH's. Mental Status Exam - Vital signs Last Vital Signs Temp 97.6 F 08/01/16 08:36 Pulse 94 H 08/01/16 08:36 Resp 18 08/01/16 06:00 BP 118/57 08/01/16 08:36 Pulse Ox 98 07/31/16 16:30 - Exam Narrative exam: MSE: Appearance: uncooperative Behavior: poor eye contact Speech: incoherent but loud Mood: unable to assess Affect: flat Thought Process: unable to assess Thought Content: possible responding to stimuli Cognition: alert to name, MMSE would not participate Motor Activity: Lying in bed Insight: poor Judgment: poor Assessment and Plan Impression: This 71-year-old female has significant acute medical conditions as well as underlying dementia. Delirium with dementia is highly likely. No gestures of SI/HI's and AVH's. She has only gotten 1 dose of Haldol since yesterday. Recommendation/Plan: Continue Haldol 2 mg po every 12 hours scheduled. Frequently reorient patient and involve her in their care (simple explanations of procedures, tests, medications). Lights on and shades open during daytime hours. Write date and goals of care in a visible place. Try to avoid unnecessary interruptions to sleep during nighttime hours. Obtain glasses, hearing aids from home if patient uses these at baseline. Avoid medications that may exacerbate delirium (especially narcotics, benzodiazepines, barbiturates, ambien, lunesta, and medications with excessive anticholinergic properties).
--- NOTE | 2016-08-01 13:37 | Progress Note ---
Assessment and Plan Assessment and plan: 71-year-old woman with a past medical history of multiple strokes, with chronic left-sided weakness. She had been recently seen at [facility] for a lower GI bleed but she was found to have stercoral rectal ulcer after which she was taken off aspirin . She presents with confusion, combative behavior, and with bloody stools. In the ER she was found with a large amount of bloody stool in her diaper. 1. CVA On admission she had a CAT scan and MRI which showed subacute left-sided CVA. Medications have been optimized; neurology input appreciated restart aspirin 2. GI bleed due to rectal ulcer had recent workup which revealed rectal ulcer, bleeding resolved without any specific intervention, GI input appreciated, no need for further invasive studies given resolution of symptoms and recent endoscopies. 3. Dementia with disorganized behavior Patient is on Ativan as needed for agitation, Psychiatry input appreciated, was tried on ativan and risperidone and now switched to Haldol, continue haldol, frequent orientation and lack of interupption in sleep. 4. Acute blood loss anemia hg now stable, GI bleed has now resolved 5. Acute cystitis/Sepsis Has completed a course of IV antibiotics 6. Acute left lower extremity DVT Patient has been started on anticoagulants 7. Hypernatremia was given IVF- D5w Dispo; to SNF . History Interval history: He continues to be confused and verbally aggressive, she is less aggressive today however. She has not been physically aggressive or violent today. Hospitalist Physical - Physical exam Narrative exam: General: Patient appears well in no distress HEENT: MMM, EOMI cardiac: S1-S2 heard lungs: clear to auscultation, abdomen: soft, nontender, nondistended bowel sounds positive extremities: Left lower extremity is swollen and tender Skin: no rash or lesion Neuro: Left-sided hemiparesis Psych: r, demented, - Constitutional Vitals: Temp Pulse Resp BP Pulse Ox 97.5 F L 112 H 18 137/65 98 08/01/16 13:00 08/01/16 13:00 08/01/16 13:00 08/01/16 13:00 07/31/16 16:30 General appearance: Present: no acute distress, well-nourished Results - Labs CBC & Chem 7: 07/31/16 08:35 08/01/16 14:49 Labs: Laboratory Last Values WBC 17.9 K/mm3 (4.5-11.0) H 07/31/16 08:35 RBC 3.30 M/mm3 (3.65-5.03) L 07/31/16 08:35 Hgb 9.1 gm/dl (10.1-14.3) L 07/31/16 08:35 Hct 28.5 % (30.3-42.9) L 07/31/16 08:35 MCV 86 fl (79-97) 07/31/16 08:35 MCH 28 pg (28-32) 07/31/16 08:35 MCHC 32 % (30-34) 07/31/16 08:35 RDW 15.7 % (13.2-15.2) H 07/31/16 08:35 Plt Count 237 K/mm3 (140-440) 07/31/16 08:35 Lymph % (Auto) 27.7 % (13.4-35.0) 07/27/16 04:39 [place] % (Auto) 6.8 % (0.0-7.3) 07/27/16 04:39 Eos % (Auto) 1.2 % (0.0-4.3) 07/27/16 04:39 Baso % (Auto) 0.3 % (0.0-1.8) 07/27/16 04:39 Lymph # 3.2 K/mm3 (1.2-5.4) 07/27/16 04:39 [place] # 0.8 K/mm3 (0.0-0.8) 07/27/16 04:39 Eos # 0.1 K/mm3 (0.0-0.4) 07/27/16 04:39 Baso # 0.0 K/mm3 (0.0-0.1) 07/27/16 04:39 Seg Neutrophils % 64.0 % (40.0-70.0) 07/27/16 04:39 Seg Neutrophils # 7.3 K/mm3 (1.8-7.7) 07/27/16 04:39 PT 14.2 Sec. (12.2-14.9) 07/28/16 05:30 INR 1.11 (0.87-1.13) 07/28/16 05:30 Sodium 147 mmol/L (137-145) H 07/31/16 08:35 Potassium 3.9 mmol/L (3.6-5.0) 07/31/16 08:35 Chloride 112.8 mmol/L (98-107) H 07/31/16 08:35 Carbon Dioxide 19 mmol/L (22-30) L D 07/31/16 08:35 Anion Gap 19 mmol/L 07/31/16 08:35 BUN 19 mg/dL (7-17) H 07/31/16 08:35 Creatinine 0.9 mg/dL (0.7-1.2) 07/31/16 08:35 Estimated GFR > 60 ml/min 07/31/16 08:35 BUN/Creatinine Ratio 21.11 % 07/31/16 08:35 Glucose 167 mg/dL (65-100) H 07/31/16 08:35 POC Glucose 270 (70-105) H 08/01/16 12:33 Lactic Acid 1.2 mmol/L (0.7-2.0) 07/24/16 23:17 Calcium 8.9 mg/dL (8.4-10.2) 07/31/16 08:35 Magnesium 2.2 mg/dL (1.7-2.3) 07/24/16 20:45 Total Bilirubin 0.4 mg/dL (0.1-1.2) 07/24/16 20:45 AST 26 units/L (5-40) 07/24/16 20:45 ALT 13 units/L (7-56) 07/24/16 20:45 Alkaline Phosphatase 99 units/L (35-129) 07/24/16 20:45 Total Protein 6.6 g/dL (6.3-8.2) 07/24/16 20:45 Albumin 2.9 g/dL (3.9-5) L 07/24/16 20:45 Albumin/Globulin Ratio 0.8 % 07/24/16 20:45 TSH 3.240 mlU/mL (0.270-4.200) 07/24/16 20:45 Free T4 1.23 ng/dL (0.76-1.46) 07/24/16 20:45 Urine Color Vero (Yellow) 07/24/16 Unknown Urine Turbidity Turbid (Clear) 07/24/16 Unknown Urine pH 5.0 (5.0-7.0) 07/24/16 Unknown Ur Specific [place] 1.018 (1.003-1.030) 07/24/16 Unknown Urine Protein 100 mg/dl mg/dL (Negative) 07/24/16 Unknown Urine Glucose (UA) Neg mg/dL (Negative) 07/24/16 Unknown Urine Ketones Tr mg/dL (Negative) 07/24/16 Unknown Urine Blood Mod (Negative) 07/24/16 Unknown Urine Nitrite Pos (Negative) 07/24/16 Unknown Urine Bilirubin Neg (Negative) 07/24/16 Unknown Urine Urobilinogen < 2.0 mg/dL (<2.0) 07/24/16 Unknown Ur Leukocyte Esterase Lg (Negative) 07/24/16 Unknown Urine WBC (Auto) > 182.0 /HPF (0.0-6.0) H 07/24/16 Unknown Urine RBC (Auto) 18.0 /HPF (0.0-6.0) 07/24/16 Unknown U Epithel Cells (Auto) 3.0 /HPF (0-13.0) 07/24/16 Unknown Urine Bacteria (Auto) 4+ /HPF (Negative) 07/24/16 Unknown Urine WBC Clumps 3+ /HPF 07/24/16 Unknown Urine Mucus 2+ /HPF 07/24/16 Unknown Salicylates < 0.3 mg/dL (2.8-20.0) L 07/24/16 20:45 Urine Opiates Screen Presumptive negative 07/24/16 Unknown Urine Methadone Screen Presumptive negative 07/24/16 Unknown Acetaminophen < 15.0 ug/mL (10.0-30.0) 07/24/16 20:45 Ur Barbiturates Screen Presumptive negative 07/24/16 Unknown Ur Phencyclidine Scrn Presumptive negative 07/24/16 Unknown Ur Amphetamines Screen Presumptive negative 07/24/16 Unknown U Benzodiazepines Scrn Presumptive negative 07/24/16 Unknown Urine Cocaine Screen Presumptive negative 07/24/16 Unknown U Marijuana (THC) Screen Presumptive negative 07/24/16 Unknown Drugs of Abuse Note Disclamer 07/24/16 Unknown Plasma/Serum Alcohol < 0.01 gm% (0-0.07) 07/24/16 20:45
[2016-08-01 15:36] LABS: Anion Gap 18 mmol/L; BUN/Creatinine Ratio 28.75; Blood Urea Nitrogen 23 mg/dL (7-17); Calcium 8.3 mg/dL (8.4-10.2); Carbon Dioxide 17 mmol/L (22-30); Chloride 109.3 mmol/L (98-107); Glucose 167 mg/dL (65-100); Potassium 3.6 mmol/L (3.6-5.0); Sodium 141 mmol/L (137-145)
[2016-08-01] MEDS: ZOCOR PO SCH (22:55)
[2016-08-02] MEDS: APRESOLINE PO SCH ×3 (06:35→23:05)
[2016-08-02] MEDS: BABY ASPIRIN PO SCH (10:35)
[2016-08-02] MEDS: HALDOL PO SCH ×2 (10:35→23:05)
[2016-08-02] MEDS: ELIQUIS PO SCH ×2 (10:36→23:05)
[2016-08-02] MEDS: PROTONIX PO SCH (10:36)
[2016-08-02] MEDS: NOVOLOG SUB-Q SCH ×4 (10:42→23:10)
--- NOTE | 2016-08-02 15:04 | Progress Note ---
Subjective - Reason for Consult Consult date: 08/02/16 Reason for consult: psychiatric follow up - Chief Complaint Chief complaint: "Agitation" Ms. Farooq is a 71-year-old white female admitted to medical facility for CVA , GI bleed and is being treated for sepsis, anemia, and DVT. She has also been diagnosed with dementia with behavioral disturbance. Today patient was sitting up in bed and answered appropriately to her name. She could not say where she is or why. She reported that she had not had a bath in 5 days and requested one. Then she stated someone on the TV was interacting with her. No gestures of SI/HI's.She reported trouble sleeping. Mental Status Exam - Vital signs Last Vital Signs Temp 97.8 F 08/02/16 08:15 Pulse 80 08/02/16 14:42 Resp 24 08/02/16 08:15 BP 147/65 08/02/16 14:42 Pulse Ox 99 08/02/16 08:15 - Exam Orientation: person Affect: agitated Mood: congruent with affect Thought content: other (perseverative about getting a bath) Thought Process: Tangential Perceptions: other (appears to respond to internal stimuli) Speech: slow Concentration: unable to pay attention Motor activity: normal Level of consciousness: confused Memory: Recent Impaired, Remote Impaired Sleep Symptoms: Difficulty Falling Asleep Appetite: decreased Interaction: cooperative (attempts) Assessment and Plan Impression: This 71-year-old female has significant acute medical conditions as well as underlying dementia. Delirium with dementia is highly likely. No gestures of SI/HI's and AVH's. Recommendation/Plan: Continue Haldol 2 mg po every 12 hours scheduled. Remeron 15mg, half tab at bedtime added for sleep Frequently reorient patient and involve her in their care (simple explanations of procedures, tests, medications). Lights on and shades open during daytime hours. Write date and goals of care in a visible place. Try to avoid unnecessary interruptions to sleep during nighttime hours. Obtain glasses, hearing aids from home if patient uses these at baseline. Avoid medications that may exacerbate delirium (especially narcotics, benzodiazepines, barbiturates, ambien, lunesta, and medications with excessive anticholinergic properties). - Patient Problems (1) Dementia with behavioral disturbance Current Visit: Yes Status: Acute Qualifiers: Dementia type: D Alzheimer's disease onset: A
[2016-08-02] MEDS ORDERED: REMERON PO SCH (22:00)
[2016-08-02] MEDS: ZOCOR PO SCH (23:05)
[2016-08-03] MEDS: APRESOLINE PO SCH ×2 (05:25→13:49)
[2016-08-03] MEDS: NOVOLOG SUB-Q SCH ×2 (10:34→13:44)
[2016-08-03] MEDS: HALDOL PO SCH (10:35)
[2016-08-03] MEDS: ELIQUIS PO SCH ×2 (10:35→13:49)
[2016-08-03] MEDS: BABY ASPIRIN PO SCH ×2 (10:35→13:50)
[2016-08-03] MEDS: PROTONIX PO SCH ×2 (10:35→13:54)
--- NOTE | 2016-08-03 11:00 | Progress Note ---
Subjective - Reason for Consult Consult date: 08/03/16 Reason for consult: Psychiatry Follow-up - Chief Complaint Chief complaint: "Agitation" Ms. Farooq is a 71-year-old white female admitted to medical facility for CVA , GI bleed and is being treated for sepsis, anemia, and DVT. She has also been diagnosed with dementia with behavioral disturbance. Today patient was resting when I arrived to to her room. She would answer to her name. She was looking around the room when during our discussion, possible responding to stimuli. No gestures of SI/HI's or insomnia. Patient lethargic during assessment. Mental Status Exam - Vital signs Last Vital Signs Temp 98.4 F 08/02/16 16:26 Pulse 77 08/03/16 08:00 Resp 20 08/03/16 08:00 BP 158/78 08/03/16 08:00 Pulse Ox 98 08/02/16 16:26 - Exam Narrative exam: MSE: Appearance: uncooperative Behavior: poor eye contact Speech: loud Mood: unable to assess Affect: flat Thought Process: unable to assess Thought Content: possible responding to stimuli Cognition: alert to name, MMSE would not participate Motor Activity: Lying in bed Insight: impaired Judgment: impairedr Assessment and Plan Impression: This 71-year-old female has significant acute medical conditions as well as underlying dementia. Delirium with dementia is highly likely. No gestures of SI/HI's and AVH's. Recommendation/Plan: Continue Haldol 2 mg po every 12 hours scheduled. Will change Remeron to 15 mg PO for sleep. Patient lethargic during assessment. Frequently reorient patient and involve her in their care (simple explanations of procedures, tests, medications). Lights on and shades open during daytime hours. Write date and goals of care in a visible place. Try to avoid unnecessary interruptions to sleep during nighttime hours. Obtain glasses, hearing aids from home if patient uses these at baseline. Avoid medications that may exacerbate delirium (especially narcotics, benzodiazepines, barbiturates, ambien, lunesta, and medications with excessive anticholinergic properties).
--- NOTE | 2016-08-03 13:07 | Progress Note ---
Assessment and Plan Assessment and plan: 71-year-old woman with a past medical history of multiple strokes, with chronic left-sided weakness. She had been recently seen at [facility] for a lower GI bleed but she was found to have stercoral rectal ulcer after which she was taken off aspirin . She presents with confusion, combative behavior, and with bloody stools. In the ER she was found with a large amount of bloody stool in her diaper. 1. CVA On admission she had a CAT scan and MRI which showed subacute left-sided CVA. Medications have been optimized; neurology input appreciated restart aspirin 2. GI bleed due to rectal ulcer had recent workup which revealed rectal ulcer, bleeding resolved without any specific intervention, GI input appreciated, no need for further invasive studies given resolution of symptoms and recent endoscopies. 3. Dementia with disorganized behavior Patient is on Ativan as needed for agitation, Psychiatry input appreciated, was tried on ativan and risperidone and now switched to Haldol, continue haldol, added remeron at HS, frequent orientation and lack of interupption in sleep. 4. Acute blood loss anemia hg now stable, GI bleed has now resolved 5. Acute cystitis/Sepsis Has completed a course of IV antibiotics 6. Acute left lower extremity DVT Patient has been started on anticoagulants 7. Hypernatremia was given IVF- D5w Dispo; to SNF . History Interval history: He continues to be confused and verbally aggressive, she is less aggressive today however. She has not been physically aggressive or violent today. Hospitalist Physical - Physical exam Narrative exam: General: Patient appears well in no distress HEENT: MMM, EOMI cardiac: S1-S2 heard lungs: clear to auscultation, abdomen: soft, nontender, nondistended bowel sounds positive extremities: Left lower extremity is swollen and tender Skin: no rash or lesion Neuro: Left-sided hemiparesis Psych: r, demented, - Constitutional Vitals: Temp Pulse Resp BP Pulse Ox 98.4 F 77 20 158/78 98 08/02/16 16:26 08/03/16 08:00 08/03/16 08:00 08/03/16 08:00 08/02/16 16:26 General appearance: Present: no acute distress, well-nourished Results - Labs CBC & Chem 7: 07/31/16 08:35 08/01/16 14:49 Labs: Laboratory Last Values WBC 17.9 K/mm3 (4.5-11.0) H 07/31/16 08:35 RBC 3.30 M/mm3 (3.65-5.03) L 07/31/16 08:35 Hgb 9.1 gm/dl (10.1-14.3) L 07/31/16 08:35 Hct 28.5 % (30.3-42.9) L 07/31/16 08:35 MCV 86 fl (79-97) 07/31/16 08:35 MCH 28 pg (28-32) 07/31/16 08:35 MCHC 32 % (30-34) 07/31/16 08:35 RDW 15.7 % (13.2-15.2) H 07/31/16 08:35 Plt Count 237 K/mm3 (140-440) 07/31/16 08:35 Lymph % (Auto) 27.7 % (13.4-35.0) 07/27/16 04:39 [place] % (Auto) 6.8 % (0.0-7.3) 07/27/16 04:39 Eos % (Auto) 1.2 % (0.0-4.3) 07/27/16 04:39 Baso % (Auto) 0.3 % (0.0-1.8) 07/27/16 04:39 Lymph # 3.2 K/mm3 (1.2-5.4) 07/27/16 04:39 [place] # 0.8 K/mm3 (0.0-0.8) 07/27/16 04:39 Eos # 0.1 K/mm3 (0.0-0.4) 07/27/16 04:39 Baso # 0.0 K/mm3 (0.0-0.1) 07/27/16 04:39 Seg Neutrophils % 64.0 % (40.0-70.0) 07/27/16 04:39 Seg Neutrophils # 7.3 K/mm3 (1.8-7.7) 07/27/16 04:39 PT 14.2 Sec. (12.2-14.9) 07/28/16 05:30 INR 1.11 (0.87-1.13) 07/28/16 05:30 Sodium 141 mmol/L (137-145) 08/01/16 14:49 Potassium 3.6 mmol/L (3.6-5.0) 08/01/16 14:49 Chloride 109.3 mmol/L (98-107) H 08/01/16 14:49 Carbon Dioxide 17 mmol/L (22-30) L 08/01/16 14:49 Anion Gap 18 mmol/L 08/01/16 14:49 BUN 23 mg/dL (7-17) H 08/01/16 14:49 Creatinine 0.8 mg/dL (0.7-1.2) 08/01/16 14:49 Estimated GFR > 60 ml/min 08/01/16 14:49 BUN/Creatinine Ratio 28.75 % 08/01/16 14:49 Glucose 167 mg/dL (65-100) H 08/01/16 14:49 POC Glucose 117 (70-105) H 08/03/16 05:28 Lactic Acid 1.2 mmol/L (0.7-2.0) 07/24/16 23:17 Calcium 8.3 mg/dL (8.4-10.2) L 08/01/16 14:49 Magnesium 2.2 mg/dL (1.7-2.3) 07/24/16 20:45 Total Bilirubin 0.4 mg/dL (0.1-1.2) 07/24/16 20:45 AST 26 units/L (5-40) 07/24/16 20:45 ALT 13 units/L (7-56) 07/24/16 20:45 Alkaline Phosphatase 99 units/L (35-129) 07/24/16 20:45 Total Protein 6.6 g/dL (6.3-8.2) 07/24/16 20:45 Albumin 2.9 g/dL (3.9-5) L 07/24/16 20:45 Albumin/Globulin Ratio 0.8 % 07/24/16 20:45 TSH 3.240 mlU/mL (0.270-4.200) 07/24/16 20:45 Free T4 1.23 ng/dL (0.76-1.46) 07/24/16 20:45 Urine Color Vero (Yellow) 07/24/16 Unknown Urine Turbidity Turbid (Clear) 07/24/16 Unknown Urine pH 5.0 (5.0-7.0) 07/24/16 Unknown Ur Specific [place] 1.018 (1.003-1.030) 07/24/16 Unknown Urine Protein 100 mg/dl mg/dL (Negative) 07/24/16 Unknown Urine Glucose (UA) Neg mg/dL (Negative) 07/24/16 Unknown Urine Ketones Tr mg/dL (Negative) 07/24/16 Unknown Urine Blood Mod (Negative) 07/24/16 Unknown Urine Nitrite Pos (Negative) 07/24/16 Unknown Urine Bilirubin Neg (Negative) 07/24/16 Unknown Urine Urobilinogen < 2.0 mg/dL (<2.0) 07/24/16 Unknown Ur Leukocyte Esterase Lg (Negative) 07/24/16 Unknown Urine WBC (Auto) > 182.0 /HPF (0.0-6.0) H 07/24/16 Unknown Urine RBC (Auto) 18.0 /HPF (0.0-6.0) 07/24/16 Unknown U Epithel Cells (Auto) 3.0 /HPF (0-13.0) 07/24/16 Unknown Urine Bacteria (Auto) 4+ /HPF (Negative) 07/24/16 Unknown Urine WBC Clumps 3+ /HPF 07/24/16 Unknown Urine Mucus 2+ /HPF 07/24/16 Unknown Salicylates < 0.3 mg/dL (2.8-20.0) L 07/24/16 20:45 Urine Opiates Screen Presumptive negative 07/24/16 Unknown Urine Methadone Screen Presumptive negative 07/24/16 Unknown Acetaminophen < 15.0 ug/mL (10.0-30.0) 07/24/16 20:45 Ur Barbiturates Screen Presumptive negative 07/24/16 Unknown Ur Phencyclidine Scrn Presumptive negative 07/24/16 Unknown Ur Amphetamines Screen Presumptive negative 07/24/16 Unknown U Benzodiazepines Scrn Presumptive negative 07/24/16 Unknown Urine Cocaine Screen Presumptive negative 07/24/16 Unknown U Marijuana (THC) Screen Presumptive negative 07/24/16 Unknown Drugs of Abuse Note Disclamer 07/24/16 Unknown Plasma/Serum Alcohol < 0.01 gm% (0-0.07) 07/24/16 20:45
--- NOTE | 2016-08-03 13:14 | Discharge Summary ---
Providers - Providers Date of Admission: 07/25/16 01:10 Attending physician: JUAN RODRIGUEZ MD 07/25/16 01:15 Consult to Physician [CONS] Routine Consulting Provider: FRANKIE GRANDA Reason For Exam: GIB Place consult to:: Juan Beavers MD..Dr. Granda Notified:: Answering Service Phone number called:: [phone] Was contact made?: Yes If yes, spoke with:: Dr. Granda Time called:: 00:40 Comment:: Dr. Gallagher (er dr) spoke to Dr. Granda 07/25/16 17:13 Consult to Physician [CONS] Routine Consulting Provider: JUAN SARMIENTO Reason For Exam: acute CVA, right carotid artery 50-79% stenosis Place consult to:: Vascular surgery/ dr. [place] Notified:: answering service Phone number called:: Was contact made?: Yes If yes, spoke with:: soto Time called:: 17:35 07/26/16 08:21 Consult to Physician [CONS] Routine Consulting Provider: ESTEFANY WESTFALL Reason For Exam: CVA Place consult to:: Neurology Notified:: DR. WESTFALL ANSWERING SERVICES Phone number called:: [phone] Was contact made?: Yes If yes, spoke with:: MERA Time called:: 08:40 Comment:: MIRIAN NOTIFIED 07/26/16 18:36 Speech Therapy Evaluation and Treat [CONS] Routine Reason For Exam: New dx of stroke. 07/27/16 09:22 Physical Therapy Evaluation and Treat [CONS] Routine Comment: Reason For Exam: CVA 07/29/16 17:51 Consult to Wound/ET Nurse [CONS] Routine Reason For Exam: wound eval 07/30/16 16:21 psychiatry consult [Consult to Mental Health] [CONS] Routine Reason For Exam: agitation/dementia combative behavior Place consult to:: FLORES/ION Notified:: ION Phone number called:: [phone] Was contact made?: Yes If yes, spoke with:: ION Time called:: 16:40 Primary care physician: [employer] ENGINEER Hospitalization Condition: Stable Hospital course: 71-year-old woman with a past medical history of multiple strokes, with chronic left-sided weakness. She had been recently seen at [facility] for a lower GI bleed but she was found to have stercoral rectal ulcer after which she was taken off aspirin . She presents with confusion, combative behavior, and with bloody stools. In the ER she was found with a large amount of bloody stool in her diaper. 1. CVA On admission she had a CAT scan and MRI which showed subacute left-sided CVA. Medications have been optimized; neurology input appreciated; was started on anticoagulation restarted aspirin 2. GI bleed due to rectal ulcer had recent workup which revealed rectal ulcer, bleeding resolved without any specific intervention, GI input appreciated, no need for further invasive studies given resolution of symptoms and recent endoscopies. 3. Dementia with disorganized behavior She was seen by psychiatry and was put on appropriate behavioral meds 4. Acute blood loss anemia hg was stable, GI bleed resolved without any specific intervention 5. Acute cystitis/Sepsis Has completed a course of IV antibiotics 6. Acute left lower extremity DVT Patient has been started on anticoagulants 7. Hypernatremia was given IVF- D5w, now resolved Dispo; patient was planned for dc to SNF, but her son refused to sign the paperwork, therefore she was dc home to her son with services Disposition: DC/[place] HOME UNDER HOME HEALTH Time spent for discharge: 35 minutes Core Measure Documentation - Palliative Care Palliative Care/ Comfort Measures: Not Applicable - Core Measures Any of the following diagnoses?: stroke - Stroke Discharge Requirements Statin for LDL = or >70 mg/dl on DC: Yes Anticoag for atrial fib/atrial flutter: Not Applicable Antithrombotic for ischemic stroke: No Reason for no antithrombotic on DC: Not Indicated Exam - Physical Exam Narrative exam: General: Patient appears well in no distress HEENT: MMM, EOMI cardiac: S1-S2 heard lungs: clear to auscultation, abdomen: soft, nontender, nondistended bowel sounds positive extremities: Left lower extremity is swollen and tender Skin: no rash or lesion Neuro: Left-sided hemiparesis Psych: r, demented, - Constitutional Vitals: Temp Pulse Resp BP Pulse Ox 98.4 F 77 20 158/78 98 08/02/16 16:26 08/03/16 08:00 08/03/16 08:00 08/03/16 08:00 08/02/16 16:26 Plan Follow up with: NEHA FARRELL MD [Primary Care Provider] - 7 Days LEANNE GUERRERO MD [Staff Physician] - 7 Days Prescriptions: Mirtazapine [Remeron] 15 mg PO QHS #30 tablet Simvastatin [Zocor TAB] 40 mg PO QHS #30 tablet Apixaban [Eliquis] 0 tab PO BID #64 tablet Aspirin EC [Aspirin Enteric Coated TAB] 81 mg PO QDAY #30 tablet. Haloperidol [Haldol] 2 mg PO BID #60 tablet hydrALAZINE [Apresoline TAB] 25 mg PO Q8HR #90 tablet metFORMIN [Glucophage] 500 mg PO BID #60 tablet Pantoprazole [Protonix TAB] 40 mg PO DAILY #30 tablet
[2016-08-03 13:49] VITALS: BP 160/80
== END 2016-08-03 15:00 | disposition home health service (06) | DRG 871 ==
LOC: ED 18:40 → 3A 07-25 01:10
PROVIDERS: ADMIT Internal Medicine; ATTEND Internal Medicine
DX: A41.9 Sepsis, unspecified organism (principal); I63.8 Other cerebral infarction; K28.4 Chronic or unspecified gastrojejunal ulcer with hemorrhage; G93.40 Encephalopathy, unspecified; G93.41 Metabolic encephalopathy; N39.0 Urinary tract infection, site not specified; F03.91 Unspecified dementia, unspecified severity, with behavioral disturbance; I82.402 Acute embolism and thrombosis of unspecified deep veins of left lower extremity; E87.0 Hyperosmolality and hypernatremia; J44.9 Chronic obstructive pulmonary disease, unspecified; I50.9 Heart failure, unspecified; E11.9 Type 2 diabetes mellitus without complications; I25.10 Atherosclerotic heart disease of native coronary artery without angina pectoris; I11.0 Hypertensive heart disease with heart failure; K29.70 Gastritis, unspecified, without bleeding; K44.9 Diaphragmatic hernia without obstruction or gangrene; D64.9 Anemia, unspecified; Z86.73 Personal history of transient ischemic attack (TIA), and cerebral infarction without residual deficits; Z90.49 Acquired absence of other specified parts of digestive tract; Z98.51 Tubal ligation status
CPT/HCPCS: 36415; 70450; 70551; 80048; 80053; 80307; 80320; 81001; 82140; 82962; 83735; 84439; 84443; 85014; 85018; 85025; 85027; 85610; 87040; 93005; 93010; 93880; C9113; G0480; G8996-GN; G8997-GN; G8998-GN; J0360; J0696; J1815; J2060; J7030; J7070

== ENCOUNTER 2016-08-07 22:57 | Inpatient (IN) | payer MEDICARE ==
[2016-08-07] MEDS ORDERED: NACL 0.9% 1000 ML 1,000 ML IV ONE (23:28)
--- NOTE | 2016-08-07 23:28 | Emergency Department Report ---
- General Chief complaint: Weakness Stated complaint: AMS Time Seen by Provider: 08/07/16 23:17 Source: EMS Mode of arrival: Stretcher Limitations: Altered Mental Status, Physical Limitation - History of Present Illness Initial comments: Ava is a 71-year-old with a past medical history of multiple CVA, with chronic left-sided weakness, presenting to the ER for weakness he should have recently been seen at [facility], [place] for GI bleed, found to have a rectal ulcer and was taken off aspirin. She then presented here with confusion and combative behavior and further bloody stools and was admitted and discharged less than 1 week ago. Her last admission she had a CAT scan and MRI which showed a subacute left-sided CVA, medications were optimized and was started on anticoagulation. Patient was restarted on aspirin. Patient was also found to have an acute left lower extremity DVT and started on anticoagulants. Patient was supposed to be discharged home to the care home but due to paperwork issues she was discharged home with her son. He now presents due to lack of care from home care providers. Prescriptions charged home with: Mirtazapine 15 mg by mouth daily at bedtime, simvastatin 40 mg by mouth daily at bedtime, Eliquis by mouth twice a day, aspirin 81 mg daily, Haldol 2 mg by mouth twice a day, hydralazine 25 mg by mouth every 8 hours, metformin 500 mg by mouth twice a day, pantoprazole 40 mg by mouth daily MD Complaint: generalized weakness, lack of energy - Related Data Previous Rx's Medication Instructions Recorded Last Taken Type Apixaban [Eliquis] 0 tab PO BID #64 tablet 08/03/16 Unknown Rx Aspirin EC [Aspirin Enteric Coated 81 mg PO QDAY #30 tablet. 08/03/16 Unknown Rx TAB] Haloperidol [Haldol] 2 mg PO BID #60 tablet 08/03/16 Unknown Rx Mirtazapine [Remeron] 15 mg PO QHS #30 tablet 08/03/16 Unknown Rx Pantoprazole [Protonix TAB] 40 mg PO DAILY #30 tablet 08/03/16 Unknown Rx Simvastatin [Zocor TAB] 40 mg PO QHS #30 tablet 08/03/16 Unknown Rx hydrALAZINE [Apresoline TAB] 25 mg PO Q8HR #90 tablet 08/03/16 Unknown Rx metFORMIN [Glucophage] 500 mg PO BID #60 tablet 08/03/16 Unknown Rx Allergies Allergy/AdvReac Type Severity Reaction Status Date / Time No Known Allergies Allergy Verified 09/26/14 15:05 ED Review of Systems ROS: Stated complaint: AMS Other details as noted in HPI ED Past Medical Hx - Past Medical History Hx Hypertension: Yes Hx CVA: Yes (3 strokes, left side weakness, doesn't use a cane or walker) Hx Heart Attack/AMI: Yes Hx Congestive Heart Failure: Yes Hx Diabetes: Yes Hx Asthma: No Hx COPD: Yes Hx HIV: No - Surgical History Hx Cholecystectomy: Yes Additional Surgical History: tubal ligation, shoulder, knee replacement - Social History Smoking Status: Never Smoker - Medications Home Medications: Home Medications Medication Instructions Recorded Confirmed Last Taken Type Apixaban [Eliquis] 0 tab PO BID #64 tablet 08/03/16 Unknown Rx Aspirin EC [Aspirin Enteric Coated 81 mg PO QDAY #30 tablet. 08/03/16 Unknown Rx TAB] Haloperidol [Haldol] 2 mg PO BID #60 tablet 08/03/16 Unknown Rx Mirtazapine [Remeron] 15 mg PO QHS #30 tablet 08/03/16 Unknown Rx Pantoprazole [Protonix TAB] 40 mg PO DAILY #30 tablet 08/03/16 Unknown Rx Simvastatin [Zocor TAB] 40 mg PO QHS #30 tablet 08/03/16 Unknown Rx hydrALAZINE [Apresoline TAB] 25 mg PO Q8HR #90 tablet 08/03/16 Unknown Rx metFORMIN [Glucophage] 500 mg PO BID #60 tablet 08/03/16 Unknown Rx ED Physical Exam - General Limitations: Physical Limitation, Other (dementia) General appearance: alert, in no apparent distress, other (extremely disheveled , covered in urine and feces) - Head Head exam: Present: atraumatic, normocephalic - Eye Eye exam: Present: normal appearance - ENT ENT exam: Present: mucous membranes moist - Neck Neck exam: Present: normal inspection - Respiratory Respiratory exam: Present: normal lung sounds bilaterally. Absent: respiratory distress - Cardiovascular Cardiovascular Exam: Present: regular rate, normal rhythm. Absent: systolic murmur, diastolic murmur, rubs, gallop - GI/Abdominal GI/Abdominal exam: Present: soft, normal bowel sounds. Absent: distended, tenderness, guarding, rebound, rigid - Extremities Exam Extremities exam: Present: normal inspection - Back Exam Back exam: Present: normal inspection. Absent: tenderness - Neurological Exam Neurological exam: Present: alert, CN II-XII intact, abnormal gait, motor sensory deficit (left sided hemiparesis) - Psychiatric Psychiatric exam: Present: normal mood. Absent: agitated - Skin Skin exam: Present: warm, dry, intact. Absent: rash ED Course Vital Signs 08/07/16 08/07/16 08/07/16 23:35 23:41 23:52 Temperature 101.3 F H Pulse Rate 94 H 93 H 95 H Respiratory 14 12 20 Rate Blood Pressure 157/83 154/79 Blood Pressure [Left] O2 Sat by Pulse 98 99 Oximetry 08/08/16 08/08/16 08/08/16 01:04 01:16 02:10 Temperature 99.4 F Pulse Rate 87 71 75 Respiratory 16 16 Rate Blood Pressure 244/115 Blood Pressure 118/73 147/76 [Left] O2 Sat by Pulse 95 99 Oximetry ED Medical Decision Making - Lab Data Result diagrams: 08/07/16 23:48 08/07/16 23:48 - EKG Data -: EKG Interpreted by Me (23:43) EKG shows normal: sinus rhythm, axis (normal axis), intervals (Qtc:442ms), ST-T waves ((-)ST/T changes (-)STEMI) Rate: normal (93 bpm) Critical care attestation.: If time is entered above; I have spent that time in minutes in the direct care of this critically ill patient, excluding procedure time. ED Disposition Clinical Impression: Weakness Disposition: OP ADMITTED IP TO THIS HOSP Is pt being admited?: Yes Condition: Stable Referrals: PRIMARY CARE, [Referring] - 3-5 Days
[2016-08-08 00:25] LABS: Alanine Aminotransferase 17 units/L (7-56); Albumin 2.8 g/dL (3.9-5); Albumin/Globulin Ratio 0.8 %; Alkaline Phosphatase 80 units/L (35-129); BUN/Creatinine Ratio 33.75; Bilirubin,Total 0.4 mg/dL (0.1-1.2); Blood Urea Nitrogen 27 mg/dL (7-17); Calcium 8.8 mg/dL (8.4-10.2); Carbon Dioxide 22 mmol/L (22-30); Chloride 106.9 mmol/L (98-107); Glucose 138 mg/dL (65-100); Potassium 3.8 mmol/L (3.6-5.0); Sodium 146 mmol/L (137-145); Total Protein 6.5 g/dL (6.3-8.2)
[2016-08-08 00:28] LABS: Anion Gap 21 mmol/L
[2016-08-08 00:32] LABS: Basophils % (Auto) 0.4 % (0.0-1.8); Eosinophils % (Auto) 0.2 % (0.0-4.3); Hematocrit 29.5 % (30.3-42.9); Hemoglobin 9.4 gm/dl (10.1-14.3); Mean Corpuscular HGB Conc 32 % (30-34); Mean Corpuscular Hemoglobin 27 pg (28-32); Mean Corpuscular Volume 86 fl (79-97); Platelet Count 477 K/mm3 (140-440); Red Blood Count 3.45 M/mm3 (3.65-5.03); Red Cell Distribution Width 15.6 % (13.2-15.2)
[2016-08-08 00:43] LABS: INR 1.42 (0.87-1.13)
[2016-08-08 00:44] LABS: Partial Thromboplastin Time 37.3 Sec. (24.2-36.6)
[2016-08-08] MEDS ORDERED: NORMODYNE IV ONE ×2 (00:49→00:52)
[2016-08-08 01:04] LABS: Bilirubin,Urine NEG (Negative); Blood,Urine NEG (Negative); Ketones,Urine 20 mg/dL (Negative); Leukocyte Esterase,Urine TR (Negative); Mucus,Urine 1+ /HPF; Nitrite,Urine NEG (Negative); Urobilinogen,Urine < 2.0 mg/dL (<2.0)
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
[2016-08-08] MEDS ORDERED: MILK OF MAGNESIA PO PRN (03:47)
[2016-08-08] MEDS ORDERED: ZOFRAN IV PRN (03:47)
[2016-08-08] MEDS ORDERED: DULCOLAX PR PRN (03:47)
[2016-08-08] MEDS: APRESOLINE PO SCH ×3 (08:04→23:57)
--- NOTE | 2016-08-08 09:57 | XRay Report ---
Single view chest: Compared to 05/23/14. History: Shortness of breath. Findings: Normal cardiomediastinal silhouette. Trachea is midline. No consolidation, pneumothorax or pleural effusion. Impression: No acute cardiopulmonary findings.
[2016-08-08] MEDS ORDERED: GLUCOPHAGE PO SCH (10:00)
[2016-08-08] MEDS: HALFPRIN EC PO SCH (10:09)
[2016-08-08] MEDS: HALDOL PO SCH ×2 (10:09→23:57)
[2016-08-08] MEDS: ELIQUIS PO SCH ×2 (10:09→23:48)
--- NOTE | 2016-08-08 10:43 | Event Note ---
Date: 08/08/16 Patient presented with generalized weakness. She was seen and examined. Consult case management.
[2016-08-08 14:27] LABS: Anion Gap 16 mmol/L; BUN/Creatinine Ratio 41.42; Blood Urea Nitrogen 29 mg/dL (7-17); Calcium 8.6 mg/dL (8.4-10.2); Carbon Dioxide 23 mmol/L (22-30); Chloride 108.4 mmol/L (98-107); Glucose 192 mg/dL (65-100); Potassium 3.5 mmol/L (3.6-5.0); Sodium 144 mmol/L (137-145)
[2016-08-08] MEDS: ZOCOR PO SCH (23:48)
[2016-08-09] MEDS: NOVOLOG SUB-Q SCH ×5 (02:23→22:42)
[2016-08-09 04:23] LABS: Hematocrit 27.5 % (30.3-42.9); Hemoglobin 8.9 gm/dl (10.1-14.3); Mean Corpuscular HGB Conc 32 % (30-34); Mean Corpuscular Hemoglobin 27 pg (28-32); Mean Corpuscular Volume 85 fl (79-97); Platelet Count 397 K/mm3 (140-440); Red Blood Count 3.23 M/mm3 (3.65-5.03); Red Cell Distribution Width 15.8 % (13.2-15.2); White Blood Count 17.7 K/mm3 (4.5-11.0)
[2016-08-09 04:38] LABS: Anion Gap 16 mmol/L; BUN/Creatinine Ratio 35.55; Blood Urea Nitrogen 32 mg/dL (7-17); Calcium 8.7 mg/dL (8.4-10.2); Carbon Dioxide 25 mmol/L (22-30); Chloride 111.7 mmol/L (98-107); Glucose 156 mg/dL (65-100); Sodium 149 mmol/L (137-145)
[2016-08-09] MEDS: APRESOLINE PO SCH ×3 (05:54→21:15)
[2016-08-09] MEDS ORDERED: NACL 0.9% 1000 ML 1,000 ML IV SCH (06:00)
[2016-08-09] MEDS ORDERED: NOVOLOG SUB-Q SCH (07:30)
[2016-08-09] MEDS: HALDOL PO SCH ×2 (11:00→21:17)
[2016-08-09] MEDS: ELIQUIS PO SCH ×2 (11:00→21:17)
[2016-08-09] MEDS: HALFPRIN EC PO SCH (11:00)
[2016-08-09] MEDS: APRESOLINE IV PRN (11:00)
[2016-08-09] MEDS: D5W 1,000 ML IV SCH (11:01)
--- NOTE | 2016-08-09 12:28 | Progress Note ---
Assessment and Plan Assessment and plan: General weakness Dehydration. Started on iv fluids Fever. this is now resolved. UA normal, chest xray unremarkable. Will monitor. Hypertension. Diabetes mellitus type 2. Fingerstick qac and hs. failure to thrive. Patient apparently had feces on her body, as per ED notes. Case management consulted Full code status History Interval history: fever resolved, confused Hospitalist Physical - Physical exam Narrative exam: Gen: Not in acute distress, HEENT: Normocephalic, atraumatic Neck: supple, no JVD Lungs:Lungs clear to auscultation, bilaterally, no crackles or wheeze Heart S1-S2 regular, no murmurs rubs or gallop, Abdomen: soft, non tender, non distended, normal bowel sounds , Ext: No edema, clubbing or cyanosis. Neuro: Awake.alert,confused,residual left sided weakness - Constitutional Vitals: Temp Pulse Resp BP Pulse Ox 98.5 F 86 20 188/81 100 08/09/16 08:00 08/09/16 11:00 08/09/16 08:00 08/09/16 11:00 08/09/16 08:00 General appearance: Present: no acute distress Results - Labs CBC & Chem 7: 08/09/16 03:59 08/09/16 03:59 Labs: Laboratory Last Values WBC 17.7 K/mm3 (4.5-11.0) H 08/09/16 03:59 RBC 3.23 M/mm3 (3.65-5.03) L 08/09/16 03:59 Hgb 8.9 gm/dl (10.1-14.3) L 08/09/16 03:59 Hct 27.5 % (30.3-42.9) L 08/09/16 03:59 MCV 85 fl (79-97) 08/09/16 03:59 MCH 27 pg (28-32) L 08/09/16 03:59 MCHC 32 % (30-34) 08/09/16 03:59 RDW 15.8 % (13.2-15.2) H 08/09/16 03:59 Plt Count 397 K/mm3 (140-440) 08/09/16 03:59 Lymph % (Auto) 18.7 % (13.4-35.0) 08/07/16 23:48 [place] % (Auto) 9.7 % (0.0-7.3) H 08/07/16 23:48 Eos % (Auto) 0.2 % (0.0-4.3) 08/07/16 23:48 Baso % (Auto) 0.4 % (0.0-1.8) 08/07/16 23:48 Lymph # 3.0 K/mm3 (1.2-5.4) 08/07/16 23:48 [place] # 1.6 K/mm3 (0.0-0.8) H 08/07/16 23:48 Eos # 0.0 K/mm3 (0.0-0.4) 08/07/16 23:48 Baso # 0.1 K/mm3 (0.0-0.1) 08/07/16 23:48 Seg Neutrophils % 71.0 % (40.0-70.0) H 08/07/16 23:48 Seg Neutrophils # 11.4 K/mm3 (1.8-7.7) H 08/07/16 23:48 PT 17.3 Sec. (12.2-14.9) H 08/07/16 23:48 INR 1.42 (0.87-1.13) H 08/07/16 23:48 APTT 37.3 Sec. (24.2-36.6) H 08/07/16 23:48 Sodium 149 mmol/L (137-145) H 08/09/16 03:59 Potassium 4.0 mmol/L (3.6-5.0) 08/09/16 03:59 Chloride 111.7 mmol/L (98-107) H 08/09/16 03:59 Carbon Dioxide 25 mmol/L (22-30) 08/09/16 03:59 Anion Gap 16 mmol/L 08/09/16 03:59 BUN 32 mg/dL (7-17) H 08/09/16 03:59 Creatinine 0.9 mg/dL (0.7-1.2) 08/09/16 03:59 Estimated GFR > 60 ml/min 08/09/16 03:59 BUN/Creatinine Ratio 35.55 % 08/09/16 03:59 Glucose 156 mg/dL (65-100) H 08/09/16 03:59 POC Glucose 161 (70-105) H 08/09/16 11:25 Lactic Acid 1.3 mmol/L (0.7-2.0) 08/07/16 23:48 Calcium 8.7 mg/dL (8.4-10.2) 08/09/16 03:59 Total Bilirubin 0.4 mg/dL (0.1-1.2) 08/07/16 23:48 AST 40 units/L (5-40) 08/07/16 23:48 ALT 17 units/L (7-56) 08/07/16 23:48 Alkaline Phosphatase 80 units/L (35-129) 08/07/16 23:48 Troponin T 0.014 ng/mL (0.00-0.029) 08/07/16 23:48 Total Protein 6.5 g/dL (6.3-8.2) 08/07/16 23:48 Albumin 2.8 g/dL (3.9-5) L 08/07/16 23:48 Albumin/Globulin Ratio 0.8 % 08/07/16 23:48 Urine Color Yellow (Yellow) 08/07/16 23:46 Urine Turbidity Cloudy (Clear) 08/07/16 23:46 Urine pH 5.0 (5.0-7.0) 08/07/16 23:46 Ur Specific [place] 1.025 (1.003-1.030) 08/07/16 23:46 Urine Protein 30 mg/dl mg/dL (Negative) 08/07/16 23:46 Urine Glucose (UA) 50 mg/dL (Negative) 08/07/16 23:46 Urine Ketones 20 mg/dL (Negative) 08/07/16 23:46 Urine Blood Neg (Negative) 08/07/16 23:46 Urine Nitrite Neg (Negative) 08/07/16 23:46 Urine Bilirubin Neg (Negative) 08/07/16 23:46 Urine Urobilinogen < 2.0 mg/dL (<2.0) 08/07/16 23:46 Ur Leukocyte Esterase Tr (Negative) 08/07/16 23:46 Urine WBC (Auto) 4.0 /HPF (0.0-6.0) 08/07/16 23:46 Urine RBC (Auto) 4.0 /HPF (0.0-6.0) 08/07/16 23:46 U Epithel Cells (Auto) 31.0 /HPF (0-13.0) H 08/07/16 23:46 Amorphous Crystals 1+ 08/07/16 23:46 Hyaline Casts 4 /LPF 08/07/16 23:46 Urine Mucus 1+ /HPF 08/07/16 23:46
[2016-08-09] MEDS: ZOCOR PO SCH (21:15)
[2016-08-10] MEDS: D5W 1,000 ML IV SCH ×2 (00:24→13:05)
[2016-08-10] MEDS: APRESOLINE IV PRN (00:25)
[2016-08-10 05:56] LABS: Hematocrit 27.4 % (30.3-42.9); Hemoglobin 8.8 gm/dl (10.1-14.3); Mean Corpuscular HGB Conc 32 % (30-34); Mean Corpuscular Hemoglobin 27 pg (28-32); Mean Corpuscular Volume 84 fl (79-97); Platelet Count 408 K/mm3 (140-440); Red Blood Count 3.26 M/mm3 (3.65-5.03); Red Cell Distribution Width 15.3 % (13.2-15.2); White Blood Count 14.5 K/mm3 (4.5-11.0)
[2016-08-10 06:02] LABS: Anion Gap 17 mmol/L; Blood Urea Nitrogen 27 mg/dL (7-17); Calcium 8.3 mg/dL (8.4-10.2); Carbon Dioxide 23 mmol/L (22-30); Chloride 104.3 mmol/L (98-107); Glucose 162 mg/dL (65-100); Potassium 3.3 mmol/L (3.6-5.0); Sodium 141 mmol/L (137-145)
[2016-08-10] MEDS: APRESOLINE PO SCH ×3 (07:11→21:33)
[2016-08-10] MEDS: NOVOLOG SUB-Q SCH ×4 (09:23→21:46)
[2016-08-10] MEDS: HALDOL PO SCH ×2 (09:24→21:33)
[2016-08-10] MEDS: POTASSIUM CHLORIDE PO SCH ×2 (09:24→13:03)
[2016-08-10] MEDS: HALFPRIN EC PO SCH (09:24)
[2016-08-10] MEDS: ELIQUIS PO SCH ×2 (09:24→21:33)
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
--- NOTE | 2016-08-10 11:04 | Admit Criteria Form ---
Admission Criteria Documentation: DEHYDRATION Clinical Indications for Admission to Inpatient Care (Place 'X' for any and all applicable criteria): Admission is indicated for ANY ONE of the following (1)(2)(3)(4)(5): [X]I. Inpatient admission required rather than observation care (see Dehydration: Observation Care guideline as appropriate) because of ANY ONE of the following: [ ]a) Vomiting that is severe or persistent [ ]b) Severe electrolyte abnormalities requiring inpatient care [ ]c) Hemodynamic instability [ ]d) IV fluid to replace significant ongoing losses (greater than 3 L/m2 per day (10) (11) [ ]e) Parenteral nutrition regimen that must be implemented on inpatient basis [X]f) Other condition,treatment or monitoring requiring inpatient admission [ ]II. Serious cause for dehydration requiring acute hospitalization (eg, bowel obstruction, increased intracranial pressure, infectious cause) Extended stay beyond goal length of stay may be needed for(1)(3 )(4)(17): [ ]a) Chronic severe dehydration [ ]b) Persistent vital sign changes, severe electrolyte imbalance, or diagnosed cause of dehydration that requires continued hospitalization (eg, bowel obstruction, increased intracranial pressure) [ ]c) Older patients (65 years or older) [ ]d) Severe comorbid illness (eg, renal failure, heart failure, poorly controlled diabetes) The original [employer] content created by [employer] has been revised. The portions of the content which have been revised are identified through the use of italic text or in bold, and [email or web address] has neither reviewed nor approved the modified material. All other unmodified content is copyright [email or web address] [facility]. Please see references footnoted in the original [email or web address] [facility] edition 2016 Admission Criteria Met: Yes
--- NOTE | 2016-08-10 12:03 | Progress Note ---
Assessment and Plan Assessment and plan: General weakness due to dehydration, failure to thrive. Dehydration. Continue iv fluids. Hypernatremia. Started 5%Dextrose yesterday. Sodium 141 today Fever. this is now resolved. UA normal, chest xray unremarkable. Will monitor. Hypertension. BP uncontrolled. Add Norvassc 5mg po daily Diabetes mellitus type 2. Fingerstick qac and hs. Dementia. failure to thrive. Patient apparently had feces on her body, as per ED notes. Case management consulted. i discussed with dependency case manager. APS referral made. Full code status. History Interval history: fever resolved, still confused Hospitalist Physical - Physical exam Narrative exam: Gen: Not in acute distress, HEENT: Normocephalic, atraumatic Neck: supple, no JVD Lungs:Lungs clear to auscultation, bilaterally, no crackles or wheeze Heart S1-S2 regular, no murmurs rubs or gallop, Abdomen: soft, non tender, non distended, normal bowel sounds , Ext: No edema, clubbing or cyanosis. Neuro: Awake.alert,confused,residual left sided weakness - Constitutional Vitals: Temp Pulse Resp BP Pulse Ox 98.7 F 87 18 158/80 100 08/10/16 07:09 08/10/16 07:09 08/10/16 07:09 08/10/16 07:09 08/10/16 07:09 General appearance: Present: no acute distress Results - Labs CBC & Chem 7: 08/10/16 04:36 08/10/16 04:36 Labs: Laboratory Last Values WBC 14.5 K/mm3 (4.5-11.0) H 08/10/16 04:36 RBC 3.26 M/mm3 (3.65-5.03) L 08/10/16 04:36 Hgb 8.8 gm/dl (10.1-14.3) L 08/10/16 04:36 Hct 27.4 % (30.3-42.9) L 08/10/16 04:36 MCV 84 fl (79-97) 08/10/16 04:36 MCH 27 pg (28-32) L 08/10/16 04:36 MCHC 32 % (30-34) 08/10/16 04:36 RDW 15.3 % (13.2-15.2) H 08/10/16 04:36 Plt Count 408 K/mm3 (140-440) 08/10/16 04:36 Lymph % (Auto) 18.7 % (13.4-35.0) 08/07/16 23:48 [place] % (Auto) 9.7 % (0.0-7.3) H 08/07/16 23:48 Eos % (Auto) 0.2 % (0.0-4.3) 08/07/16 23:48 Baso % (Auto) 0.4 % (0.0-1.8) 08/07/16 23:48 Lymph # 3.0 K/mm3 (1.2-5.4) 08/07/16 23:48 [place] # 1.6 K/mm3 (0.0-0.8) H 08/07/16 23:48 Eos # 0.0 K/mm3 (0.0-0.4) 08/07/16 23:48 Baso # 0.1 K/mm3 (0.0-0.1) 08/07/16 23:48 Seg Neutrophils % 71.0 % (40.0-70.0) H 08/07/16 23:48 Seg Neutrophils # 11.4 K/mm3 (1.8-7.7) H 08/07/16 23:48 PT 17.3 Sec. (12.2-14.9) H 08/07/16 23:48 INR 1.42 (0.87-1.13) H 08/07/16 23:48 APTT 37.3 Sec. (24.2-36.6) H 08/07/16 23:48 Sodium 141 mmol/L (137-145) D 08/10/16 04:36 Potassium 3.3 mmol/L (3.6-5.0) L 08/10/16 04:36 Chloride 104.3 mmol/L (98-107) 08/10/16 04:36 Carbon Dioxide 23 mmol/L (22-30) 08/10/16 04:36 Anion Gap 17 mmol/L 08/10/16 04:36 BUN 27 mg/dL (7-17) H 08/10/16 04:36 Creatinine 0.6 mg/dL (0.7-1.2) L 08/10/16 04:36 Estimated GFR > 60 ml/min 04/24/17 04:36 BUN/Creatinine Ratio 45.00 % 08/10/16 04:36 Glucose 162 mg/dL (65-100) H 08/10/16 04:36 POC Glucose 184 (70-105) H 08/10/16 11:25 Lactic Acid 1.3 mmol/L (0.7-2.0) 08/07/16 23:48 Calcium 8.3 mg/dL (8.4-10.2) L 08/10/16 04:36 Total Bilirubin 0.4 mg/dL (0.1-1.2) 08/07/16 23:48 AST 40 units/L (5-40) 08/07/16 23:48 ALT 17 units/L (7-56) 08/07/16 23:48 Alkaline Phosphatase 80 units/L (35-129) 08/07/16 23:48 Troponin T 0.014 ng/mL (0.00-0.029) 08/07/16 23:48 Total Protein 6.5 g/dL (6.3-8.2) 08/07/16 23:48 Albumin 2.8 g/dL (3.9-5) L 08/07/16 23:48 Albumin/Globulin Ratio 0.8 % 08/07/16 23:48 Urine Color Yellow (Yellow) 08/07/16 23:46 Urine Turbidity Cloudy (Clear) 08/07/16 23:46 Urine pH 5.0 (5.0-7.0) 08/07/16 23:46 Ur Specific [place] 1.025 (1.003-1.030) 08/07/16 23:46 Urine Protein 30 mg/dl mg/dL (Negative) 08/07/16 23:46 Urine Glucose (UA) 50 mg/dL (Negative) 08/07/16 23:46 Urine Ketones 20 mg/dL (Negative) 08/07/16 23:46 Urine Blood Neg (Negative) 08/07/16 23:46 Urine Nitrite Neg (Negative) 08/07/16 23:46 Urine Bilirubin Neg (Negative) 08/07/16 23:46 Urine Urobilinogen < 2.0 mg/dL (<2.0) 08/07/16 23:46 Ur Leukocyte Esterase Tr (Negative) 08/07/16 23:46 Urine WBC (Auto) 4.0 /HPF (0.0-6.0) 08/07/16 23:46 Urine RBC (Auto) 4.0 /HPF (0.0-6.0) 08/07/16 23:46 U Epithel Cells (Auto) 31.0 /HPF (0-13.0) H 08/07/16 23:46 Amorphous Crystals 1+ 08/07/16 23:46 Hyaline Casts 4 /LPF 08/07/16 23:46 Urine Mucus 1+ /HPF 08/07/16 23:46
[2016-08-10] MEDS: NORVASC PO SCH (12:44)
[2016-08-10] MEDS: PROTONIX PO SCH (13:04)
[2016-08-10] MEDS: TYLENOL PO PRN (21:32)
[2016-08-10] MEDS: ZOCOR PO SCH (21:33)
[2016-08-10] MEDS: REMERON PO SCH (21:33)
[2016-08-11] MEDS: D5W 1,000 ML IV SCH (02:42)
[2016-08-11] MEDS: TYLENOL PO PRN (04:59)
[2016-08-11] MEDS: APRESOLINE PO SCH ×3 (04:59→23:02)
[2016-08-11 08:12] LABS: Anion Gap 18 mmol/L; Blood Urea Nitrogen 18 mg/dL (7-17); Calcium 8.4 mg/dL (8.4-10.2); Carbon Dioxide 21 mmol/L (22-30); Chloride 101.7 mmol/L (98-107); Glucose 167 mg/dL (65-100); Potassium 3.9 mmol/L (3.6-5.0); Sodium 137 mmol/L (137-145)
--- NOTE | 2016-08-11 08:53 | Progress Note ---
Assessment and Plan Assessment and plan: General weakness due to dehydration, failure to thrive, improving. Dehydration. Continue iv fluids. Hypernatremia. Now normal, 137 today. Discontinue 55Dextrose. Fever. this is now resolved. UA normal, chest x-ray unremarkable. Will monitor. Hypertension. BP improving. Diabetes mellitus type 2. Fingerstick qac and hs. Dementia. Failure to thrive. Patient apparently had feces on her body, as per ED notes. Case management consulted. I discussed with renal case manager. APS referral made. For placement. She is medically stable for discharge. Full code status. History Interval history: fever resolved, still confused Hospitalist Physical - Physical exam Narrative exam: Gen: Not in acute distress, HEENT: Normocephalic, atraumatic Neck: supple, no JVD Lungs:Lungs clear to auscultation, bilaterally, no crackles or wheeze Heart S1-S2 regular, no murmurs rubs or gallop, Abdomen: soft, non tender, non distended, normal bowel sounds , Ext: No edema, clubbing or cyanosis. Neuro: Awake.alert,confused, has dementia, residual left sided weakness - Constitutional Vitals: Temp Pulse Resp BP Pulse Ox 98.2 F 90 20 142/78 98 08/11/16 08:00 08/11/16 08:00 08/11/16 08:00 08/11/16 08:00 08/11/16 08:20 Results - Labs CBC & Chem 7: 08/10/16 04:36 08/11/16 06:22 Labs: Laboratory Last Values WBC 14.5 K/mm3 (4.5-11.0) H 08/10/16 04:36 RBC 3.26 M/mm3 (3.65-5.03) L 08/10/16 04:36 Hgb 8.8 gm/dl (10.1-14.3) L 08/10/16 04:36 Hct 27.4 % (30.3-42.9) L 08/10/16 04:36 MCV 84 fl (79-97) 08/10/16 04:36 MCH 27 pg (28-32) L 08/10/16 04:36 MCHC 32 % (30-34) 08/10/16 04:36 RDW 15.3 % (13.2-15.2) H 08/10/16 04:36 Plt Count 408 K/mm3 (140-440) 08/10/16 04:36 Lymph % (Auto) 18.7 % (13.4-35.0) 08/07/16 23:48 [place] % (Auto) 9.7 % (0.0-7.3) H 08/07/16 23:48 Eos % (Auto) 0.2 % (0.0-4.3) 08/07/16 23:48 Baso % (Auto) 0.4 % (0.0-1.8) 08/07/16 23:48 Lymph # 3.0 K/mm3 (1.2-5.4) 08/07/16 23:48 [place] # 1.6 K/mm3 (0.0-0.8) H 08/07/16 23:48 Eos # 0.0 K/mm3 (0.0-0.4) 08/07/16 23:48 Baso # 0.1 K/mm3 (0.0-0.1) 08/07/16 23:48 Seg Neutrophils % 71.0 % (40.0-70.0) H 08/07/16 23:48 Seg Neutrophils # 11.4 K/mm3 (1.8-7.7) H 08/07/16 23:48 PT 17.3 Sec. (12.2-14.9) H 08/07/16 23:48 INR 1.42 (0.87-1.13) H 08/07/16 23:48 APTT 37.3 Sec. (24.2-36.6) H 08/07/16 23:48 Sodium 137 mmol/L (137-145) 08/11/16 06:22 Potassium 3.9 mmol/L (3.6-5.0) 08/11/16 06:22 Chloride 101.7 mmol/L (98-107) 08/11/16 06:22 Carbon Dioxide 21 mmol/L (22-30) L 08/11/16 06:22 Anion Gap 18 mmol/L 08/11/16 06:22 BUN 18 mg/dL (7-17) H 08/11/16 06:22 Creatinine 0.5 mg/dL (0.7-1.2) L 08/11/16 06:22 Estimated GFR > 60 ml/min 08/11/16 06:22 BUN/Creatinine Ratio 36.00 % 08/11/16 06:22 Glucose 167 mg/dL (65-100) H 08/11/16 06:22 POC Glucose 178 (70-105) H 08/11/16 06:25 Lactic Acid 1.3 mmol/L (0.7-2.0) 08/07/16 23:48 Calcium 8.4 mg/dL (8.4-10.2) 08/11/16 06:22 Total Bilirubin 0.4 mg/dL (0.1-1.2) 08/07/16 23:48 AST 40 units/L (5-40) 08/07/16 23:48 ALT 17 units/L (7-56) 08/07/16 23:48 Alkaline Phosphatase 80 units/L (35-129) 08/07/16 23:48 Troponin T 0.014 ng/mL (0.00-0.029) 08/07/16 23:48 Total Protein 6.5 g/dL (6.3-8.2) 08/07/16 23:48 Albumin 2.8 g/dL (3.9-5) L 08/07/16 23:48 Albumin/Globulin Ratio 0.8 % 08/07/16 23:48 Urine Color Yellow (Yellow) 08/07/16 23:46 Urine Turbidity Cloudy (Clear) 08/07/16 23:46 Urine pH 5.0 (5.0-7.0) 08/07/16 23:46 Ur Specific [place] 1.025 (1.003-1.030) 08/07/16 23:46 Urine Protein 30 mg/dl mg/dL (Negative) 08/07/16 23:46 Urine Glucose (UA) 50 mg/dL (Negative) 08/07/16 23:46 Urine Ketones 20 mg/dL (Negative) 08/07/16 23:46 Urine Blood Neg (Negative) 08/07/16 23:46 Urine Nitrite Neg (Negative) 08/07/16 23:46 Urine Bilirubin Neg (Negative) 08/07/16 23:46 Urine Urobilinogen < 2.0 mg/dL (<2.0) 08/07/16 23:46 Ur Leukocyte Esterase Tr (Negative) 08/07/16 23:46 Urine WBC (Auto) 4.0 /HPF (0.0-6.0) 08/07/16 23:46 Urine RBC (Auto) 4.0 /HPF (0.0-6.0) 08/07/16 23:46 U Epithel Cells (Auto) 31.0 /HPF (0-13.0) H 08/07/16 23:46 Amorphous Crystals 1+ 08/07/16 23:46 Hyaline Casts 4 /LPF 08/07/16 23:46 Urine Mucus 1+ /HPF 08/07/16 23:46
[2016-08-11] MEDS: NOVOLOG SUB-Q SCH ×3 (09:39→18:38)
[2016-08-11] MEDS: PROTONIX PO SCH (10:33)
[2016-08-11] MEDS: HALFPRIN EC PO SCH (10:33)
[2016-08-11] MEDS: NORVASC PO SCH (10:34)
[2016-08-11] MEDS: ELIQUIS PO SCH ×2 (10:34→23:03)
[2016-08-11] MEDS: HALDOL PO SCH ×2 (10:34→23:03)
[2016-08-11] MEDS: REMERON PO SCH (23:02)
[2016-08-11] MEDS: ZOCOR PO SCH (23:02)
[2016-08-12] MEDS: NOVOLOG SUB-Q SCH ×4 (00:03→17:27)
[2016-08-12] MEDS: APRESOLINE PO SCH ×3 (07:47→21:26)
[2016-08-12] MEDS: PROTONIX PO SCH (09:47)
[2016-08-12] MEDS: HALDOL PO SCH ×2 (09:48→21:23)
[2016-08-12] MEDS: ELIQUIS PO SCH ×2 (09:48→21:23)
[2016-08-12] MEDS: HALFPRIN EC PO SCH (09:48)
[2016-08-12] MEDS: NORVASC PO SCH (09:48)
--- NOTE | 2016-08-12 10:25 | Progress Note ---
Assessment and Plan Assessment and plan: General weakness due to dehydration, failure to thrive, improving. Dehydration. Continue iv fluids. Hypernatremia. Now normal, 137 . Discontinued 5%Dextrose. Fever. this is now resolved. UA normal, chest x-ray unremarkable. Will monitor. Hypertension. BP improving. Diabetes mellitus type 2. Fingerstick qac and hs. Dementia. Failure to thrive. Patient apparently had feces on her body, as per ED notes. Case management consulted. I discussed with machine adjuster leader case trim. APS referral made. For placement. She is medically stable for discharge. Full code status. History Interval history: fever resolved, still confused Hospitalist Physical - Physical exam Narrative exam: Gen: Not in acute distress, HEENT: Normocephalic, atraumatic Neck: supple, no JVD Lungs:Lungs clear to auscultation, bilaterally, no crackles or wheeze Heart S1-S2 regular, no murmurs rubs or gallop, Abdomen: soft, non tender, non distended, normal bowel sounds , Ext: No edema, clubbing or cyanosis. Neuro: Awake.alert,confused, has dementia, residual left sided weakness - Constitutional Vitals: Temp Pulse Resp BP Pulse Ox 98 F 89 22 144/75 96 08/12/16 07:35 08/12/16 07:47 08/12/16 07:35 08/12/16 09:48 08/12/16 07:35 General appearance: Present: no acute distress Results - Labs CBC & Chem 7: 08/10/16 04:36 08/11/16 06:22 Labs: Laboratory Last Values WBC 14.5 K/mm3 (4.5-11.0) H 08/10/16 04:36 RBC 3.26 M/mm3 (3.65-5.03) L 08/10/16 04:36 Hgb 8.8 gm/dl (10.1-14.3) L 08/10/16 04:36 Hct 27.4 % (30.3-42.9) L 08/10/16 04:36 MCV 84 fl (79-97) 08/10/16 04:36 MCH 27 pg (28-32) L 08/10/16 04:36 MCHC 32 % (30-34) 08/10/16 04:36 RDW 15.3 % (13.2-15.2) H 08/10/16 04:36 Plt Count 408 K/mm3 (140-440) 08/10/16 04:36 Lymph % (Auto) 18.7 % (13.4-35.0) 08/07/16 23:48 [place] % (Auto) 9.7 % (0.0-7.3) H 08/07/16 23:48 Eos % (Auto) 0.2 % (0.0-4.3) 08/07/16 23:48 Baso % (Auto) 0.4 % (0.0-1.8) 08/07/16 23:48 Lymph # 3.0 K/mm3 (1.2-5.4) 08/07/16 23:48 [place] # 1.6 K/mm3 (0.0-0.8) H 08/07/16 23:48 Eos # 0.0 K/mm3 (0.0-0.4) 08/07/16 23:48 Baso # 0.1 K/mm3 (0.0-0.1) 08/07/16 23:48 Seg Neutrophils % 71.0 % (40.0-70.0) H 08/07/16 23:48 Seg Neutrophils # 11.4 K/mm3 (1.8-7.7) H 08/07/16 23:48 PT 17.3 Sec. (12.2-14.9) H 08/07/16 23:48 INR 1.42 (0.87-1.13) H 08/07/16 23:48 APTT 37.3 Sec. (24.2-36.6) H 08/07/16 23:48 Sodium 137 mmol/L (137-145) 08/11/16 06:22 Potassium 3.9 mmol/L (3.6-5.0) 08/11/16 06:22 Chloride 101.7 mmol/L (98-107) 08/11/16 06:22 Carbon Dioxide 21 mmol/L (22-30) L 08/11/16 06:22 Anion Gap 18 mmol/L 08/11/16 06:22 BUN 18 mg/dL (7-17) H 08/11/16 06:22 Creatinine 0.5 mg/dL (0.7-1.2) L 08/11/16 06:22 Estimated GFR > 60 ml/min 08/11/16 06:22 BUN/Creatinine Ratio 36.00 % 08/11/16 06:22 Glucose 167 mg/dL (65-100) H 08/11/16 06:22 POC Glucose 135 (70-105) H 08/12/16 06:24 Lactic Acid 1.3 mmol/L (0.7-2.0) 08/07/16 23:48 Calcium 8.4 mg/dL (8.4-10.2) 08/11/16 06:22 Total Bilirubin 0.4 mg/dL (0.1-1.2) 08/07/16 23:48 AST 40 units/L (5-40) 08/07/16 23:48 ALT 17 units/L (7-56) 08/07/16 23:48 Alkaline Phosphatase 80 units/L (35-129) 08/07/16 23:48 Troponin T 0.014 ng/mL (0.00-0.029) 08/07/16 23:48 Total Protein 6.5 g/dL (6.3-8.2) 08/07/16 23:48 Albumin 2.8 g/dL (3.9-5) L 08/07/16 23:48 Albumin/Globulin Ratio 0.8 % 08/07/16 23:48 Urine Color Yellow (Yellow) 08/07/16 23:46 Urine Turbidity Cloudy (Clear) 08/07/16 23:46 Urine pH 5.0 (5.0-7.0) 08/07/16 23:46 Ur Specific [place] 1.025 (1.003-1.030) 08/07/16 23:46 Urine Protein 30 mg/dl mg/dL (Negative) 08/07/16 23:46 Urine Glucose (UA) 50 mg/dL (Negative) 08/07/16 23:46 Urine Ketones 20 mg/dL (Negative) 08/07/16 23:46 Urine Blood Neg (Negative) 08/07/16 23:46 Urine Nitrite Neg (Negative) 08/07/16 23:46 Urine Bilirubin Neg (Negative) 08/07/16 23:46 Urine Urobilinogen < 2.0 mg/dL (<2.0) 08/07/16 23:46 Ur Leukocyte Esterase Tr (Negative) 08/07/16 23:46 Urine WBC (Auto) 4.0 /HPF (0.0-6.0) 08/07/16 23:46 Urine RBC (Auto) 4.0 /HPF (0.0-6.0) 08/07/16 23:46 U Epithel Cells (Auto) 31.0 /HPF (0-13.0) H 08/07/16 23:46 Amorphous Crystals 1+ 08/07/16 23:46 Hyaline Casts 4 /LPF 08/07/16 23:46 Urine Mucus 1+ /HPF 08/07/16 23:46
--- NOTE | 2016-08-12 10:48 | Discharge Summary ---
Providers - Providers Date of Admission: 08/08/16 02:14 Date of discharge: 08/12/16 Attending physician: ALEXANDRA TATE 08/08/16 03:46 Consult to Case Management [CONS] Routine Services Needed at Discharge: Other Notified:: erma (cm) Was contact made?: Yes Additional Physician Instructions: needs NH placement 08/09/16 05:23 Consult to Wound/ET Nurse [CONS] Routine Reason For Exam: wound eval 08/10/16 12:11 Physical Therapy Evaluation and Treat [CONS] Routine Comment: Reason For Exam: placement Primary care physician: VANIA RAMAN Hospitalization Condition: Good Disposition: DC/TX SNF W [facility] - Discharge Diagnoses (1) Dehydration Status: Acute (2) Weakness Status: Acute (3) History of stroke with residual deficit Status: Chronic (4) Hyperlipidemia Status: Chronic Qualifiers: Hyperlipidemia type: H (5) Hypertension Status: Chronic Qualifiers: Hypertension type: H (6) Type 2 diabetes mellitus Status: Chronic Qualifiers: Diabetes mellitus complication status: D Diabetes mellitus complication detail: D Diabetic retinopathy severity: D Proliferative retinopathy type: P Diabetes mellitus macular edema: D Diabetes mellitus long term care phlebotomist insulin use : D Laterality: L Chronic kidney disease stage: C Core Measure Documentation - Palliative Care Palliative Care/ Comfort Measures: Not Applicable Exam - Constitutional Vitals: Temp Pulse Resp BP Pulse Ox 98 F 89 22 144/75 96 08/12/16 07:35 08/12/16 07:47 08/12/16 07:35 08/12/16 09:48 08/12/16 07:35 Plan Activity: advance as tolerated Diet: low fat, low cholesterol, low salt, diabetic Additional Instructions: 1. Follow up with physician at residential facility in 3-5 days Follow up with: PRIMARY CAREMD [Referring] - 3-5 Days
[2016-08-12] MEDS: ZOCOR PO SCH (21:23)
[2016-08-12] MEDS: REMERON PO SCH (21:24)
[2016-08-13] MEDS: NOVOLOG SUB-Q SCH ×4 (00:21→18:25)
[2016-08-13] MEDS: APRESOLINE PO SCH ×2 (06:30→13:57)
--- NOTE | 2016-08-13 10:35 | Event Note ---
Date: 08/13/16 Patient seen and examined today. She is stable for d/c to SNF today.
[2016-08-13] MEDS: ELIQUIS PO SCH (11:46)
[2016-08-13] MEDS: HALFPRIN EC PO SCH (11:46)
[2016-08-13] MEDS: PROTONIX PO SCH (11:46)
[2016-08-13] MEDS: HALDOL PO SCH (11:47)
[2016-08-13 16:28] VITALS: BP 158/68
== END 2016-08-13 17:50 | DRG 640 ==
LOC: ED 22:57 → 3A 08-08 02:14
PROVIDERS: ADMIT Internal Medicine; ATTEND Internal Medicine
DX: E86.0 Dehydration (principal); G92 Toxic encephalopathy; E43 Unspecified severe protein-calorie malnutrition; F03.91 Unspecified dementia, unspecified severity, with behavioral disturbance; I69.354 Hemiplegia and hemiparesis following cerebral infarction affecting left non-dominant side; I11.0 Hypertensive heart disease with heart failure; I50.9 Heart failure, unspecified; E11.9 Type 2 diabetes mellitus without complications; J44.9 Chronic obstructive pulmonary disease, unspecified; E78.5 Hyperlipidemia, unspecified; R62.7 Adult failure to thrive; D72.828 Other elevated white blood cell count; E87.0 Hyperosmolality and hypernatremia; Z96.659 Presence of unspecified artificial knee joint; Z90.49 Acquired absence of other specified parts of digestive tract; Z98.51 Tubal ligation status; Z74.01 Bed confinement status; Z86.718 Personal history of other venous thrombosis and embolism; Z68.29 Body mass index [BMI] 29.0-29.9, adult
CPT/HCPCS: 36415; 71010; 80048; 80053; 81001; 82140; 82962; 84484; 85025; 85027; 85610; 85730; 93005; 93010; 94760; 96374; G8978-GP; G8979-GP; G8980-GP; J0360; J1815; J7030; J7070

== ENCOUNTER 2017-02-07 20:57 | Inpatient (IN) | payer MEDICARE ==
[2017-02-07] MEDS ORDERED: DOBUTREX DRIP 500MG/D5W 250ML 500 MG/250 ML BAG IV SCH (21:30)
[2017-02-07] MEDS ORDERED: DOBUTREX DRIP 500MG/D5W 250ML 500 MG/250 ML BAG IV ONE (21:34)
--- NOTE | 2017-02-07 21:59 | XRay Report ---
FINAL REPORT PROCEDURE: Chest. TECHNIQUE: Portable AP view. HISTORY: Short of breath. COMPARISON: No prior studies are available for comparison. FINDINGS: The heart size is normal. There is calcification in the thoracic aorta. There is some faint perihilar opacity in both lungs. This is more noticeable in the left lung. This could represent early interstitial pulmonary edema. Other inflammatory or infectious processes are also possible. Clinical correlation and follow-up imaging is suggested. There are no pleural effusions. The soft tissues are unremarkable. The regional skeleton appears intact. IMPRESSION: Faint perihilar lung opacity. Follow-up recommended.
[2017-02-08] MEDS ORDERED: LEVAQUIN 500MG/100ML 500 MG/100 ML BAG IV ONE (00:03)
[2017-02-08] MEDS ORDERED: NACL 0.9% 250ML 250 ML IV ONE (00:05)
[2017-02-08 00:17] LABS: Basophils % (Auto) 0.1 % (0.0-1.8); Eosinophils % (Auto) 0.2 % (0.0-4.3); Hematocrit 41.9 % (30.3-42.9); Hemoglobin 13.2 gm/dl (10.1-14.3); Mean Corpuscular HGB Conc 32 % (30-34); Mean Corpuscular Hemoglobin 27 pg (28-32); Mean Corpuscular Volume 85 fl (79-97); Red Cell Distribution Width 16.9 % (13.2-15.2); White Blood Count 16.1 K/mm3 (4.5-11.0)
[2017-02-08 00:20] LABS: Bacteria,Urine 4+ /HPF (Negative); Bilirubin,Urine NEG (Negative); Blood,Urine MOD (Negative); Ketones,Urine NEG (Negative); Leukocyte Esterase,Urine LG (Negative); Mucus,Urine FEW /HPF; Nitrite,Urine NEG (Negative); Urobilinogen,Urine < 2.0 mg/dL (<2.0)
[2017-02-08 00:22] LABS: WBC,Urine > 182.0 /HPF (0.0-6.0)
[2017-02-08 00:23] LABS: Platelet Count 228 K/mm3 (140-440)
[2017-02-08 00:33] LABS: Creatine Kinase MB 1.2 ng/mL (0.0-4.0)
[2017-02-08 00:34] LABS: Albumin 2.8 g/dL (3.9-5); Albumin/Globulin Ratio 0.7 %; Bilirubin,Total 0.4 mg/dL (0.1-1.2); Calcium 8.9 mg/dL (8.4-10.2); Chloride 106.6 mmol/L (98-107); Potassium 5.5 mmol/L (3.6-5.0); Total Protein 7.1 g/dL (6.3-8.2)
[2017-02-08 00:35] LABS: Partial Thromboplastin Time 168.3 Sec. (24.2-36.6)
--- NOTE | 2017-02-08 00:36 | Emergency Department Report ---
ED Shortness of Breath HPI - General Chief Complaint: Dyspnea/Respdistress Stated Complaint: TIFFANIE Time Seen by Provider: 02/07/17 21:11 Source: EMS, RN notes reviewed, old records reviewed Mode of arrival: Stretcher Limitations: Altered Mental Status, Physical Limitation - History of Present Illness Initial Comments: 71 yo female brought in by ems because of dyspnea. PT LIVES IN A [facility] AND IS NOT AMBULATORY. SHE IS ALTERED ON ARRIVAL AND LOOKS VERY SICK. SHE HAS A H/O DM II, HYPERLIPIDEMIA, AGITATION. SHE IS NOT ABLE TO ANSWER ANY QUESTIONS BECAUSE OF HER CONDITION. SHE HAS FOUL ODOR FROM [facility] EVIDENT ON JUST STANDING ABOVE HER MD Complaint: shortness of breath -: unknown Known History Of: diabetes - Related Data Previous Rx's Medication Instructions Recorded Last Taken Type Apixaban [Eliquis] 0 tab PO BID #64 tablet 08/03/16 Unknown Rx Aspirin EC [Aspirin Enteric Coated 81 mg PO QDAY #30 tablet. 08/03/16 Unknown Rx TAB] Haloperidol [Haldol] 2 mg PO BID #60 tablet 08/03/16 Unknown Rx Mirtazapine [Remeron] 15 mg PO QHS #30 tablet 08/03/16 Unknown Rx Pantoprazole [Protonix TAB] 40 mg PO DAILY #30 tablet 08/03/16 Unknown Rx Simvastatin [Zocor TAB] 40 mg PO QHS #30 tablet 08/03/16 Unknown Rx hydrALAZINE [Apresoline TAB] 25 mg PO Q8HR #90 tablet 08/03/16 Unknown Rx metFORMIN [Glucophage] 500 mg PO BID #60 tablet 08/03/16 Unknown Rx Allergies Allergy/AdvReac Type Severity Reaction Status Date / Time No Known Allergies Allergy Verified 09/26/14 15:05 ED Review of Systems ROS: Stated complaint: TIFFANIE Other details as noted in HPI ED Past Medical Hx - Past Medical History Previous Medical History?: Yes Hx Hypertension: Yes Hx CVA: Yes (3 strokes, left side weakness, doesn't use a cane or walker) Hx Heart Attack/AMI: Yes Hx Congestive Heart Failure: Yes Hx Diabetes: Yes Hx Asthma: No Hx COPD: Yes Hx HIV: No - Surgical History Past Surgical History?: Yes Hx Cholecystectomy: Yes Additional Surgical History: tubal ligation, shoulder, knee replacement - Social History Smoking Status: Unknown if ever smoked - Medications Home Medications: Home Medications Medication Instructions Recorded Confirmed Last Taken Type Apixaban [Eliquis] 0 tab PO BID #64 tablet 08/03/16 08/08/16 Unknown Rx Aspirin EC [Aspirin Enteric Coated 81 mg PO QDAY #30 tablet. 08/03/16 Unknown Rx TAB] Haloperidol [Haldol] 2 mg PO BID #60 tablet 08/03/16 08/08/16 Unknown Rx Mirtazapine [Remeron] 15 mg PO QHS #30 tablet 08/03/16 08/08/16 Unknown Rx Pantoprazole [Protonix TAB] 40 mg PO DAILY #30 tablet 08/03/16 08/08/16 Unknown Rx Simvastatin [Zocor TAB] 40 mg PO QHS #30 tablet 08/03/16 08/08/16 Unknown Rx hydrALAZINE [Apresoline TAB] 25 mg PO Q8HR #90 tablet 08/03/16 08/08/16 Unknown Rx metFORMIN [Glucophage] 500 mg PO BID #60 tablet 08/03/16 08/08/16 Unknown Rx ED Physical Exam - General Limitations: Altered Mental Status, Physical Limitation General appearance: lethargic, in distress - Head Head exam: Present: atraumatic, normocephalic, normal inspection - Eye Eye exam: Present: PERRL, other (LATERALIZING TO THE RIGHT). Absent: scleral icterus, conjunctival injection Pupils: Present: normal accommodation - ENT ENT exam: Present: mucous membranes dry - Neck Neck exam: Present: normal inspection, full ROM. Absent: tenderness - Respiratory Respiratory exam: Present: respiratory distress, rales (LEFT GREATER THAN THE RIGHT FROM MID LEFT LUNG TO THE BASE-SIGNIFICANT), accessory muscle use. Absent : chest wall tenderness - Cardiovascular Cardiovascular Exam: Present: tachycardia - GI/Abdominal GI/Abdominal exam: Present: soft. Absent: distended, tenderness, guarding, rebound - Rectal Rectal exam: Present: deferred - External exam: Present: other (ERYTHEMA, MALODOROUS) - Extremities Exam Extremities exam: Present: normal inspection, other (CUSHION TO PREVENT BED SORES) - Back Exam Back exam: Present: normal inspection - Neurological Exam Neurological exam: Present: altered - Skin Skin exam: Present: warm, dry, intact, normal color ED Course Vital Signs 02/07/17 02/07/17 02/07/17 21:03 21:04 21:06 Pulse Rate 114 H 112 H 116 H Respiratory 26 H 35 H 36 H Rate Blood Pressure O2 Sat by Pulse 94 96 Oximetry 02/07/17 02/07/17 02/07/17 21:08 21:10 21:12 Pulse Rate 116 H 113 H 112 H Respiratory 31 H 34 H 32 H Rate Blood Pressure O2 Sat by Pulse 95 94 Oximetry 02/07/17 02/07/17 02/07/17 21:14 21:16 21:18 Pulse Rate 110 H 113 H 113 H Respiratory 30 H 31 H 34 H Rate Blood Pressure O2 Sat by Pulse 96 96 96 Oximetry 02/07/17 02/07/17 02/07/17 21:20 21:22 21:24 Pulse Rate 112 H 110 H 109 H Respiratory 35 H 33 H 34 H Rate Blood Pressure O2 Sat by Pulse 96 96 96 Oximetry 02/07/17 02/07/17 02/07/17 21:26 21:28 22:18 Pulse Rate 108 H 106 H 124 H Respiratory 31 H 31 H 31 H Rate Blood Pressure 81/35 88/36 88/46 O2 Sat by Pulse 96 96 Oximetry 02/07/17 02/07/17 02/07/17 22:20 22:22 22:24 Pulse Rate 126 H 123 H 123 H Respiratory 29 H 22 24 Rate Blood Pressure 95/62 95/62 95/62 O2 Sat by Pulse Oximetry 02/07/17 02/07/17 02/07/17 22:26 22:28 22:30 Pulse Rate 121 H 121 H 120 H Respiratory 25 H 23 23 Rate Blood Pressure 95/62 95/62 78/35 O2 Sat by Pulse Oximetry 02/07/17 02/07/17 02/07/17 22:32 22:34 22:36 Pulse Rate 120 H 120 H 123 H Respiratory 23 22 22 Rate Blood Pressure 78/35 72/33 72/33 O2 Sat by Pulse Oximetry 02/07/17 02/07/17 02/07/17 22:38 22:40 22:42 Pulse Rate 127 H 129 H 129 H Respiratory 22 22 22 Rate Blood Pressure 72/33 70/34 70/34 O2 Sat by Pulse Oximetry 02/07/17 02/07/17 02/07/17 22:44 22:46 22:48 Pulse Rate 129 H 132 H 136 H Respiratory 22 24 22 Rate Blood Pressure 70/34 70/34 70/34 O2 Sat by Pulse Oximetry 02/07/17 02/07/17 02/07/17 22:50 22:52 22:54 Pulse Rate 137 H 137 H 137 H Respiratory 21 22 24 Rate Blood Pressure 84/39 84/39 84/39 O2 Sat by Pulse Oximetry 02/07/17 02/07/17 02/07/17 22:56 22:58 23:00 Pulse Rate 136 H 145 H 135 H Respiratory 24 24 25 H Rate Blood Pressure 84/39 84/39 75/32 O2 Sat by Pulse Oximetry 02/07/17 02/07/17 02/07/17 23:02 23:04 23:06 Pulse Rate 135 H 135 H 132 H Respiratory 24 22 24 Rate Blood Pressure 77/41 77/41 77/41 O2 Sat by Pulse Oximetry 02/07/17 02/07/17 02/07/17 23:08 23:10 23:12 Pulse Rate 135 H 135 H 133 H Respiratory 23 23 24 Rate Blood Pressure 77/41 70/37 70/37 O2 Sat by Pulse Oximetry 02/07/17 02/07/17 02/07/17 23:14 23:16 23:18 Pulse Rate 130 H 134 H 133 H Respiratory 23 22 22 Rate Blood Pressure 70/37 70/37 70/37 O2 Sat by Pulse Oximetry 02/07/17 02/07/17 02/07/17 23:20 23:22 23:24 Pulse Rate 135 H 131 H 132 H Respiratory 21 22 21 Rate Blood Pressure 73/35 73/35 73/35 O2 Sat by Pulse Oximetry 02/07/17 02/07/17 02/07/17 23:26 23:28 23:30 Pulse Rate 134 H 134 H 135 H Respiratory 22 23 22 Rate Blood Pressure 73/35 73/35 68/33 O2 Sat by Pulse Oximetry 02/07/17 02/07/17 02/07/17 23:32 23:34 23:36 Pulse Rate 133 H 135 H 134 H Respiratory 22 21 21 Rate Blood Pressure 68/33 68/33 68/33 O2 Sat by Pulse Oximetry 02/07/17 02/07/17 02/07/17 23:38 23:40 23:42 Pulse Rate 135 H 124 H 140 H Respiratory 26 H 25 H 24 Rate Blood Pressure 68/33 86/61 86/61 O2 Sat by Pulse Oximetry 02/07/17 02/07/17 02/07/17 23:44 23:46 23:48 Pulse Rate 134 H 136 H 124 H Respiratory 23 22 21 Rate Blood Pressure 86/61 86/61 86/61 O2 Sat by Pulse Oximetry 02/07/17 02/07/17 02/07/17 23:50 23:52 23:54 Pulse Rate 145 H 140 H 135 H Respiratory 21 21 24 Rate Blood Pressure 95/42 95/42 95/42 O2 Sat by Pulse Oximetry 02/07/17 02/07/17 02/08/17 23:56 23:58 00:00 Pulse Rate 130 H 136 H 135 H Respiratory 23 22 21 Rate Blood Pressure 95/42 95/42 99/46 O2 Sat by Pulse Oximetry 02/08/17 02/08/17 02/08/17 00:02 00:04 00:06 Pulse Rate 136 H 135 H 130 H Respiratory 22 22 21 Rate Blood Pressure 99/46 99/46 99/46 O2 Sat by Pulse Oximetry 02/08/17 02/08/17 02/08/17 00:08 00:10 00:12 Pulse Rate 134 H 126 H 130 H Respiratory 21 22 21 Rate Blood Pressure 99/46 88/43 88/43 O2 Sat by Pulse Oximetry 02/08/17 02/08/17 02/08/17 00:14 00:16 00:18 Pulse Rate 139 H 128 H 132 H Respiratory 20 20 20 Rate Blood Pressure 88/43 88/43 88/43 O2 Sat by Pulse Oximetry 02/08/17 02/08/17 02/08/17 00:20 00:22 00:24 Pulse Rate 134 H 132 H 135 H Respiratory 25 H 22 21 Rate Blood Pressure 103/52 103/52 103/52 O2 Sat by Pulse Oximetry 02/08/17 02/08/17 02/08/17 00:26 00:28 00:30 Pulse Rate 130 H 140 H 132 H Respiratory 20 20 21 Rate Blood Pressure 103/52 103/52 101/50 O2 Sat by Pulse Oximetry 02/08/17 02/08/17 02/08/17 00:32 00:34 00:36 Pulse Rate 136 H 135 H 139 H Respiratory 21 21 21 Rate Blood Pressure 101/50 101/50 101/50 O2 Sat by Pulse Oximetry - Reevaluation(s) Reevaluation #1: 10/23/17 02:17 SHE WAS OF BOBUTAMINE BECAUSE HER LUNG SXAM APPERAS TO BE ACUTE CHF AND SHE HAD DIASTOLIC OF 70.. DOBUTAMINE WAS TITRATED UP TO SYSTOLIC OF 100. WHEN WHITE COUNT AND CXR READING RETURNED , SHE WAS GIVEN LEVAQUIN, AND ROCEPHIN, HYDROCORTISONE. PT STARTED ON NEW SEPSIS PROTOCAL AND STEROIDS, VITAMIN C AND THIAMINE. SHE WAS ADMITTED UNDER SR HENNESSY , WHO SWITCH HER TO LEVOPHED - Central Line Placement Right Femoral Consent Obtained: emergent situation Time Out Performed: Yes Patient Placed on Monitor/Pulse Ox: Yes Prep: mask, gown, gloves Central Line Prep: Chlorhexidine scrub Local Anesthesia Used: Lidocaine 2% Ultrasound Used for Placement: Yes (attempted) Central Line Lumen Inserted: triple Bloods Obtained for Lab: Yes Central Line Position: good blood return, all ports aspirated, flus, sutured in place with nyl Dressing Applied: Tegaderm, sterile gauze/tape Patient Tolerated Procedure: well, no complications Complications: none, other (mild bleeding) ED Medical Decision Making - Lab Data Result diagrams: 02/07/17 23:40 02/07/17 23:40 - EKG Data -: EKG Interpreted by Me EKG shows normal: sinus rhythm, axis, QRS complexes (LVH, P WAVES SHOWS ATRIAL PREMATURE COMPLEX) Rate: tachycardia Critical care attestation.: If time is entered above; I have spent that time in minutes in the direct care of this critically ill patient, excluding procedure time. 120MIN ED Disposition Clinical Impression: Elevated troponin Renal failure Qualifiers: Renal failure chronicity: acute Acute renal failure type: unspecified Qualified Code(s): N17.9 - Acute kidney failure, unspecified Disposition: DC-09 OP ADMIT IP TO THIS HOSP Is pt being admited?: Yes Condition: Stable Referrals: PRIMARY CARE, [Primary Care Provider] - 3-5 Days
[2017-02-08] MEDS ORDERED: NACL 0.9% 500 ML 500 ML ONE (00:52)
[2017-02-08] MEDS ORDERED: ROCEPHIN/NS 1 GM/50 ML 1 GM/50 ML BAG IV ONE (01:30)
[2017-02-08] MEDS ORDERED: LEVOPHED DRIP 4 MG/NS 250 ML 4 MG/250 ML BAG IV ONE (01:45)
[2017-02-08] MEDS: LEVOPHED DRIP 4 MG/NS 250 ML 4 MG/250 ML BAG IV SCH ×2 (01:45→12:48)
[2017-02-08] MEDS ORDERED: LEVOPHED 8 MG in NACL 0.9% 250ML 242 ML IV SCH (02:00)
[2017-02-08] MEDS ORDERED: VITAMIN B-1 200 MG in NACL 0.9% 50 ML IV ONE (02:00)
[2017-02-08] MEDS: ASCORBIC ACID 1,500 MG in NACL 0.9% 50 ML IV SCH ×5 (02:21→21:56)
[2017-02-08] MEDS ORDERED: VANCOMYCIN VIAL 500 MG in NACL 0.9% 100 ML IV ONE (02:26)
[2017-02-08] MEDS ORDERED: KIONEX PR ONE (02:27)
[2017-02-08] MEDS ORDERED: ZOFRAN IV PRN (02:28)
[2017-02-08] MEDS ORDERED: TYLENOL PR PRN (02:28)
[2017-02-08] MEDS ORDERED: NACL 0.9% 500 ML 500 ML IV ONE (02:28)
[2017-02-08] MEDS ORDERED: TYLENOL PO PRN (02:28)
[2017-02-08 02:32] LABS: C-Reactive Protein 12.8 mg/dL (0.00-1.30)
[2017-02-08 02:50] LABS: ISTAT Base Excess -11; ISTAT HCO3 15.6; ISTAT PCO2 30.7 (35-45); ISTAT PH 7.313 (7.35-7.45); ISTAT PO2 301 (80-105); ISTAT SO2 100; ISTAT TCO2 16
[2017-02-08] MEDS ORDERED: VANCOMYCIN PHARMACY TO DOSE IV SCH (03:00)
[2017-02-08] MEDS: D5/0.45NS 1,000 ML IV SCH ×2 (03:06→16:24)
--- NOTE | 2017-02-08 03:24 | History and Physical Report ---
History of Present Illness Date of examination: 02/08/17 Date of admission: 02/08/17 02:28 History of present illness: 71-year-old woman with a history of hypertension, diabetes, hyperlipidemia, CVA , dementia, depression was [facility] the [facility] to [facility] room for evaluation and shortness of breath, the patient was in respiratory distress, started on BiPAP, she was in septic shock, started on dopamine, antibiotics. Old charts reviewed. 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 02/11/17 Unknown Rx TAB] Haloperidol [Haldol] 2 mg PO BID #60 tablet 02/11/17 Unknown Rx LORazepam [Ativan] 0.5 mg PO Q6H PRN #20 tablet 02/11/17 Unknown Rx Mirtazapine [Remeron] 15 mg PO QHS #30 tablet 02/11/17 Unknown Rx Multivit-Min/Iron Fum/Folic AC 1 each PO DAILY #30 tablet 02/11/17 Unknown Rx [Noclw-Ylwtoxp-Haspdzek Tablet] Pantoprazole [Protonix TAB] 40 mg PO DAILY #30 tablet 02/11/17 Unknown Rx Simvastatin [Zocor TAB] 40 mg PO QHS #30 tablet 02/11/17 Unknown Rx Active Meds: Active Medications Acetaminophen (Tylenol) 650 mg PO Q4H PRN PRN Reason: Pain MILD(1-3)/Fever >100.5/COVARRUBIAS Acetaminophen (Tylenol) 650 mg PA Q4H PRN PRN Reason: Pain MILD(1-3)/Fever >100.5/COVARRUBIAS Enoxaparin Sodium (Lovenox) 30 mg SUB-Q QDAY [facility] Ascorbic Acid 1,500 mg/ Sodium (Chloride) 53 mls @ 212 mls/hr IV Q6H [facility] Last Admin: 02/08/17 02:21 Dose: 212 mls/hr Norepinephrine 8 mg/ Sodium (Chloride) 250 mls @ 3.75 mls/hr IV TITR DANIEL; 2 MCG /MIN PRN Reason: Protocol Last Admin: 02/08/17 01:45 Dose: 2 mcg/min, 3.75 mls/hr Dextrose/Sodium Chloride (D5/0.45ns) 1,000 mls @ 75 mls/hr IV DIRECT DANIEL Last Admin: 02/08/17 03:06 Dose: 75 mls/hr Piperacillin Sod/Tazobactam Sod (Zosyn/Ns 2.25 Gm/50ml) 2.25 gm in 50 mls @ 100 mls/hr IV Q8HR DANIEL PRN Reason: Protocol Vancomycin HCl 1,500 mg/ (Sodium Chloride) 515 mls @ 333.333 mls/hr IV ONCE.ED ONE Stop: 02/08/17 05:02 Norepinephrine (Levophed Drip 4 Mg/Ns 250 Ml) 4 mg in 250 mls @ 7.5 mls/hr IV TITR DANIEL; 2 MCG/MIN PRN Reason: Protocol Ondansetron HCl (Zofran) 4 mg IV Q8H PRN PRN Reason: N/V unrelieved by Marialuisa Vancomycin HCl (Vancomycin Pharmacy To Dose) 1 each IV PKCONSULT DANIEL PRN Reason: Protocol Exam - Physical Exam Narrative exam: Gen. appearance: Patient lying in bed on BiPAP HEENT: Normocephalic/atraumatic, pupils equal round reactive to light, extra alkaline movement intact, no scleral icterus, no JVD or thyromegaly or nodule, neck is supple, mucous membrane dry, unable to examine oral cavity Heart: S1-S2, regular rate and rhythm Lungs: Clear to auscultation anteriorly bilateral breathing comfortable Abdomen: Positive bowel sounds, nontender, nondistended, no organomegaly Extremities: No edema, cyanosis, clubbing Neuro:: Difficult to assess Skin: No rash, nodules, warm dry - Constitutional Vitals: Temp Pulse Resp BP Pulse Ox 139 H 21 101/50 96 02/08/17 00:36 02/08/17 00:36 02/08/17 00:36 02/07/17 21:28 Results - Labs CBC & Chem 7: 02/11/17 04:52 02/11/17 04:52 Labs: Abnormal lab results 02/08/17 Range/Units 02:49 POC ABG pH 7.313 L (7.35-7.45) POC ABG pCO2 30.7 L (35-45) POC ABG pO2 301 H (80-105) - Imaging and Cardiology EKG: image reviewed Chest x-ray: image reviewed Assessment and Plan Assessment Septic shock Acute renal failure Pneumonia, UTI HYpernatremia Hyperkalemia Elevated cardiac enzymes Diabetes type 2 Hyperlipidemia Dementia History of CVA Depression Plan Admit to medicine Change dopamine to levophed, patient tachycardic Start IV fluids, IV Zosyn, vancomycin Follow cultures, check cardiac enzymes, consult critical care Consult renal, case discussed with Dr. Galeas Monitor kidney function, obtain ultrasound of the kidneys Monitor sodium, givekayexalate Check fingersticks and initiate insulin sliding scale Continue appropriate outpatient medications DVT prophylaxis
[2017-02-08] MEDS ORDERED: VANCOMYCIN 1,500 MG in NACL 0.9% 500 ML 500 ML IV ONE ×2 (03:30→04:00)
--- NOTE | 2017-02-08 05:04 | Cat Scan Report ---
FINAL REPORT EXAM: CT HEAD/BRAIN WO CON HISTORY: lateralizing, ams TECHNIQUE: CT imaging is acquired through the brain without contrast. Transaxial reformations are provided. PRIORS: 07/25/2016 CT and MRI FINDINGS: Large area of right hemispheric encephalomalacia involves distribution of the anterior cerebral artery. A smaller area of left frontal encephalomalacia is also present. Focal sequela of prior infarcts in the left cerebellum. These findings have evolved since 07/25/2016. Ventricles and CSF spaces are otherwise proportionately enlarged, consistent with parenchymal atrophy. Additional scattered deep and subcortical white matter hypodense foci are confluent in some areas and are compatible with microvascular angiopathy. No acute intracranial hemorrhage or mass effect. Calvarium and superficial scalp are intact. Partially visualized paranasal sinuses are clear. Mastoids are clear. IMPRESSION: No acute intracranial abnormality. Consider follow-up MRI as warranted. There are chronic sequela of atrophy and microvascular angiopathy, as well as evolution of prior right greater than left-sided BERNADINE distribution infarcts and left cerebellar infarcts compared to 07/25/2016.
--- NOTE | 2017-02-08 06:09 | Ultrasound Report ---
FINAL REPORT EXAM: US RENAL BILAT HISTORY: arf COMPARISONS: None. FINDINGS: Grayscale and color Doppler ultrasound of the kidneys and bladder The urinary bladder is decompressed with a Kemp catheter and incompletely evaluated. The right kidney measures 11.5 cm and the left kidney measures 9.7 cm in length. There is no hydronephrosis or echogenic shadowing foci to suggest nephrolithiasis. No abdominal ascites or free fluid in Morison's pouch identified. IMPRESSION: Unremarkable sonographic appearance of the kidneys.
[2017-02-08] MEDS: ZOSYN/NS 2.25 GM/50ML 2.25 GM/50 ML BAG IV SCH ×4 (06:20→21:56)
--- NOTE | 2017-02-08 07:36 | Consultation ---
History of Present Illness - Reason for Consult Consult date: 02/08/17 acute renal failure, hyperkalemia, metabolic acidosis - History of Present Illness The patient is a 71-year-old female with a history significant for Hypertension , Type 2 diabetes, Hyperlipidemia, CVA with left hemiplegia, Dementia, Depression and residential resident who was sent to the emergency room for evaluation and shortness of breath. The patient is not able to provide any history at this time. She was started on BIPAP for respiratory distress and IV pressors for hypotension. On admission her creatinine was 5.7 with potassium of 5.5. About 6 months ago her creatinine was 0.5. Patient received Kayexalate for hyperkalemia. Currently she is on IV Levophed. Past History Past Medical History: diabetes, hypertension, hyperlipidemia, stroke, other ( dementia) Medications and Allergies Allergies Allergy/AdvReac Type Severity Reaction Status Date / Time No Known Allergies Allergy Verified 09/26/14 15:05 Home Medications Medication Instructions Recorded Confirmed Last Taken Type Aspirin EC [Aspirin Enteric Coated 81 mg PO QDAY #30 tablet. 08/03/16 Unknown Rx TAB] Haloperidol [Haldol] 2 mg PO BID #60 tablet 08/03/16 02/08/17 Unknown Rx Mirtazapine [Remeron] 15 mg PO QHS #30 tablet 08/03/16 02/08/17 Unknown Rx Pantoprazole [Protonix TAB] 40 mg PO DAILY #30 tablet 08/03/16 02/08/17 Unknown Rx Simvastatin [Zocor TAB] 40 mg PO QHS #30 tablet 08/03/16 02/08/17 Unknown Rx hydrALAZINE [Apresoline TAB] 25 mg PO Q8HR #90 tablet 08/03/16 02/08/17 Unknown Rx metFORMIN [Glucophage] 500 mg PO BID #60 tablet 08/03/16 02/08/17 Unknown Rx Acetaminophen [Non-Aspirin Extra 500 mg PO Q6H PRN 02/08/17 02/08/17 Unknown History Strength] Apixaban [Eliquis] 5 tab PO BID 02/08/17 02/08/17 Unknown History Ascorbic Acid [Vitamin C] 500 mg PO DAILY 02/08/17 02/08/17 Unknown History LORazepam [Ativan] 0.5 mg PO Q6H PRN 02/08/17 02/08/17 Unknown History Multivit-Min/Iron Fum/Folic AC 1 each PO DAILY 02/08/17 02/08/17 Unknown History [Nffzw-Yanjiwo-Wmntbdpe Tablet] Active Meds: Active Medications Acetaminophen (Tylenol) 650 mg PO Q4H PRN PRN Reason: Pain MILD(1-3)/Fever >100.5/COVARRUBIAS Acetaminophen (Tylenol) 650 mg MT Q4H PRN PRN Reason: Pain MILD(1-3)/Fever >100.5/COVARRUBIAS Enoxaparin Sodium (Lovenox) 30 mg SUB-Q QDAY DANIEL Ascorbic Acid 1,500 mg/ Sodium (Chloride) 53 mls @ 212 mls/hr IV Q6H DANIEL Last Admin: 02/08/17 02:21 Dose: 212 mls/hr Norepinephrine 8 mg/ Sodium (Chloride) 250 mls @ 3.75 mls/hr IV TITR DANIEL; 2 MCG /MIN PRN Reason: Protocol Dextrose/Sodium Chloride (D5/0.45ns) 1,000 mls @ 75 mls/hr IV DIRECT DANIEL Last Admin: 02/08/17 03:06 Dose: 75 mls/hr Piperacillin Sod/Tazobactam Sod (Zosyn/Ns 2.25 Gm/50ml) 2.25 gm in 50 mls @ 100 mls/hr IV Q8HR DANIEL PRN Reason: Protocol Last Admin: 02/08/17 06:20 Dose: 100 mls/hr Norepinephrine (Levophed Drip 4 Mg/Ns 250 Ml) 4 mg in 250 mls @ 7.5 mls/hr IV TITR DANIEL; 2 MCG/MIN PRN Reason: Protocol Stop: 02/09/17 01:39 Last Titration: 02/08/17 04:50 Dose: 1.5 mcg/min, 5.625 mls/hr Ondansetron HCl (Zofran) 4 mg IV Q8H PRN PRN Reason: N/V unrelieved by Marialuisa Vancomycin HCl (Vancomycin Pharmacy To Dose) 1 each IV PKCONSULT DANIEL PRN Reason: Protocol Review of Systems ROS unobtainable: due to mental status Exam - Vital Signs Vital signs: Vital Signs Pulse Resp 114 H 26 H 02/07/17 21:03 02/07/17 21:03 - General Appearance General appearance: well-developed, well-nourished, appears stated age, other ( barely arousable, not appeared to be in distress) EENT: ATNC, PERRL Neck: Present: neck supple, trachea midline Respiratory: Clear to Ascultation Heart: regular, S1S2, no murmurs Gastrointestinal: Present: normoactive bowel sounds. Absent: tenderness, distended Integumentary: no rash Neurologic: other (barely arousable) Musculoskeletal: Present: other (no edema) Results - Lab Results 02/09/17 05:43 02/09/17 05:43 Most recent lab results Calcium 8.9 mg/dL (8.4-10.2) 02/07/17 23:40 - Image Kidney/bladder ultrasound: report reviewed Assessment and Plan 1. Acute kidney injury: Hemodynamically mediated JOSE ANGEL in the setting of hypotension and volume depletion. Continue IV fluids. Monitor renal function. Renal prognosis is guarded. 2. Septic shock: On Levophed. Continue IV fluids. 3. Hyperkalemia: Improved. 4. Anion gap metabolic acidosis: Likely secondary to Lactic acidosis. Continue IV fluids. 5. Hypernatremia: Continue D5 1/2NS. Monitor sodium levels. 6. Leukocytosis.
[2017-02-08 09:27] LABS: Calcium 8.1 mg/dL (8.4-10.2); Chloride 111.7 mmol/L (98-107); Potassium 4.6 mmol/L (3.6-5.0)
[2017-02-08] MEDS: LOVENOX SUB-Q SCH (12:00)
[2017-02-08 14:58] LABS: Calcium 8.1 mg/dL (8.4-10.2); Chloride 114.3 mmol/L (98-107); Potassium 4.4 mmol/L (3.6-5.0)
[2017-02-08 17:43] LABS: Calcium 8.1 mg/dL (8.4-10.2); Chloride 113.7 mmol/L (98-107); Potassium 3.8 mmol/L (3.6-5.0)
--- NOTE | 2017-02-08 23:08 | Event Note ---
Date: 02/08/17 Patient seen and examined. hemodynamically now stabilizing, will wean off pressors. continue monitoring renal function and sodium level
[2017-02-09] MEDS: ASCORBIC ACID 1,500 MG in NACL 0.9% 50 ML IV SCH ×4 (02:35→22:30)
[2017-02-09] MEDS: ZOSYN/NS 2.25 GM/50ML 2.25 GM/50 ML BAG IV SCH ×3 (06:15→22:29)
[2017-02-09] MEDS: D5/0.45NS 1,000 ML IV SCH (06:15)
[2017-02-09 06:37] LABS: Basophils % (Auto) 0.1 % (0.0-1.8); Eosinophils % (Auto) 1.3 % (0.0-4.3); Hematocrit 28.7 % (30.3-42.9); Hemoglobin 9.3 gm/dl (10.1-14.3); Mean Corpuscular HGB Conc 32 % (30-34); Mean Corpuscular Hemoglobin 27 pg (28-32); Mean Corpuscular Volume 84 fl (79-97); Platelet Count 252 K/mm3 (140-440); Red Blood Count 3.43 M/mm3 (3.65-5.03); Red Cell Distribution Width 16.2 % (13.2-15.2)
[2017-02-09 06:57] LABS: Calcium 8.3 mg/dL (8.4-10.2); Potassium 3.4 mmol/L (3.6-5.0)
--- NOTE | 2017-02-09 07:56 | Progress Note ---
Assessment and Plan 1. Acute kidney injury: Hemodynamically mediated JOSE ANGEL in the setting of hypotension and volume depletion. Continue IV fluids. BUN and creatinine levels are improving. Monitor renal function. Renal prognosis is guarded. 2. Septic shock: Improved. Off Levophed. 3. Hyperkalemia: Improved. 4. Anion gap metabolic acidosis: Likely secondary to Lactic acidosis. Continue IV fluids. 5. Hypernatremia: Change IV fluids to D5W. Monitor sodium levels. 6. Anemia: Multifactorial. Subjective Date of service: 02/09/17 Interval history: Patient was seen and examined at the bedside. Objective - Vital Signs Vital signs: Vital Signs - 12hr 02/08/17 02/08/17 02/08/17 20:20 20:37 22:00 Temperature 98.7 F Pulse Rate 84 85 Respiratory 18 Rate Blood Pressure 126/93 [Left] O2 Sat by Pulse 95 95 Oximetry 02/09/17 02/09/17 00:56 05:57 Temperature 98.4 F 98.2 F Pulse Rate 84 82 Respiratory 22 22 Rate Blood Pressure 164/84 160/91 [Left] O2 Sat by Pulse 96 97 Oximetry - General Appearance General appearance: well-developed, appears stated age, other (not in distress) EENT: ATNC Neck: supple Respiratory: Present: Clear to Ascultation Cardiology: regular, S1S2, no murmurs Gastrointestinal: normoactive bowel sounds, no tenderness, no distended Integumentary: no rash Neurologic: other (opens eyes, non-verbal, not following any command) Musculoskeletal: other (no edema) - Lab 02/09/17 05:43 02/09/17 05:43 Most recent lab results Calcium 8.3 mg/dL (8.4-10.2) L 02/09/17 05:43
[2017-02-09] MEDS: KCL 40 MEQ in D5W 1,000 ML IV SCH (10:23)
--- NOTE | 2017-02-09 12:04 | Progress Note ---
Assessment and Plan Assessment and plan: 71-year-old woman with a history of hypertension, diabetes, hyperlipidemia, CVA , dementia, depression [facility] for evaluation and shortness of breath, the patient was in respiratory distress, started on BiPAP, she was in septic shock, started on dopamine, antibiotics. Old charts reviewed. Review of system is unobtainable Septic shock Acute renal failure Acute Respiratory failure Sepsis secondary to Pneumonia possible Aspiration Acute Cystitis- GNR Hypernatremia -sodium 160 today Hyperkalemia HTN- with urgency Type 2 CT secondary to septic Shock Diabetes type 2 Hyperlipidemia Dementia History of CVA Depression Plan Supportive Care, and Nephrology input noted Follow cultures Agree with change in fluids type, monitor sodium Continue, IV Zosyn, vancomycin Check cardiac enzymes, Echo in june reviewed with preserved EF. Nephrology input noted unsure of baseline, will obtain Neurology input and also obtain MRI brain. Call placed to facility Will restart PO meds, add hydralazine IV If no improvement will obtain dobhuff for diet. Rule out DVT/PE considering elevated D.dimer Check fingersticks and initiate insulin sliding scale Continue appropriate outpatient medications Fall precaution DVT prophylaxis History Interval history: patient seen and examined, remains non verable and on VM at 40% Hospitalist Physical - Physical exam Narrative exam: Gen. appearance: Patient lying in bed on BiPAP HEENT: Normocephalic/atraumatic, pupils equal round reactive to light Heart: S1-S2, regular rate and rhythm Lungs: Clear to auscultation anteriorly bilateral breathing comfortable Abdomen: Positive bowel sounds, nontender, nondistended, no organomegaly Extremities: No edema, cyanosis, clubbing Neuro:: Difficult to assess. non verbal, not following commands Skin: No rash, nodules, warm dry - Constitutional Vitals: Temp Pulse Resp BP Pulse Ox 97.8 F 84 20 189/87 96 02/09/17 07:35 02/09/17 10:26 02/09/17 07:35 02/09/17 07:37 02/09/17 10:00 Results - Labs CBC & Chem 7: 02/09/17 05:43 02/09/17 17:25 Labs: Laboratory Last Values WBC 12.0 K/mm3 (4.5-11.0) H 02/09/17 05:43 RBC 3.43 M/mm3 (3.65-5.03) L 02/09/17 05:43 Hgb 9.3 gm/dl (10.1-14.3) L D 02/09/17 05:43 Hct 28.7 % (30.3-42.9) L D 02/09/17 05:43 MCV 84 fl (79-97) 02/09/17 05:43 MCH 27 pg (28-32) L 02/09/17 05:43 MCHC 32 % (30-34) 02/09/17 05:43 RDW 16.2 % (13.2-15.2) H 02/09/17 05:43 Plt Count 252 K/mm3 (140-440) 02/09/17 05:43 Lymph % (Auto) 17.2 % (13.4-35.0) 02/09/17 05:43 [place] % (Auto) 6.3 % (0.0-7.3) 02/09/17 05:43 Eos % (Auto) 1.3 % (0.0-4.3) 02/09/17 05:43 Baso % (Auto) 0.1 % (0.0-1.8) 02/09/17 05:43 Lymph # 2.1 K/mm3 (1.2-5.4) 02/09/17 05:43 [place] # 0.8 K/mm3 (0.0-0.8) 02/09/17 05:43 Eos # 0.2 K/mm3 (0.0-0.4) 02/09/17 05:43 Baso # 0.0 K/mm3 (0.0-0.1) 02/09/17 05:43 Seg Neutrophils % 75.1 % (40.0-70.0) H 02/09/17 05:43 Seg Neutrophils # 9.0 K/mm3 (1.8-7.7) H 02/09/17 05:43 APTT 168.3 Sec. (24.2-36.6) H* 02/07/17 23:40 D-Dimer 544.14 ng/mlDDU (0-234) H 02/07/17 23:40 POC ABG pH 7.313 (7.35-7.45) L 02/08/17 02:49 POC ABG pCO2 30.7 (35-45) L 02/08/17 02:49 POC ABG pO2 301 (80-105) H 02/08/17 02:49 POC ABG HCO3 15.6 02/08/17 02:49 POC ABG Total CO2 16 02/08/17 02:49 POC ABG O2 Sat 100 02/08/17 02:49 POC ABG Base Excess -11 02/08/17 02:49 FiO2 100 % 02/08/17 02:49 Sodium 160 mmol/L (137-145) H 02/09/17 05:43 Potassium 3.4 mmol/L (3.6-5.0) L 02/09/17 05:43 Chloride 118.0 mmol/L (98-107) H 02/09/17 05:43 Carbon Dioxide 19 mmol/L (22-30) L 02/09/17 05:43 Anion Gap 26 mmol/L 02/09/17 05:43 BUN 125 mg/dL (7-17) H 02/09/17 05:43 Creatinine 3.6 mg/dL (0.7-1.2) H 02/09/17 05:43 Estimated GFR 13 ml/min 02/09/17 05:43 BUN/Creatinine Ratio 35 % 02/09/17 05:43 Glucose 197 mg/dL (65-100) H 02/09/17 05:43 POC Glucose 299 (70-105) H 02/09/17 02:45 Lactic Acid 6.30 mmol/L (0.7-2.0) H* 02/08/17 03:35 Calcium 8.3 mg/dL (8.4-10.2) L 02/09/17 05:43 Total Bilirubin 0.40 mg/dL (0.1-1.2) 02/07/17 23:40 AST 17 units/L (5-40) 02/07/17 23:40 ALT 10 units/L (7-56) 02/07/17 23:40 Alkaline Phosphatase 95 units/L (35-129) 02/07/17 23:40 Total Creatine Kinase 18 units/L (30-135) L 02/08/17 08:55 CK-MB (CK-2) 1.2 ng/mL (0.0-4.0) 02/07/17 23:40 CK-MB (CK-2) Rel Index 6.0 (0-4) H 02/07/17 23:40 Troponin T 0.033 ng/mL (0.00-0.029) H 02/07/17 23:40 C-Reactive Protein 11.30 mg/dL (0.00-1.30) H 02/08/17 03:35 NT-Pro-B Natriuret Pep 3333 pg/mL (0-900) H 02/08/17 03:35 Total Protein 7.1 g/dL (6.3-8.2) 02/07/17 23:40 Albumin 2.8 g/dL (3.9-5) L 02/07/17 23:40 Albumin/Globulin Ratio 0.7 % 02/07/17 23:40 Triglycerides 156 mg/dL (2-149) H 02/07/17 23:40 Cholesterol 100 mg/dL (50-199) 02/07/17 23:40 LDL Cholesterol Direct 43 mg/dL (50-130) L 02/07/17 23:40 HDL Cholesterol 26 mg/dL (40-59) L 02/07/17 23:40 Cholesterol/HDL Ratio 3.84 % 02/07/17 23:40 Urine Color Vero (Yellow) 02/07/17 23:00 Urine Turbidity Cloudy (Clear) 02/07/17 23:00 Urine pH 6.0 (5.0-7.0) 02/07/17 23:00 Ur Specific [place] 1.016 (1.003-1.030) 02/07/17 23:00 Urine Protein 100 mg/dl mg/dL (Negative) 02/07/17 23:00 Urine Glucose (UA) 150 mg/dL (Negative) 02/07/17 23:00 Urine Ketones Neg mg/dL (Negative) 02/07/17 23:00 Urine Blood Mod (Negative) 02/07/17 23:00 Urine Nitrite Neg (Negative) 02/07/17 23:00 Urine Bilirubin Neg (Negative) 02/07/17 23:00 Urine Urobilinogen < 2.0 mg/dL (<2.0) 02/07/17 23:00 Ur Leukocyte Esterase Lg (Negative) 02/07/17 23:00 Urine WBC (Auto) > 182.0 /HPF (0.0-6.0) H 02/07/17 23:00 Urine RBC (Auto) 24.0 /HPF (0.0-6.0) 02/07/17 23:00 U Epithel Cells (Auto) 2.0 /HPF (0-13.0) 02/07/17 23:00 Urine Bacteria (Auto) 4+ /HPF (Negative) 02/07/17 23:00 Urine WBC Clumps 3+ /HPF 02/07/17 23:00 Urine Mucus Few /HPF 02/07/17 23:00 - Imaging and Cardiology CT Scan - head: image reviewed (no acute pathology)
--- NOTE | 2017-02-09 14:09 | XRay Report ---
PORTABLE CHEST INDICATION: Shortness of breath. Evaluate for pulmonary embolism. COMPARISON: 02/07/2017 FINDINGS: Portable, frontal chest radiograph demonstrates improved edema pattern, though prominent lung markings centrally again noted. Stable cardiomediastinal silhouette, aortic knob calcifications and demineralized bones with degenerative changes. Left humeral neck sclerotic foci measuring up to approximately 1.9 cm nonspecific, though not entirely excluded metastatic. CONCLUSION: 1. Resolving perihilar/interstitial edema, as described. 2. Left humeral neck sclerotic lesions. Thank you for the opportunity to participate in this patient's care.
--- NOTE | 2017-02-09 14:20 | Nuclear Medicine Report ---
LUNG SCAN, VENTILATION AND PERFUSION: History: Evaluate for pulmonary embolus, patient unresponsive. Technique: 5mci of Tc99m MAA was infused for the perfusion images. 15mci XE 133 gas was inhaled for the ventilatory images. Correlation is made with a chest x-ray dated 02/09/17. Findings: Inhalation of Xenon gas demonstrates a normal distribution of the activity throughout both lungs. The wash out phases show no focal retention of activity. After injection of Technetium 99m macroaggregated albumin gamma camera imaging of the lungs in multiple projections demonstrates normal pulmonary contours with a homogeneous distribution of activity. No focal areas of perfusion deficiency are identified. IMPRESSION: Low probability for pulmonary embolus.
--- NOTE | 2017-02-09 16:10 | Vascular Lab Report ---
LOWER EXTREMITY VENOUS DUPLEX: REASON FOR EXAM: History of DVT. COMMENTS ON THE RIGHT: All veins visualized are freely compressible without evidence of internal echogenicity. Flow is spontaneous and phasic throughout. COMMENTS ON THE LEFT: Chronic recanalized deep venous thrombosis is noted in the popliteal, femoral and common femoral veins.. The remaining veins visualized are freely compressible without evidence of internal echogenicity. Spontaneous and phasic flow is present proximally. IMPRESSION: Chronic deep venous thrombosis in the left lower extremity
[2017-02-09] MEDS: LOVENOX SUB-Q SCH (16:13)
[2017-02-09] MEDS ORDERED: ATIVAN PO PRN (16:29)
[2017-02-09] MEDS ORDERED: APRESOLINE PO SCH (17:00)
[2017-02-09] MEDS: APRESOLINE IV PRN (17:42)
--- NOTE | 2017-02-09 20:00 | XRay Report ---
FINAL REPORT EXAM: XR ABDOMEN 1V AP HISTORY: dobhoff placement TECHNIQUE: KUB(s) view of abdomen. PRIORS: None. FINDINGS: Enteric tube just extends below the diaphragm, with tip projected over left upper quadrant and may be advanced somewhat. Bowel gas pattern grossly unremarkable. No apparent pneumoperitoneum. Osseous structures grossly unremarkable. Central vascular catheter projects over right inguinal region. IMPRESSION: 1. Enteric tube position as reported. 2. Nonobstructive bowel gas pattern.
[2017-02-09] MEDS ORDERED: KCL 10MEQ/100ML 10 MEQ/100 ML BAG IV ONE (21:25)
--- NOTE | 2017-02-09 22:37 | XRay Report ---
FINAL REPORT EXAM: XR ABDOMEN 1V AP HISTORY: check dobhoff placement. TECHNIQUE: KUB(s) view of abdomen. PRIORS: Earlier on same date at 1934 hours. FINDINGS: Mild interval advancement of enteric tube, with tip projected and partially coiled over left upper quadrant and probable stomach. Bowel gas pattern grossly unremarkable. No apparent pneumoperitoneum. Osseous structures grossly unremarkable. IMPRESSION: 1. Enteric tube position as reported. 2. Nonobstructive bowel gas pattern.
[2017-02-09] MEDS ORDERED: K-DUR PO ONE (23:18)
[2017-02-10] MEDS: APRESOLINE IV PRN ×2 (02:00→18:25)
[2017-02-10] MEDS: ELIQUIS PO SCH ×3 (02:26→22:36)
[2017-02-10] MEDS: HALDOL PO SCH ×3 (02:27→22:36)
[2017-02-10] MEDS: KCL 40 MEQ in D5W 1,000 ML IV SCH (02:27)
[2017-02-10] MEDS: ASCORBIC ACID 1,500 MG in NACL 0.9% 50 ML IV SCH ×4 (04:00→19:49)
[2017-02-10] MEDS: ZOSYN/NS 2.25 GM/50ML 2.25 GM/50 ML BAG IV SCH ×3 (05:55→22:34)
--- NOTE | 2017-02-10 08:20 | XRay Report ---
FINAL REPORT EXAM: XR ABDOMEN 1V AP HISTORY: Do kub for dobhoff placement. COMPARISONS: 02/09/2017 FINDINGS: Dobhoff tube projects over the stomach with distal tip oriented to the right. No pneumoperitoneum or evidence of obstruction on this limited, portable exam. IMPRESSION: Dobhoff tube projects over the stomach, not significantly changed from 02/09/2017.
--- NOTE | 2017-02-10 08:42 | Progress Note ---
Assessment and Plan Assessment and plan: 71-year-old woman with a history of hypertension, diabetes, hyperlipidemia, CVA , dementia, depression was sent from the [facility] to the emergency room for evaluation and shortness of breath, the patient was in respiratory distress, started on BiPAP, she was in septic shock, started on dopamine, antibiotics. Old charts reviewed. Review of system is unobtainable Acute Ecephalopathy, Likely metabolic * Patient with hx of Dementia, Baseline is unknown. * Will await communication from [place]. I Have called. CT brain with no acute pathology, awaiting MRI * spoke with son, reports patient with advanced dementia Septic shock * Responded to IV fluids, Likely secondary to Acute cystitis, lactate resolved Acute Kidney injury secondary to vasomotor nephropathy * Continue IV hydration, Nephrology following. Acute Respiratory failure * Unknown underlying disease. Will check ABG on room air. patient is on Venturi mask Sepsis secondary to Pneumonia possible Aspiration * Continue IV abx Acute Cystitis- GNR * Await ID and sensitivity, Continue zosyn Hypernatremia -Sodium 158 * Likely due to free water deficit. ?Patient PO intake at the facility. Continue d5w, Nephrology following Hypokalemia * Replace, check Magnesium HTN- with urgency * Improved with resumption of Home meds Type 2 CT secondary to septic Shock * Cardiac work up outpatient Diabetes type 2 * Continue insulin SS, Accuchecks, Hyperlipidemia * continue statin. Dementia * Resume home meds History of CVA Depression- Resume home meds Fall precaution DVT prophylaxis History Interval history: patient seen and examined, remains nonverbal and on VM at 40% Hospitalist Physical - Physical exam Narrative exam: Gen. appearance: Patient lying in bed on Ventimask, not following any commands HEENT: Normocephalic/atraumatic, pupils equal round reactive to light Heart: S1-S2, regular rate and rhythm Lungs: Clear to auscultation anteriorly bilateral breathing comfortable Abdomen: Positive bowel sounds, nontender, nondistended, no organomegaly Extremities: No edema, cyanosis, clubbing Neuro:: Difficult to assess. non verbal, not following commands Skin: No rash, nodules, warm dry - Constitutional Vitals: Temp Pulse Resp BP Pulse Ox 99.0 F 89 20 168/60 97 02/10/17 03:50 02/10/17 03:50 02/10/17 03:50 02/10/17 03:50 02/10/17 03:50 Results - Labs CBC & Chem 7: 02/10/17 08:04 02/10/17 08:04 Labs: Laboratory Last Values WBC 12.0 K/mm3 (4.5-11.0) H 02/09/17 05:43 RBC 3.43 M/mm3 (3.65-5.03) L 02/09/17 05:43 Hgb 9.3 gm/dl (10.1-14.3) L D 02/09/17 05:43 Hct 28.7 % (30.3-42.9) L D 02/09/17 05:43 MCV 84 fl (79-97) 02/09/17 05:43 MCH 27 pg (28-32) L 02/09/17 05:43 MCHC 32 % (30-34) 02/09/17 05:43 RDW 16.2 % (13.2-15.2) H 02/09/17 05:43 Plt Count 252 K/mm3 (140-440) 02/09/17 05:43 Lymph % (Auto) 17.2 % (13.4-35.0) 02/09/17 05:43 [place] % (Auto) 6.3 % (0.0-7.3) 02/09/17 05:43 Eos % (Auto) 1.3 % (0.0-4.3) 02/09/17 05:43 Baso % (Auto) 0.1 % (0.0-1.8) 02/09/17 05:43 Lymph # 2.1 K/mm3 (1.2-5.4) 02/09/17 05:43 [place] # 0.8 K/mm3 (0.0-0.8) 02/09/17 05:43 Eos # 0.2 K/mm3 (0.0-0.4) 02/09/17 05:43 Baso # 0.0 K/mm3 (0.0-0.1) 02/09/17 05:43 Seg Neutrophils % 75.1 % (40.0-70.0) H 02/09/17 05:43 Seg Neutrophils # 9.0 K/mm3 (1.8-7.7) H 02/09/17 05:43 APTT 168.3 Sec. (24.2-36.6) H* 02/07/17 23:40 D-Dimer 544.14 ng/mlDDU (0-234) H 02/07/17 23:40 POC ABG pH 7.313 (7.35-7.45) L 02/08/17 02:49 POC ABG pCO2 30.7 (35-45) L 02/08/17 02:49 POC ABG pO2 301 (80-105) H 02/08/17 02:49 POC ABG HCO3 15.6 02/08/17 02:49 POC ABG Total CO2 16 02/08/17 02:49 POC ABG O2 Sat 100 02/08/17 02:49 POC ABG Base Excess -11 02/08/17 02:49 FiO2 100 % 02/08/17 02:49 Sodium 158 mmol/L (137-145) H 02/09/17 23:40 Potassium 3.0 mmol/L (3.6-5.0) L 02/09/17 17:17 Chloride 118.0 mmol/L (98-107) H 02/09/17 05:43 Carbon Dioxide 19 mmol/L (22-30) L 02/09/17 05:43 Anion Gap 26 mmol/L 02/09/17 05:43 BUN 125 mg/dL (7-17) H 02/09/17 05:43 Creatinine 3.6 mg/dL (0.7-1.2) H 02/09/17 05:43 Estimated GFR 13 ml/min 02/09/17 05:43 BUN/Creatinine Ratio 35 % 02/09/17 05:43 Glucose 197 mg/dL (65-100) H 02/09/17 05:43 POC Glucose 263 (70-105) H 02/10/17 06:14 Lactic Acid 6.30 mmol/L (0.7-2.0) H* 02/08/17 03:35 Calcium 8.3 mg/dL (8.4-10.2) L 02/09/17 05:43 Total Bilirubin 0.40 mg/dL (0.1-1.2) 02/07/17 23:40 AST 17 units/L (5-40) 02/07/17 23:40 ALT 10 units/L (7-56) 02/07/17 23:40 Alkaline Phosphatase 95 units/L (35-129) 02/07/17 23:40 Total Creatine Kinase 18 units/L (30-135) L 02/08/17 08:55 CK-MB (CK-2) 1.2 ng/mL (0.0-4.0) 02/07/17 23:40 CK-MB (CK-2) Rel Index 6.0 (0-4) H 02/07/17 23:40 Troponin T < 0.010 ng/mL (0.00-0.029) 02/09/17 17:24 C-Reactive Protein 11.30 mg/dL (0.00-1.30) H 02/08/17 03:35 NT-Pro-B Natriuret Pep 3333 pg/mL (0-900) H 02/08/17 03:35 Total Protein 7.1 g/dL (6.3-8.2) 02/07/17 23:40 Albumin 2.8 g/dL (3.9-5) L 02/07/17 23:40 Albumin/Globulin Ratio 0.7 % 02/07/17 23:40 Triglycerides 156 mg/dL (2-149) H 02/07/17 23:40 Cholesterol 100 mg/dL (50-199) 02/07/17 23:40 LDL Cholesterol Direct 43 mg/dL (50-130) L 02/07/17 23:40 HDL Cholesterol 26 mg/dL (40-59) L 02/07/17 23:40 Cholesterol/HDL Ratio 3.84 % 02/07/17 23:40 Urine Color Vero (Yellow) 02/07/17 23:00 Urine Turbidity Cloudy (Clear) 02/07/17 23:00 Urine pH 6.0 (5.0-7.0) 02/07/17 23:00 Ur Specific [place] 1.016 (1.003-1.030) 02/07/17 23:00 Urine Protein 100 mg/dl mg/dL (Negative) 02/07/17 23:00 Urine Glucose (UA) 150 mg/dL (Negative) 02/07/17 23:00 Urine Ketones Neg mg/dL (Negative) 02/07/17 23:00 Urine Blood Mod (Negative) 02/07/17 23:00 Urine Nitrite Neg (Negative) 02/07/17 23:00 Urine Bilirubin Neg (Negative) 02/07/17 23:00 Urine Urobilinogen < 2.0 mg/dL (<2.0) 02/07/17 23:00 Ur Leukocyte Esterase Lg (Negative) 02/07/17 23:00 Urine WBC (Auto) > 182.0 /HPF (0.0-6.0) H 02/07/17 23:00 Urine RBC (Auto) 24.0 /HPF (0.0-6.0) 02/07/17 23:00 U Epithel Cells (Auto) 2.0 /HPF (0-13.0) 02/07/17 23:00 Urine Bacteria (Auto) 4+ /HPF (Negative) 02/07/17 23:00 Urine WBC Clumps 3+ /HPF 02/07/17 23:00 Urine Mucus Few /HPF 02/07/17 23:00
[2017-02-10 08:52] LABS: Eosinophils % (Auto) 5.4 % (0.0-4.3); Hematocrit 30.1 % (30.3-42.9); Hemoglobin 9.5 gm/dl (10.1-14.3); Mean Corpuscular HGB Conc 32 % (30-34); Mean Corpuscular Hemoglobin 27 pg (28-32); Mean Corpuscular Volume 85 fl (79-97); Platelet Count 278 K/mm3 (140-440); Red Blood Count 3.53 M/mm3 (3.65-5.03); Red Cell Distribution Width 16.1 % (13.2-15.2); White Blood Count 13.1 K/mm3 (4.5-11.0)
[2017-02-10 09:06] LABS: Albumin 2.5 g/dL (3.9-5); Albumin/Globulin Ratio 0.7 %; Bilirubin,Total 0.3 mg/dL (0.1-1.2); Calcium 8.4 mg/dL (8.4-10.2); Chloride 122.3 mmol/L (98-107); Magnesium 1.7 mg/dL (1.7-2.3); Phosphorous 2.7 mg/dL (2.5-4.5); Potassium 3.6 mmol/L (3.6-5.0); Total Protein 6.1 g/dL (6.3-8.2)
--- NOTE | 2017-02-10 11:22 | Progress Note ---
Assessment and Plan 1. Acute kidney injury: Hemodynamically mediated JOSE ANGEL in the setting of hypotension and volume depletion. Continue IV fluids. BUN and creatinine levels are improving. Monitor renal function. 2. Septic shock: Improved. Off Levophed. 3. Hypokalemia: Continue IV fluids with potassium. 4. Anion gap metabolic acidosis: Improving. Continue IV fluids. 5. Hypernatremia: Sodium level is about the same. Increase IV D5W. Monitor sodium levels. 6. Anemia: Multifactorial. Subjective Date of service: 02/10/17 Interval history: Patient was seen and examined at the bedside. Objective - Vital Signs Vital signs: Vital Signs - 12hr 02/10/17 02/10/17 02/10/17 00:22 03:50 07:39 Temperature 99.1 F 99.0 F Pulse Rate 78 89 87 Respiratory 20 20 Rate Blood Pressure 168/65 168/60 162/73 O2 Sat by Pulse 97 97 97 Oximetry 02/10/17 02/10/17 07:40 09:36 Temperature 99.8 F H Pulse Rate 86 Respiratory 20 Rate Blood Pressure 162/73 O2 Sat by Pulse 96 95 Oximetry - General Appearance General appearance: well-developed, appears stated age, other (no distress) EENT: ATNC, PERRL Respiratory: Present: Clear to Ascultation Cardiology: regular, S1S2, no murmurs Gastrointestinal: normoactive bowel sounds, no tenderness, no distended Integumentary: no rash Neurologic: other (opens eyes, non-verbal, not following any command) Musculoskeletal: other (no edema) - Lab 02/10/17 08:04 02/10/17 08:04 Most recent lab results Calcium 8.4 mg/dL (8.4-10.2) 02/10/17 08:04 Phosphorus 2.70 mg/dL (2.5-4.5) 02/10/17 08:04 Magnesium 1.70 mg/dL (1.7-2.3) 02/10/17 08:04
[2017-02-10] MEDS ORDERED: D50W (25GM) Syringe IV PRN (14:17)
[2017-02-10] MEDS: NOVOLOG SUB-Q SCH ×2 (18:24→22:36)
[2017-02-10] MEDS: ZOCOR PO SCH (22:36)
[2017-02-10] MEDS: REMERON PO SCH (22:36)
[2017-02-11] MEDS: APRESOLINE IV PRN (03:20)
[2017-02-11] MEDS: ZOSYN/NS 2.25 GM/50ML 2.25 GM/50 ML BAG IV SCH ×3 (05:42→18:00)
[2017-02-11 05:55] LABS: Hematocrit 28.7 % (30.3-42.9); Hemoglobin 9.6 gm/dl (10.1-14.3); Mean Corpuscular HGB Conc 34 % (30-34); Mean Corpuscular Hemoglobin 28 pg (28-32); Mean Corpuscular Volume 83 fl (79-97); Platelet Count 296 K/mm3 (140-440); Red Blood Count 3.46 M/mm3 (3.65-5.03); Red Cell Distribution Width 16.1 % (13.2-15.2); White Blood Count 13.9 K/mm3 (4.5-11.0)
[2017-02-11 06:11] LABS: Calcium 8.3 mg/dL (8.4-10.2); Chloride 123.1 mmol/L (98-107); Phosphorous 2.1 mg/dL (2.5-4.5); Potassium 3.5 mmol/L (3.6-5.0)
[2017-02-11] MEDS: NOVOLOG SUB-Q SCH ×4 (07:30→22:00)
--- NOTE | 2017-02-11 08:21 | Progress Note ---
Assessment and Plan 1. Acute kidney injury: Hemodynamically mediated JOSE ANGEL in the setting of hypotension and volume depletion. Continue IV fluids. BUN and creatinine levels are improving. Monitor renal function. 2. Septic shock: Improved. Off Levophed. 3. Hypokalemia: Continue IV fluids with potassium. K-Phos IV. 4. Anion gap metabolic acidosis: Improving. Continue IV fluids. 5. Hypernatremia: Continue IV D5W. Monitor sodium levels. 6. Anemia: Multifactorial. Subjective Date of service: 02/11/17 Interval history: Patient was seen and examined at the bedside. Objective - Vital Signs Vital signs: Vital Signs - 12hr 02/10/17 02/11/17 23:56 00:21 Temperature 98.3 F Pulse Rate 94 H Respiratory 18 18 Rate Blood Pressure 170/71 O2 Sat by Pulse 97 Oximetry - General Appearance General appearance: well-developed, appears stated age, other (no distress) EENT: ATNC, PERRL Neck: supple Respiratory: Present: Clear to Ascultation Cardiology: regular, S1S2, no murmurs Gastrointestinal: normoactive bowel sounds, no tenderness Integumentary: no rash, warm and dry Neurologic: other (opens eyes, non-verbal, not following any command) Musculoskeletal: other (no edema) - Lab 02/11/17 04:52 02/12/17 04:58 Most recent lab results Calcium 8.3 mg/dL (8.4-10.2) L 02/11/17 04:52 Phosphorus 2.10 mg/dL (2.5-4.5) L D 02/11/17 04:52 Magnesium 1.70 mg/dL (1.7-2.3) 02/10/17 08:04
[2017-02-11] MEDS ORDERED: KPHOS 30 MMOL in NACL 0.9% 500 ML 500 ML IV ONE (09:30)
--- NOTE | 2017-02-11 10:24 | Magnetic Resonance Report ---
MRI scan of brain: History: AMS. Technique: Multiplanar, multisequence images were obtained without contrast injection. Findings: Multiple focal areas of restricted diffusion in the occipital region and along the watershed area right side suggestive of acute ischemia probably related to hypoxemia, cannot exclude multiple emboli. Chronic lacunar infarct right and left basal ganglia, right occipital region and left cerebellum. Periventricular areas of hyperintensity bilaterally without corresponding areas of restricted diffusion. No extra-axial fluid collection. Impression: Multiple focal areas of acute ischemia in the watershed region probably secondary to hypoxemia. Additionally findings as detailed above. Impression: . No extra-axial fluid collection. The
[2017-02-11] MEDS: HALDOL PO SCH ×3 (10:38→23:52)
[2017-02-11] MEDS: ELIQUIS PO SCH ×2 (10:50→23:51)
[2017-02-11] MEDS: HALFPRIN EC PO SCH (10:50)
[2017-02-11] MEDS: PROTONIX PO SCH (10:50)
[2017-02-11] MEDS ORDERED: DIURIL IV ONE (11:00)
--- NOTE | 2017-02-11 12:23 | Discharge Summary ---
Providers - Providers Date of Admission: 02/08/17 02:28 Attending physician: JUAN RODRIGUEZ MD 02/08/17 14:06 Consult to Wound/ET Nurse [CONS] Routine Reason For Exam: wound eval 02/08/17 23:06 Consult to Physician [CONS] Routine Consulting Provider: ABRAHAM LOPEZ Reason For Exam: hypernatermia, JOSE ANGEL Place consult to:: Dr. Lopez Notified:: Berny RN Was contact made?: Yes If yes, spoke with:: Dr. Lopez Time called:: 08:17 02/10/17 14:17 Speech Therapy Evaluation and Treat [CONS] Routine Reason For Exam: swallow eval Primary care physician: AUTOMOBILE APPRAISER Hospitalization Condition: Stable Hospital course: 71-year-old woman with a history of hypertension, diabetes, hyperlipidemia, CVA , dementia, depression was sent from the assisted to the emergency room for evaluation and shortness of breath, the patient was in respiratory distress, started on BiPAP, she was in septic shock, started on dopamine, antibiotics. Old charts reviewed. Review of system is unobtainable Acute Ecephalopathy, Likely metabolic * Patient with hx of Dementia, Baseline is unknown. * Will await communication from [place]. I Have called. CT brain with no acute pathology, awaiting MRI * spoke with son, reports patient with advanced dementia Septic shock * Responded to IV fluids, Likely secondary to Acute cystitis, lactate resolved Acute Kidney injury secondary to vasomotor nephropathy * Continue IV hydration, Nephrology following. Acute Respiratory failure * Unknown underlying disease. Will check ABG on room air. patient is on Venturi mask Sepsis secondary to Pneumonia possible Aspiration * Continue IV abx Acute Cystitis- GNR * Await ID and sensitivity, Continue zosyn Hypernatremia -Sodium 158 * Likely due to free water deficit. ?Patient PO intake at the facility. Continue d5w, Nephrology following Hypokalemia * Replace, check Magnesium HTN- with urgency * Improved with resumption of Home meds Type 2 UT secondary to septic Shock * Cardiac work up outpatient Diabetes type 2 * Continue insulin SS, Accuchecks, Hyperlipidemia * continue statin. Dementia * Resume home meds History of CVA Depression- Resume home meds Fall precaution DVT prophylaxis Disposition: [id number]-06 HOME [facility] Time spent for discharge: 33 minutes Core Measure Documentation - Palliative Care Palliative Care/ Comfort Measures: Not Applicable - Core Measures Any of the following diagnoses?: none Exam - Constitutional Vitals: Temp Pulse Resp BP Pulse Ox 99.1 F 86 22 176/71 96 02/11/17 07:37 02/11/17 07:37 02/11/17 07:37 02/11/17 07:37 02/11/17 07:37 General appearance: Present: no acute distress, well-nourished - EENT Eyes: Present: PERRL ENT: hearing intact, clear oral mucosa - Neck Neck: Present: supple, normal ROM - Respiratory Respiratory effort: normal Respiratory: bilateral: CTA - Cardiovascular Heart Sounds: Present: S1 & S2. Absent: rub, click - Extremities Extremities: pulses symmetrical, No edema Peripheral Pulses: within normal limits - Abdominal General gastrointestinal: Present: soft, non-tender, non-distended, normal bowel sounds Female genitourinary: Present: normal - Integumentary Integumentary: Present: clear, warm, dry - Musculoskeletal Musculoskeletal: gait normal, strength equal bilaterally - Psychiatric Psychiatric: appropriate mood/affect, intact judgment & insight - Neurologic Neurologic: CNII-XII intact, moves all extremities Plan Follow up with: PRIMARY CARE,MD [Primary Care Provider] - 3-5 Days Prescriptions: Mirtazapine [Remeron] 15 mg PO QHS #30 tablet Simvastatin [Zocor TAB] 40 mg PO QHS #30 tablet Apixaban [Eliquis] 5 tab PO BID #60 tablet Aspirin EC [Aspirin Enteric Coated TAB] 81 mg PO QDAY #30 tablet. Haloperidol [Haldol] 2 mg PO BID #60 tablet LORazepam [Ativan] 0.5 mg PO Q6H PRN #20 tablet PRN Reason: Agitation Multivit-Min/Iron Fum/Folic AC [Qlhof-Dlzuodi-Qybdvulu Tablet] 1 each PO DAILY # 30 tablet Pantoprazole [Protonix TAB] 40 mg PO DAILY #30 tablet
[2017-02-11] MEDS ORDERED: DIURIL 500 MG in NACL 0.9% 50 ML IV NR (18:00)
[2017-02-11] MEDS: ZOCOR PO SCH (23:51)
[2017-02-11] MEDS: REMERON PO SCH (23:51)
[2017-02-12] MEDS: ZOSYN/NS 2.25 GM/50ML 2.25 GM/50 ML BAG IV SCH ×3 (00:05→15:54)
[2017-02-12 06:32] LABS: Calcium 8.6 mg/dL (8.4-10.2); Chloride 123.1 mmol/L (98-107); Magnesium 1.5 mg/dL (1.7-2.3); Phosphorous 2.3 mg/dL (2.5-4.5); Potassium 3.1 mmol/L (3.6-5.0)
[2017-02-12] MEDS: NOVOLOG SUB-Q SCH ×4 (07:30→21:52)
--- NOTE | 2017-02-12 07:31 | Progress Note ---
Assessment and Plan 1. Acute kidney injury: Hemodynamically mediated JOSE ANGEL in the setting of hypotension and volume depletion. Renal function is better. IV fluids were stopped. 2. Septic shock: Improved. 3. Hypokalemia: Replete lytes. 4. Anion gap metabolic acidosis: Improving. 5. Hypernatremia: 6. Anemia: Multifactorial. Patient may go home with Hospice care. Subjective Date of service: 02/12/17 Interval history: Patient was seen and examined at the bedside. Objective - Vital Signs Vital signs: Vital Signs - 12hr 02/11/17 02/11/17 02/11/17 19:41 22:20 23:37 Temperature 99.1 F 99.1 F Pulse Rate 87 86 Respiratory 20 20 Rate Blood Pressure 177/81 183/84 O2 Sat by Pulse 86 93 92 Oximetry 02/12/17 04:17 Temperature 98.6 F Pulse Rate 76 Respiratory 20 Rate Blood Pressure 179/80 O2 Sat by Pulse 93 Oximetry - General Appearance General appearance: well-developed, appears stated age, other (no distress) EENT: ATNC, PERRL Neck: supple Respiratory: Present: Clear to Ascultation Cardiology: regular, S1S2, no murmurs Gastrointestinal: normoactive bowel sounds, no tenderness Integumentary: no rash, warm and dry Neurologic: other (opens eyes, non-verbal, not following any command) Musculoskeletal: other (no edema) - Lab 02/11/17 04:52 02/12/17 04:58 Most recent lab results Calcium 8.6 mg/dL (8.4-10.2) 02/12/17 04:58 Phosphorus 2.30 mg/dL (2.5-4.5) L 02/12/17 04:58 Magnesium 1.50 mg/dL (1.7-2.3) L 02/12/17 04:58
[2017-02-12] MEDS: HALDOL PO SCH ×2 (10:00→21:38)
[2017-02-12] MEDS ORDERED: KPHOS 40 MMOL in NACL 0.9% 500 ML 500 ML IV ONE (10:05)
[2017-02-12] MEDS: HALFPRIN EC PO SCH (10:20)
[2017-02-12] MEDS: PROTONIX PO SCH (10:20)
[2017-02-12] MEDS: ELIQUIS PO SCH ×2 (10:20→21:37)
[2017-02-12] MEDS: APRESOLINE IV PRN ×2 (10:21→15:57)
[2017-02-12] MEDS ORDERED: POTASSIUM CHLORIDE FEEDTUBE ONE (10:40)
[2017-02-12] MEDS ORDERED: MAGNESIUM SULFATE 3 GM in NACL 0.9% 100 ML IV ONE (10:54)
--- NOTE | 2017-02-12 15:25 | Fluoroscopy Report ---
MODIFIED BARIUM SWALLOW INDICATION: Difficulty swallowing. COMPARISON: 06/01/2015. FINDINGS: Fluoroscopy with video provided by radiologist for speech therapist to assess the swallowing mechanism. Food items of various consistencies given. New dobbhoff tube. Edentulous jaw again seen. IMPRESSION: Successful modified barium swallow. Please refer to detailed report from speech pathologist. Thank you for the opportunity to participate in this patient's care.
[2017-02-12] MEDS: K-PHOS NEUTRAL FEEDTUBE SCH ×3 (15:53→21:38)
--- NOTE | 2017-02-12 16:59 | Progress Note ---
Assessment and Plan Assessment and plan: 71-year-old woman with a history of hypertension, diabetes, hyperlipidemia, CVA , dementia, depression was sent from the [place] [facility] to [facility] emergency room for evaluation and shortness of breath, the patient was in respiratory distress, started on BiPAP, found to have septic shock, requiring pressors Metabolic encephalopathy has advanced dementia, and likely more confused due to dehydration Septic shock * off pressors, doing well continue abx Acute Kidney injury secondary to vasomotor nephropathy and ATN * Continue IV hydration, Nephrology following. * improving Dehydration/Free water deficit continue IVF and free water via NGT Acute Respiratory failure * due to sepsis, now improved Severe Sepsis secondary to UTI urine cx growing matson sensitive Pseudomonas, continue abx PNA ruled out on CXR Hypernatremia -Sodium 158 * continue to replace free water deficit Hypokalemia/ Hypophosphatemia/Hypomagnesemia continue to replete HTN- with urgency * optimize meds Type 2 [place] secondary to septic Shock * No further workup Diabetes type 2 * Continue insulin SS, Accuchecks, Hyperlipidemia * continue statin. Dementia * continue supportive care * planned for DC home with home hospice Dysphagia - planned for MBS - will discuss with son if he is interested in PEG tube placement History of CVA Depression History Interval history: no fever, no chills, no cough, no sob Hospitalist Physical - Physical exam Narrative exam: General.: Appears well, no distress, nontoxic HEENT: Moist mucous membranes, extraocular muscles intact, no lymphadenopathy Neck: supple Cardiac: S1-S2 heard Lungs: clear to auscultation bilaterally Abdomen: soft , nontender, nondistended, bowel sounds positive Extremities: no edema clubbing or cyanosis Skin: no rash or lesions Neurologic: demented, opens eyes, says yes to any question asked, but otherwise not conversant - Constitutional Vitals: Temp Pulse Resp BP Pulse Ox 98.5 F 107 H 18 196/102 94 02/12/17 15:41 02/12/17 15:57 02/12/17 15:41 02/12/17 15:57 02/12/17 15:41 General appearance: Present: no acute distress, well-nourished Results - Labs CBC & Chem 7: 02/11/17 04:52 02/12/17 04:58 Labs: Laboratory Last Values WBC 13.9 K/mm3 (4.5-11.0) H 02/11/17 04:52 RBC 3.46 M/mm3 (3.65-5.03) L 02/11/17 04:52 Hgb 9.6 gm/dl (10.1-14.3) L 02/11/17 04:52 Hct 28.7 % (30.3-42.9) L 02/11/17 04:52 MCV 83 fl (79-97) 02/11/17 04:52 MCH 28 pg (28-32) 02/11/17 04:52 MCHC 34 % (30-34) 02/11/17 04:52 RDW 16.1 % (13.2-15.2) H 02/11/17 04:52 Plt Count 296 K/mm3 (140-440) 02/11/17 04:52 Lymph % (Auto) 21.0 % (13.4-35.0) 02/10/17 08:04 [place] % (Auto) 5.6 % (0.0-7.3) 02/10/17 08:04 Eos % (Auto) 5.4 % (0.0-4.3) H 02/10/17 08:04 Baso % (Auto) 0.0 % (0.0-1.8) 02/10/17 08:04 Lymph # 2.7 K/mm3 (1.2-5.4) 02/10/17 08:04 [place] # 0.7 K/mm3 (0.0-0.8) 02/10/17 08:04 Eos # 0.7 K/mm3 (0.0-0.4) H 02/10/17 08:04 Baso # 0.0 K/mm3 (0.0-0.1) 02/10/17 08:04 Seg Neutrophils % 68.0 % (40.0-70.0) 02/10/17 08:04 Seg Neutrophils # 8.9 K/mm3 (1.8-7.7) H 02/10/17 08:04 APTT 168.3 Sec. (24.2-36.6) H* 02/07/17 23:40 D-Dimer 544.14 ng/mlDDU (0-234) H 02/07/17 23:40 POC ABG pH 7.313 (7.35-7.45) L 02/08/17 02:49 POC ABG pCO2 30.7 (35-45) L 02/08/17 02:49 POC ABG pO2 301 (80-105) H 02/08/17 02:49 POC ABG HCO3 15.6 02/08/17 02:49 POC ABG Total CO2 16 02/08/17 02:49 POC ABG O2 Sat 100 02/08/17 02:49 POC ABG Base Excess -11 02/08/17 02:49 FiO2 100 % 02/08/17 02:49 Sodium 158 mmol/L (137-145) H 02/12/17 04:58 Potassium 3.1 mmol/L (3.6-5.0) L 02/12/17 04:58 Chloride 123.1 mmol/L (98-107) H 02/12/17 04:58 Carbon Dioxide 21 mmol/L (22-30) L 02/12/17 04:58 Anion Gap 17 mmol/L 02/12/17 04:58 BUN 53 mg/dL (7-17) H 02/12/17 04:58 Creatinine 1.2 mg/dL (0.7-1.2) 02/12/17 04:58 Estimated GFR 44 ml/min 02/12/17 04:58 BUN/Creatinine Ratio 44 % 02/12/17 04:58 Glucose 115 mg/dL (65-100) H 02/12/17 04:58 POC Glucose 129 (70-105) H 02/11/17 22:23 Lactic Acid 6.30 mmol/L (0.7-2.0) H* 02/08/17 03:35 Calcium 8.6 mg/dL (8.4-10.2) 02/12/17 04:58 Phosphorus 2.30 mg/dL (2.5-4.5) L 02/12/17 04:58 Magnesium 1.50 mg/dL (1.7-2.3) L 02/12/17 04:58 Total Bilirubin 0.30 mg/dL (0.1-1.2) 02/10/17 08:04 AST 30 units/L (5-40) 02/10/17 08:04 ALT 13 units/L (7-56) 02/10/17 08:04 Alkaline Phosphatase 121 units/L (35-129) 02/10/17 08:04 Total Creatine Kinase 18 units/L (30-135) L 02/08/17 08:55 CK-MB (CK-2) 1.2 ng/mL (0.0-4.0) 02/07/17 23:40 CK-MB (CK-2) Rel Index 6.0 (0-4) H 02/07/17 23:40 Troponin T < 0.010 ng/mL (0.00-0.029) 02/09/17 17:24 C-Reactive Protein 11.30 mg/dL (0.00-1.30) H 02/08/17 03:35 NT-Pro-B Natriuret Pep 3333 pg/mL (0-900) H 02/08/17 03:35 Total Protein 6.1 g/dL (6.3-8.2) L 02/10/17 08:04 Albumin 2.5 g/dL (3.9-5) L 02/10/17 08:04 Albumin/Globulin Ratio 0.7 % 02/10/17 08:04 Triglycerides 156 mg/dL (2-149) H 02/07/17 23:40 Cholesterol 100 mg/dL (50-199) 02/07/17 23:40 LDL Cholesterol Direct 43 mg/dL (50-130) L 02/07/17 23:40 HDL Cholesterol 26 mg/dL (40-59) L 02/07/17 23:40 Cholesterol/HDL Ratio 3.84 % 02/07/17 23:40 Urine Color Vero (Yellow) 02/07/17 23:00 Urine Turbidity Cloudy (Clear) 02/07/17 23:00 Urine pH 6.0 (5.0-7.0) 02/07/17 23:00 Ur Specific [place] 1.016 (1.003-1.030) 02/07/17 23:00 Urine Protein 100 mg/dl mg/dL (Negative) 02/07/17 23:00 Urine Glucose (UA) 150 mg/dL (Negative) 02/07/17 23:00 Urine Ketones Neg mg/dL (Negative) 02/07/17 23:00 Urine Blood Mod (Negative) 02/07/17 23:00 Urine Nitrite Neg (Negative) 02/07/17 23:00 Urine Bilirubin Neg (Negative) 02/07/17 23:00 Urine Urobilinogen < 2.0 mg/dL (<2.0) 02/07/17 23:00 Ur Leukocyte Esterase Lg (Negative) 02/07/17 23:00 Urine WBC (Auto) > 182.0 /HPF (0.0-6.0) H 02/07/17 23:00 Urine RBC (Auto) 24.0 /HPF (0.0-6.0) 02/07/17 23:00 U Epithel Cells (Auto) 2.0 /HPF (0-13.0) 02/07/17 23:00 Urine Bacteria (Auto) 4+ /HPF (Negative) 02/07/17 23:00 Urine WBC Clumps 3+ /HPF 02/07/17 23:00 Urine Mucus Few /HPF 02/07/17 23:00
--- NOTE | 2017-02-12 17:36 | Progress Note ---
Assessment and Plan Assessment and plan: 71-year-old woman with a history of hypertension, diabetes, hyperlipidemia, CVA , dementia, depression [facility] and shortness of breath, the patient was in respiratory distress, started on BiPAP, found to have septic shock, requiring pressors Metabolic encephalopathy has advanced dementia, and likely more confused due to dehydration Septic shock * off pressors, doing well continue abx Acute Kidney injury secondary to vasomotor nephropathy and ATN * Continue IV hydration, Nephrology following. * improving Dehydration/Free water deficit continue IVF and free water via NGT Acute Respiratory failure * due to sepsis, now improved Severe Sepsis secondary to UTI urine cx growing matson sensitive Pseudomonas, continue abx PNA ruled out on CXR Hypernatremia - * continue to replace free water deficit Hypokalemia/ Hypophosphatemia/Hypomagnesemia continue to replete HTN- with urgency * optimize meds Type 2 [place] secondary to septic Shock * No further workup Diabetes type 2 * Continue insulin SS, Accuchecks, Hyperlipidemia * continue statin. Dementia * continue supportive care * planned for DC home with home hospice Dysphagia - failed MBS - discussed with son if he is interested in PEG tube placement, he is deliberating Facial Hyperemia -due to flushing, comes and goes, asymptomatic, NTD History of CVA Depression NOk is her son Work [phone] Case discussed with son History Interval history: no fever, no chills, no cough, no sob Hospitalist Physical - Physical exam Narrative exam: General.: Appears well, no distress, nontoxic HEENT: Moist mucous membranes, extraocular muscles intact, no lymphadenopathy Neck: supple Cardiac: S1-S2 heard Lungs: clear to auscultation bilaterally Abdomen: soft , nontender, nondistended, bowel sounds positive Extremities: no edema clubbing or cyanosis Skin: no rash or lesions Neurologic: demented, opens eyes, says yes to any question asked, but otherwise not conversant - Constitutional Vitals: Temp Pulse Resp BP Pulse Ox 98.5 F 107 H 18 196/102 94 02/12/17 15:41 02/12/17 15:57 02/12/17 15:41 02/12/17 15:57 02/12/17 15:41 General appearance: Present: no acute distress, well-nourished Results - Labs CBC & Chem 7: 02/11/17 04:52 02/12/17 04:58 Labs: Laboratory Last Values WBC 13.9 K/mm3 (4.5-11.0) H 02/11/17 04:52 RBC 3.46 M/mm3 (3.65-5.03) L 02/11/17 04:52 Hgb 9.6 gm/dl (10.1-14.3) L 02/11/17 04:52 Hct 28.7 % (30.3-42.9) L 02/11/17 04:52 MCV 83 fl (79-97) 02/11/17 04:52 MCH 28 pg (28-32) 02/11/17 04:52 MCHC 34 % (30-34) 02/11/17 04:52 RDW 16.1 % (13.2-15.2) H 02/11/17 04:52 Plt Count 296 K/mm3 (140-440) 02/11/17 04:52 Lymph % (Auto) 21.0 % (13.4-35.0) 02/10/17 08:04 [place] % (Auto) 5.6 % (0.0-7.3) 02/10/17 08:04 Eos % (Auto) 5.4 % (0.0-4.3) H 02/10/17 08:04 Baso % (Auto) 0.0 % (0.0-1.8) 02/10/17 08:04 Lymph # 2.7 K/mm3 (1.2-5.4) 02/10/17 08:04 [place] # 0.7 K/mm3 (0.0-0.8) 02/10/17 08:04 Eos # 0.7 K/mm3 (0.0-0.4) H 02/10/17 08:04 Baso # 0.0 K/mm3 (0.0-0.1) 02/10/17 08:04 Seg Neutrophils % 68.0 % (40.0-70.0) 02/10/17 08:04 Seg Neutrophils # 8.9 K/mm3 (1.8-7.7) H 02/10/17 08:04 APTT 168.3 Sec. (24.2-36.6) H* 02/07/17 23:40 D-Dimer 544.14 ng/mlDDU (0-234) H 02/07/17 23:40 POC ABG pH 7.313 (7.35-7.45) L 02/08/17 02:49 POC ABG pCO2 30.7 (35-45) L 02/08/17 02:49 POC ABG pO2 301 (80-105) H 02/08/17 02:49 POC ABG HCO3 15.6 02/08/17 02:49 POC ABG Total CO2 16 02/08/17 02:49 POC ABG O2 Sat 100 02/08/17 02:49 POC ABG Base Excess -11 02/08/17 02:49 FiO2 100 % 02/08/17 02:49 Sodium 158 mmol/L (137-145) H 02/12/17 04:58 Potassium 3.1 mmol/L (3.6-5.0) L 02/12/17 04:58 Chloride 123.1 mmol/L (98-107) H 02/12/17 04:58 Carbon Dioxide 21 mmol/L (22-30) L 02/12/17 04:58 Anion Gap 17 mmol/L 02/12/17 04:58 BUN 53 mg/dL (7-17) H 02/12/17 04:58 Creatinine 1.2 mg/dL (0.7-1.2) 02/12/17 04:58 Estimated GFR 44 ml/min 02/12/17 04:58 BUN/Creatinine Ratio 44 % 02/12/17 04:58 Glucose 115 mg/dL (65-100) H 02/12/17 04:58 POC Glucose 129 (70-105) H 02/11/17 22:23 Lactic Acid 6.30 mmol/L (0.7-2.0) H* 02/08/17 03:35 Calcium 8.6 mg/dL (8.4-10.2) 02/12/17 04:58 Phosphorus 2.30 mg/dL (2.5-4.5) L 02/12/17 04:58 Magnesium 1.50 mg/dL (1.7-2.3) L 02/12/17 04:58 Total Bilirubin 0.30 mg/dL (0.1-1.2) 02/10/17 08:04 AST 30 units/L (5-40) 02/10/17 08:04 ALT 13 units/L (7-56) 02/10/17 08:04 Alkaline Phosphatase 121 units/L (35-129) 02/10/17 08:04 Total Creatine Kinase 18 units/L (30-135) L 02/08/17 08:55 CK-MB (CK-2) 1.2 ng/mL (0.0-4.0) 02/07/17 23:40 CK-MB (CK-2) Rel Index 6.0 (0-4) H 02/07/17 23:40 Troponin T < 0.010 ng/mL (0.00-0.029) 02/09/17 17:24 C-Reactive Protein 11.30 mg/dL (0.00-1.30) H 02/08/17 03:35 NT-Pro-B Natriuret Pep 3333 pg/mL (0-900) H 02/08/17 03:35 Total Protein 6.1 g/dL (6.3-8.2) L 02/10/17 08:04 Albumin 2.5 g/dL (3.9-5) L 02/10/17 08:04 Albumin/Globulin Ratio 0.7 % 02/10/17 08:04 Triglycerides 156 mg/dL (2-149) H 02/07/17 23:40 Cholesterol 100 mg/dL (50-199) 02/07/17 23:40 LDL Cholesterol Direct 43 mg/dL (50-130) L 02/07/17 23:40 HDL Cholesterol 26 mg/dL (40-59) L 02/07/17 23:40 Cholesterol/HDL Ratio 3.84 % 02/07/17 23:40 Urine Color [place] (Yellow) 02/07/17 23:00 Urine Turbidity Cloudy (Clear) 02/07/17 23:00 Urine pH 6.0 (5.0-7.0) 02/07/17 23:00 Ur Specific [place] 1.016 (1.003-1.030) 02/07/17 23:00 Urine Protein 100 mg/dl mg/dL (Negative) 02/07/17 23:00 Urine Glucose (UA) 150 mg/dL (Negative) 02/07/17 23:00 Urine Ketones Neg mg/dL (Negative) 02/07/17 23:00 Urine Blood Mod (Negative) 02/07/17 23:00 Urine Nitrite Neg (Negative) 02/07/17 23:00 Urine Bilirubin Neg (Negative) 02/07/17 23:00 Urine Urobilinogen < 2.0 mg/dL (<2.0) 02/07/17 23:00 Ur Leukocyte Esterase Lg (Negative) 02/07/17 23:00 Urine WBC (Auto) > 182.0 /HPF (0.0-6.0) H 02/07/17 23:00 Urine RBC (Auto) 24.0 /HPF (0.0-6.0) 02/07/17 23:00 U Epithel Cells (Auto) 2.0 /HPF (0-13.0) 02/07/17 23:00 Urine Bacteria (Auto) 4+ /HPF (Negative) 02/07/17 23:00 Urine WBC Clumps 3+ /HPF 02/07/17 23:00 Urine Mucus Few /HPF 02/07/17 23:00
[2017-02-12] MEDS: NORVASC FEEDTUBE SCH (19:00)
[2017-02-12] MEDS: DIOVAN FEEDTUBE SCH ×2 (20:02→21:51)
[2017-02-12] MEDS: REMERON PO SCH (21:37)
[2017-02-12] MEDS: ZOCOR PO SCH (21:38)
--- NOTE | 2017-02-13 08:43 | Progress Note ---
Assessment and Plan 1. Acute kidney injury: Hemodynamically mediated JOSE ANGEL in the setting of hypotension and volume depletion. Renal function is better. Monitor renal function. 2. Septic shock: Improved. 3. Hypokalemia: Monitor and replete lytes. 4. Anion gap metabolic acidosis: Improving. 5. Hypernatremia: On D5W. 6. Anemia: Multifactorial. Subjective Date of service: 02/13/17 Interval history: Patient was seen and examined at the bedside. Objective - Vital Signs Vital signs: Vital Signs - 12hr 02/12/17 02/12/17 02/12/17 21:35 21:36 21:42 Temperature Pulse Rate Respiratory 22 Rate Blood Pressure Blood Pressure 153/74 [Right] O2 Sat by Pulse 95 Oximetry 02/13/17 02/13/17 02/13/17 00:17 03:57 08:30 Temperature 97.8 F 97.9 F Pulse Rate 96 H 90 91 H Respiratory 18 18 Rate Blood Pressure 135/66 149/72 Blood Pressure [Right] O2 Sat by Pulse 94 92 Oximetry - General Appearance General appearance: well-developed, appears stated age, other (no distress) EENT: ATNC Neck: supple Respiratory: Present: Clear to Ascultation Cardiology: regular, S1S2, no murmurs Gastrointestinal: normoactive bowel sounds, no tenderness Integumentary: no rash Neurologic: other (opens eyes) Musculoskeletal: other (no edema) - Lab 02/11/17 04:52 02/13/17 10:12 Most recent lab results Calcium 8.6 mg/dL (8.4-10.2) 02/12/17 04:58 Phosphorus 2.30 mg/dL (2.5-4.5) L 02/12/17 04:58 Magnesium 1.50 mg/dL (1.7-2.3) L 02/12/17 04:58
[2017-02-13] MEDS: NOVOLOG SUB-Q SCH ×4 (09:10→22:39)
[2017-02-13] MEDS: ELIQUIS PO SCH ×2 (10:29→22:38)
[2017-02-13] MEDS: ROCEPHIN/NS 1 GM/50 ML 1 GM/50 ML BAG IV SCH (10:29)
[2017-02-13] MEDS: DIOVAN FEEDTUBE SCH (10:29)
[2017-02-13] MEDS: PROTONIX PO SCH (10:30)
[2017-02-13] MEDS: NORVASC FEEDTUBE SCH (10:30)
[2017-02-13] MEDS: HALFPRIN EC PO SCH (10:30)
[2017-02-13] MEDS: K-PHOS NEUTRAL FEEDTUBE SCH ×4 (10:30→22:39)
[2017-02-13] MEDS: HALDOL PO SCH ×2 (10:30→22:38)
[2017-02-13 11:00] LABS: Calcium 8.6 mg/dL (8.4-10.2); Chloride 120.7 mmol/L (98-107); Potassium 5.4 mmol/L (3.6-5.0)
[2017-02-13] MEDS: APRESOLINE PO SCH ×2 (14:03→22:38)
--- NOTE | 2017-02-13 15:42 | Progress Note ---
Assessment and Plan Assessment and plan: 71-year-old woman with a history of hypertension, diabetes, hyperlipidemia, CVA , dementia, depression was [facility] to [facility] emergency room for evaluation and shortness of breath, the patient was in respiratory distress, started on BiPAP, found to have septic shock, requiring pressors Dysphagia - failed MBS - discussed with son , he would like PEG tube placed prior to dc, GI consulted, likely to be done on Wednesday Metabolic encephalopathy has advanced dementia, and likely more confused due to dehydration Severe malnutrition -for PEG tube Septic shock * off pressors, doing well continue abx Acute Kidney injury secondary to vasomotor nephropathy and ATN * Continue IV hydration, Nephrology following. * improving, dc GRABIEL inhibitor Dehydration/Free water deficit continue IVF and free water via NGT Acute Respiratory failure * due to sepsis, now improved Severe Sepsis secondary to UTI urine cx growing matson sensitive Pseudomonas, continue abx till 02/15 PNA ruled out on CXR Hypernatremia - * continue to replace free water deficit Hypokalemia/ Hypophosphatemia/Hypomagnesemia continue to replete HTN- with urgency * optimize meds Type 2 [place] secondary to septic Shock * No further workup Diabetes type 2 * Continue insulin SS, Accuchecks, Hyperlipidemia * continue statin. Dementia * continue supportive care * planned for DC home with home hospice Facial Hyperemia -due to flushing, comes and goes, asymptomatic, NTD History of CVA Depression Advanced dementia NOk is her son Work [phone] Case discussed with son Dispo: home with hospice History Interval history: no fever, no chills, no cough, no sob she failed MBS is unable to tolerate any oral diet Hospitalist Physical - Physical exam Narrative exam: General.: Appears well, no distress, nontoxic HEENT: Moist mucous membranes, extraocular muscles intact, no lymphadenopathy Neck: supple Cardiac: S1-S2 heard Lungs: clear to auscultation bilaterally Abdomen: soft , nontender, nondistended, bowel sounds positive Extremities: no edema clubbing or cyanosis Skin: no rash or lesions Neurologic: demented, opens eyes, says yes to any question asked, but otherwise not conversant - Constitutional Vitals: Temp Pulse Resp BP Pulse Ox 98.8 F 96 H 18 153/74 95 02/13/17 12:38 02/13/17 14:03 02/13/17 08:59 02/13/17 14:03 02/13/17 12:38 General appearance: Present: no acute distress, well-nourished Results - Labs CBC & Chem 7: 02/11/17 04:52 02/13/17 10:12 Labs: Laboratory Last Values WBC 13.9 K/mm3 (4.5-11.0) H 02/11/17 04:52 RBC 3.46 M/mm3 (3.65-5.03) L 02/11/17 04:52 Hgb 9.6 gm/dl (10.1-14.3) L 02/11/17 04:52 Hct 28.7 % (30.3-42.9) L 02/11/17 04:52 MCV 83 fl (79-97) 02/11/17 04:52 MCH 28 pg (28-32) 02/11/17 04:52 MCHC 34 % (30-34) 02/11/17 04:52 RDW 16.1 % (13.2-15.2) H 02/11/17 04:52 Plt Count 296 K/mm3 (140-440) 02/11/17 04:52 Lymph % (Auto) 21.0 % (13.4-35.0) 02/10/17 08:04 [place] % (Auto) 5.6 % (0.0-7.3) 02/10/17 08:04 Eos % (Auto) 5.4 % (0.0-4.3) H 02/10/17 08:04 Baso % (Auto) 0.0 % (0.0-1.8) 02/10/17 08:04 Lymph # 2.7 K/mm3 (1.2-5.4) 02/10/17 08:04 [place] # 0.7 K/mm3 (0.0-0.8) 02/10/17 08:04 Eos # 0.7 K/mm3 (0.0-0.4) H 02/10/17 08:04 Baso # 0.0 K/mm3 (0.0-0.1) 02/10/17 08:04 Seg Neutrophils % 68.0 % (40.0-70.0) 02/10/17 08:04 Seg Neutrophils # 8.9 K/mm3 (1.8-7.7) H 02/10/17 08:04 APTT 168.3 Sec. (24.2-36.6) H* 02/07/17 23:40 D-Dimer 544.14 ng/mlDDU (0-234) H 02/07/17 23:40 POC ABG pH 7.313 (7.35-7.45) L 02/08/17 02:49 POC ABG pCO2 30.7 (35-45) L 02/08/17 02:49 POC ABG pO2 301 (80-105) H 02/08/17 02:49 POC ABG HCO3 15.6 02/08/17 02:49 POC ABG Total CO2 16 02/08/17 02:49 POC ABG O2 Sat 100 02/08/17 02:49 POC ABG Base Excess -11 02/08/17 02:49 FiO2 100 % 02/08/17 02:49 Sodium 158 mmol/L (137-145) H 02/13/17 10:12 Potassium 5.4 mmol/L (3.6-5.0) H D 02/13/17 10:12 Chloride 120.7 mmol/L (98-107) H 02/13/17 10:12 Carbon Dioxide 17 mmol/L (22-30) L 02/13/17 10:12 Anion Gap 26 mmol/L 02/13/17 10:12 BUN 62 mg/dL (7-17) H 02/13/17 10:12 Creatinine 2.1 mg/dL (0.7-1.2) H D 02/13/17 10:12 Estimated GFR 23 ml/min 02/13/17 10:12 BUN/Creatinine Ratio 30 % 02/13/17 10:12 Glucose 136 mg/dL (65-100) H 02/13/17 10:12 POC Glucose 127 (70-105) H 02/13/17 12:35 Lactic Acid 6.30 mmol/L (0.7-2.0) H* 02/08/17 03:35 Calcium 8.6 mg/dL (8.4-10.2) 02/13/17 10:12 Phosphorus 2.30 mg/dL (2.5-4.5) L 02/12/17 04:58 Magnesium 1.50 mg/dL (1.7-2.3) L 02/12/17 04:58 Total Bilirubin 0.30 mg/dL (0.1-1.2) 02/10/17 08:04 AST 30 units/L (5-40) 02/10/17 08:04 ALT 13 units/L (7-56) 02/10/17 08:04 Alkaline Phosphatase 121 units/L (35-129) 02/10/17 08:04 Total Creatine Kinase 18 units/L (30-135) L 02/08/17 08:55 CK-MB (CK-2) 1.2 ng/mL (0.0-4.0) 02/07/17 23:40 CK-MB (CK-2) Rel Index 6.0 (0-4) H 02/07/17 23:40 Troponin T < 0.010 ng/mL (0.00-0.029) 02/09/17 17:24 C-Reactive Protein 11.30 mg/dL (0.00-1.30) H 02/08/17 03:35 NT-Pro-B Natriuret Pep 3333 pg/mL (0-900) H 02/08/17 03:35 Total Protein 6.1 g/dL (6.3-8.2) L 02/10/17 08:04 Albumin 2.5 g/dL (3.9-5) L 02/10/17 08:04 Albumin/Globulin Ratio 0.7 % 02/10/17 08:04 Triglycerides 156 mg/dL (2-149) H 02/07/17 23:40 Cholesterol 100 mg/dL (50-199) 02/07/17 23:40 LDL Cholesterol Direct 43 mg/dL (50-130) L 02/07/17 23:40 HDL Cholesterol 26 mg/dL (40-59) L 02/07/17 23:40 Cholesterol/HDL Ratio 3.84 % 02/07/17 23:40 Urine Color Vero (Yellow) 02/07/17 23:00 Urine Turbidity Cloudy (Clear) 02/07/17 23:00 Urine pH 6.0 (5.0-7.0) 02/07/17 23:00 Ur Specific [place] 1.016 (1.003-1.030) 02/07/17 23:00 Urine Protein 100 mg/dl mg/dL (Negative) 02/07/17 23:00 Urine Glucose (UA) 150 mg/dL (Negative) 02/07/17 23:00 Urine Ketones Neg mg/dL (Negative) 02/07/17 23:00 Urine Blood Mod (Negative) 02/07/17 23:00 Urine Nitrite Neg (Negative) 02/07/17 23:00 Urine Bilirubin Neg (Negative) 02/07/17 23:00 Urine Urobilinogen < 2.0 mg/dL (<2.0) 02/07/17 23:00 Ur Leukocyte Esterase Lg (Negative) 02/07/17 23:00 Urine WBC (Auto) > 182.0 /HPF (0.0-6.0) H 02/07/17 23:00 Urine RBC (Auto) 24.0 /HPF (0.0-6.0) 02/07/17 23:00 U Epithel Cells (Auto) 2.0 /HPF (0-13.0) 02/07/17 23:00 Urine Bacteria (Auto) 4+ /HPF (Negative) 02/07/17 23:00 Urine WBC Clumps 3+ /HPF 02/07/17 23:00 Urine Mucus Few /HPF 02/07/17 23:00
[2017-02-13] MEDS: ZOCOR PO SCH (22:38)
[2017-02-13] MEDS: REMERON PO SCH (22:39)
[2017-02-14] MEDS: APRESOLINE PO SCH ×3 (06:44→21:55)
[2017-02-14 07:36] LABS: Calcium 8.5 mg/dL (8.4-10.2); Chloride 119.3 mmol/L (98-107); Phosphorous 5.6 mg/dL (2.5-4.5); Potassium 3.4 mmol/L (3.6-5.0)
[2017-02-14] MEDS ORDERED: POTASSIUM CHLORIDE FEEDTUBE ONE (07:58)
--- NOTE | 2017-02-14 07:59 | Progress Note ---
Assessment and Plan 1. Acute kidney injury: Hemodynamically mediated JOSE ANGEL in the setting of hypotension and volume depletion. Renal function is better today. Continue IV fluids and monitor renal function. 2. Septic shock: Improved. 3. Hypokalemia: Monitor and replete lytes. 4. Anion gap metabolic acidosis: Improving. 5. Hypernatremia: On D5W. 6. Anemia: Multifactorial. Subjective Date of service: 02/14/17 Interval history: Patient was seen and examined at the bedside. Objective - Vital Signs Vital signs: Vital Signs - 12hr 02/13/17 02/13/17 02/13/17 20:11 20:51 20:59 Temperature 97.9 F Pulse Rate 94 H Pulse Rate [ 90 Apical] Respiratory 18 22 Rate Blood Pressure 172/87 O2 Sat by Pulse 97 98 98 Oximetry 02/13/17 02/14/17 02/14/17 22:38 00:48 01:01 Temperature 97.9 F Pulse Rate 94 H 75 Pulse Rate [ Apical] Respiratory 18 Rate Blood Pressure 172/87 113/59 O2 Sat by Pulse Oximetry 02/14/17 02/14/17 02/14/17 05:42 06:00 06:44 Temperature 97.6 F Pulse Rate 84 84 Pulse Rate [ Apical] Respiratory 18 Rate Blood Pressure 161/73 161/73 O2 Sat by Pulse Oximetry - General Appearance General appearance: well-developed, appears stated age, other (no distress) EENT: ATNC, PERRL Neck: supple Respiratory: Present: Clear to Ascultation Cardiology: regular, S1S2, no murmurs Gastrointestinal: normoactive bowel sounds, no tenderness Integumentary: no rash Neurologic: other (opens eyes, non-verbal, not following any command) Musculoskeletal: other (no edema) - Lab 02/11/17 04:52 02/14/17 07:07 Most recent lab results Calcium 8.5 mg/dL (8.4-10.2) 02/14/17 07:07 Phosphorus 5.60 mg/dL (2.5-4.5) H 02/14/17 07:07 Magnesium 2.00 mg/dL (1.7-2.3) 02/14/17 07:07
[2017-02-14] MEDS ORDERED: SODIUM BICARBONATE FEEDTUBE PRN (08:25)
[2017-02-14] MEDS ORDERED: PANCREAZE DR 10,500 UNIT FEEDTUBE PRN (08:25)
[2017-02-14] MEDS ORDERED: SIMPLE SYRUP FEEDTUBE PRN ×2 (08:25)
[2017-02-14] MEDS: ROCEPHIN/NS 1 GM/50 ML 1 GM/50 ML BAG IV SCH (09:11)
[2017-02-14] MEDS: PROTONIX PO SCH (09:11)
[2017-02-14] MEDS: HALFPRIN EC PO SCH (09:11)
[2017-02-14] MEDS: ELIQUIS PO SCH (09:12)
[2017-02-14] MEDS: POTASSIUM CHLORIDE FEEDTUBE SCH (09:15)
[2017-02-14] MEDS: HALDOL PO SCH ×2 (09:15→22:01)
[2017-02-14] MEDS: NORVASC FEEDTUBE SCH (09:16)
[2017-02-14] MEDS: APRESOLINE IV PRN (09:19)
[2017-02-14] MEDS: NOVOLOG SUB-Q SCH ×4 (10:25→22:11)
--- NOTE | 2017-02-14 12:15 | Gastroenterology Consultation ---
History of Present Illness - Reason for Consult Consult date: 02/14/17 Neurogenic dysphagia Requesting physician: JUAN RODRIGUEZ - History of Present Illness The patient's hx is from [facility] and the chart; the patient is demented with ? hypoxic encephalopathy. She is unable to provide a hx. She was admitted with septic shock (resolve, presumably from Pseudomonas UTI). While here, her poor chronic baseline mental status was noted to worsen, and she has completely failed a swallowing eval. She had a brain CT and MRI, and was noted to acute on chronic changes that were extensive and severe. She is nonverbal to me, but is awake and looking around; she does attempt to pull at her Dobhoff, but it is ineffectual; she can follow no commands. The son has verbally given consent for the procedure to nurses/[facility] staff, but was not available by cell phone today when I left a message. Past History Past Medical History: diabetes, hypertension, hyperlipidemia, stroke, other ( dementia) Past Surgical History: Other (Orthopedic and Tubal ligation per past notes) Social history: no significant social history, other (Will transition to home hospice on D/C per notes) Family history: no significant family history Medications and Allergies Allergies Allergy/AdvReac Type Severity Reaction Status Date / Time No Known Allergies Allergy Verified 09/26/14 15:05 Home Medications Medication Instructions Recorded Confirmed Last Taken Type Apixaban [Eliquis] 5 tab PO BID #60 tablet 02/11/17 Unknown Rx Aspirin EC [Aspirin Enteric Coated 81 mg PO QDAY #30 tablet. 02/11/17 Unknown Rx TAB] Haloperidol [Haldol] 2 mg PO BID #60 tablet 02/11/17 Unknown Rx LORazepam [Ativan] 0.5 mg PO Q6H PRN #20 tablet 02/11/17 Unknown Rx Mirtazapine [Remeron] 15 mg PO QHS #30 tablet 02/11/17 Unknown Rx Multivit-Min/Iron Fum/Folic AC 1 each PO DAILY #30 tablet 02/11/17 Unknown Rx [Ljvpy-Ntjkwti-Refeozgk Tablet] Pantoprazole [Protonix TAB] 40 mg PO DAILY #30 tablet 02/11/17 Unknown Rx Simvastatin [Zocor TAB] 40 mg PO QHS #30 tablet 02/11/17 Unknown Rx Active Meds: Active Medications Acetaminophen (Tylenol) 650 mg PO Q4H PRN PRN Reason: Pain MILD(1-3)/Fever >100.5/COVARRUBIAS Acetaminophen (Tylenol) 650 mg OR Q4H PRN PRN Reason: Pain MILD(1-3)/Fever >100.5/COVARRUBIAS Amlodipine Besylate (Norvasc) 10 mg FEEDTUBE QDAY [facility] Last Admin: 02/14/17 09:16 Dose: 10 mg Lipase/Protease/Amylase (Pancreaze Dr 10,500 Unit) 1 each FEEDTUBE PRN PRN PRN Reason: For Clogged Feeding Tube Dextrose (D50w (25gm) Syringe) 50 ml IV PRN PRN PRN Reason: Hypoglycemia Haloperidol (Haldol) 2 mg PO BID [facility] Last Admin: 02/14/17 09:15 Dose: 2 mg Hydralazine HCl (Apresoline) 10 mg IV Q6HR PRN PRN Reason: HTN ABDIEL>160 OR SYS>110 Last Admin: 02/14/17 09:19 Dose: 10 mg Hydralazine HCl (Apresoline) 25 mg PO Q8HR [facility] Dextrose (D5w) 1,000 mls @ 100 mls/hr IV DIRECT [facility] Ceftriaxone Sodium (Rocephin/Ns 1 Gm/50 Ml) 1 gm in 50 mls @ 100 mls/hr IV Q24HR DANIEL PRN Reason: Protocol Last Admin: 02/14/17 09:11 Dose: 100 mls/hr Insulin Aspart (Novolog) 0 units SUB-Q ACHS DANIEL PRN Reason: Protocol Last Admin: 02/14/17 10:25 Dose: Not Given Lorazepam (Ativan) 0.5 mg PO Q6H PRN PRN Reason: Agitation Mirtazapine (Remeron) 15 mg PO QHS [facility] Last Admin: 02/13/17 22:39 Dose: 15 mg Multivitamins (Centrum Liq) 5 ml PO QDAY [facility] Ondansetron HCl (Zofran) 4 mg IV Q8H PRN PRN Reason: N/V unrelieved by Marialuisa Pantoprazole Sodium (Protonix) 40 mg PO DAILY [facility] Last Admin: 02/14/17 09:11 Dose: 40 mg Potassium Chloride (Potassium Chloride) 40 meq FEEDTUBE QDAY [facility] Last Admin: 02/14/17 09:15 Dose: 40 meq Simple Syrup (Simple Syrup) 15 ml FEEDTUBE PRN PRN PRN Reason: Hypoglycemia Simple Syrup (Simple Syrup) 30 ml FEEDTUBE PRN PRN PRN Reason: Hypoglycemia Simvastatin (Zocor) 40 mg PO QHS DANIEL Last Admin: 02/13/17 22:38 Dose: 40 mg Sodium Bicarbonate (Sodium Bicarbonate) 325 mg FEEDTUBE PRN PRN PRN Reason: For Clogged Feeding Tube Review of Systems - Review of Systems ROS unobtainable: due to mental status Exam - Constitutional Vital Signs: Temp Pulse Resp BP Pulse Ox 97.9 F 95 H 18 177/94 99 02/14/17 08:58 02/14/17 10:00 02/14/17 08:58 02/14/17 09:19 02/14/17 08:58 General appearance: no acute distress - EENT Eyes: PERRL, EOM intact ENT: clear oral mucosa, poor dentition, other (Dobhoff persent in nares) - Neck Neck: supple, normal ROM - Respiratory Respiratory effort: normal Respiratory: bilateral: CTA - Cardiovascular Rhythm: regular Heart Sounds: Present: S1 & S2 Extremities: no ischemia, No edema - Gastrointestinal General gastrointestinal: Present: soft, non-tender, non-distended - Integumentary Integumentary: Present: clear, warm, dry - Neurologic Neurological: other (Unable to follow commands; eyes open but does not respond to questions; moves RUE and LUE but not in purposeful fashion) - Labs CBC & Chem 7: 02/11/17 04:52 02/14/17 07:07 Lab Results: Laboratory Results - last 24 hr 02/13/17 02/13/17 02/13/17 12:35 16:58 20:15 Sodium Potassium Chloride Carbon Dioxide Anion Gap BUN Creatinine Estimated GFR BUN/Creatinine Ratio Glucose POC Glucose 127 H 128 H 100 Calcium Phosphorus Magnesium 02/13/17 02/14/17 02/14/17 22:40 00:56 07:07 Sodium 156 H Potassium 3.4 L D Chloride 119.3 H Carbon Dioxide 18 L Anion Gap 22 BUN 53 H Creatinine 1.6 H Estimated GFR 32 BUN/Creatinine Ratio 33 Glucose 117 H POC Glucose 112 H 105 Calcium 8.5 Phosphorus 5.60 H Magnesium 2.00 Assessment and Plan - Patient Problems (1) Neurogenic dysphagia Current Visit: Yes Status: Acute Plan to address problem: - Will d/c ASA in preparation for EGD and PEG tomorrow. - Left VM to confirm with the son; he has verbally consented already with [facility] and nursing staff. - Will need correction of Na prior to anaesthesia (currently on free water flush via Dobhoff as well as D5W). - Will check coags in the AM as she has been NPO for some time, and INR elevated earlier this year.
[2017-02-14] MEDS: Centrum Liq PO SCH (14:38)
--- NOTE | 2017-02-14 16:06 | Progress Note ---
Assessment and Plan Assessment and plan: 71-year-old woman with a history of hypertension, diabetes, hyperlipidemia, CVA , dementia, depression was sent [facility] the [place] [facility] to [facility] emergency room for evaluation and shortness of breath, the patient was in respiratory distress, started on BiPAP, found to have septic shock, requiring pressors Dysphagia - failed MBS - discussed with son , he would like PEG tube placed prior to dc, GI consulted, likely to be done on Wednesday Metabolic encephalopathy has advanced dementia, and likely more confused due to dehydration Severe malnutrition -for PEG tube Septic shock * off pressors, doing well continue abx Acute Kidney injury secondary to vasomotor nephropathy and ATN * Continue IV hydration, Nephrology following. * improving, dc GRABIEL inhibitor Dehydration/Free water deficit continue IVF and free water via NGT Acute Respiratory failure * due to sepsis, now improved Severe Sepsis secondary to UTI urine cx growing matson sensitive Pseudomonas, continue abx till 02/15 PNA ruled out on CXR Hypernatremia - * continue to replace free water deficit Hypokalemia/ Hypophosphatemia/Hypomagnesemia continue to replete HTN- with urgency * optimize meds Type 2 [place] secondary to septic Shock * No further workup Diabetes type 2 * Continue insulin SS, Accuchecks, Hyperlipidemia * continue statin. Dementia * continue supportive care * planned for DC home with home hospice Facial Hyperemia -due to flushing, comes and goes, asymptomatic, NTD History of CVA Depression Advanced dementia NOk is her son Work [phone] Case discussed with son Dispo: home with hospice History Interval history: no fever, no chills, no cough, no sob she failed MBS is unable to tolerate any oral diet Hospitalist Physical - Physical exam Narrative exam: General.: Appears well, no distress, nontoxic HEENT: Moist mucous membranes, extraocular muscles intact, no lymphadenopathy Neck: supple Cardiac: S1-S2 heard Lungs: clear to auscultation bilaterally Abdomen: soft , nontender, nondistended, bowel sounds positive Extremities: no edema clubbing or cyanosis Skin: no rash or lesions Neurologic: demented, opens eyes, says yes to any question asked, but otherwise not conversant - Constitutional Vitals: Temp Pulse Resp BP Pulse Ox 97.8 F 94 H 18 175/81 94 02/14/17 13:09 02/14/17 13:09 02/14/17 13:09 02/14/17 13:33 02/14/17 11:44 General appearance: Present: no acute distress Results - Labs CBC & Chem 7: 02/17/17 04:58 02/17/17 04:58 Labs: Laboratory Last Values WBC 13.9 K/mm3 (4.5-11.0) H 02/11/17 04:52 RBC 3.46 M/mm3 (3.65-5.03) L 02/11/17 04:52 Hgb 9.6 gm/dl (10.1-14.3) L 02/11/17 04:52 Hct 28.7 % (30.3-42.9) L 02/11/17 04:52 MCV 83 fl (79-97) 02/11/17 04:52 MCH 28 pg (28-32) 02/11/17 04:52 MCHC 34 % (30-34) 02/11/17 04:52 RDW 16.1 % (13.2-15.2) H 02/11/17 04:52 Plt Count 296 K/mm3 (140-440) 02/11/17 04:52 Lymph % (Auto) 21.0 % (13.4-35.0) 02/10/17 08:04 [place]wey % (Auto) 5.6 % (0.0-7.3) 02/10/17 08:04 Eos % (Auto) 5.4 % (0.0-4.3) H 02/10/17 08:04 Baso % (Auto) 0.0 % (0.0-1.8) 02/10/17 08:04 Lymph # 2.7 K/mm3 (1.2-5.4) 02/10/17 08:04 Dewey # 0.7 K/mm3 (0.0-0.8) 02/10/17 08:04 Eos # 0.7 K/mm3 (0.0-0.4) H 02/10/17 08:04 Baso # 0.0 K/mm3 (0.0-0.1) 02/10/17 08:04 Seg Neutrophils % 68.0 % (40.0-70.0) 02/10/17 08:04 Seg Neutrophils # 8.9 K/mm3 (1.8-7.7) H 02/10/17 08:04 APTT 168.3 Sec. (24.2-36.6) H* 02/07/17 23:40 D-Dimer 544.14 ng/mlDDU (0-234) H 02/07/17 23:40 POC ABG pH 7.313 (7.35-7.45) L 02/08/17 02:49 POC ABG pCO2 30.7 (35-45) L 02/08/17 02:49 POC ABG pO2 301 (80-105) H 02/08/17 02:49 POC ABG HCO3 15.6 02/08/17 02:49 POC ABG Total CO2 16 02/08/17 02:49 POC ABG O2 Sat 100 02/08/17 02:49 POC ABG Base Excess -11 02/08/17 02:49 FiO2 100 % 02/08/17 02:49 Sodium 156 mmol/L (137-145) H 02/14/17 07:07 Potassium 3.4 mmol/L (3.6-5.0) L D 02/14/17 07:07 Chloride 119.3 mmol/L (98-107) H 02/14/17 07:07 Carbon Dioxide 18 mmol/L (22-30) L 02/14/17 07:07 Anion Gap 22 mmol/L 02/14/17 07:07 BUN 53 mg/dL (7-17) H 02/14/17 07:07 Creatinine 1.6 mg/dL (0.7-1.2) H 02/14/17 07:07 Estimated GFR 32 ml/min 02/14/17 07:07 BUN/Creatinine Ratio 33 % 02/14/17 07:07 Glucose 117 mg/dL (65-100) H 02/14/17 07:07 POC Glucose 116 (70-105) H 02/14/17 11:53 Lactic Acid 6.30 mmol/L (0.7-2.0) H* 02/08/17 03:35 Calcium 8.5 mg/dL (8.4-10.2) 02/14/17 07:07 Phosphorus 5.60 mg/dL (2.5-4.5) H 02/14/17 07:07 Magnesium 2.00 mg/dL (1.7-2.3) 02/14/17 07:07 Total Bilirubin 0.30 mg/dL (0.1-1.2) 02/10/17 08:04 AST 30 units/L (5-40) 02/10/17 08:04 ALT 13 units/L (7-56) 02/10/17 08:04 Alkaline Phosphatase 121 units/L (35-129) 02/10/17 08:04 Total Creatine Kinase 18 units/L (30-135) L 02/08/17 08:55 CK-MB (CK-2) 1.2 ng/mL (0.0-4.0) 02/07/17 23:40 CK-MB (CK-2) Rel Index 6.0 (0-4) H 02/07/17 23:40 Troponin T < 0.010 ng/mL (0.00-0.029) 02/09/17 17:24 C-Reactive Protein 11.30 mg/dL (0.00-1.30) H 02/08/17 03:35 NT-Pro-B Natriuret Pep 3333 pg/mL (0-900) H 02/08/17 03:35 Total Protein 6.1 g/dL (6.3-8.2) L 02/10/17 08:04 Albumin 2.5 g/dL (3.9-5) L 02/10/17 08:04 Albumin/Globulin Ratio 0.7 % 02/10/17 08:04 Triglycerides 156 mg/dL (2-149) H 02/07/17 23:40 Cholesterol 100 mg/dL (50-199) 02/07/17 23:40 LDL Cholesterol Direct 43 mg/dL (50-130) L 02/07/17 23:40 HDL Cholesterol 26 mg/dL (40-59) L 02/07/17 23:40 Cholesterol/HDL Ratio 3.84 % 02/07/17 23:40 Urine Color Vero (Yellow) 02/07/17 23:00 Urine Turbidity Cloudy (Clear) 02/07/17 23:00 Urine pH 6.0 (5.0-7.0) 02/07/17 23:00 Ur Specific [place] 1.016 (1.003-1.030) 02/07/17 23:00 Urine Protein 100 mg/dl mg/dL (Negative) 02/07/17 23:00 Urine Glucose (UA) 150 mg/dL (Negative) 02/07/17 23:00 Urine Ketones Neg mg/dL (Negative) 02/07/17 23:00 Urine Blood Mod (Negative) 02/07/17 23:00 Urine Nitrite Neg (Negative) 02/07/17 23:00 Urine Bilirubin Neg (Negative) 02/07/17 23:00 Urine Urobilinogen < 2.0 mg/dL (<2.0) 02/07/17 23:00 Ur Leukocyte Esterase Lg (Negative) 02/07/17 23:00 Urine WBC (Auto) > 182.0 /HPF (0.0-6.0) H 02/07/17 23:00 Urine RBC (Auto) 24.0 /HPF (0.0-6.0) 02/07/17 23:00 U Epithel Cells (Auto) 2.0 /HPF (0-13.0) 02/07/17 23:00 Urine Bacteria (Auto) 4+ /HPF (Negative) 02/07/17 23:00 Urine WBC Clumps 3+ /HPF 02/07/17 23:00 Urine Mucus Few /HPF 02/07/17 23:00
--- NOTE | 2017-02-14 16:29 | Consultation ---
History of Present Illness - Reason for Consult Consult date: 02/14/17 Reason for consult: psychiatric evaluation - Chief Complaint Chief complaint: patient non verbal acknowledged presence by grunt - History of Present Psychiatric Illness 71-year-old woman with a history of hypertension, diabetes, hyperlipidemia, CVA , dementia, depression was sent from the assisted to the emergency room for evaluation and shortness of breath, the patient was in respiratory distress, started on BiPAP, found to have septic shock. Home hospice has been recommended by the medical team.She was seen on the medical floor for psychiatric consult. The consult was placed for behavioral disturbances. She is on haldol bid and was on it at the assisted for agitation. The nurse reports she has not displayed episodes of agitation today and no reports from last night. The chart was reviewed and evidece of continued agitation is not evident. The nurse reports she answered yes/no questions today. She is minimally responsive today. Her eyes are in a fixed position. Her blink rate is normal. She is receiving nutrition through NGT. Medications and Allergies Allergies Allergy/AdvReac Type Severity Reaction Status Date / Time No Known Allergies Allergy Verified 09/26/14 15:05 Home Medications Medication Instructions Recorded Confirmed Last Taken Type Apixaban [Eliquis] 5 tab PO BID #60 tablet 02/11/17 Unknown Rx Aspirin EC [Aspirin Enteric Coated 81 mg PO QDAY #30 tablet. 02/11/17 Unknown Rx TAB] Haloperidol [Haldol] 2 mg PO BID #60 tablet 02/11/17 Unknown Rx LORazepam [Ativan] 0.5 mg PO Q6H PRN #20 tablet 02/11/17 Unknown Rx Mirtazapine [Remeron] 15 mg PO QHS #30 tablet 02/11/17 Unknown Rx Multivit-Min/Iron Fum/Folic AC 1 each PO DAILY #30 tablet 02/11/17 Unknown Rx [Avuyu-Fgzrmth-Naspbjkl Tablet] Pantoprazole [Protonix TAB] 40 mg PO DAILY #30 tablet 02/11/17 Unknown Rx Simvastatin [Zocor TAB] 40 mg PO QHS #30 tablet 02/11/17 Unknown Rx Active Meds: Active Medications Acetaminophen (Tylenol) 650 mg PO Q4H PRN PRN Reason: Pain MILD(1-3)/Fever >100.5/COVARRUBIAS Acetaminophen (Tylenol) 650 mg NC Q4H PRN PRN Reason: Pain MILD(1-3)/Fever >100.5/COVARRUBIAS Amlodipine Besylate (Norvasc) 10 mg FEEDTUBE QDAY [facility] Last Admin: 02/14/17 09:16 Dose: 10 mg Lipase/Protease/Amylase (Pancreaze Dr 10,500 Unit) 1 each FEEDTUBE PRN PRN PRN Reason: For Clogged Feeding Tube Dextrose (D50w (25gm) Syringe) 50 ml IV PRN PRN PRN Reason: Hypoglycemia Haloperidol (Haldol) 2 mg PO BID [facility] Last Admin: 02/14/17 09:15 Dose: 2 mg Hydralazine HCl (Apresoline) 10 mg IV Q6HR PRN PRN Reason: HTN ABDIEL>160 OR SYS>110 Last Admin: 02/14/17 09:19 Dose: 10 mg Hydralazine HCl (Apresoline) 25 mg PO Q8HR [facility] Last Admin: 02/14/17 13:33 Dose: 25 mg Dextrose (D5w) 1,000 mls @ 100 mls/hr IV DIRECT DANIEL Ceftriaxone Sodium (Rocephin/Ns 1 Gm/50 Ml) 1 gm in 50 mls @ 100 mls/hr IV Q24HR DANIEL PRN Reason: Protocol Last Admin: 02/14/17 09:11 Dose: 100 mls/hr Insulin Aspart (Novolog) 0 units SUB-Q ACHS DANIEL PRN Reason: Protocol Last Admin: 02/14/17 13:34 Dose: Not Given Lorazepam (Ativan) 0.5 mg PO Q6H PRN PRN Reason: Agitation Mirtazapine (Remeron) 15 mg PO QHS [facility] Last Admin: 02/13/17 22:39 Dose: 15 mg Multivitamins (Centrum Liq) 5 ml PO QDAY [facility] Last Admin: 02/14/17 14:38 Dose: 5 ml Ondansetron HCl (Zofran) 4 mg IV Q8H PRN PRN Reason: N/V unrelieved by Marialuisa Pantoprazole Sodium (Protonix) 40 mg PO DAILY [facility] Last Admin: 02/14/17 09:11 Dose: 40 mg Potassium Chloride (Potassium Chloride) 40 meq FEEDTUBE QDAY [facility] Last Admin: 02/14/17 09:15 Dose: 40 meq Simple Syrup (Simple Syrup) 15 ml FEEDTUBE PRN PRN PRN Reason: Hypoglycemia Simple Syrup (Simple Syrup) 30 ml FEEDTUBE PRN PRN PRN Reason: Hypoglycemia Simvastatin (Zocor) 40 mg PO QHS DANIEL Last Admin: 02/13/17 22:38 Dose: 40 mg Sodium Bicarbonate (Sodium Bicarbonate) 325 mg FEEDTUBE PRN PRN PRN Reason: For Clogged Feeding Tube Past psychiatric history - Past Medical History Past Medical History: other (see HPI) - past Psychiatric treatment and history psychiatric treatment history: none - Social History Social history: other (lives in assisted) Mental Status Exam - Vital signs Last Vital Signs Temp 97.8 F 02/14/17 13:09 Pulse 94 H 02/14/17 13:09 Resp 18 02/14/17 13:09 BP 175/81 02/14/17 13:33 Pulse Ox 94 02/14/17 11:44 - Exam Narrative exam: unable to obtain mental status exam. She is non verbal with a NGT. left sided neglect. eyes in fixed position. able to blink. grunted. Results Result Diagrams: 02/11/17 04:52 02/14/17 07:07 Abnormal lab results 02/13/17 02/13/17 02/14/17 Range/Units 16:58 22:40 07:07 Sodium 156 H (137-145) mmol/L Potassium 3.4 L D (3.6-5.0) mmol/L Chloride 119.3 H (98-107) mmol/L Carbon Dioxide 18 L (22-30) mmol/L BUN 53 H (7-17) mg/dL Creatinine 1.6 H (0.7-1.2) mg/dL Glucose 117 H (65-100) mg/dL POC Glucose 128 H 112 H (70-105) Phosphorus 5.60 H (2.5-4.5) mg/dL 02/14/17 02/14/17 Range/Units 08:14 11:53 Sodium (137-145) mmol/L Potassium (3.6-5.0) mmol/L Chloride (98-107) mmol/L Carbon Dioxide (22-30) mmol/L BUN (7-17) mg/dL Creatinine (0.7-1.2) mg/dL Glucose (65-100) mg/dL POC Glucose 111 H 116 H (70-105) Phosphorus (2.5-4.5) mg/dL All other labs normal. Assessment and Plan Assessment and plan: Impression: metabolic encephalopathy historical diagnosis of dementia she is on haldol scheduled for an undetermined amount of time r/o EPS, specifically oculogyric crisis. Recommendation: despite risks associated with anticholinergic agents, it is recommended to start cogentin 0.5mg bid for possible EPS. The psychiatric team will reassess response in 24 hours. Delirium precautions below: 1. Frequently reorient patient and involve him/her in their care (simple explanations of procedures, tests, medications). 2. Lights on and shades open during daytime hours. 3. Try to avoid unnecessary interruptions to sleep during nighttime hours. 4. Obtain glasses, hearing aids from home if patient uses these at baseline. 5. Avoid medications that may exacerbate delirium (especially narcotics, barbiturates, ambien, lunesta, benzos, and medications with excessive anticholinergic properties).
[2017-02-14] MEDS: ZOCOR PO SCH (21:56)
[2017-02-14] MEDS: REMERON PO SCH (21:56)
[2017-02-14] MEDS: COGENTIN PO SCH (22:00)
[2017-02-15] MEDS: APRESOLINE PO SCH ×3 (05:48→23:08)
[2017-02-15] MEDS: NOVOLOG SUB-Q SCH ×3 (07:39→23:05)
[2017-02-15 07:56] LABS: Basophils % (Auto) 0.3 % (0.0-1.8); Eosinophils % (Auto) 7.1 % (0.0-4.3); Hematocrit 30.9 % (30.3-42.9); Hemoglobin 10.2 gm/dl (10.1-14.3); Mean Corpuscular HGB Conc 33 % (30-34); Mean Corpuscular Hemoglobin 28 pg (28-32); Mean Corpuscular Volume 84 fl (79-97); Platelet Count 378 K/mm3 (140-440); Red Blood Count 3.69 M/mm3 (3.65-5.03); Red Cell Distribution Width 15.9 % (13.2-15.2); White Blood Count 14.5 K/mm3 (4.5-11.0)
[2017-02-15] MEDS ORDERED: WATER FOR IRRIG STERILE IR ONE (07:59)
[2017-02-15] MEDS ORDERED: WATER FOR IRRIG STERILE ONE (08:00)
[2017-02-15 08:06] LABS: INR 1.47 (0.87-1.13)
[2017-02-15 08:09] LABS: Calcium 8.5 mg/dL (8.4-10.2)
[2017-02-15 08:10] LABS: Chloride 118.4 mmol/L (98-107)
--- NOTE | 2017-02-15 09:18 | Progress Note ---
Assessment and Plan 1. Acute kidney injury: Hemodynamically mediated JOSE ANGEL in the setting of hypotension and volume depletion. Renal function is better. Monitor renal function. 2. Septic shock: Improved. 3. Hypokalemia: K level is better. 4. Anion gap metabolic acidosis: Improving. 5. Hypernatremia: Continue free water flushes. 6. Anemia: Multifactorial. Subjective Date of service: 02/15/17 Interval history: Patient was seen and examined at the bedside. Objective - Vital Signs Vital signs: Vital Signs - 12hr 02/14/17 02/14/17 02/14/17 21:55 23:40 23:50 Temperature 98.3 F Pulse Rate 98 H 98 H 95 H Respiratory 18 Rate Blood Pressure 169/84 170/79 O2 Sat by Pulse 93 Oximetry 02/15/17 02/15/17 02/15/17 05:27 05:48 07:24 Temperature 97.9 F 99.1 F Pulse Rate 93 H 95 H 92 H Respiratory 18 20 Rate Blood Pressure 185/91 170/79 158/76 O2 Sat by Pulse 94 96 Oximetry 02/15/17 08:47 Temperature Pulse Rate Respiratory Rate Blood Pressure O2 Sat by Pulse 93 Oximetry - General Appearance General appearance: well-developed, appears stated age, other (no distress) EENT: ATNC Neck: supple Respiratory: Present: Clear to Ascultation Cardiology: regular, S1S2, no murmurs Gastrointestinal: normoactive bowel sounds, no tenderness, no distended Integumentary: no rash Neurologic: other (opens eyes, non-verbal, not following any command) Musculoskeletal: other (no edema) - Lab 02/15/17 07:34 02/15/17 07:34 Most recent lab results Calcium 8.5 mg/dL (8.4-10.2) 02/15/17 07:34 Phosphorus 5.60 mg/dL (2.5-4.5) H 02/14/17 07:07 Magnesium 2.00 mg/dL (1.7-2.3) 02/14/17 07:07
--- NOTE | 2017-02-15 11:45 | Progress Note ---
Assessment and Plan Assessment and plan: Dysphagia - failed MBS - discussed with son , he would like PEG tube placed prior to dc, GI consulted, likely to be done today Metabolic encephalopathy has advanced dementia, and likely more confused due to dehydration Severe malnutrition -for PEG tube Septic shock * off pressors, doing well continue abx Acute Kidney injury secondary to vasomotor nephropathy and ATN * Continue IV hydration, Nephrology following. * improving, dc GRABIEL inhibitor Dehydration/Free water deficit continue IVF and free water via NGT Acute Respiratory failure * due to sepsis, now improved Severe Sepsis secondary to UTI urine cx growing matson sensitive Pseudomonas, continue abx till 02/15 Hypernatremia - * continue to replace free water deficit Hypokalemia/ Hypophosphatemia/Hypomagnesemia continue to replete as needed HTN- with urgency * optimize meds Type 2 AL secondary to septic Shock * No further workup Diabetes type 2 * Continue insulin SS, Accuchecks, Hyperlipidemia * continue statin. Dementia * continue supportive care * planned for DC home with home hospice Facial Hyperemia -due to flushing, comes and goes, asymptomatic, NTD History of CVA supportive care Advanced dementia home with hospice after PEG NOk is her son Work [phone] History Interval history: no issues overnight. Hospitalist Physical - Constitutional Vitals: Temp Pulse Resp BP Pulse Ox 99.1 F 92 H 20 158/76 94 02/15/17 07:24 02/15/17 07:24 02/15/17 07:24 02/15/17 07:24 02/15/17 10:12 General appearance: Present: no acute distress, well-nourished - EENT Eyes: Present: PERRL, EOM intact ENT: hearing intact, clear oral mucosa, dentition normal - Neck Neck: Present: supple, normal ROM - Respiratory Respiratory effort: normal Respiratory: bilateral: CTA - Cardiovascular Rhythm: regular Heart Sounds: Present: S1 & S2. Absent: gallop, rub - Extremities Extremities: no ischemia, No edema, Full ROM - Abdominal General gastrointestinal: soft, non-tender, non-distended, normal bowel sounds - Integumentary Integumentary: Present: clear, warm, dry - Neurologic Neurologic: CNII-XII intact, moves all extremities Results - Labs CBC & Chem 7: 02/15/17 07:34 02/15/17 07:34 Labs: Laboratory Last Values WBC 14.5 K/mm3 (4.5-11.0) H 02/15/17 07:34 RBC 3.69 M/mm3 (3.65-5.03) 02/15/17 07:34 Hgb 10.2 gm/dl (10.1-14.3) 02/15/17 07:34 Hct 30.9 % (30.3-42.9) 02/15/17 07:34 MCV 84 fl (79-97) 02/15/17 07:34 MCH 28 pg (28-32) 02/15/17 07:34 MCHC 33 % (30-34) 02/15/17 07:34 RDW 15.9 % (13.2-15.2) H 02/15/17 07:34 Plt Count 378 K/mm3 (140-440) 02/15/17 07:34 Lymph % (Auto) 20.3 % (13.4-35.0) 02/15/17 07:34 [place] % (Auto) 4.9 % (0.0-7.3) 02/15/17 07:34 Eos % (Auto) 7.1 % (0.0-4.3) H 02/15/17 07:34 Baso % (Auto) 0.3 % (0.0-1.8) 02/15/17 07:34 Lymph # 2.9 K/mm3 (1.2-5.4) 02/15/17 07:34 [place] # 0.7 K/mm3 (0.0-0.8) 02/15/17 07:34 Eos # 1.0 K/mm3 (0.0-0.4) H 02/15/17 07:34 Baso # 0.0 K/mm3 (0.0-0.1) 02/15/17 07:34 Seg Neutrophils % 67.4 % (40.0-70.0) 02/15/17 07:34 Seg Neutrophils # 9.8 K/mm3 (1.8-7.7) H 02/15/17 07:34 PT 18.6 Sec. (12.2-14.9) H 02/15/17 07:34 INR 1.47 (0.87-1.13) H 02/15/17 07:34 APTT 35.0 Sec. (24.2-36.6) 02/15/17 07:34 D-Dimer 544.14 ng/mlDDU (0-234) H 02/07/17 23:40 POC ABG pH 7.313 (7.35-7.45) L 02/08/17 02:49 POC ABG pCO2 30.7 (35-45) L 02/08/17 02:49 POC ABG pO2 301 (80-105) H 02/08/17 02:49 POC ABG HCO3 15.6 02/08/17 02:49 POC ABG Total CO2 16 02/08/17 02:49 POC ABG O2 Sat 100 02/08/17 02:49 POC ABG Base Excess -11 02/08/17 02:49 FiO2 100 % 02/08/17 02:49 Sodium 154 mmol/L (137-145) H 02/15/17 07:34 Potassium 4.0 mmol/L (3.6-5.0) 02/15/17 07:34 Chloride 118.4 mmol/L (98-107) H 02/15/17 07:34 Carbon Dioxide 21 mmol/L (22-30) L 02/15/17 07:34 Anion Gap 19 mmol/L 02/15/17 07:34 BUN 44 mg/dL (7-17) H 02/15/17 07:34 Creatinine 1.1 mg/dL (0.7-1.2) 02/15/17 07:34 Estimated GFR 49 ml/min 02/15/17 07:34 BUN/Creatinine Ratio 40 % 02/15/17 07:34 Glucose 153 mg/dL (65-100) H 02/15/17 07:34 POC Glucose 159 (70-105) H 02/15/17 07:31 Lactic Acid 6.30 mmol/L (0.7-2.0) H* 02/08/17 03:35 Calcium 8.5 mg/dL (8.4-10.2) 02/15/17 07:34 Phosphorus 5.60 mg/dL (2.5-4.5) H 02/14/17 07:07 Magnesium 2.00 mg/dL (1.7-2.3) 02/14/17 07:07 Total Bilirubin 0.30 mg/dL (0.1-1.2) 02/10/17 08:04 AST 30 units/L (5-40) 02/10/17 08:04 ALT 13 units/L (7-56) 02/10/17 08:04 Alkaline Phosphatase 121 units/L (35-129) 02/10/17 08:04 Total Creatine Kinase 18 units/L (30-135) L 02/08/17 08:55 CK-MB (CK-2) 1.2 ng/mL (0.0-4.0) 02/07/17 23:40 CK-MB (CK-2) Rel Index 6.0 (0-4) H 02/07/17 23:40 Troponin T < 0.010 ng/mL (0.00-0.029) 02/09/17 17:24 C-Reactive Protein 11.30 mg/dL (0.00-1.30) H 02/08/17 03:35 NT-Pro-B Natriuret Pep 3333 pg/mL (0-900) H 02/08/17 03:35 Total Protein 6.1 g/dL (6.3-8.2) L 02/10/17 08:04 Albumin 2.5 g/dL (3.9-5) L 02/10/17 08:04 Albumin/Globulin Ratio 0.7 % 02/10/17 08:04 Triglycerides 156 mg/dL (2-149) H 02/07/17 23:40 Cholesterol 100 mg/dL (50-199) 02/07/17 23:40 LDL Cholesterol Direct 43 mg/dL (50-130) L 02/07/17 23:40 HDL Cholesterol 26 mg/dL (40-59) L 02/07/17 23:40 Cholesterol/HDL Ratio 3.84 % 02/07/17 23:40 Urine Color Vero (Yellow) 02/07/17 23:00 Urine Turbidity Cloudy (Clear) 02/07/17 23:00 Urine pH 6.0 (5.0-7.0) 02/07/17 23:00 Ur Specific [place] 1.016 (1.003-1.030) 02/07/17 23:00 Urine Protein 100 mg/dl mg/dL (Negative) 02/07/17 23:00 Urine Glucose (UA) 150 mg/dL (Negative) 02/07/17 23:00 Urine Ketones Neg mg/dL (Negative) 02/07/17 23:00 Urine Blood Mod (Negative) 02/07/17 23:00 Urine Nitrite Neg (Negative) 02/07/17 23:00 Urine Bilirubin Neg (Negative) 02/07/17 23:00 Urine Urobilinogen < 2.0 mg/dL (<2.0) 02/07/17 23:00 Ur Leukocyte Esterase Lg (Negative) 02/07/17 23:00 Urine WBC (Auto) > 182.0 /HPF (0.0-6.0) H 02/07/17 23:00 Urine RBC (Auto) 24.0 /HPF (0.0-6.0) 02/07/17 23:00 U Epithel Cells (Auto) 2.0 /HPF (0-13.0) 02/07/17 23:00 Urine Bacteria (Auto) 4+ /HPF (Negative) 02/07/17 23:00 Urine WBC Clumps 3+ /HPF 02/07/17 23:00 Urine Mucus Few /HPF 02/07/17 23:00
--- NOTE | 2017-02-15 14:08 | Progress Note ---
Subjective - Reason for Consult Consult date: 02/15/17 Reason for consult: Psychiatry Follow-up - Chief Complaint Chief complaint: "Patient is nonverbal" 71-year-old woman with a history of hypertension, diabetes, hyperlipidemia, CVA , dementia, depression was sent from the alf to the emergency room for evaluation and shortness of breath, the patient was in respiratory distress, started on BiPAP, found to have septic shock. Today patient is calm during the assessment. Patient grunts when she tries to communicate. Patient would track me when I walked around her bed. Per the staff, no behavioral disturbance overnight. Mental Status Exam - Vital signs Last Vital Signs Temp 99.1 F 02/15/17 07:24 Pulse 92 H 02/15/17 07:24 Resp 20 02/15/17 07:24 BP 158/76 02/15/17 07:24 Pulse Ox 94 02/15/17 10:12 - Exam Narrative exam: Unable to complete MSE because of patient's medical condition. Assessment and Plan Impression: Dementia. No oculogyric crisis noted. Today patient is calm during the assessment. Patient grunts when she tries to communicate. Medical Dx: Metabolic Encephalopathy Recommendation/Plan: Continue Haldol 2 mg PO BID for agitation, Cog[place] 0.5 mg PO BID for EPS prevention, and Remeron 15 PO HS for sleep consolidation. Despite risks associated with anticholinergic agents, it is recommended to continue the Cogentin to prevent EPS. Delirium precautions below: 1. Frequently reorient patient and involve him/her in their care (simple explanations of procedures, tests, medications). 2. Lights on and shades open during daytime hours. 3. Try to avoid unnecessary interruptions to sleep during nighttime hours. 4. Obtain glasses, hearing aids from home if patient uses these at baseline. 5. Avoid medications that may exacerbate delirium (especially narcotics, barbiturates, ambien, lunesta, benzos, and medications with excessive anticholinergic properties).
[2017-02-15] MEDS ORDERED: ANCEF/STERILE WATER 2 GM/20 ML 2 GM/20 ML SYRINGE IV NR (15:00)
[2017-02-15] MEDS ORDERED: NACL 0.9% 1000 ML 1,000 ML IV SCH (15:00)
--- NOTE | 2017-02-15 15:29 | Anesthesia Consultation ---
Anesthesia Consult and Med Hx Date of service: 02/15/17 - Pulmonary Exam CTA: Yes - Cardiac Exam Cardiac Exam: RRR Anesthetic Concerns: Sodium 154 - Pre-Operative Health Status ASA Pre-Surgery Classification: ASA3 Proposed Anesthetic Plan: MAC - Pulmonary Hx Smoking: (denies) Hx Asthma: No COPD: Yes Hx Pneumonia: Yes (x3) - Cardiovascular System Hx Hypertension: Yes (EJ 60% on Echo (07/03)) - Central Nervous System CVA: Yes (nonverbal) Hx Psychiatric Problems: No (dementia) - Gastrointestinal Hx Gastroesophageal Reflux Disease: No (neurogenic dysphagia) - Endocrine Hx Non-Insulin Dependent Diabetes: Yes
--- NOTE | 2017-02-15 15:31 | Anesthesia Day of Surgery ---
Anesthesia Day of Surgery - Day of Surgery Patient Examined: Yes Patient H&P Reviewed: Yes Patient is NPO: Yes
[2017-02-15] MEDS ORDERED: DIPRIVAN 10 MG/ML IV ONE (15:36)
[2017-02-15] MEDS ORDERED: SUBLIMAZE ONE (15:36)
[2017-02-15] MEDS ORDERED: VERSED ONE (15:36)
--- NOTE | 2017-02-15 16:00 | Post Anesthesia Evaluation ---
- Post Anesthesia Evaluation Patient Participated: Yes Airway Patent: Yes Stable Respiratory Function: Yes Nausea/Vomiting: No Temp > 96.8F: Yes Pain Manageable: Yes Adequeate Hydration: Yes Anesthesia Complications: No Block Receding Appropriately: Not Applicable Patient on Ventilator: No
--- NOTE | 2017-02-15 16:03 | Post Operative Note ---
Pre-op diagnosis: Neurogenic Dysphagia Post-op diagnosis: other (Same, S/P PEG) Findings: 1. Normal stomach (Dobhoff present, removed) 2. 20Fr pull-type PEG tube placed 1cm below L mid clav line - External bumper at 4cm Procedure: EGD with PEG Anesthesia: MAC Surgeon: JAMES CHAN Estimated blood loss: minimal Pathology: none Specimen disposition: other (N/A) Condition: stable Disposition: floor (Recs: 1. May resume tube feeds and flush in 4 hours. 2. May resume ASA next year. 3. DVT PPY OK today. 4. OK to d/c when clinically stable.)
[2017-02-15] MEDS: Centrum Liq PO SCH (17:39)
[2017-02-15] MEDS: NORVASC FEEDTUBE SCH (17:39)
[2017-02-15] MEDS: HALDOL PO SCH ×2 (17:39→23:05)
[2017-02-15] MEDS: COGENTIN PO SCH ×2 (17:39→23:05)
[2017-02-15] MEDS: PROTONIX PO SCH (17:39)
[2017-02-15] MEDS: ROCEPHIN/NS 1 GM/50 ML 1 GM/50 ML BAG IV SCH (17:39)
[2017-02-15] MEDS: POTASSIUM CHLORIDE FEEDTUBE SCH (17:39)
--- NOTE | 2017-02-15 19:43 | Operative Report ---
PROCEDURE PERFORMED: Esophagogastroduodenoscopy with percutaneous gastrostomy tube placement. PREOPERATIVE DIAGNOSIS: Neurogenic dysphagia. POSTOPERATIVE DIAGNOSIS: Neurogenic dysphagia, status post gastrostomy tube placement. ENDOSCOPIST: Carlos De La Cruz MD. INSTRUMENT: Revistronic video endoscope. MEDICATIONS: MAC anesthesia by [facility]hesia Services as well as Ancef 2 grams preoperatively. SPECIMENS: None. COMPLICATIONS: None. ESTIMATED BLOOD LOSS: Minimal. IMPLANTS: 20-Hebrew pull type gastrostomy tube. ASSISTANTS: None. CONDITION AT COMPLETION: Stable. TECHNIQUE: The patient's son was informed of the risks and benefits of the procedure. Due to the patient's chronic mental status, consent was obtained from the patient's son. After consent was obtained, the patient was placed in the supine position. The above sedative medications were given as well as her Ancef intravenously. The vital signs remained stable throughout the procedure. The instrument was advanced from the mouth to the second portion of the duodenum under direct visualization. At that point, the bowel was insufflated and the endoscope was slowly withdrawn. Into the stomach, there was a good red light reflex and indentation in an area, 1 cm below the left mid clavicular line. This area was sterilely draped and prepped. A 20-Hebrew pull type gastrostomy tube was placed in the usual fashion over a guidewire and placement of gastrostomy tube was then confirmed by the endoscope. The procedure was then terminated. FINDINGS: 1. Normal appearing stomach, with a Dobhoff tube present in the antrum of the stomach at the start of the procedure (Dobbhoff tube removed). 2. A 20-Hebrew pull type gastrostomy tube placed 1 cm below the left midclavicular line . The external bumper was fixed at 4 cm. RECOMMENDATIONS: 1. Okay to use the gastrostomy tube in 4 hours. 2. Begin aspirin or other anticoagulation tomorrow. 3. Okay to resume DVT prophylaxis today. JOB# [id number] KATI/NTS
[2017-02-15] MEDS: ZOCOR PO SCH (23:00)
[2017-02-15] MEDS: REMERON PO SCH (23:05)
[2017-02-16 05:22] LABS: Basophils % (Auto) 0.2 % (0.0-1.8); Eosinophils % (Auto) 2.9 % (0.0-4.3); Hematocrit 31.7 % (30.3-42.9); Hemoglobin 10.5 gm/dl (10.1-14.3); Mean Corpuscular HGB Conc 33 % (30-34); Mean Corpuscular Hemoglobin 28 pg (28-32); Mean Corpuscular Volume 84 fl (79-97); Platelet Count 373 K/mm3 (140-440); Red Blood Count 3.77 M/mm3 (3.65-5.03); Red Cell Distribution Width 16.3 % (13.2-15.2); White Blood Count 18.2 K/mm3 (4.5-11.0)
[2017-02-16 05:41] LABS: Calcium 8.7 mg/dL (8.4-10.2)
[2017-02-16 05:42] LABS: Chloride 121.9 mmol/L (98-107); Potassium 3.8 mmol/L (3.6-5.0)
--- NOTE | 2017-02-16 06:48 | Progress Note ---
Assessment and Plan 1. Acute kidney injury: Hemodynamically mediated JOSE ANGEL in the setting of hypotension and volume depletion. Renal function is better. Monitor renal function. 2. Septic shock: Improved. 3. Hypokalemia: K level is better. 4. Anion gap metabolic acidosis: Improved. 5. Hypernatremia: Stop IV NS. Resume IV D5W. Increase water flushes to 200 ml Q4hrs. 6. Anemia: Multifactorial. Subjective Date of service: 02/16/17 Interval history: Patient was seen and examined at the bedside. Objective - Vital Signs Vital signs: Vital Signs - 12hr 02/15/17 02/15/17 02/15/17 20:49 21:02 22:00 Temperature 98.1 F Pulse Rate 98 H 92 H Pulse Rate [ 98 H Apical] Respiratory 18 Rate Blood Pressure 178/85 O2 Sat by Pulse 94 96 96 Oximetry 02/15/17 02/15/17 02/16/17 23:08 23:51 05:35 Temperature 99.0 F 98.6 F Pulse Rate 86 91 H 89 Pulse Rate [ Apical] Respiratory 20 20 Rate Blood Pressure 151/76 151/76 158/73 O2 Sat by Pulse 94 96 Oximetry - General Appearance General appearance: well-developed, appears stated age EENT: ATNC, PERRL Neck: supple Respiratory: Present: Clear to Ascultation Cardiology: regular, S1S2, no murmurs Gastrointestinal: normoactive bowel sounds, no tenderness, no distended Integumentary: no rash, warm and dry Neurologic: other (opens eyes, non-verbal, not following any command) Musculoskeletal: other (no edema) - Lab 02/16/17 04:28 02/16/17 04:28 Most recent lab results Calcium 8.7 mg/dL (8.4-10.2) 02/16/17 04:28 Phosphorus 5.60 mg/dL (2.5-4.5) H 02/14/17 07:07 Magnesium 2.00 mg/dL (1.7-2.3) 02/14/17 07:07
[2017-02-16] MEDS: APRESOLINE PO SCH ×3 (07:00→22:55)
[2017-02-16] MEDS: D5W 1,000 ML IV SCH ×2 (08:56→19:08)
[2017-02-16] MEDS: NOVOLOG SUB-Q SCH ×4 (09:09→23:05)
--- NOTE | 2017-02-16 09:33 | Discharge Summary ---
Providers - Providers Date of Admission: 02/08/17 02:28 Date of discharge: 02/17/17 Attending physician: THAD DUDLEY 02/08/17 14:06 Consult to Wound/ET Nurse [CONS] Routine Reason For Exam: wound eval 02/08/17 23:06 Consult to Physician [CONS] Routine Consulting Provider: ABRAHAM LOPEZ Reason For Exam: hypernatermia, JOSE ANGEL Place consult to:: Dr. Lopez Notified:: Berny RN Was contact made?: Yes If yes, spoke with:: Dr. Lopez Time called:: 08:17 02/10/17 14:17 Speech Therapy Evaluation and Treat [CONS] Routine Reason For Exam: swallow eval 02/11/17 13:50 Consult to Case Management [CONS] Routine Services Needed at Discharge: Other Notified:: Olivia Was contact made?: Yes If yes, spoke with:: Olivia Time called:: 13:51 Comment:: Home Hospice Additional Physician Instructions: Hospice: Home Hospice[facility] 02/12/17 17:31 Consult to Mental Health [CONS] Routine Reason For Exam: behavioral disturbance Place consult to:: Mental Health Notified:: Madeline RN Phone number called:: [phone] Was contact made?: Yes If yes, spoke with:: [facility] Time called:: 08:43 02/13/17 17:43 Consult to Dietitian/Nutrition [CONS] Routine Physician Instructions: Reason For Exam: Reason for Consult: Write/Manage Tube Feeding 02/13/17 17:44 Consult to Physician [CONS] Routine Consulting Provider: JAMES CHAN Reason For Exam: peg tube Place consult to:: Dr. Chan Notified:: Renetta RN Phone number called:: Was contact made?: Yes If yes, spoke with:: Karie service Time called:: 08:56 Primary care physician: CARPENTER MATE Hospitalization Reason for admission: sob Condition: Stable Hospital course: 71-year-old woman with a history of hypertension, diabetes, hyperlipidemia, CVA , dementia, depression was sent from the senior living to the emergency room for evaluation and shortness of breath, the patient was in respiratory distress, started on BiPAP and admitted with dx of septic shock secondary to pseudomonas UTI. Pt. was started on IV pressors for hypotension. On admission, her creatinine was 5.7 with potassium of 5.5. About 6 months ago her creatinine was 0.5. Patient received Kayexalate for hyperkalemia. The patient also received IV antibiotics. Patient was also noted to have acute metabolic encephalopathy with CT brain normal. Pt. also had hypernatremia treated with D5W. While here, her poor chronic baseline mental status was noted to worsen, and she has completely failed a swallowing eval. She had a brain CT and MRI, and was noted to acute on chronic changes that were extensive and severe. The son verbally consented for PEG placement performed by GI. RONQUILLO to resume next year. Disposition: [id number]/TX-06 HOME UNDER HOME [facility] Core Measure Documentation - Palliative Care Palliative Care/ Comfort Measures: Not Applicable - Core Measures Any of the following diagnoses?: none Exam - Constitutional Vitals: Temp Pulse Resp BP Pulse Ox 98.6 F 89 20 158/73 96 02/16/17 05:35 02/16/17 07:00 02/16/17 05:35 02/16/17 07:00 02/16/17 05:35 Plan Follow up with: PRIMARY CARE, [Primary Care Provider] - 3-5 Days Prescriptions: Apixaban [Eliquis] 5 tab PO BID #60 tablet Aspirin EC [Aspirin Enteric Coated TAB] 81 mg PO QDAY #30 tablet. Haloperidol [Haldol] 2 mg PO BID #60 tablet LORazepam [Ativan] 0.5 mg PO Q6H PRN #20 tablet PRN Reason: Agitation Mirtazapine [Remeron] 15 mg PO QHS #30 tablet Multivit-Min/Iron Fum/Folic AC [Pdkmm-Gljojvr-Ovdrbhkq Tablet] 1 each PO DAILY # 30 tablet Pantoprazole [Protonix TAB] 40 mg PO DAILY #30 tablet Simvastatin [Zocor TAB] 40 mg PO QHS #30 tablet
--- NOTE | 2017-02-16 10:22 | Progress Note ---
Subjective - Reason for Consult Consult date: 02/16/17 Reason for consult: Psychiatry Follow-up - Chief Complaint Chief complaint: "Patient is nonverbal" 71-year-old woman with a history of hypertension, diabetes, hyperlipidemia, CVA , dementia, depression was sent from the shelter to the emergency room for evaluation and shortness of breath, the patient was in respiratory distress, started on BiPAP, found to have septic shock. Today patient is calm during the assessment. Per the staff, no behavioral disturbance overnight. No gestures of SI/HI's. No indication of side effects of medications. Mental Status Exam - Vital signs Last Vital Signs Temp 98.6 F 02/16/17 05:35 Pulse 89 02/16/17 09:31 Resp 20 02/16/17 05:35 BP 158/73 02/16/17 07:00 Pulse Ox 96 02/16/17 05:35 - Exam Narrative exam: Unable to complete MSE because of patient's medical condition. Assessment and Plan Impression: Dementia. No oculogyric crisis noted. Today patient is calm during the assessment. Per the staff, no behavioral disturbance overnight. PEG placement yesterday. NA 160. Medical Dx: Metabolic Encephalopathy Recommendation/Plan: Continue Haldol 2 mg PO BID for agitation and follow-up with outpatient psy services (her provider) within 7 days to determine the need for the medication. Haldol was a home medication. Continue Cogentin 0.5 mg PO BID for EPS prevention, and Remeron 15 PO HS for sleep consolidation. Despite risks associated with anticholinergic agents, it is recommended to continue the Cogentin to prevent EPS. Psychiatry will signoff, reconsult when indicated. Delirium precautions below: 1. Frequently reorient patient and involve him/her in their care (simple explanations of procedures, tests, medications). 2. Lights on and shades open during daytime hours. 3. Try to avoid unnecessary interruptions to sleep during nighttime hours. 4. Obtain glasses, hearing aids from home if patient uses these at baseline. 5. Avoid medications that may exacerbate delirium (especially narcotics, barbiturates, ambien, lunesta, benzos, and medications with excessive anticholinergic properties).
--- NOTE | 2017-02-16 10:39 | Gastroenterology Progress Note ---
Assessment and Plan 1.PEG placement -pt s/p EGD with PEG tube placement yesterday -PEG site w/o redness, swelling, odor, drainage, or bleeding -bumper off loaded to prevent skin breakdown- may use split gauze dressing PRN -tolerating tube feeding -no further GI recommendations -will sign off Subjective Date of service: 02/16/17 Principal diagnosis: PEG placement Interval history: Pt resting in bed. No acute distress. PEG site w/o signs of infection. Tolerating tube feedings. Objective - Constitutional Vitals: Temp Pulse Resp BP Pulse Ox 98.6 F 89 20 158/73 96 02/16/17 05:35 02/16/17 09:31 02/16/17 05:35 02/16/17 07:00 02/16/17 09:31 General appearance: no acute distress, other (nonverbal) - Respiratory Respiratory: bilateral: diminished - Cardiovascular Rhythm: regular Heart Sounds: Present: S1 & S2 - Gastrointestinal General gastrointestinal: Present: soft, non-distended, normal bowel sounds, other (PEG intact and patent) - Integumentary Integumentary: Present: warm, dry - Labs CBC & Chem 7: 02/16/17 04:28 02/16/17 04:28 Labs: Laboratory Results - last 24 hr 02/15/17 02/15/17 02/16/17 13:23 22:16 04:28 WBC RBC Hgb Hct MCV MCH MCHC RDW Plt Count Lymph % (Auto) [place] % (Auto) Eos % (Auto) Baso % (Auto) Lymph # [place] # Eos # Baso # Seg Neutrophils % Seg Neutrophils # Sodium 160 H Potassium 3.8 Chloride 121.9 H Carbon Dioxide 23 Anion Gap 19 BUN 38 H Creatinine 1.1 Estimated GFR 49 BUN/Creatinine Ratio 35 Glucose 140 H POC Glucose 116 H 119 H Calcium 8.7 02/16/17 02/16/17 02/16/17 04:28 06:18 07:47 WBC 18.2 H RBC 3.77 Hgb 10.5 Hct 31.7 MCV 84 MCH 28 MCHC 33 RDW 16.3 H Plt Count 373 Lymph % (Auto) 19.1 [place] % (Auto) 5.7 Eos % (Auto) 2.9 Baso % (Auto) 0.2 Lymph # 3.5 [place] # 1.0 H Eos # 0.5 H Baso # 0.0 Seg Neutrophils % 72.1 H Seg Neutrophils # 13.1 H Sodium Potassium Chloride Carbon Dioxide Anion Gap BUN Creatinine Estimated GFR BUN/Creatinine Ratio Glucose POC Glucose 165 H 204 H Calcium
--- NOTE | 2017-02-16 11:56 | Progress Note ---
Assessment and Plan Assessment and plan: Dysphagia - failed MBS - discussed with son , he would like PEG tube placed prior to dc, GI consulted, likely to be done today Metabolic encephalopathy has advanced dementia, and likely more confused due to dehydration Severe malnutrition -for PEG tube Septic shock * off pressors, doing well continue abx Acute Kidney injury secondary to vasomotor nephropathy and ATN * Continue IV hydration, Nephrology following. * improving, dc GRABIEL inhibitor Dehydration/Free water deficit continue IVF and free water via NGT Acute Respiratory failure * due to sepsis, now improved Severe Sepsis secondary to UTI urine cx growing matson sensitive Pseudomonas, continue abx till 02/15 Hypernatremia - * continue to replace free water deficit * increase free water through PEG Hypokalemia/ Hypophosphatemia/Hypomagnesemia continue to replete as needed HTN- with urgency * optimize meds Type 2 MS secondary to septic Shock * No further workup Diabetes type 2 * Continue insulin SS, Accuchecks, Hyperlipidemia * continue statin. Dementia * continue supportive care * planned for DC home with home hospice Facial Hyperemia -due to flushing, comes and goes, asymptomatic, NTD History of CVA supportive care Advanced dementia home with hospice after PEG NOk is her son Work [phone] History Interval history: no issues overnight. Hospitalist Physical - Constitutional Vitals: Temp Pulse Resp BP Pulse Ox 98.6 F 89 20 158/73 96 02/16/17 05:35 02/16/17 09:31 02/16/17 05:35 02/16/17 07:00 02/16/17 09:31 General appearance: Present: no acute distress, well-nourished - EENT Eyes: Present: PERRL, EOM intact ENT: hearing intact, clear oral mucosa, dentition normal - Neck Neck: Present: supple, normal ROM - Respiratory Respiratory effort: normal Respiratory: bilateral: CTA - Cardiovascular Rhythm: regular Heart Sounds: Present: S1 & S2. Absent: gallop, rub - Extremities Extremities: no ischemia, No edema, Full ROM - Abdominal General gastrointestinal: soft, non-tender, non-distended, normal bowel sounds - Integumentary Integumentary: Present: clear, warm, dry - Neurologic Neurologic: CNII-XII intact, moves all extremities Results - Labs CBC & Chem 7: 02/16/17 04:28 02/16/17 04:28 Labs: Laboratory Last Values WBC 18.2 K/mm3 (4.5-11.0) H 02/16/17 04:28 RBC 3.77 M/mm3 (3.65-5.03) 02/16/17 04:28 Hgb 10.5 gm/dl (10.1-14.3) 02/16/17 04:28 Hct 31.7 % (30.3-42.9) 02/16/17 04:28 MCV 84 fl (79-97) 02/16/17 04:28 MCH 28 pg (28-32) 02/16/17 04:28 MCHC 33 % (30-34) 02/16/17 04:28 RDW 16.3 % (13.2-15.2) H 02/16/17 04:28 Plt Count 373 K/mm3 (140-440) 02/16/17 04:28 Lymph % (Auto) 19.1 % (13.4-35.0) 02/16/17 04:28 [place] % (Auto) 5.7 % (0.0-7.3) 02/16/17 04:28 Eos % (Auto) 2.9 % (0.0-4.3) 02/16/17 04:28 Baso % (Auto) 0.2 % (0.0-1.8) 02/16/17 04:28 Lymph # 3.5 K/mm3 (1.2-5.4) 02/16/17 04:28 [place] # 1.0 K/mm3 (0.0-0.8) H 02/16/17 04:28 Eos # 0.5 K/mm3 (0.0-0.4) H 02/16/17 04:28 Baso # 0.0 K/mm3 (0.0-0.1) 02/16/17 04:28 Seg Neutrophils % 72.1 % (40.0-70.0) H 02/16/17 04:28 Seg Neutrophils # 13.1 K/mm3 (1.8-7.7) H 02/16/17 04:28 PT 18.6 Sec. (12.2-14.9) H 02/15/17 07:34 INR 1.47 (0.87-1.13) H 02/15/17 07:34 APTT 35.0 Sec. (24.2-36.6) 02/15/17 07:34 D-Dimer 544.14 ng/mlDDU (0-234) H 02/07/17 23:40 POC ABG pH 7.313 (7.35-7.45) L 02/08/17 02:49 POC ABG pCO2 30.7 (35-45) L 02/08/17 02:49 POC ABG pO2 301 (80-105) H 02/08/17 02:49 POC ABG HCO3 15.6 02/08/17 02:49 POC ABG Total CO2 16 02/08/17 02:49 POC ABG O2 Sat 100 02/08/17 02:49 POC ABG Base Excess -11 02/08/17 02:49 FiO2 100 % 02/08/17 02:49 Sodium 160 mmol/L (137-145) H 02/16/17 04:28 Potassium 3.8 mmol/L (3.6-5.0) 02/16/17 04:28 Chloride 121.9 mmol/L (98-107) H 02/16/17 04:28 Carbon Dioxide 23 mmol/L (22-30) 02/16/17 04:28 Anion Gap 19 mmol/L 02/16/17 04:28 BUN 38 mg/dL (7-17) H 02/16/17 04:28 Creatinine 1.1 mg/dL (0.7-1.2) 02/16/17 04:28 Estimated GFR 49 ml/min 02/16/17 04:28 BUN/Creatinine Ratio 35 % 02/16/17 04:28 Glucose 140 mg/dL (65-100) H 02/16/17 04:28 POC Glucose 204 (70-105) H 02/16/17 07:47 Lactic Acid 6.30 mmol/L (0.7-2.0) H* 02/08/17 03:35 Calcium 8.7 mg/dL (8.4-10.2) 02/16/17 04:28 Phosphorus 5.60 mg/dL (2.5-4.5) H 02/14/17 07:07 Magnesium 2.00 mg/dL (1.7-2.3) 02/14/17 07:07 Total Bilirubin 0.30 mg/dL (0.1-1.2) 02/10/17 08:04 AST 30 units/L (5-40) 02/10/17 08:04 ALT 13 units/L (7-56) 02/10/17 08:04 Alkaline Phosphatase 121 units/L (35-129) 02/10/17 08:04 Total Creatine Kinase 18 units/L (30-135) L 02/08/17 08:55 CK-MB (CK-2) 1.2 ng/mL (0.0-4.0) 02/07/17 23:40 CK-MB (CK-2) Rel Index 6.0 (0-4) H 02/07/17 23:40 Troponin T < 0.010 ng/mL (0.00-0.029) 02/09/17 17:24 C-Reactive Protein 11.30 mg/dL (0.00-1.30) H 02/08/17 03:35 NT-Pro-B Natriuret Pep 3333 pg/mL (0-900) H 02/08/17 03:35 Total Protein 6.1 g/dL (6.3-8.2) L 02/10/17 08:04 Albumin 2.5 g/dL (3.9-5) L 02/10/17 08:04 Albumin/Globulin Ratio 0.7 % 02/10/17 08:04 Triglycerides 156 mg/dL (2-149) H 02/07/17 23:40 Cholesterol 100 mg/dL (50-199) 02/07/17 23:40 LDL Cholesterol Direct 43 mg/dL (50-130) L 02/07/17 23:40 HDL Cholesterol 26 mg/dL (40-59) L 02/07/17 23:40 Cholesterol/HDL Ratio 3.84 % 02/07/17 23:40 Urine Color Vero (Yellow) 02/07/17 23:00 Urine Turbidity Cloudy (Clear) 02/07/17 23:00 Urine pH 6.0 (5.0-7.0) 02/07/17 23:00 Ur Specific [place] 1.016 (1.003-1.030) 02/07/17 23:00 Urine Protein 100 mg/dl mg/dL (Negative) 02/07/17 23:00 Urine Glucose (UA) 150 mg/dL (Negative) 02/07/17 23:00 Urine Ketones Neg mg/dL (Negative) 02/07/17 23:00 Urine Blood Mod (Negative) 02/07/17 23:00 Urine Nitrite Neg (Negative) 02/07/17 23:00 Urine Bilirubin Neg (Negative) 02/07/17 23:00 Urine Urobilinogen < 2.0 mg/dL (<2.0) 02/07/17 23:00 Ur Leukocyte Esterase Lg (Negative) 02/07/17 23:00 Urine WBC (Auto) > 182.0 /HPF (0.0-6.0) H 02/07/17 23:00 Urine RBC (Auto) 24.0 /HPF (0.0-6.0) 02/07/17 23:00 U Epithel Cells (Auto) 2.0 /HPF (0-13.0) 02/07/17 23:00 Urine Bacteria (Auto) 4+ /HPF (Negative) 02/07/17 23:00 Urine WBC Clumps 3+ /HPF 02/07/17 23:00 Urine Mucus Few /HPF 02/07/17 23:00
[2017-02-16] MEDS: BABY ASPIRIN PO SCH (12:11)
[2017-02-16] MEDS: HALDOL PO SCH ×2 (12:11→23:00)
[2017-02-16] MEDS: Centrum Liq PO SCH (12:11)
[2017-02-16] MEDS: COGENTIN PO SCH ×2 (12:12→23:00)
[2017-02-16] MEDS: NORVASC FEEDTUBE SCH (12:12)
[2017-02-16] MEDS: PROTONIX PO SCH (12:12)
[2017-02-16] MEDS: POTASSIUM CHLORIDE FEEDTUBE SCH (12:12)
[2017-02-16] MEDS: ROCEPHIN/NS 1 GM/50 ML 1 GM/50 ML BAG IV SCH (12:13)
[2017-02-16] MEDS: REMERON PO SCH (23:00)
[2017-02-16] MEDS: ZOCOR PO SCH (23:00)
[2017-02-17 04:34] VITALS: BP 131/63
[2017-02-17 06:05] LABS: Hematocrit 30.7 % (30.3-42.9); Hemoglobin 9.5 gm/dl (10.1-14.3); Mean Corpuscular HGB Conc 31 % (30-34); Mean Corpuscular Hemoglobin 26 pg (28-32); Mean Corpuscular Volume 84 fl (79-97); Platelet Count 319 K/mm3 (140-440); Red Blood Count 3.65 M/mm3 (3.65-5.03); Red Cell Distribution Width 16.1 % (13.2-15.2)
[2017-02-17 06:10] LABS: White Blood Count 24.1 K/mm3 (4.5-11.0)
[2017-02-17 06:29] LABS: Calcium 7.7 mg/dL (8.4-10.2); Chloride 107.7 mmol/L (98-107); Magnesium 1.5 mg/dL (1.7-2.3); Phosphorous 1.9 mg/dL (2.5-4.5); Potassium 4.1 mmol/L (3.6-5.0)
[2017-02-17] MEDS: APRESOLINE PO SCH ×2 (06:55→16:15)
[2017-02-17 07:10] LABS: Basophils % (Manual) 0 % (0.0-1.8); Blastocytes % (Manual) 0 %
[2017-02-17 07:11] LABS: Diff Status Complete; Platelet Estimate Consistent w Auto
[2017-02-17] MEDS: D5W 1,000 ML IV SCH (07:28)
[2017-02-17] MEDS: NOVOLOG SUB-Q SCH ×2 (08:43→11:44)
--- NOTE | 2017-02-17 09:07 | Progress Note ---
Assessment and Plan Dysphagia - failed MBS - discussed with son , he would like PEG tube placed prior to dc, GI consulted, likely to be done today Metabolic encephalopathy has advanced dementia, and likely more confused due to dehydration Severe malnutrition -for PEG tube Septic shock * off pressors, doing well continue abx Acute Kidney injury secondary to vasomotor nephropathy and ATN * Continue IV hydration, Nephrology following. * improving, dc GRABIEL inhibitor Dehydration/Free water deficit continue IVF and free water via NGT Acute Respiratory failure * due to sepsis, now improved Severe Sepsis secondary to UTI urine cx growing matson sensitive Pseudomonas, continue abx till 02/15 Hypernatremia - * continue to replace free water deficit * increase free water through PEG Hypokalemia/ Hypophosphatemia/Hypomagnesemia continue to replete as needed HTN- with urgency * optimize meds Type 2 PA secondary to septic Shock * No further workup Diabetes type 2 * Continue insulin SS, Accuchecks, Hyperlipidemia * continue statin. Dementia * continue supportive care * planned for DC home with home hospice Facial Hyperemia -due to flushing, comes and goes, asymptomatic, NTD History of CVA supportive care Advanced dementia home with hospice after PEG NOk is her son Work [phone] Subjective Date of service: 02/16/17 Principal diagnosis: PEG placement Interval history: no issues overnight. Objective - Constitutional Vitals: Vital Signs - 12hr 02/16/17 02/16/17 02/16/17 22:00 22:55 23:55 Temperature 100.7 F H Pulse Rate 88 93 H 85 Respiratory 20 Rate Blood Pressure 167/76 129/74 O2 Sat by Pulse 97 Oximetry 02/17/17 04:31 Temperature 98.0 F Pulse Rate 76 Respiratory 20 Rate Blood Pressure 131/63 O2 Sat by Pulse 95 Oximetry General appearance: Present: no acute distress, well-nourished - EENT Eyes: PERRL, EOM intact ENT: hearing intact, clear oral mucosa Ears: bilateral: normal - Neck Neck: supple, normal ROM - Respiratory Respiratory effort: normal Respiratory: bilateral: CTA - Breasts Breasts: normal - Cardiovascular Rhythm: regular Heart Sounds: Present: S1 & S2. Absent: gallop, rub Extremities: pulses intact, No edema, normal color, Full ROM - Gastrointestinal General gastrointestinal: Present: soft, non-tender, non-distended, normal bowel sounds - Genitourinary Female genitourinary: normal - Integumentary Integumentary: clear, warm, dry - Musculoskeletal Musculoskeletal: 1, strength equal bilaterally - Neurologic Neurologic: moves all extremities - Psychiatric Psychiatric: memory intact, appropriate mood/affect, intact judgment & insight - Labs CBC & Chem 7: 02/17/17 04:58 02/17/17 04:58 Labs: Abnormal lab results 02/16/17 02/16/17 02/17/17 Range/Units 17:37 22:46 04:58 WBC (4.5-11.0) K/mm3 Hgb (10.1-14.3) gm/dl MCH (28-32) pg RDW (13.2-15.2) % Seg Neuts % (Manual) (40.0-70.0) % Lymphocytes % (Manual) (13.4-35.0) % Seg Neutrophils # Man (1.8-7.7) K/mm3 Chloride 107.7 H (98-107) mmol/L Carbon Dioxide 19 L (22-30) mmol/L BUN 41 H (7-17) mg/dL Glucose 201 H (65-100) mg/dL POC Glucose 228 H 261 H (70-105) Calcium 7.7 L (8.4-10.2) mg/dL Phosphorus 1.90 L (2.5-4.5) mg/dL Magnesium 1.50 L (1.7-2.3) mg/dL 02/17/17 Range/Units 04:58 WBC 24.1 H (4.5-11.0) K/mm3 Hgb 9.5 L (10.1-14.3) gm/dl MCH 26 L (28-32) pg RDW 16.1 H (13.2-15.2) % Seg Neuts % (Manual) 85.0 H (40.0-70.0) % Lymphocytes % (Manual) 10.0 L (13.4-35.0) % Seg Neutrophils # Man 20.5 H (1.8-7.7) K/mm3 Chloride (98-107) mmol/L Carbon Dioxide (22-30) mmol/L BUN (7-17) mg/dL Glucose (65-100) mg/dL POC Glucose (70-105) Calcium (8.4-10.2) mg/dL Phosphorus (2.5-4.5) mg/dL Magnesium (1.7-2.3) mg/dL
[2017-02-17] MEDS ORDERED: MAGNESIUM SULFATE 2GM/50ML 2 GM/50 ML BAG IV NR (09:30)
[2017-02-17] MEDS ORDERED: KPHOS 30 MMOL in NACL 0.9% 500 ML 500 ML IV ONE (10:00)
--- NOTE | 2017-02-17 10:13 | Progress Note ---
Assessment and Plan 1. Acute kidney injury: Hemodynamically mediated JOSE ANGEL in the setting of hypotension and volume depletion. Renal function is better. Monitor renal function. Replete Phos and Mg. 2. Septic shock: Improved. 3. Hypokalemia: K level is better. 4. Anion gap metabolic acidosis: Improved. 5. Hypernatremia: Sodium level is better. Continue IV D5W and water flushes. 6. Anemia: Multifactorial. Subjective Date of service: 02/17/17 Principal diagnosis: PEG placement Interval history: Patient was seen and examined at the bedside. Objective - Vital Signs Vital signs: Vital Signs - 12hr 02/16/17 02/16/17 02/17/17 22:55 23:55 04:31 Temperature 100.7 F H 98.0 F Pulse Rate 93 H 85 76 Respiratory 20 20 Rate Blood Pressure 167/76 129/74 131/63 O2 Sat by Pulse 97 95 Oximetry 02/17/17 09:37 Temperature Pulse Rate Respiratory Rate Blood Pressure O2 Sat by Pulse 97 Oximetry - General Appearance General appearance: well-developed, appears stated age, other (no distress) EENT: ATNC, PERRL Neck: supple Respiratory: Present: Clear to Ascultation Cardiology: regular, S1S2, no murmurs Gastrointestinal: normoactive bowel sounds, no tenderness Integumentary: no rash Neurologic: other (opens eyes, non-verbal, not following any command) Musculoskeletal: other (no edema) - Lab 02/17/17 04:58 02/17/17 04:58 Most recent lab results Calcium 7.7 mg/dL (8.4-10.2) L 02/17/17 04:58 Phosphorus 1.90 mg/dL (2.5-4.5) L 02/17/17 04:58 Magnesium 1.50 mg/dL (1.7-2.3) L 02/17/17 04:58
[2017-02-17] MEDS: POTASSIUM CHLORIDE FEEDTUBE SCH (11:41)
[2017-02-17] MEDS: ROCEPHIN/NS 1 GM/50 ML 1 GM/50 ML BAG IV SCH (11:41)
[2017-02-17] MEDS: NORVASC FEEDTUBE SCH (11:41)
[2017-02-17] MEDS: BABY ASPIRIN PO SCH (11:41)
[2017-02-17] MEDS: COGENTIN PO SCH (11:42)
[2017-02-17] MEDS: HALDOL PO SCH (11:42)
[2017-02-17] MEDS: PROTONIX PO SCH (11:42)
[2017-02-17] MEDS: Centrum Liq PO SCH (11:42)
[2017-02-17] MEDS ORDERED: PRAVACHOL PO SCH (22:00)
== END 2017-02-17 19:30 | disposition hospice, home (50) | DRG 871 ==
LOC: ED 20:57 → CC1 02-08 02:28 → 4A 02-08 10:10 → UNDODISIN 02-09 21:00
PROVIDERS: ADMIT Internal Medicine; ATTEND Hospitalist
PROC: 0DH63UZ Insertion of Feeding Device into Stomach, Percutaneous Approach (ICD-10-PCS; principal; 2017-02-15)
DX: A41.9 Sepsis, unspecified organism (principal); I21.A1 Myocardial infarction type 2; G93.41 Metabolic encephalopathy; N17.0 Acute kidney failure with tubular necrosis; R65.21 Severe sepsis with septic shock; J96.00 Acute respiratory failure, unspecified whether with hypoxia or hypercapnia; E43 Unspecified severe protein-calorie malnutrition; N39.0 Urinary tract infection, site not specified; E87.0 Hyperosmolality and hypernatremia; J44.0 Chronic obstructive pulmonary disease with (acute) lower respiratory infection; E87.5 Hyperkalemia; E11.8 Type 2 diabetes mellitus with unspecified complications; E78.5 Hyperlipidemia, unspecified; F03.90 Unspecified dementia, unspecified severity, without behavioral disturbance, psychotic disturbance, mood disturbance, and anxiety; F32.9 Major depressive disorder, single episode, unspecified; D64.9 Anemia, unspecified; B96.5 Pseudomonas (aeruginosa) (mallei) (pseudomallei) as the cause of diseases classified elsewhere; I50.9 Heart failure, unspecified; I11.0 Hypertensive heart disease with heart failure; J44.9 Chronic obstructive pulmonary disease, unspecified; Z96.659 Presence of unspecified artificial knee joint; Z96.619 Presence of unspecified artificial shoulder joint; E86.9 Volume depletion, unspecified; R13.19 Other dysphagia; E86.0 Dehydration; E83.39 Other disorders of phosphorus metabolism; I16.0 Hypertensive urgency; E83.42 Hypomagnesemia; Z68.21 Body mass index [BMI] 21.0-21.9, adult; Z79.82 Long term (current) use of aspirin; Z79.899 Other long term (current) drug therapy; I25.2 Old myocardial infarction; Z86.73 Personal history of transient ischemic attack (TIA), and cerebral infarction without residual deficits; Z90.49 Acquired absence of other specified parts of digestive tract; Z98.51 Tubal ligation status
CPT/HCPCS: 36415; 70450; 70551; 71010; 74000; 74230; 76770; 78580; 80048; 80053; 80061; 81001; 82140; 82550; 82553; 82803; 82962; 83735; 83880; 84100; 84132; 84295; 84484; 85007; 85025; 85027; 85379; 85610; 85730; 86140; 87040; 87076; 87086; 87186; 93005; 93010; 93970; 94760; 96365; 96366; 96367; 96368; 96375; A9540; G8996-GN; G8997-GN; G8998-GN; J0360; J0690; J0696; J1205; J1250; J1650; J1720; J1956; J2250; J2543; J2704; J3010; J3370; J3411; J3475; J3480; J7030; J7040; J7050; J7070

== ENCOUNTER 2017-02-27 10:06 | Emergency (ER) | payer MEDICARE ==
--- NOTE | 2017-02-27 10:15 | Emergency Department Report ---
ED CPR HPI - General Chief Complaint: Cardiac Arrest/CPR Stated Complaint: CARDIAC ARREST Time Seen by Provider: 02/27/17 10:14 Source: EMS (ems notes not available at time of chart dictation. Verbal report received from EMS.), RN notes reviewed - History of Present Illness Initial Comments: This is a 71-year-old female, who is brought to the hospital by EMS as an out of hospital cardiac arrest. EMS reports patient has been pulseless for half hour at least. They report initial rhythm was asystole/pulseless electrical activity. Patient was intubated, received epinephrine 3. EMS then reports that the patient developed a shockable rhythm, on the V. tach or V. fib, they are not sure, so the shock the patient times one, and gave 300 of amiodarone. Thereafter, the patient returned to asystole. Upon arrival to the ER, the patient was asystolic. Her pupils were fixed and dilated. They do not react to light. High quality CPR was continued. Bedside ultrasound demonstrated no cardiac activity. Patient was pronounced secondary to medical futility. EMS also inserted a lower extremity intraosseous IV. Family was informed of patient's demise. MD Complaint: collapsed during rest -: minute(s) Place: home Initial Findings in the Field: unresponsive, no pulse, VTACH/VFIB, PEA Treatments Prior to Arrival: intubation, chest compressions, epinephrine mgs #, spinal immobilization - Related Data Previous Rx's Medication Instructions Recorded Last Taken Type Apixaban [Eliquis] 5 tab PO BID #60 tablet 02/11/17 Unknown Rx Aspirin EC [Aspirin Enteric Coated 81 mg PO QDAY #30 tablet. 02/11/17 Unknown Rx TAB] Haloperidol [Haldol] 2 mg PO BID #60 tablet 02/11/17 Unknown Rx LORazepam [Ativan] 0.5 mg PO Q6H PRN #20 tablet 02/11/17 Unknown Rx Mirtazapine [Remeron] 15 mg PO QHS #30 tablet 02/11/17 Unknown Rx Multivit-Min/Iron Fum/Folic AC 1 each PO DAILY #30 tablet 02/11/17 Unknown Rx [Dqhnb-Hqrbyzx-Buumrvsn Tablet] Pantoprazole [Protonix TAB] 40 mg PO DAILY #30 tablet 02/11/17 Unknown Rx Simvastatin [Zocor TAB] 40 mg PO QHS #30 tablet 02/11/17 Unknown Rx Allergies Allergy/AdvReac Type Severity Reaction Status Date / Time No Known Allergies Allergy Verified 09/26/14 15:05 ED Review of Systems ROS: Stated complaint: CARDIAC ARREST Other details as noted in HPI Comment: Unobtainable due to pts medical conditions ED Past Medical Hx - Past Medical History Hx Hypertension: Yes (EJ 60% on Echo (07/03)) Hx CVA: Yes (3 strokes, left side weakness, doesn't use a cane or walker) Hx Heart Attack/AMI: Yes Hx Congestive Heart Failure: Yes Hx Diabetes: Yes Hx Asthma: No Hx COPD: Yes Hx HIV: No - Surgical History Hx Cholecystectomy: Yes Additional Surgical History: tubal ligation, shoulder, knee replacement - Social History Smoking Status: Unknown if ever smoked - Medications Home Medications: Home Medications Medication Instructions Recorded Confirmed Last Taken Type Apixaban [Eliquis] 5 tab PO BID #60 tablet 02/11/17 Unknown Rx Aspirin EC [Aspirin Enteric Coated 81 mg PO QDAY #30 tablet. 02/11/17 Unknown Rx TAB] Haloperidol [Haldol] 2 mg PO BID #60 tablet 02/11/17 Unknown Rx LORazepam [Ativan] 0.5 mg PO Q6H PRN #20 tablet 02/11/17 Unknown Rx Mirtazapine [Remeron] 15 mg PO QHS #30 tablet 02/11/17 Unknown Rx Multivit-Min/Iron Fum/Folic AC 1 each PO DAILY #30 tablet 02/11/17 Unknown Rx [Viysu-Zxlouvw-Svqehpkm Tablet] Pantoprazole [Protonix TAB] 40 mg PO DAILY #30 tablet 02/11/17 Unknown Rx Simvastatin [Zocor TAB] 40 mg PO QHS #30 tablet 02/11/17 Unknown Rx ED Physical Exam - General Limitations: Other (intubated, nonverbal) General appearance: other (intubated) - Head Head exam: Present: atraumatic, normocephalic, other (pupils are fixed and dilated) - Eye Eye exam: Present: other (pupils are fixed and dilated) - ENT ENT exam: Present: other (endotracheal tube is noted in the oropharynx) - Neck Neck exam: Present: normal inspection, other (cervical collar is noted) - Respiratory Respiratory exam: Present: other (no breath sounds are appreciated). Absent: normal lung sounds bilaterally - Cardiovascular Cardiovascular Exam: Present: other (the patient is pulseless) - GI/Abdominal GI/Abdominal exam: Present: soft, other (feeding tube is noted in the abdomen) - Extremities Exam Extremities exam: Present: normal inspection, other (lower extremity intraosseous IV is noted) - Back Exam Back exam: Present: normal inspection - Neurological Exam Neurological exam: Present: other (intubated, nonverbal) - Psychiatric Psychiatric exam: Present: other (patient is nonverbal) - Skin Skin exam: Present: dry ED Medical Decision Making - Medical Decision Making Differential diagnosis, including but not limited to: Intracranial hemorrhage, acute coronary syndrome, pulmonary embolus, sepsis Critical care attestation.: If time is entered above; I have spent that time in minutes in the direct care of this critically ill patient, excluding procedure time. ED Disposition Clinical Impression: Cardiac arrest Disposition: DC-20 Is pt being admited?: No Does the pt Need Aspirin: No Condition: Undetermined
== END 2017-02-27 15:10 ==
LOC: ED 10:06
DX: I46.9 Cardiac arrest, cause unspecified (principal); I10 Essential (primary) hypertension; I25.2 Old myocardial infarction; E11.9 Type 2 diabetes mellitus without complications; J44.9 Chronic obstructive pulmonary disease, unspecified; Z86.73 Personal history of transient ischemic attack (TIA), and cerebral infarction without residual deficits
CPT/HCPCS: 82962; 92950